=== PATIENT | male | born 1945 | race Caucasian/White ===

== ENCOUNTER → 2021-08-25 09:03 | Outpatient (REF) | payer BC, SELFPAY ==
--- NOTE | 2021-08-25 09:06 | CA_ITS ---
Transthoracic Echocardiogram Patient (Last, First, Middle): Donal Park, Gender: Male Date of : 1945 Age: 76 Procedure Date: 08/25/2021 Procedure Type: Transthoracic Echocardiogram Location: OP Height: 172.72 cm Weight: 85.28 kg BSA: 1.99 m2 Heart Rate: bpm BP: 130 / 90 mmHg Machine Long Goods Helper: LELIA Ortiz MD: Amrit Valladares [facility] Symptoms: Z95.1 - Presence of aortocoronary bypass graft Study Quality: Fair/Contrast Conclusions: - The left ventricular systolic function is severely decreased. The calculated ejection fraction is 27% by biplane method. - There is evidence of regional wall motion abnormalities. - There is mildly decreased right ventricular systolic function. - There is mild calcification of the aortic valve. Findings Procedure Information Contrast agent, definity, is being given per protocol without apparent complications. Left Ventricle Mildly increased left ventricular cavity size. The left ventricular systolic function is severely decreased. The calculated ejection fraction is 27% by biplane method. There is evidence of regional wall motion abnormalities. E/E prime ratio is between 8 and 15 consistent with indeterminate filling pressures. Evidence suggests grade I (mild) diastolic dysfunction. Wall Motion Rest Echo Findings The inferior wall, anterolateral wall, the apical anterior, basal anterior, apical lateral, apical septum, basal inferoseptal, basal anteroseptal, and mid inferolateral segments are hypokinetic. The apex, mid anterior, mid inferoseptal, mid anteroseptal, and basal inferolateral segments are akinetic. Right Ventricle Normal right ventricular cavity size. There is mildly decreased right ventricular systolic function. TAPSE 1.5cm. Atria Both atria are normal in size. Aortic Valve There is mild calcification of the aortic valve. There is no aortic valve stenosis. The mean gradient is 5 mmHg. The aortic valve area is 2.10 cm2. There is no aortic valve regurgitation. Mitral Valve The mitral valve appears normal. There is trace mitral valve regurgitation. There is no mitral valve stenosis. Pulmonic Valve The pulmonic valve was not well visualized. Tricuspid Valve Normal tricuspid valve structure. There is trace tricuspid valve regurgitation. The pulmonary artery systolic pressure is normal. Great Vessels The aortic arch is normal in size. Small plaque is seen in the sino tubular ridge. Venous The inferior vena cava is normal in size and collapses greater than 50% with inspiration. Pericardium/Pleural There is no evidence of pericardial effusion. Prior Study Comparison No significant change compared to prior study dated: 09/28/2006. Measurements 2D Linear Measurements IVSd: 0.84 0.6-0.9/0.6-1.0 cm LVIDd: 5.92 3.9-5.3/4.2-5.9 cm LVIDd Index: 2.97 2.4-3.2/2.2-3.1 cm/m2 LVIDs: 4.71 2.0-3.6 cm LVPWd: 0.81 0.7-1.1 cm Ao Root: 2.80 2.1-3.5 cm LA Diam: 3.80 2.7-3.8/3.0-4.0 cm LAIDs Index: 1.91 1.5-2.3 cm/m2 LV Mass: 236.27 67-162/88-224 g LV Mass Index: 118.73 43-95/49-115 g/m2 LVOT Diam: 2.30 3.0+(-)1.3 cm 2D Systolic Function EF 4C: 27.90 >55% EF 2C: 21.30 >55% EF BiP: 26.50 >55% Mitral Valve MV Pk E: 0.61 MV PK A: 0.62 MV Decel Time: 238.00 E/A: 1.00 E'Lateral: 6.64 E'Medial: 5.44 E/E' Med: 11.30 E/E' Lat: 9.20 PHT: 70.00 MVA PHT: 3.14 Decel [place]: 2.58 Aortic Valve AoV Pk Jacob: 1.59 AoV Mn Jacob: 1.04 AoV VTI: 0.29 AoV Pk Grad: 10.00 Aov Mn Grad: 5.00 FAREED Cont.VTI: 2.10 LVOT LVOT Pk Jacob: 0.80 LVOT Mn Jacob: 0.53 LVOT VTI: 0.15 LVOT Pk Grad: 3.00 LVOT Mn Grad: 1.00 LVOT Diam: 2.30 LVOT Area: 4.15 Diastolic Function MV Pk E: 0.61 MV Pk A: 0.62 E/A: 1.00 E'Medial: 5.44 E/E' Med: 11.30 E' Laterial: 6.64 E/E' Lat: 9.20 Right Ventricle TAPSE (mm): 1.47 TVS' Jacob: 5.87 Tricuspid Valve TR Pk Jacob: 1.71 TR Pk Grad: 12.00 RA Press: 3.00 RVSP: 15.00 Great Vessels Aorta Ao Root-2D: 2.80 2.0-3.7 cm Ao Asc: 3.20 2.1-3.4 cm Ao Arch: 2.60 Updated in Other Vendor System with Status of Final Eric Ovalles MD electronically signed on 08/26/2021 2:40:11 PM with status of Final
== END ==
LOC: HO.CARD 09:03
PROVIDERS: PCP Nurse Practitioner Family; Visit Provider Nurse Practitioner Family
DX: Z95.1 Presence of aortocoronary bypass graft (principal)
CPT/HCPCS: 93306; Q9957

== ENCOUNTER 2023-06-12 08:33 | Outpatient (AMB) | payer MEDICARE, SELFPAY ==
--- NOTE | 2023-06-12 08:38 | A.OFFPC_ITS ---
Vital Signs 06/12/23 08:39 Height 5 ft 8 in Weight 179 lb 4 oz BMI 27.3 BP 130/78 Blood Pressure Location Lt brachial Position Sitting Pulse 62 Pulse Source Pulse Oximeter Pulse Oximetry (%) 98 Oxygen Delivery Method Room Air Intake Visit Reasons: Medications Allergies No Known Allergies Allergy (Verified 06/12/23 08:57) Medication List - Last Reconciled 06/12/23 by PAU Woody aspirin (Adult Aspirin Regimen) 81 mg PO DAILY atorvastatin 80 mg PO DAILY 90 days carvedilol 6.25 mg PO BID cholecalciferol (vitamin D3) 50 mcg PO DAILY 90 days clopidogrel 75 mg PO DAILY esomeprazole magnesium (Nexium) 40 mg PO DAILY lisinopril 5 mg PO DAILY spironolactone 25 mg PO BID 30 days Tobacco use date assessed: 06/12/23 Fall risk assessment: 1 Fall in past year Last assessed Fall Risk: 06/12/23 Dental Screening Dental Screen Date: 06/12/23 Did you have a dental visit in the last 12 months?: No Did you have a dental problem in the last 6 months where you did not have access to dental care?: No Was dental information given to patient?: No HPI Medications HPI Details HTN: Blood pressure is managed with carvedilol 6.25mg bid, lisinopril 5mg, and spironolactone 25mg bid. Denies chest pain, shortness of breath, headache, dizziness, and blurred vision. Pt has a hx of cardiomyopathy and CABG. 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 Refused colon screens in the past, is willing to do a cologuard. PFSH Surgical History Hx of CABG Social History Housing: House Patient Tobacco Use Status: Current everyday Tobacco user Tobacco use type: Cigar Cigarettes Per Day: 1 e-Cigarette/Vaping Use: Never Used Second Hand Smoke Exposure: Yes service: Yes Current occupational status: employed Current occupation: [employer] Current occupational exposures/hazards: Yes Cognitive needs: No Hearing needs: No Vision needs: No Questionnaire Thrive Questionnaire Date Thrive assessed: 12/26/21 Review of Systems Const Reports as per HPI Physical exam (Primary Care) Vital Signs: Last Vital Signs Pulse 62 06/12/23 08:39 BP 130/78 06/12/23 08:39 Pulse Ox 98 06/12/23 08:39 Oxygen Delivery Method Room Air 06/12/23 08:39 BMI result Body Mass Index 27.3 Tobacco/Smoking Status: Tobacco use Status Tobacco use date assessed 06/12/23 06/12/23 08:49 Patient Tobacco Use Status Current everyday Tobacco 06/12/23 08:39 Tobacco use type Cigar 06/12/23 08:39 e-Cigarette/Vaping Use Never Used 06/12/23 08:49 Thrive Assessment: Date of Thrive Assessment Date Thrive assessed 12/26/21 06/12/23 08:39 Const General: cooperative Orientation/consciousness: patient oriented x3 Resp Other: lungs fairly clear Effort & Inspection: normal respiratory effort Cardio Rate: regular rate Rhythm: regular rhythm Heart sounds: S1 normal heart sound present, S2 normal heart sound present and Murmur heart sound present systolic Other: refused STACY Male General Exam: Yes normal external exam Penis: normal penis Scrotum: scrotum normal and testes descended bilaterally Testes: Testes normal Neuro General: patient oriented x3 Psych Appearance: grossly normal Mental Status: mental status grossly normal Speech and movement: Normal speech and movement present Affect: normal affect Attitude: cooperative Thought process: Normal thought process present Thought content: Normal thought content present Insight: Good insight present (Psych) Judgement: Good judgement present (Psych) Assessment and Plan Assessment & Plan (1) Cardiomyopathy: Code(s): I42.9 - Cardiomyopathy, unspecified Plan: Referred to cardiology (2) Hx of CABG: Code(s): Z95.1 - Presence of aortocoronary bypass graft Plan: Referred to cardiology (3) HTN (hypertension): Code(s): I10 - Essential (primary) hypertension Plan: Labs ordered Plan The patient agreed to the use of a medical technologist prn for this encounter. Scribed PAU Echevarria by mehdi Bender scribe, on 06/12/2023 at 09:00 EST. Orders: Orders Comprehensive [place]. Panel Fast Today I10 - Essential (primary) hypertension, Z95.1 - Presence of aortocoronary bypass graft Lipid Panel Today I10 - Essential (primary) hypertension, Z95.1 - Presence of aortocoronary bypass graft TSH reflex Free T4 Today I10 - Essential (primary) hypertension, Z95.1 - Presence of aortocoronary bypass graft Complete Blood Count Auto Diff Today I10 - Essential (primary) hypertension, Z95.1 - Presence of aortocoronary bypass graft UA CC w/rflx Micro + Cult Today I10 - Essential (primary) hypertension, Z95.1 - Presence of aortocoronary bypass graft Prostate Specific Antigen Scr Today Z12.5 - Encounter for screening for malignant neoplasm of prostate AMB EKG-In Office Today I10 - Essential (primary) hypertension, I42.9 - Cardiomyopathy, unspecified, Z95.1 - Presence of aortocoronary bypass graft Referrals Cardiology Referral I42.9 - Cardiomyopathy, unspecified, Z95.1 - Presence of aortocoronary bypass graft Cologuard Test Z12.11 - Encounter for screening for malignant neoplasm of colon, Z12.12 - Encounter for screening for malignant neoplasm of rectum Medications: Changed From aspirin (Adult Aspirin Regimen) 81 mg PO DAILY To aspirin (Adult Aspirin Regimen) 81 mg PO DAILY 90 days 90 tabs 0RF Refilled carvedilol 6.25 mg PO BID 180 tabs 0RF cholecalciferol (vitamin D3) 50 mcg PO DAILY 90 days 90 tabs 2RF clopidogrel 75 mg PO DAILY 90 tabs 0RF lisinopril 5 mg PO DAILY 90 tabs 0RF spironolactone 25 mg PO BID 30 days 60 tabs 2RF Coding Level of Care Code Est Pt Level 3 (40252) Diagnoses Cardiomyopathy I42.9 Hx of CABG Z95.1 HTN (hypertension) I10
[2023-06-12 08:39] VITALS: BP 130/78; PULSE 62; O2SAT 98; BMI 27.3
== END 2023-06-12 09:45 | disposition home or self-care (01) ==
PROVIDERS: PCP Nurse Practitioner Family; Visit Provider Nurse Practitioner Family
DX: I42.9 Cardiomyopathy, unspecified (principal); Z95.1 Presence of aortocoronary bypass graft; I10 Essential (primary) hypertension
CPT/HCPCS: 99213

== ENCOUNTER 2023-12-10 13:25 | Outpatient (AMB) | payer MEDICARE, SELFPAY ==
[2023-12-10 13:37] VITALS: BP 120/68; PULSE 60; BMI 29.1
--- NOTE | 2023-12-10 13:37 | MHC.OFFVIS ---
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 He was last here in 2019. Per consultation, he underwent coronary artery bypass surgery around 2005. No clear cardiology follow-up overall. Even at that time, his ejection fraction was around 20%. A follow-up echocardiogram in 2020 also shows similar LVEF. Patient himself states that he is feeling fine. He does not really have any cardiac symptoms like angina or shortness of breath or in fact anything else. He states he is fairly active around his house. [facility] Surgical History Hx of CABG Family History (Updated 12/10/23 @ 14:43 by Eric Ovalles MD) Father Myocardial infarction Mother Cancer Social History Housing: House Patient Tobacco Use Status: Current everyday Tobacco user Tobacco use type: Cigar Cigarettes Per Day: 1 e-Cigarette/Vaping Use: Never Used Second Hand Smoke Exposure: Yes service: Yes Current occupational status: employed Current occupation: [employer] Current occupational exposures/hazards: Yes Cognitive needs: No Hearing needs: No Vision needs: No Review of Systems Const Denies chills, Denies fatigue, Denies fever(s), Denies frequent falls, Denies weakness, Denies weight gain and Denies weight loss ENT Denies dizziness Card Denies chest pain, Denies leg edema, Denies lightheadedness, Denies palpitations, Denies dyspnea, Denies dyspnea on exertion and Denies orthopnea Resp Denies cough, Denies dyspnea and Denies dyspnea on exertion GI Denies bloating and Denies change in bowel habits Musc Denies muscle weakness, Denies numbness and Denies tingling Neuro Denies dizziness, Denies frequent falls, Denies numbness, Denies tingling and Denies weakness Endo Denies fatigue and Denies palpitations Physical Exam Vital Signs: Last Vital Signs Pulse 60 12/10/23 13:37 BP 120/68 12/10/23 13:37 BMI result Body Mass Index 29.1 Const General: comfortable and no acute distress Orientation/consciousness: patient oriented x3 HEENT Other: Unremarkable Head: Yes normal to inspection Neck Neck: Yes normal visual inspection Chest Chest palpation & inspection: normal inspection of the chest Resp Auscultation: clear to auscultation bilaterally Cardio Palpation: normal PMI Heart sounds: S1 normal heart sound present, S2 normal heart sound present, no gallops, no murmurs and no rubs GI Palpation (GI): Soft to palpation Back/Spine/Pelvis Other: unremarkable Skin General skin exam: no rashes or lesions noted Neuro General: patient oriented x3 Extrem General: Yes normal to inspection Psych Mental Status: mental status grossly normal Office Procedures EKG Details: EKG with sinus rhythm at 64/Min; old anterior infarct can not exclude old inferior infarct. [id number], Complete Assessment & Plan Assessment & Plan (1) Cardiomyopathy: Code(s): I42.9 - Cardiomyopathy, unspecified (2) Hx of CABG: Code(s): Z95.1 - Presence of aortocoronary bypass graft Plan A prior echocardiogram 2005 with LVEF of about 20%. More recent study from 2020 with LVEF of 27% with wall motion abnormalities from CAD. We discussed about pursuing other echocardiogram as well as an ischemic workup with stress test but patient does not want anything done. He states he would like to just stay on his medications and not have anything further. In that case, he can stop the Plavix as there is no absolute indication for the same. Continue other medications. Also discussed about ICD for primary prevention but he again does not wish to pursue. He states he will just follow up with his PCP only for future. Coding Level of Care Code New Pt Level 4 (62555) Diagnoses Cardiomyopathy I42.9 Hx of CABG Z95.1 CPT Codes EKG - CPT: 55055-Kfhlwppjaevomysyf, Complete ([id number])
== END 2023-12-10 13:58 | disposition home or self-care (01) ==
PROVIDERS: PCP Nurse Practitioner Family; Visit Provider Internal Medicine
DX: I42.9 Cardiomyopathy, unspecified (principal); Z95.1 Presence of aortocoronary bypass graft; R94.31 Abnormal electrocardiogram [ECG] [EKG]
CPT/HCPCS: 93010; 99214

== ENCOUNTER → 2023-12-10 13:25 | Outpatient (BNVA) | payer MEDICARE, SELFPAY | PROVIDERS: PCP Nurse Practitioner Family; Visit Provider Internal Medicine | DX: I42.9 Cardiomyopathy, unspecified (principal); Z95.1 Presence of aortocoronary bypass graft | CPT/HCPCS: 93005; 99212 ==

== ENCOUNTER 2024-07-30 15:03 | Outpatient (AMB) | payer MEDICARE, SELFPAY ==
[2024-07-30 15:04] VITALS: BP 124/76; PULSE 90; O2SAT 98; BMI 28.9
--- NOTE | 2024-07-30 15:04 | A.OFFPC_ITS ---
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: Yes Did you have a dental problem in the last 6 months where you did not have access to dental care?: No Was dental information given to patient?: Patient has dentist HPI Annual PE/ meds HPI Details HTN: Blood pressure is stable, managed with carvedilol 6.25mg bid, lisinopril 5mg, and spironolactone 25mg bid. Denies chest pain, shortness of breath, headache, dizziness, and blurred vision. Pt has a hx of elevated PSA. He is no longer seeing urology. Prostate did feel enlarged on exam. Pt has refused urology referral in the past. Will place referral now, highly encouraged pt to go to this appointment. Pt has a hx of CABG. EKG today shows afib. Will start eliquis 5mg bid and have pt stop aspirin. Pt is on a beta yoko. Will also order echo and holter. Pt has refused to see cardiology in the past, encouraged pt to go to this appointment. Pt will have labs done next week. Has refused colon screens in the past, resent cologuard [facility] Surgical History Hx of CABG Family History (Reviewed 07/30/24 @ 15:20 by Amrit Valladares [facility]) Father Myocardial infarction Mother Cancer Social History (Reviewed 07/30/24 @ 15:20 by Amrit Valladares [facility]) Housing: House Patient Tobacco Use Status: Current everyday Tobacco user Tobacco use type: Cigar Cigarettes Per Day: 1 e-Cigarette/Vaping Use: Never Used Second Hand Smoke Exposure: Yes service: Yes Current occupational status: employed Current occupation: [employer] Current occupational exposures/hazards: Yes Cognitive needs: No Hearing needs: No Vision needs: No Questionnaire PHQ-9 Over the last 2 weeks, how often have you been bothered by any of the following problems? 1. Little interest or pleasure in doing things: not at all 2. Feeling down, depressed, or hopeless: not at all 3. Trouble falling or staying asleep, or sleeping too much: not at all 4. Feeling tired or having little energy: not at all 5. Poor appetite or overeating: not at all 6. Feeling bad about yourself - or that you are a failure or have let yourself or your family down: not at all 7. Trouble concentrating on things, such as reading the newspaper or watching television: not at all 8. Moving or speaking so slowly that other people could have noticed. Or the opposite - being so fidgety or restless that you have been moving around a lot more than usual: not at all 9. Thoughts that you would be better off or of hurting yourself in some way: not at all Total score: 0 Depression Screening Interpretation: Negative Depression Screening Done: Yes 97202 - PHQ-9 Billing: Yes Source: Developed by Drs. Mars Cheng, Tory Vazquez, Morgan Sarmiento and colleagues, with an educational christelle from [employer]. Thrive Questionnaire Date Thrive assessed: 07/30/24 I am a: Patient What is your living situation today?: I have a steady place to live Within the past 12 months, did the food you bought not last and you didn't have the money to get more?: I choose not to answer this question Within the past 12 months, did you worry whether your food would run out before you got money to buy more?: I choose not to answer this question Do you have trouble paying for medicines?: I choose not to answer this question Do you have trouble getting transportation to medical appointments?: No Do you have trouble paying your heating and electricity bill?: No Do you have trouble taking care of your child, family member or friend?: No Do you have trouble with day-to-day activities such as bathing, preparing meals, shopping, managing finances, etc.?: No Are you currently unemployed and looking for a job?: No Are you interested in more education?: No Please select the resources that you would like help with: None Currently or been in a relationship where the following occur: No concerns reported THRIVE Score: 0 AUDIT C Alcohol Use Questionnaire (AUDIT-C) 1. How often do you have a drink containing alcohol?: Monthly or less 2. How many drinks containing alcohol do you have on a typical day when you are drinking?: 1 or 2 3. How often do you have six or more drinks on one occasion?: Never Total Score: 1 Score Reviewed/Action Taken: Yes LUIS-7 AMB Questionnaire LUIS-7 Date LUIS - 7 assessed: 07/30/24 Feeling nervous, anxious, or on edge: 0 = Not at all Not being able to stop or control worryin = Not at all Worrying too much about different things: 0 = Not at all Trouble relaxin = Not at all Being so restless that it is hard to sit still: 0 = Not at all Becoming easily annoyed or irritable: 0 = Not at all Feeling afraid as if something awful might happen: 0 = Not at all Total LUIS-7 score (0-4 normal; 5-9 mild; 10-14 moderate; 15-21 severe): 0 Source: Developed by Drs. Mars Cheng, Tory Vazquez, Morgan Sarmiento and colleagues, with an educational christelle from [employer]. LUIS-7 Assessment Billing LUIS-7 Assessment Tool: LUIS-7 Assessment 58738 Review of Systems Const Reports as per HPI Physical exam (Primary Care) Vital Signs: Last Vital Signs Pulse 90 07/30/24 15:04 BP 124/76 07/30/24 15:04 Pulse Ox 98 07/30/24 15:04 Oxygen Delivery Method Room Air 07/30/24 15:04 BMI result Body Mass Index 28.9 Tobacco/Smoking Status: Tobacco use Status Tobacco use date assessed 07/30/24 07/30/24 15:05 Patient Tobacco Use Status Current everyday Tobacco 07/30/24 15:05 Tobacco use type Cigar 07/30/24 15:05 e-Cigarette/Vaping Use Never Used 07/30/24 15:05 PHQ-9: PHQ-9 Score PHQ-9: Total score 0 07/30/24 18:05 Depression Screening Interpretation: Negative Thrive Assessment: Date of Thrive Assessment Date Thrive assessed 07/30/24 07/30/24 15:05 Currently or been in a relationship where the following occur: No concerns reported Const General: cooperative Orientation/consciousness: patient oriented x3 Resp Effort & Inspection: normal respiratory effort Auscultation: clear to auscultation bilaterally Cardio Rate: regular rate Rhythm: abnormal rhythm irregularly irregular Heart sounds: Murmur heart sound present systolic Other: STACY: prostate enlarged Neuro General: patient oriented x3 Extrem Right lower extremity: no edema Left lower extremity: no edema Psych Appearance: grossly normal Mental Status: mental status grossly normal Speech and movement: Normal speech and movement present Affect: normal affect Attitude: cooperative Thought process: Normal thought process present Thought content: Normal thought content present Insight: Good insight present (Psych) Judgement: Good judgement present (Psych) Coding Level of Care Code Est Pt Level 3 (81915) Diagnoses Enlarged prostate N40.0 Afib I48.91 Cardiomyopathy I42.9 Additional Codes LUIS-7 Assessment Billing - LUIS-7 Assessment Tool: LUIS-7 Assessment 27003 ([id number]) Assessment & Plan Assessment & Plan (1) Enlarged prostate: Code(s): N40.0 - Benign prostatic hyperplasia without lower urinary tract symptoms Category: Medical Plan: referral to urology (2) Afib: Code(s): I48.91 - Unspecified atrial fibrillation Category: Medical Plan: echo, holter, stop ASA and start eliquis, sleep med referral for sleep study (3) Cardiomyopathy: Code(s): I42.9 - Cardiomyopathy, unspecified Category: Medical Plan: echo, referral to cardio Plan The patient agreed to the use of a ophthalmic medical technician for this encounter. Scribed for [facility] by mehdi Bender scribe, on 07/30/2024 at 15:15 EST. Orders: Orders ECG 7 day holter monitor Today I48.91 - Unspecified atrial fibrillation CA echo transthoracic complete Today I42.9 - Cardiomyopathy, unspecified, I48.91 - Unspecified atrial fibrillation Referrals Sleep Medicine Referral I48.91 - Unspecified atrial fibrillation Cologuard Test Z12.11 - Encounter for screening for malignant neoplasm of colon, Z12.12 - Encounter for screening for malignant neoplasm of rectum Urology Referral N40.0 - Benign prostatic hyperplasia without lower urinary tract symptoms Medications: New apixaban (Eliquis) 5 mg PO BID 60 tabs 4RF 30 days Discontinued aspirin (Adult Aspirin Regimen) Discontinued Reason: Doctor's Order 81 mg PO DAILY 90 days 90 tabs 0RF
== END 2024-07-30 16:25 | disposition home or self-care (01) ==
PROVIDERS: PCP Nurse Practitioner Family; Visit Provider Nurse Practitioner Family
DX: N40.0 Benign prostatic hyperplasia without lower urinary tract symptoms (principal); I48.91 Unspecified atrial fibrillation; I42.9 Cardiomyopathy, unspecified

== ENCOUNTER → 2024-07-30 15:03 | Outpatient (BNVA) | payer MEDICARE, SELFPAY | PROVIDERS: PCP Nurse Practitioner Family; Visit Provider Nurse Practitioner Family | DX: N40.0 Benign prostatic hyperplasia without lower urinary tract symptoms (principal); I48.91 Unspecified atrial fibrillation; I42.9 Cardiomyopathy, unspecified; Z79.899 Other long term (current) drug therapy | CPT/HCPCS: 96127; 99212 ==

== ENCOUNTER 2024-08-07 10:05 | Outpatient (REF) | payer MEDICARE, SELFPAY ==
[2024-08-07 13:20] LABS: MANUAL DIFF FLAG NO
[2024-08-07 13:26] LABS: Appearance Urine Clear; Color Urine Yellow; Glucose Urine UA Negative (Negative); Leukocyte Esterase Urine Negative (Negative); Nitrite Urine Negative (Negative); Specific Gravity - Urine 1.025 (1.005-1.025); Urine Blood Negative (Negative); Urine Ketones Trace mg/dL (Negative); Urine Protein Negative (Neg-Trace)
[2024-08-07 13:34] LABS: Basophils Percent Auto 0.4 % (0-2); Eosinophils Absolute Auto 0.3 X10*3/uL (0.0-0.4); Eosinophils Percent Auto 2.9 % (0-4); Hematocrit 42.5 % (42.0-52.0); Hemoglobin 14.2 g/dl (14.0-18.0); Imm Gran Abs Auto 0.02 X10*3/uL (0.00-0.03); Imm Gran Pct Auto 0.2 % (0.0-0.4); Lymphocytes Absolute Auto 1.9 X10*3/uL (1.2-4.9); Lymphocytes Percent Auto 20.3 % (20-40); Mean Corpuscular HGB Conc 33.4 g/dl (31.0-36.0); Mean Corpuscular Hemoglobin 30.9 pg (27.0-33.0); Mean Corpuscular Volume 92.4 fL (80.0-98.0); Mean Platelet Volume 10.4 fL (9.4-12.4); Monocytes Absolute Auto 0.8 X10*3/uL (0.1-1.2); Monocytes Percent Auto 8.9 % (2-11); Neutrophils Absolute Auto 6.1 x10*3/uL (2.0-8.3); Neutrophils Percent Auto 67.3 % (45-73); Platelet Count 361 X10*3/uL (160-400); Red Cell Distribution Width 12.5 % (11.0-16.0); White Blood Count 9.1 X10*3/uL (4.8-10.8)
[2024-08-07 13:57] LABS: Prostate Specific Antigen Scr 8.31 ng/mL (<0.05-4.0)
[2024-08-07 14:19] LABS: Alanine Aminotransferase 27 U/L (0-40); Albumin Level 4.4 g/dL (3.5-5.0); Alkaline Phosphatase 81 U/L (39-117); Aspartate Amino Transferase 34 U/L (5-37); Bilirubin Total 1.3 mg/dL (0.0-1.0); Blood Urea Nitrogen 21 mg/dL (9-16); Cholesterol 144 mg/dL (<200); Estimated Glomerular Filt Rate > 60; Glucose Fasting 123 mg/dL (60-99); HDL Cholesterol 36 mg/dL (>40); LDL Cholesterol Calculated 91 mg/dL (<100); TSH reflex Free T4 2.07 uIU/mL (0.32-4.0); Total Protein 7.4 g/dL (6.5-8.0); Triglycerides 89 mg/dL (<150)
[2024-08-07 14:36] LABS: Anion Gap 12 (12-20); Carbon Dioxide 26 mmol/L (22-29); Chloride 103 mmol/L (96-108); Potassium 4.7 mmol/L (3.3-5.1); Sodium 136 mmol/L (135-145)
== END 2024-08-07 10:06 | disposition home or self-care (01) ==
LOC: HO.HMGCLDS 10:05
PROVIDERS: PCP Nurse Practitioner Family; Visit Provider Nurse Practitioner Family
DX: I42.9 Cardiomyopathy, unspecified (principal); I10 Essential (primary) hypertension; Z12.5 Encounter for screening for malignant neoplasm of prostate
CPT/HCPCS: 36415; 80053; 80061; 81003; 84153; 84443; 85025

== ENCOUNTER 2024-12-09 09:41 | Outpatient (REF) | payer MEDICARE, SELFPAY ==
--- OUTSIDE RECORDS SUMMARY | 2024-12-09 12:50 | XMS_ITS | Clinical Summary ---
Author Organization [facility] Address [address] [place] [address] Care Team Providers Care Verification Manager Name Role Phone Amrit Valladares Primary Care Provider [phone] Allergies No known active allergies Medications Medication [...] age to complete this topic Care Teams Verification Manager Relationship Specialty Start Date End Date Amrit Valladares [address] [facility] [place] [address] PCP - General Family Medicine 01/31/18
--- OUTSIDE RECORDS SUMMARY | 2024-12-09 12:50 | XMS_ITS | Clinical Summary ---
Author Organization [facility] ity Address [address] [place] [address] Care Team Providers Care Quality Systems Manager Name Role Phone Amrit Valladares NP Primary Care Provider Social History [...] age to complete this topic Care Teams Quality Systems Manager Relationship Specialty Start Date End Date Amrit Valladares NP [address] [facility] [place] PCP - General Family Medicine 01/31/18
[2024-12-09 13:54] LABS: Basophils Percent Auto 0.2 % (0-2); Hematocrit 40.8 % (42.0-52.0); Hemoglobin 13.7 g/dl (14.0-18.0); Imm Gran Abs Auto 0.09 X10*3/uL (0.00-0.03); Imm Gran Pct Auto 0.6 % (0.0-0.4); Lymphocytes Absolute Auto 0.9 X10*3/uL (1.2-4.9); Lymphocytes Percent Auto 5.9 % (20-40); MANUAL DIFF FLAG SCAN; Mean Corpuscular HGB Conc 33.6 g/dl (31.0-36.0); Mean Corpuscular Hemoglobin 30.6 pg (27.0-33.0); Mean Corpuscular Volume 91.1 fL (80.0-98.0); Mean Platelet Volume 11.4 fL (9.4-12.4); Monocytes Absolute Auto 1.6 X10*3/uL (0.1-1.2); Monocytes Percent Auto 10.7 % (2-11); Neutrophils Absolute Auto 12.2 x10*3/uL (2.0-8.3); Neutrophils Percent Auto 82.6 % (45-73); Platelet Count 287 X10*3/uL (160-400); Red Blood Count 4.48 X10*6/uL (4.60-5.80); Red Cell Distribution Width 13.8 % (11.0-16.0); SCAN SMEAR FLAG 1; White Blood Count 14.8 X10*3/uL (4.8-10.8)
[2024-12-09 14:20] LABS: SLIDE REVIEW VERIFIED
[2024-12-09 14:34] LABS: Alanine Aminotransferase 78 U/L (0-40); Albumin Level 4.1 g/dL (3.5-5.0); Alkaline Phosphatase 94 U/L (39-117); Amylase 44 U/L (28-100); Anion Gap 14 (12-20); Aspartate Amino Transferase 120 U/L (5-37); Bilirubin Direct 0.7 mg/dL (0.0-0.5); Bilirubin Total 1.8 mg/dL (0.0-1.0); Blood Urea Nitrogen 26 mg/dL (9-16); Calcium 9.7 mg/dL (8.4-10.2); Carbon Dioxide 20 mmol/L (22-29); Chloride 105 mmol/L (96-108); Estimated Glomerular Filt Rate > 60; Glucose Random 116 mg/dL (60-115); Lipase 22 U/L (8-78); Potassium 4.1 mmol/L (3.3-5.1); Sodium 135 mmol/L (135-145); Total Protein 7.4 g/dL (6.5-8.0)
== END 2024-12-09 09:42 | disposition home or self-care (01) ==
LOC: HO.HMGCLDS 09:41
PROVIDERS: PCP Nurse Practitioner Family; Visit Provider Physician Assistant
DX: R11.2 Nausea with vomiting, unspecified (principal); R10.9 Unspecified abdominal pain; R17 Unspecified jaundice; F17.210 Nicotine dependence, cigarettes, uncomplicated; R25.2 Cramp and spasm
CPT/HCPCS: 36415; 80053; 82150; 82248; 83690; 85025; 99212

== ENCOUNTER 2024-12-09 09:41 | Outpatient (AMB) | payer MEDICARE, SELFPAY ==
--- NOTE | 2024-12-09 09:49 | AM.OFFWIN_ITS ---
Intake Vital Signs 12/09/24 09:51 Height 5 ft 8 in Weight 194 lb BMI 29.5 BP 124/82 Blood Pressure Location Rt brachial Position Sitting Pulse 74 Pulse Source Pulse Oximeter Temp 97.6 F Temp Source Oral Pulse Oximetry (%) 98 Oxygen Delivery Method Room Air Intake Visit Reasons: EP Nausea, leg cramps Intake Note: Patient here for lower back pain, nausea and leg cramping that has been present for about 1 week now. Patient Tobacco Use Status: Current everyday Tobacco user Allergies No Known Allergies Allergy (Verified 12/09/24 09:52) Do you need a note to return to daycare/school/sports/work: No HPI HPI Comments History of Present Illness Details Generating History of Present Illness -The patient is a 79-year-[facility] with jaundice, nausea, and loss of appetite. - Symptoms began a few days prior, invol ving persistent nausea, particularly at night, affecting sleep. - Notably, there is no reported abdomina l pain, vomiting, diarrhea, or fever accompanying the nausea. - The patient reports a reduced appetite and difficulty maintaining regular eating habits, noting a weight loss of 6 pounds. - Night sweats have been experienced rec ently - Leg cramps are present - He maintains hydration through water i ntake, though electrolytes have not been supplemented. - The patient denies any previous episod es of appendicitis or other abdominal surgeries. - Has had elevated PSA and refused Urolo gy referrals as well as refused colonoscopies and Cologuard Physical ExamGeneral: Cooperative, healthy appearing, comfortable, no acute distress and well developed Orientation: Patient oriented x3 Limitations: No limitations Head: Normal to inspection Ears: Hearing grossly normal bilaterally Nose: Normal external nose present Face and sinus: Normal facial exam, jaundiced Eyes: scleral icterus,normal position and alignment Neck: Normal visual inspection and Yes full ROM Respiratory: Normal respiratory effort and able to speak in complete sentences. Clear to auscultation bilaterally Cardiovascular: Regular rate and rhythm. Normal S1 and S2 GI: soft, slight TTP RLQ Skin: No rashes or lesions noted, jaundiced Neuro: Patient oriented x3 Extremities: Normal to inspection PFSH Surgical History Hx of CABG Family History Father Myocardial infarction Mother Cancer Social History Housing: House Patient Tobacco Use Status: Current everyday Tobacco user Tobacco use type: Cigar Cigarettes Per Day: 1 e-Cigarette/Vaping Use: Never Used Second Hand Smoke Exposure: Yes service: Yes Current occupational status: employed Current occupation: [employer] Current occupational exposures/hazards: Yes Cognitive needs: No Hearing needs: No Vision needs: No Review of Systems Const All systems reviewed & are unremarkable except as noted in HPI and below Physical Exam Vital Signs: Last Vital Signs Temp 97.6 F 12/09/24 09:51 Pulse 74 12/09/24 09:51 BP 124/82 12/09/24 09:51 Pulse Ox 98 12/09/24 09:51 Oxygen Delivery Method Room Air 12/09/24 09:51 BMI result Body Mass Index 29.5 Assessment & Plan Assessment & Plan (1) Nausea & vomiting: Code(s): R11.2 - Nausea with vomiting, unspecified Qualifiers: Vomiting type: unspecified Qualified Code(s): R11.2 - Nausea with vomiting, unspecified Plan: Vital signs stable. The patient presents with persistent nausea & vomiting, and leg cramps, loss of appetite, weight loss, night sweats and is jaundiced on exam, requiring further evaluation to rule out underlying liver dysfunctions and potential pancreatic disorders. Laboratory assessment including CBC, CMP, liver and pancreatic function will be performed. Additionally, I have coordinated with his PCP to order a CT scan to evaluate for any obstructions or other structural abnormalities. The patient will utilize anti-nausea medication, specifically Z ofran, to mitigate symptoms and improve oral intake. Continuous hydration is emphasized, and caution against the consumption of high-fat foods is advised. Emergency care is recommended if significant worsening occurs, particularly concerning abdominal pain escalation. Patient was informed and verbally consented to the use of an ambient scribe for clinic note documentation during this visit Orders: Orders Complete Blood Count Auto Diff Today R10.9 - Unspecified abdominal pain, R11.2 - Nausea with vomiting, unspecified, R17 - Unspecified jaundice Lipase Today R10.9 - Unspecified abdominal pain, R11.2 - Nausea with vomiting, unspecified, R17 - Unspecified jaundice Amylase Today R10.9 - Unspecified abdominal pain, R11.2 - Nausea with vomiting, unspecified, R17 - Unspecified jaundice Liver Panel Today R10.9 - Unspecified abdominal pain, R11.2 - Nausea with vomiting, unspecified, R17 - Unspecified jaundice Comprehensive Met. Panel Today R10.9 - Unspecified abdominal pain, R11.2 - Nausea with vomiting, unspecified, R17 - Unspecified jaundice Medications: New ondansetron 4 mg PO Q8H PRN 20 tabs 0RF nausea and vomiting Coding Level of Care Code Est Pt Level 4 (54891) Diagnoses Nausea and vomiting, unspecified vomiting type R11.2 Vomiting type: unspecified
[2024-12-09 09:51] VITALS: BP 124/82; PULSE 74; TEMP 36.4; O2SAT 98; BMI 29.5
--- OUTSIDE RECORDS SUMMARY | 2024-12-09 11:12 | XMS_ITS | Clinical Summary ---
Author Organization [facility] ity Address [address] [place] [address] Care Team Providers Care Jewel Inserter Name Role Phone Armit Valladares NP Primary Care Provider Social History Tobacco Use Types Packs/Day Years Used Date Smoking Tobacco: Never Assessed Sex and Gender Information Value Date Recorded Sex Assigned at Not on file Legal Sex Male 11:30 AM EST Gender Identity Not on file Sexual Orientation Not on file Plan of Treatment Health Maintenance Due Date Last Done Comments Pneumococcal Vaccine: 50+ Ye ars (1 of 1 - PCV) 1996 Zoster Vaccines (1 of 2) 1996 RSV Immunization Patients 60 + Years Old (1 - 1-dose 75+ series) 2021 COVID-19 Vaccine ( - 2023-2 5 season) 2024 Influenza Vaccine (#1) 2024 DTaP,Tdap,and Td Vaccines (2 - Td or Tdap) 02/01/2028 01/31/2018 HIB Vaccines Aged Out No longer eligi ble based on patient's age to complete this topic HPV Vaccines Aged Out No longer eligi ble based on patient's age to complete this topic Hepatitis A Vaccines Aged Out No long er eligible based on patient's age to complete this topic Hepatitis B Vaccines Aged Out No long er eligible based on patient's age to complete this topic IPV Vaccines Aged Out No longer eligi ble based on patient's age to complete this topic MMR Vaccines Aged Out No longer eligi ble based on patient's age to complete this topic Meningococcal ACWY Vaccine Aged Out N o longer eligible based on patient's age to complete this topic Meningococcal B Vacine Aged Out No lo nger eligible based on patient's age to complete this topic RSV Immunization Patients Un pantera 20 months Aged Out No longer eligible b ased on patient's age to complete this topic Varicella Vaccines Aged Out No longer eligible based on patient's age to complete this topic Care Teams Jewel Inserter Relationship Specialty Start Date End Date Amrit Valladares NP [address] [facility] [place] PCP - General Family Medicine 01/31/18
--- OUTSIDE RECORDS SUMMARY | 2024-12-09 11:12 | XMS_ITS | Clinical Summary ---
Author Organization [facility] Address [address] [place] [address] Care Team Providers Care Catering Staff Member Name Role Phone Amrit Valladares Primary Care Provider [phone] Allergies No known active allergies Medications Medication Sig Dispensed Refills Start Date End Date Status Clopidogrel Bisulfate (PLAVIX PO) Take by mouth. 0 Active LISINOPRIL PO Take by mouth. 0 Active SPIRONOLACTONE PO Take by mouth. 0 Act jose aspirin EC 81 MG tablet Take 81 mg by mouth daily. 0 Active ATORVASTATIN CALCIUM PO Take by mouth. 0 Active Esomeprazole Magnesium (NEXIUM PO) Take by mouth. 0 Active CARVEDILOL PO Take by mouth. 0 Active Immunizations Name Administration Dates Next Due Td (Tenivac) 01/31/2018 Social History Tobacco Use Types Packs/Day Years Used Date Smoking Tobacco: Every Day Cigars Smokeless Tobacco: Never Comments:2-3/day Alcohol Use Standard Drinks/Week Comments Yes 0 (1 standard drink = 0.6 oz pur e alcohol) Sex and Gender Information Value Date Recorded Sex Assigned at Not on file Gender Identity Not on file Sexual Orientation Not on file Last Filed Vital Signs Vital Sign Reading Time Taken Comments Blood Pressure 146/91 01/31/2018 1:14 AM EDT Pulse 92 01/31/2018 1:14 AM EDT Temperature 36.9 ??C (98.5 ??F) 01/31/2018 1:14 AM ED T Respiratory Rate 16 01/31/2018 1:14 AM EDT Oxygen Saturation 98% 01/31/2018 1:14 AM EDT Inhaled Oxygen Concentration - - Weight 90.7 kg (200 lb) 01/31/2018 1:14 AM EDT Height 175.3 cm (5' 9 ) 01/31/2018 1:14 AM EDT Body Mass Index 29.53 01/31/2018 1:14 AM EDT Plan of Treatment Health Maintenance Due Date Last Done Comments Hepatitis C Screening 1945 COVID-19 Vaccine (#1) 1945 Pneumococcal Vaccine (1 of 2 - PCV) 1952 Depression Screening 1958 Preventative Health Evaluation 1964 Shingrix-Zoster Vaccine (1 of 2) 1996 Fall Risk Assessment 2011 DTap / Tdap / Td (1 - Tdap) 02/01/2018 01/31/2018 RSV Adult > 60+ Yrs or Pregn ant (1 - 1-dose 75+ series) 2021 Influenza Vaccine (#1) 2024 Hepatitis B Vaccines Aged Out No long er eligible based on patient's age to complete this topic RSV Ped < 20 months Aged Out No longe r eligible based on patient's age to complete this topic Care Teams Catering Staff Member Relationship Specialty Start Date End Date Amrit Valladares [address] [facility] [place] [address] PCP - General Family Medicine 01/31/18
== END 2024-12-09 10:28 | disposition home or self-care (01) ==
PROVIDERS: PCP Nurse Practitioner Family; Visit Provider Physician Assistant
DX: R11.2 Nausea with vomiting, unspecified (principal)

== ENCOUNTER 2024-12-12 18:06 | Emergency (ER) | payer MEDICARE, SELFPAY ==
--- NOTE | ~2024-12-12 | XR_ITS ---
CLINICAL HISTORY: strock 1 view chest x-ray Comparison: None Findings: No consolidation or effusion. Heart size is normal. No acute fracture. IMPRESSION: 1. No acute findings. This document has been electronically signed by: Neftaly Gama MD on 12/12/2024 18:39:37
--- NOTE | ~2024-12-12 | CT_ITS ---
CLINICAL HISTORY: Stroke Protocol CT angiography head and neck with contrast. 3D Postprocessing. Comparison: None Findings: There is a focal filling defect in the M1 segment of the right MCA, possible thrombus with diminished flow noted distally. Aortic arch and cervical great vessels are patent. Intracranial arteries are otherwise patent. No aneurysm, dissection, or occlusion. No abnormal intracranial enhancement. The visualized thyroid gland is unremarkable. No cervical mass or fluid collection. Lung apices clear. No acute fracture. IMPRESSION: Partially occluded right MCA M1 segment, possible thrombus. This document has been electronically signed by: Neftaly Gama MD on 12/12/2024 19:35:44
--- NOTE | ~2024-12-12 | CT_ITS ---
CLINICAL HISTORY: Stroke Protocol CT head without contrast Comparison: None Findings: No intra-axial mass, midline shift, hydrocephalus, or acute hemorrhage. No significant atrophy-like change or white matter disease. There is no sinus or mastoid fluid. The orbits are unremarkable. There is no acute fracture. IMPRESSION: 1. No acute intracranial findings. This document has been electronically signed by: Neftaly Gama MD on 12/12/2024 18:28:30
[2024-12-12 18:11] VITALS: BP 118/50; PULSE 100; RESP 18; TEMP 36.9; O2SAT 100
--- NOTE | 2024-12-12 18:11 | ECG_ITS ---
Test Reason : stroke Blood Pressure : */* mmHG Vent. Rate : 110 BPM Atrial Rate : * BPM P-R Int : * ms QRS Dur : 102 ms QT Int : 342 ms P-R-T Axes : * 73 -39 degrees QTcB Int : 462 ms Atrial fibrillation with rapid ventricular response with premature ventricular or aberrantly conducted complexes Cannot rule out Inferior infarct (cited on or before 27-Sep-2006) Anterolateral infarct (cited on or before 27-Sep-2006) Abnormal ECG When compared with ECG of 29-Sep-2006 07:02, Atrial fibrillation has replaced Sinus rhythm Questionable change in initial forces of Lateral leads Questionable change in initial forces of Inferior leads Referred By: Raffi Cheng Electronically Signed By: Bossman George
--- NOTE | 2024-12-12 18:12 | ED_ITS ---
HPI - Neuro Symptoms/Deficit General Chief Complaint: Stroke Stated Complaint: slurred speech, L side weakness, lkwt 4:30 pm Time Seen by Provider: 12/12/24 18:10 Source: patient, family, EMS and old records reviewed Mode of arrival: EMS Limitations: no limitations History of Present Illness ED Provider: DR. Cheng HPI Narrative: 79-year-old male known history of atrial fibrillation on apixaban for anticoagulation, cardiomyopathy was ejection fraction of 20%, last known well was 1 hour before arrival patient started to have left-sided body weakness, left facial droop, slurred speech, and right visual gaze. No trauma, patient declined any chest pain. 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 Related Data Previous Rx's ?Medication ?Instructions ?Recorded atorvastatin 80 mg tablet 80 mg PO DAILY 90 days #90 tabs 04/20/24 spironolactone 25 mg tablet 25 mg PO BID 90 days #180 tabs 04/20/24 apixaban 5 mg tablet (Eliquis) 5 mg PO BID 30 days #60 tabs 07/30/24 carvedilol 6.25 mg tablet 6.25 mg PO BID #180 tabs 10/20/24 lisinopril 5 mg tablet 5 mg PO DAILY #90 tabs 10/20/24 cholecalciferol (vitamin D3) 50 50 mcg PO DAILY 90 days #90 tabs 12/07/24 mcg (2,000 unit) tablet ondansetron 4 mg disintegrating 4 mg PO Q8H PRN nausea and 12/09/24 tablet vomiting #20 tabs Allergies Allergy/AdvReac Type Severity Reaction Status Date / Time No Known Allergies Allergy Verified 12/12/24 18:38 Review of Systems 2 Review of Systems: All other systems are reviewed and are negative Constitutional: Reports as per HPI and Reports no additional constitutional complaints Eyes: Reports as per HPI and Reports no additional eye complaints Reports system reviewed and no additional complaints, except as documented Cardiovascular: Reports as per HPI and Reports no additional cardiovascular complaints Respiratory: Reports as per HPI and Reports no additional respiratory complaints Gastrointestinal: Reports as per HPI and Reports no additional gastrointestinal complaints Genitourinary: Reports no additional female genitourinary complaints Musculoskeletal: Reports no additional musculoskeletal complaints Skin/Breast: Reports system reviewed and no additional complaints, except as docu Psychiatric: Reports no additional psychiatric complaints Endocrine: Reports no additional endocrine complaints Hematologic/Lymphatic: Reports no additional hematologic/lymphatic complaints Allergic/Immunologic: Reports no additional allergic/immunologic complaints Reports system reviewed and no additional complaints, except as documented and Reports Abnormal speech present [facility] Past Medical History Surgical History Hx of CABG Family History Family History Father Myocardial infarction Mother Cancer Social History Social History Housing: House Patient Tobacco Use Status: Current everyday Tobacco user Tobacco use type: Cigar Cigarettes Per Day: 1 e-Cigarette/Vaping Use: Never Used Second Hand Smoke Exposure: Yes Advance Directives: No Advance Directives Information Provided: No service: Yes Current occupational status: employed Current occupation: [employer] Current occupational exposures/hazards: Yes Cognitive needs: No Hearing needs: No Vision needs: No Physical Exam 2 Vital Signs: Vital Signs: Last Vital Signs Temp 98.5 F 12/12/24 18:11 Pulse 100 12/12/24 18:11 Resp 18 12/12/24 18:11 BP 118/50 L 12/12/24 18:11 Pulse Ox 100 12/12/24 18:11 O2 Del Method Nasal Cannula 12/12/24 18:11 Oxygen Flow Rate 2 12/12/24 18:11 BMI result Body Mass Index 30.0 Vital signs have been reviewed and appear to be correct. Blood pressure elevated. Heart rate normal. Respiratory rate normal. Temperature normal. Oxygen saturation normal. Appearance: Alert. Oriented X3. No acute distress. Head: Normal external exam. Normocephalic. Atraumatic. No Luke signs noted. No raccoon eyes noted Eyes: PERRLA. EOMI. Conjunctiva and sclera normal. Eyelids normal. ENT: TM's Normal. Pharynx normal. Uvula midline. Moist mucous membranes. No trismus noted. No drooling noted. No muffled voice noted. Neck: Normal inspection. Neck supple. FROM. No adenopathy. Thyroid Normal. No meningeal signs. No neck mass noted. CVS: Normal heart rate and rhythm. Heart sound normal. No murmurs noted. Pulses normal throughout. Respiratory: No respiratory distress. Painless inspiration. Breath sounds normal. No wheezes/rales/rhonchi noted. Chest nontender. No accessory muscle usage noted or decreased air movement noted. Abdomen: Soft and nontender. Bowel sounds normal in all 4 quadrants. No distention noted. No organomegaly noted. No visible injury noted. Back: No CVA tenderness. Full range of motion noted. Skin: Skin warm and dry. Normal skin color. Normal skin turgor. No rashes/lesions/lacerations noted. Extremities: No lower extremity edema. Extremities exhibit normal range of motion. Extremities nontender. Neuro: Right visual gaze. Cranial nerve exam: Left facial droop Left hemiparesis Course Reevaluation(s) Reevaluation #1: Left hemiparesis with NIH score of 13, s/p TNK with no change in neuro exam, right M1 occlusion? Case discussed with Dr. Jabier VALIENTE and transferred to [facility] for further endovascular thrombectomy. The case was discussed with Dr. Dior who accepted the transfer. Time: 19:21 Medications Administered Discontinued Medications Generic Name Dose Route Start Last Admin Trade Name Freq PRN Reason Stop Dose Admin Iohexol 100 ml 12/12/24 18:36 12/12/24 18:36 Iohexol 350 Mg/Ml 100 Ml Infus..Btl IV 12/12/24 18:37 70 ml ONCE ONE Administration Tenecteplase 22 mg 12/12/24 18:42 12/12/24 18:49 Tenecteplase 50 Mg/10 Ml Kit IVPUSH 12/12/24 18:43 22 mg ONCE ONE Administration Medical Decision Making Differential Diagnosis Differential Diagnoses: The differential diagnosis associated with the presentation includes (Hemorrhagic stroke, ischemic stroke, electrolyte derangement, coagulopathy, severe anemia.) Admission/Observation Consideration of admission/observation: Escalation of care including admission/observation considered Consult Healthcare Provider Management of the patient was discussed with: Vulcanizer (Dr. Jabier Dior) Lab Data MDM Lab Attestation statement: I reviewed the patient's lab results. 12/12/24 18:54 12/12/24 18:54 Labs: Lab Results 12/12/24 12/12/24 Range/Units 18:16 18:54 WBC 13.7 H (4.8-10.8) X10*3/uL RBC 4.10 L (4.60-5.80) X10*6/uL Hgb 12.7 L (14.0-18.0) g/dl Hct 36.5 L (42.0-52.0) % MCV 89.0 (80.0-98.0) fL MCH 31.0 (27.0-33.0) pg MCHC 34.8 (31.0-36.0) g/dl RDW 13.5 (11.0-16.0) % Plt Count 315 (160-400) X10*3/uL MPV 10.2 (9.4-12.4) fL Immature Gran % (Auto) 0.8 H (0.0-0.4) % Neut % (Auto) 78.4 H (45-73) % Lymph % (Auto) 9.4 L (20-40) % Mccormick % (Auto) 10.8 (2-11) % Eos % (Auto) 0.4 (0-4) % Baso % (Auto) 0.2 (0-2) % Lymph # (Auto) 1.3 (1.2-4.9) X10*3/uL Mccormick # (Auto) 1.5 H (0.1-1.2) X10*3/uL Eos # (Auto) 0.1 (0.0-0.4) X10*3/uL Baso # (Auto) 0.0 (0.0-0.2) X10*3/uL Abs Immat Gran (auto) 0.11 H (0.00-0.03) X10*3/uL Absolute Neuts (auto) 10.7 H (2.0-8.3) x10*3/uL Absolute Nucleated RBC 0.000 (0.0-0.012) X10*3/uL Nucleated RBC % (auto) 0.0 (0.0-0.2) /100WBC Hold Purple Top SEE NOTE PT 15.6 H (10.9-12.4) SEC Whole Blood PT 14.7 H (11.1-13.5) sec INR 1.3 H (0.9-1.1) Whole Blood INR 1.2 H (0.9-1.1) APTT 27.8 (26.0-36.8) SEC Sodium 131 L (135-145) mmol/L Potassium 4.1 (3.3-5.1) mmol/L Chloride 98 (96-108) mmol/L Carbon Dioxide 24 (22-29) mmol/L Anion Gap 13 (12-20) BUN 25 H (9-16) mg/dL Creatinine 1.22 (0.5-1.4) mg/dL Estim Creat Clear Calc 54.2 Estimated GFR 57 POC Glucose 108 (60-115) mg/dL Random Glucose 100 (60-115) mg/dL Calcium 9.0 D (8.4-10.2) mg/dL Troponin I High Sens 25.7 (<3.5-35.0) ng/L Triglycerides 64 (<150) mg/dL Cholesterol 106 (<200) mg/dL LDL Cholesterol, Calc 63 (<100) mg/dL HDL Cholesterol 31 L (>40) mg/dL Independent Interpretation I performed an independent interpretation of an: CT Scan (Head: No acute intracranial pathology. Partial right M1 occlusion) Radiology Impression Discussion of test interpretation with radiology: I have reviewed the radiologist's reading. Chronic Conditions Patient?s care impacted by: Other (Atrial fibrillation) NIH Stroke Scale Internal: Initial- Upon Arrival Time: 18:13 Level of Consciousness: Alert Level of Consciousness Questions: Answers both questions correctly Level of Consciousness Commands: Performs both tasks correctly Best Gaze: Forced deviation Visual: No visual loss Facial Palsy: Partial paralysis Motor Arm (Right): No drift Motor Arm (Left): No movement Motor Leg (Right): No drift Motor Leg (Left): No movement Limb Ataxia: Absent Sensory: Normal Best Language: Mild to moderate aphasia Dysarthia: Normal Extinction and Inattention: No abnormality Score: 13 Critical Care Time Critical Care Time Critical Care Time: Yes Total Critical Care Time: 60 Attestation: The patient was critically ill with a high probability of imminent or life- threatening deterioration. I spent greater than 30 minutes of discontinuous time evaluating the patient, delivering critical care at the bedside, discussing evaluating data with consultants. Critical care time does not include time spent performing separately billable procedures or teaching. Time spent performing critical care was 60 minutes. 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
[2024-12-12 18:20] LABS: Prothrombin Time Whole Bld POC 14.7 sec (11.1-13.5); ~PT, ~INR - Anti Coag Clinic 1.2 (0.9-1.1)
[2024-12-12 18:21] LABS: Glucose, Whole Blood 108 mg/dL (60-115)
[2024-12-12] MEDS: iohexoL 350 MG/ML 100 ML INFUS..BTL IV (18:36)
[2024-12-12 18:40] VITALS: BP 118/50; PULSE 106; RESP 20; TEMP 36.9; O2SAT 98
[2024-12-12] MEDS: Tenecteplase 50 MG/10 ML KIT 22 MG IVPUSH (18:49)
--- NOTE | 2024-12-12 18:53 | PC.NURSE ---
Stroke alert, arrived by EMS. CTA & CXR upon arrival. evaluated the patient upon arrival. Patient is supposed to be taking blood thinners, but hasn't been picking it up from the pharmacy and taking it due to cost. Per family, a few days ago, he had leg/calf cramping. Left side weakness, left facial droop, slurred speech, right sided eye gaze noted to begin at 16:30 today. Hx CHF per family. 18g IV access to right hand by EMS, 20g IV access to left hand by EMS. 20g IV was established by Ratna Ferrera RN to left forearm, but infiltrated during CTA. New 20g IV access established to right forearm by Ruel Jaffe RN. Total of 3 patent IV accesses in place. Family present. NSR on youth nutritional monitor. Given TNK 22mg IV PUSH by this RN. Weight 89.4 kg [facility].
--- OUTSIDE RECORDS SUMMARY | 2024-12-12 18:59 | XMS_ITS | Clinical Summary ---
Author Organization [facility] Address [address] [place] [address] Care Team Providers Care Payment Poster Name Role Phone Amrit Valladares Primary Care Provider [phone] Allergies No known active allergies Medications Medication [...] age to complete this topic Care Teams Payment Poster Relationship Specialty Start Date End Date Amrit Valladares [address] [facility] [place] [address] PCP - General Family Medicine 01/31/18
--- OUTSIDE RECORDS SUMMARY | 2024-12-12 18:59 | XMS_ITS | Clinical Summary ---
Author Organization [facility] ity Address [id number] [place] [address] Care Team Providers Care Pricing Associate Name Role Phone Amrit Valladares NP Primary Care Provider [phone] Social History Tobacco Use Types Packs/Day Years [...] age to complete this topic Care Teams Pricing Associate Relationship Specialty Start Date End Date Amrit Valladares NP [address] [facility] [place] PCP - General Family Medicine 01/31/18
[2024-12-12 19:02] LABS: MANUAL DIFF FLAG NO
[2024-12-12 19:05] LABS: Basophils Percent Auto 0.2 % (0-2); Eosinophils Absolute Auto 0.1 X10*3/uL (0.0-0.4); Eosinophils Percent Auto 0.4 % (0-4); Hematocrit 36.5 % (42.0-52.0); Hemoglobin 12.7 g/dl (14.0-18.0); Imm Gran Abs Auto 0.11 X10*3/uL (0.00-0.03); Imm Gran Pct Auto 0.8 % (0.0-0.4); Lymphocytes Absolute Auto 1.3 X10*3/uL (1.2-4.9); Lymphocytes Percent Auto 9.4 % (20-40); Mean Corpuscular HGB Conc 34.8 g/dl (31.0-36.0); Mean Platelet Volume 10.2 fL (9.4-12.4); Monocytes Absolute Auto 1.5 X10*3/uL (0.1-1.2); Monocytes Percent Auto 10.8 % (2-11); Neutrophils Absolute Auto 10.7 x10*3/uL (2.0-8.3); Neutrophils Percent Auto 78.4 % (45-73); Platelet Count 315 X10*3/uL (160-400); Red Cell Distribution Width 13.5 % (11.0-16.0); White Blood Count 13.7 X10*3/uL (4.8-10.8)
[2024-12-12 19:06] VITALS: BP 130/94; PULSE 98; RESP 24; O2SAT 100
[2024-12-12 19:12] LABS: INTERNATIONAL NORM RATIO 1.3 (0.9-1.1); Prothrombin Time 15.6 SEC (10.9-12.4)
[2024-12-12 19:15] LABS: Partial Thromboplastin Time 27.8 SEC (26.0-36.8)
[2024-12-12 19:17] LABS: Anion Gap 13 (12-20); Blood Urea Nitrogen 25 mg/dL (9-16); Carbon Dioxide 24 mmol/L (22-29); Chloride 98 mmol/L (96-108); Cholesterol 106 mg/dL (<200); Creatinine Clr Calc Pharmacy 54.2; Estimated Glomerular Filt Rate 57; Glucose Random 100 mg/dL (60-115); HDL Cholesterol 31 mg/dL (>40); LDL Cholesterol Calculated 63 mg/dL (<100); Potassium 4.1 mmol/L (3.3-5.1); Sodium 131 mmol/L (135-145); Triglycerides 64 mg/dL (<150)
[2024-12-12 19:24] LABS: Troponin-I High Sensitivity 25.7 ng/L (<3.5-35.0)
[2024-12-12 19:31] LABS: Stroke Lab Use COMPLETE
[2024-12-12 19:36] VITALS: BP 142/90; PULSE 108; RESP 20; O2SAT 99
[2024-12-12 20:05] VITALS: BP 134/81; PULSE 103; RESP 20; TEMP 36.9; O2SAT 98
--- NOTE | 2024-12-12 20:08 | PC.NURSE ---
Attempted 16 [place] Vanessa Catheter insertion but was unsuccessful. Per patient, has enlarged prostate. aware. EMS arrived at same time as attempted catheterization. Report given to EMS. Per [facility], patient is going directly to labor conciliator, so no RN to RN report is required. Accepted by at [facility]. Family at bedside and following EMS in personal car.
== END 2024-12-12 20:21 | disposition short-term general hospital (02) ==
PROVIDERS: Emergency Provider Emergency Medicine; PCP Nurse Practitioner Family
DX: I63.9 Cerebral infarction, unspecified (principal); H53.8 Other visual disturbances; G81.94 Hemiplegia, unspecified affecting left nondominant side; R47.81 Slurred speech; R29.810 Facial weakness; R29.713 NIHSS score 13; I10 Essential (primary) hypertension; I48.91 Unspecified atrial fibrillation; F17.200 Nicotine dependence, unspecified, uncomplicated; Z95.1 Presence of aortocoronary bypass graft; Z79.02 Long term (current) use of antithrombotics/antiplatelets; Z79.899 Other long term (current) drug therapy
CPT/HCPCS: 36415; 37195; 70450; 70496; 70498; 71045; 80048; 80061; 82947; 84484; 85025; 85610; 85730; 93005; 99285; J3101; Q9967

== ENCOUNTER → 2024-12-12 18:11 | Outpatient (BNV) | payer MEDICARE, SELFPAY | PROVIDERS: Emergency Provider Emergency Medicine; PCP Nurse Practitioner Family; Visit Provider Specialist | DX: R47.81 Slurred speech (principal); I66.01 Occlusion and stenosis of right middle cerebral artery; I63.9 Cerebral infarction, unspecified; I42.9 Cardiomyopathy, unspecified | CPT/HCPCS: 70450; 70496; 70498; 71045 ==

== ENCOUNTER → 2024-12-12 18:11 | Outpatient (BNV) | payer MEDICARE, SELFPAY | PROVIDERS: Emergency Provider Emergency Medicine; PCP Nurse Practitioner Family; Visit Provider Internal Medicine Cardiovascular Disease | DX: I48.91 Unspecified atrial fibrillation (principal); R94.31 Abnormal electrocardiogram [ECG] [EKG] | CPT/HCPCS: 93010 ==

== ENCOUNTER → 2025-01-12 23:59 | Outpatient (BNV) | payer MEDICARE, SELFPAY | PROVIDERS: PCP Nurse Practitioner Family; Visit Provider Internal Medicine | DX: I11.0 Hypertensive heart disease with heart failure (principal); I25.10 Atherosclerotic heart disease of native coronary artery without angina pectoris; I95.0 Idiopathic hypotension | CPT/HCPCS: G0179 ==

== ENCOUNTER → 2025-01-27 10:55 | Outpatient (BNV) | payer MEDICARE, SELFPAY | PROVIDERS: PCP Nurse Practitioner Family; Visit Provider Radiology Diagnostic Radiology | DX: N28.89 Other specified disorders of kidney and ureter (principal) | CPT/HCPCS: 74183 ==

== ENCOUNTER 2025-01-27 10:57 | Outpatient (REF) | payer MEDICARE, SELFPAY ==
--- NOTE | ~2025-01-27 | MR_ITS ---
EXAMINATION: MRI Abdomen without and with contrast HISTORY: N28.89 - RIGHT RENAL MASS COMPARISON: Correlation is made with the report from an outside CT of the abdomen without contrast dated 12/15/2024. This describes a 2.8 cm hyperattenuating mass in the medial right kidney. TECHNIQUE: Axial in and out of phase T1-weighted gradient echo, axial diffusion weighted, and axial and coronal HASTE T2 with fat saturation images were obtained through the abdomen. Subsequently, fat suppressed axial and coronal T1-weighted images were obtained after the intravenous administration of 8 mL Gadavist. FINDINGS: There is bilateral perinephric edema. There is mild right renal scarring. The right kidney is smaller than the left. The right kidney measures 9.4 cm in length. The left kidney measures 11.1 cm in length. There are multiple geographic areas of T2 hypointensity in the cortex of the right kidney, without evidence of a discrete mass. After the administration of intravenous gadolinium, the right kidney demonstrates segmental regions of decreased perfusion, compatible with infarcts or acute pyelonephritis. There is normal perfusion of the left kidney. There is a 1.4 cm cyst at the upper pole of the left kidney. There is no hydronephrosis. There is no loss of signal intensity within the liver on opposed phase imaging to suggest steatosis. There is no enhancing liver mass. The gallbladder, spleen, and pancreas are unremarkable. There is a 1.6 cm right adrenal nodule which demonstrates loss of signal intensity on opposed phase imaging, compatible with intracellular lipid in an adenoma. The left adrenal gland is unremarkable. No retroperitoneal lymphadenopathy or ascites is identified in the. The visualized bones demonstrate normal marrow signal intensity. MR/MR abdomen wo/w con IMPRESSION: 1. Abnormal appearance and perfusion of the right kidney as described above, highly suspicious for infarcts. Pyelonephritis is felt to be less likely. 2. No evidence of a discrete right renal mass. Correlation with the prior outside CT is recommended. If images are submitted for comparison, an addendum will be issued. 3. 1.6 cm right adrenal adenoma. Electronically signed by: Mars Warren MD 01/27/2025 02:53 PM EDT
[2025-01-27] MEDS: gadobutroL 10 ML VIAL IVPUSH (13:04)
--- OUTSIDE RECORDS SUMMARY | 2025-01-27 13:07 | XMS_ITS | Clinical Summary ---
Author Organization Formerly [facility] Address [address] [place] [address] Care Team Providers Care Lead Die Molder Name Role Phone Amrit Valladares Primary Care Provider [phone] Allergies No known active allergies Medications Medication [...] age to complete this topic Care Teams Lead Die Molder Relationship Specialty Start Date End Date Amrit Valladares [address] [facility] [place] [address] PCP - General Family Medicine 01/31/18
--- OUTSIDE RECORDS SUMMARY | 2025-01-27 13:07 | XMS_ITS | Clinical Summary ---
Author Organization [address] Address [address] [place] [address] Phone Care Team Providers Care Hat Measurer Name Role Phone BlaineAmrit Ramón JOHNSON Primary Care Provider Encounters Date Type Department Care Team Description 12/29/2024 Lab Requisition [facility] Main Lab [address] [place] [address] Jeane Morris MD Encounter for other general examination 12/27/2024 Lab Requisition [facility] Lab [address] [place] [address] Jeane Morris MD Other cerebrovascular disease 12/24/2024 Lab Requisition [facility] Lab [address] [place] [address] Jeane Morris MD Encounter for other general examination 12/22/2024 Lab Requisition [facility] Lab [address] [place] [address] Jeane Morris MD Encounter for other general examination 12/22/2024 Lab Requisition [facility] Main Lab [address] [place] [address] Jeane Morris MD Encounter for other general examination 12/20/2024 Lab Requisition [facility] Lab [address] [place] [address] Jeane Morris MD Encounter for other general examination 12/19/2024 Lab Requisition [facility] Main Lab [address] [place] [address] Jeane Morris MD Encounter for other general examination from Last 3 Months Social History Tobacco Use Types Packs/Day Years Used Date Smoking Tobacco: Never Assessed Sex and Gender Information Value Date Recorded Sex Assigned at Not on file Legal Sex Male 11:30 AM EST Gender Identity Not on file Sexual Orientation Not on file Plan of Treatment Health Maintenance Due Date Last Done Comments Zoster Vaccines (1 of 2) 1996 Pneumococcal Vaccine: 50+ Years (2 of 2 - PCV) 09/30/2007 09/30/2006 RSV Immunization Adult Patients (1 - 1-dose 75+ series) 2021 COVID-19 Vaccine ( - season) 2024 Cholesterol Screening (Lipid Panel) 01/18/2025 Depression Screening 01/18/2025 Falls Risk Assessment 01/18/2025 Medicare Annual Wellness Visit 01/18/2025 Social Influencers of Health Screening 01/18/2025 Influenza Vaccine (Season Ended) 2025 09/30/2006 Hypertension/CHF/CAD Annual BMP Blood Test 12/29/2025 12/29/2024, 12/24/2024, 12/20/2024, Additional history exists DTaP,Tdap,and Td Vaccines (2 - Td or Tdap) 02/01/2028 01/31/2018 Hepatitis C Screening Completed 12/20/2024 HIB Vaccines Aged Out No longer eligi [...] age to complete this topic Meningococcal B Vaccine Aged Out No l onger eligible based on patient's age to complete this topic RSV Immunization Patients Under 20 months Aged Out No longer eligible based on patient's age to complete this topic Varicella Vaccines Aged Out No longer eligible based on patient's age to complete this topic Procedures Procedure Name Priority Date/Time Associated Diagnosis Comments CBC WITH AUTO DIFFERENTIAL Routine 12/29/2024 4:50 AM EDT Encounter for other general examination MAGNESIUM Routine 12/29/2024 4:50 AM EDT Encounter for other general examination CBC AND DIFFERENTIAL Routine 12/29/2024 4:50 AM EDT Encounter for other general examination COMPREHENSIVE METABOLIC PANEL Routine 12/29/2024 4:50 AM EDT Encounter for other general examination JOSEPH URINE CULTURE TUBE Routine 12/27/2024 10:00 AM EDT Other cerebrovascular disease URINALYSIS WITH REFLEX MICROSCOPIC Routine 12/27/2024 10:00 AM EDT Other cerebrovascular disease URINALYSIS WITH REFLEX MICROSCOPIC Routine 12/27/2024 10:00 AM EDT Other cerebrovascular disease CBC WITH AUTO DIFFERENTIAL Routine 12/24/2024 4:58 AM EDT Encounter for other general examination MAGNESIUM Routine 12/24/2024 4:58 AM EDT Encounter for other general examination CBC AND DIFFERENTIAL Routine 12/24/2024 4:58 AM EDT Encounter for other general examination COMPREHENSIVE METABOLIC PANEL Routine 12/24/2024 4:58 AM EDT Encounter for other general examination CBC WITH AUTO DIFFERENTIAL Routine 12/22/2024 7:06 AM EDT Encounter for other general examination CBC AND DIFFERENTIAL Routine 12/22/2024 7:06 AM EDT Encounter for other general examination URINALYSIS WITH REFLEX MICROSCOPIC AND CULTURE Routine 12/21/2024 8:14 PM EDT Encounter for other general examination JOSEPH URINE CULTURE TUBE Routine 12/21/2024 8:14 PM EDT Encounter for other general examination URINALYSIS WITH REFLEX MICROSCOPIC AND CULTURE Routine 12/21/2024 8:14 PM EDT Encounter for other general examination HEPATITIS PANEL, ACUTE WITH REFLEX TO CONFIRMATION Routine 12/20/2024 5:57 AM EDT Encounter for other general examination COMPREHENSIVE METABOLIC PANEL Routine 12/20/2024 5:57 AM EDT Encounter for other general examination CBC WITH AUTO DIFFERENTIAL Routine 12/19/2024 5:47 AM EST Encounter for other general examination MAGNESIUM Routine 12/19/2024 5:47 AM EST Encounter for other general examination CBC AND DIFFERENTIAL Routine 12/19/2024 5:47 AM EST Encounter for other general examination COMPREHENSIVE METABOLIC PANEL Routine 12/19/2024 5:47 AM EST Encounter for other general examination from Last 3 Months Results * (ABNORMAL) CBC auto differential (12/29/2024 4:50 AM EDT) Only the most recent of4 resultswithin the time period is included. WBC 10.1 4.8 - 10.8 K/mcL LAB HEMETOLOGY METHOD 12/29/2024 10:34 AM EDT [facility] RBC 4.30(L) 4.50 - 5.50 M/mcL LAB HEMETOLOGY METHOD 12/29/2024 10:34 AM EDT [facility] Hemoglobin 13.3(L) 13.5 - 17.5 g/dL LAB HEMETOLOGY METHOD 12/29/2024 10:34 AM EDT [facility] LAB Hematocrit 39.5(L) 42.0 - 54.0 % LAB HEMETOLOGY METHOD 12/29/2024 10:34 AM EDT [facility] MCV 91.4 79.0 - 98.0 FL LAB HEMETOLOGY METHOD 12/29/2024 10:34 AM EDT [facility] MCH 30.8 27.0 - 32.0 pcg LAB HEMETOLOGY METHOD 12/29/2024 10:34 AM [facility] MCHC 33.7 32.0 - 37.0 g/dL LAB HEMETOLOGY METHOD 12/29/2024 10:34 AM [facility] LAB RDW 13.7 11.0 - 15.0 % LAB HEMETOLOGY METHOD 12/29/2024 10:34 AM [facility] LAB Platelets 367 130 - 400 K/mcL LAB HEMETOLOGY METHOD 12/29/2024 10:34 AM [facility] LAB MPV 10.7 7.0 - 11.0 FL LAB HEMETOLOGY METHOD 12/29/2024 10:34 AM [facility] LAB NRBC 0.0 <1.0 % LAB HEMETOLOGY METHOD 12/29/2024 10:34 AM [facility] LAB NRBC Absolute 0.00 <0.10 K/mcL LAB HEMETOLOGY METHOD 12/29/2024 10:34 AM [facility] Neutrophils Relative 62.1 % LAB HEMETOLOGY METHOD 12/29/2024 10:34 AM [facility] Lymphocytes Relative 24.9 % LAB HEMETOLOGY METHOD 12/29/2024 10:34 AM [facility] Monocytes Relative 10.1 % LAB HEMETOLOGY METHOD 12/29/2024 10:34 AM [facility] Eosinophils Relative 1.7 % LAB HEMETOLOGY METHOD 12/29/2024 10:34 AM [facility] Basophils Relative 0.8 % LAB HEMETOLOGY METHOD 12/29/2024 10:34 AM [facility] Immature Granulocytes Relative 0.4 % LAB HEMETOLOGY METHOD 12/29/2024 10:34 AM EDT [facility] LAB Neutrophils Absolute 6.27 1.50 - 7.00 K/[facility] LAB HEMETOLOGY METHOD 12/29/2024 10:34 AM EDT [facility] LAB Lymphocytes Absolute 2.51 1.00 - 5.00 K/[facility] LAB HEMETOLOGY METHOD 12/29/2024 10:34 AM EDT [facility] Monocytes Absolute 1.02(H) 0.20 - 1.00 K/[facility] LAB HEMETOLOGY METHOD 12/29/2024 10:34 AM EDT [facility] Eosinophils Absolute 0.17 0.00 - 0.50 K/[facility] LAB HEMETOLOGY METHOD 12/29/2024 10:34 AM EDT [facility] Basophils Absolute 0.08 0.00 - 0.20 K/[facility] LAB HEMETOLOGY METHOD 12/29/2024 10:34 AM EDT [facility] Immature Granulocytes Absolute 0.04(H) 0.00 - 0.03 K/[facility] LAB HEMETOLOGY METHOD 12/29/2024 10:34 AM EDT [facility] Blood Venous blood specimen / Unknown Venipuncture / Unknown 12/29/2024 4:50 AM EDT 12/29/2024 9:04 AM EDT us Jeane Morris MD LAB BLOOD ORDERABLES Final Resu lt [facility] [address] [place] [address], * Magnesium (12/29/2024 4:50 AM EDT) Only the most recent of3 resultswithin the time period is included. Magnesium 2.2 1.9 - 2.6 mg/dL LAB CHEMISTRY METHOD 12/29/2024 11:31 AM EDT [facility] Blood Venous blood specimen / Unknown Venipuncture / Unknown 12/29/2024 4:50 AM EDT 12/29/2024 9:04 AM EDT us Jeane Morris MD LAB BLOOD ORDERABLES Final Resu lt [facility] [address] [place] [address], * (ABNORMAL) Comprehensive metabolic panel (12/29/2024 4:50 AM EDT) Only the most recent of4 resultswithin the time period is included. Sodium 134 133 - 145 mmol/L LAB CHEMISTRY METHOD 12/29/2024 11:33 AM [facility] Potassium 4.6 3.5 - 5.5 mmol/L LAB CHEMISTRY METHOD 12/29/2024 11:33 AM [facility] Chloride 102 96 - 110 mmol/L LAB CHEMISTRY METHOD 12/29/2024 11:33 AM [facility] CO2 23 21 - 32 mmol/L LAB CHEMISTRY METHOD 12/29/2024 11:33 AM [facility] Anion Gap 9 3 - 11 LAB CHEMISTRY METHOD 12/29/2024 11:33 AM [facility] Glucose 78 70 - 100 mg/dL LAB CHEMISTRY METHOD 12/29/2024 11:33 AM [facility] BUN 26(H) 5 - 25 mg/dL LAB CHEMISTRY METHOD 12/29/2024 11:33 AM [facility] Creatinine 1.18 0.70 - 1.30 mg/dL LAB CHEMISTRY METHOD 12/29/2024 11:33 AM [facility] eGFR 63 >=60 mL/min/1. 73m2 LAB CHEMISTRY METHOD 12/29/2024 11:33 AM [facility] Comment:Calculation based on the??Chronic Kidney Disease Epidemiology Collaboration (CKD-EPI) equation refit??without adjustment for race. BUN/Creatinine Ratio 22.0 LAB CHEMISTRY METHOD 12/29/2024 11:33 AM [facility] Calcium 9.2 8.5 - 10.5 mg/dL LAB CHEMISTRY METHOD 12/29/2024 11:33 AM [facility] AST (SGOT) 54(H) 10 - 42 unit/L LAB CHEMISTRY METHOD 12/29/2024 11:33 AM [facility] ALT (SGPT) 117(H) 10 - 60 unit/L LAB CHEMISTRY METHOD 12/29/2024 11:33 AM [facility] Alkaline Phosphatase 94 42 - 121 unit/L LAB CHEMISTRY METHOD 12/29/2024 11:33 AM [facility] Total Protein 6.1 6.0 - 8.0 g/dL LAB CHEMISTRY METHOD 12/29/2024 11:33 AM [facility] Albumin 3.6 3.2 - 5.0 g/dL LAB CHEMISTRY METHOD 12/29/2024 11:33 AM [facility] Total Bilirubin 1.2 0.0 - 1.4 mg/dL LAB CHEMISTRY METHOD 12/29/2024 11:33 AM [facility] Blood Venous blood specimen / Unknown Venipuncture / Unknown 12/29/2024 4:50 AM EDT 12/29/2024 9:04 AM EDT us Jeane Morris MD LAB BLOOD ORDERABLES Final Resu lt [facility] [address] [place] [address], [place] [phone] * (ABNORMAL) Urinalysis with reflex microscopic (12/27/2024 10:00 AM EDT) Specific Bond Urine 1.021 1.003 - 1.030 LAB URINALYSIS - AUTOMATED METHOD 12/27/2024 3:28 PM [facility] pH, Urine 6.0 5.0 - 8.0 pH LAB URINALYSIS - AUTOMATED METHOD 12/27/2024 3:28 PM [facility] Leukocytes, Urine Negative Negative LAB URINALYSIS - AUTOMATED METHOD 12/27/2024 3:28 PM [facility] Nitrite, Urine Negative Negative LAB URINALYSIS - AUTOMATED METHOD 12/27/2024 3:28 PM [facility] Protein, Urine 30(A) <=Trace mg/dL LAB URINALYSIS - AUTOMATED METHOD 12/27/2024 3:28 PM [facility] Glucose, Urine Negative Negative mg/dL LAB URINALYSIS - AUTOMATED METHOD 12/27/2024 3:28 PM [facility] Ketones, Urine Negative Negative mg/dL LAB URINALYSIS - AUTOMATED METHOD 12/27/2024 3:28 PM [facility] Urobilinogen , Urine 1.0 0.2 - 1.0 mg/dL LAB URINALYSIS - AUTOMATED METHOD 12/27/2024 3:28 PM [facility] Bilirubin, Urine Negative Negative LAB URINALYSIS - AUTOMATED METHOD 12/27/2024 3:28 PM [facility] Blood, Urine Negative Negative LAB URINALYSIS - AUTOMATED METHOD 12/27/2024 3:28 PM [facility] RBC, Urine 6.6(H) 0 - 4 /HPF LAB URINALYSIS - AUTOMATED METHOD 12/27/2024 3:28 PM [facility] WBC, Urine 2.3 0 - 4 /HPF LAB URINALYSIS - AUTOMATED METHOD 12/27/2024 3:28 PM [facility] Squamous Epithelial, Urine 9 0 - 60 /LPF LAB URINALYSIS - AUTOMATED METHOD 12/27/2024 3:28 PM [facility] Crystals, Urine Light Amorphous Urate crystals. /LPF 12/27/2024 3:28 PM EDT [facility] Bacteria, Urine Negative Negative /HPF LAB URINALYSIS - AUTOMATED METHOD 12/27/2024 3:28 PM EDT [facility] Hyaline Casts, Urine 2.0 0 - 3 /LPF LAB URINALYSIS - AUTOMATED METHOD 12/27/2024 3:28 PM EDT [facility] Urine Urine specimen obtained by clean catch procedure / Unknown 12/27/2024 10:00 AM EDT 12/27/2024 2:36 PM EDT us Jeane Morris MD LAB URINE ORDERABLES Final Resu lt Performing Organization Address [facility] de Phone Number [facility] [address] [place] [address], [place] [phone] * Joseph urine culture tube (12/27/2024 10:00 AM EDT) Only the most recent of2 resultswithin the time period is included. Extra Tube Hold for add-ons. 12/27/2024 4:01 PM EDT [facility] Comment:Auto resulted. Urine Urine specimen obtained by clean catch procedure / Unknown 12/27/2024 10:00 AM EDT 12/27/2024 2:37 PM EDT us Jeane Morris MD LAB URINE ORDERABLES Final Resu lt Performing Organization Address [facility]/ZIP Co de Phone Number [facility] [address] [place] [address], [place] [phone] * (ABNORMAL) Urinalysis with reflex microscopic and culture (12/21/2024 8:14 PM EDT) Specific [place] Urine 1.024 1.003 - 1.030 LAB URINALYSIS - AUTOMATED METHOD 12/22/2024 11:26 AM [facility] pH, Urine 6.0 5.0 - 8.0 pH LAB URINALYSIS - AUTOMATED METHOD 12/22/2024 11:26 AM [facility] Leukocytes, Urine Negative Negative LAB URINALYSIS - AUTOMATED METHOD 12/22/2024 11:26 AM [facility] Nitrite, Urine Negative Negative LAB URINALYSIS - AUTOMATED METHOD 12/22/2024 11:26 AM [facility] Protein, Urine Trace <=Trace mg/dL LAB URINALYSIS - AUTOMATED METHOD 12/22/2024 11:26 AM [facility] Glucose, Urine Negative Negative mg/dL LAB URINALYSIS - AUTOMATED METHOD 12/22/2024 11:26 AM [facility] Ketones, Urine Negative Negative mg/dL LAB URINALYSIS - AUTOMATED METHOD 12/22/2024 11:26 AM [facility] Urobilinogen, Urine >=8.0(A) 0.2 - 1.0 mg/dL LAB URINALYSIS - AUTOMATED METHOD 12/22/2024 11:26 AM [facility] Bilirubin, Urine Small(A) Negative LAB URINALYSIS - AUTOMATED METHOD 12/22/2024 11:26 AM [facility] Blood, Urine Negative Negative LAB URINALYSIS - AUTOMATED METHOD 12/22/2024 11:26 AM [facility] Urine Urine specimen obtained by clean catch procedure / Unknown Non-blood Collection / Unknown 12/21/2024 8:14 PM EDT 12/22/2024 10:44 AM EDT us Jeane Morris MD LAB URINE ORDERABLES Final Resu lt [facility] [address] [place] [address], [place] [phone] * Hepatitis panel, acute with reflex to confirmation (12/20/2024 5:57 AM EDT) Hepatitis B Surface Ag Negative Negative LAB CHEMISTRY METHOD 12/20/2024 12:12 PM EDT [facility] Hepatitis A Antibody IgM Negative Negative LAB CHEMISTRY METHOD 12/20/2024 12:12 PM EDT [facility] Hep B Core IgM Negative Negative LAB CHEMISTRY METHOD 12/20/2024 12:12 PM EDT [facility] Hepatitis C Antibody Negative Negative LAB CHEMISTRY METHOD 12/20/2024 12:12 PM EDT [facility] Blood Venous blood specimen / Unknown Venipuncture / Unknown 12/20/2024 5:57 AM EDT 12/20/2024 9:56 AM EDT us Jeane Morris MD LAB BLOOD ORDERABLES Final Resu lt [facility] [address] [place] [address], from Last 3 Months Insurance [employer] Care Teams Hat Measurer Relationship Specialty Start Date End Date Amrit Valladares NP [address] [place], [place] PCP - General Family Medicine 01/31/18
--- OUTSIDE RECORDS SUMMARY | 2025-01-27 13:07 | XMS_ITS | Encounter Summary ---
Author Organization [facility] Address [address] [place] [address] Care Team Providers Care Sheriff Sergeant Name Role Phone Amrit Valladares ELIZABETH Primary Care Provider Encounter Details Date Type Department Care Team (Latest Contact Info) Description 12/27/2024 Lab Requisition [facility] - Main Lab [address] [place] [address] Jeane Morris MD [address] [place] [id number] Other cerebrovascular disease Social History Tobacco Use Types Packs/Day Years Used Date Smoking Tobacco: Never Assessed Sex and Gender Information Value Date Recorded Sex Assigned at Not on file Legal Sex Male 11:30 AM EST Gender Identity Not on file Sexual Orientation Not on file documented as of this encounter Plan of Treatment Not on file documented as of this encounter Procedures Procedure Name Priority Date/Time Associated Diagnosis Comments URINALYSIS WITH REFLEX MICROSCOPIC Routine 12/27/2024 10:00 AM EDT Other cerebrovascular disease JOSEPH URINE CULTURE TUBE Routine 12/27/2024 10:00 AM EDT Other cerebrovascular disease URINALYSIS WITH REFLEX MICROSCOPIC Routine 12/27/2024 10:00 AM EDT Other cerebrovascular disease documented in this encounter Results * Joseph urine culture tube (12/27/2024 10:00 AM EDT) Extra Tube Hold for add-ons. 12/27/2024 4:01 PM EDT [facility] Comment:Auto resulted. Urine Urine specimen obtained by clean catch procedure / Unknown 12/27/2024 10:00 AM EDT 12/27/2024 2:37 PM EDT us Jeane Morris MD LAB URINE ORDERABLES Final Resu lt [facility] [address] [place] [address], [place] [phone] * (ABNORMAL) Urinalysis with reflex microscopic (12/27/2024 10:00 AM EDT) Specific [place] Urine 1.021 1.003 - 1.030 LAB URINALYSIS [...] - AUTOMATED METHOD 12/27/2024 3:28 PM EDT [facility] RBC, Urine 6.6(H) 0 - 4 /HPF LAB URINALYSIS - AUTOMATED METHOD 12/27/2024 3:28 PM EDT [facility] WBC, Urine 2.3 0 - 4 /HPF LAB URINALYSIS - AUTOMATED METHOD 12/27/2024 3:28 PM EDT [facility] Squamous Epithelial, Urine 9 0 - 60 /LPF LAB URINALYSIS - AUTOMATED METHOD 12/27/2024 3:28 PM EDT [facility] Crystals, Urine Light Amorphous Urate crystals. /LPF 12/27/2024 3:28 PM EDT [facility] Bacteria, Urine Negative Negative /HPF LAB URINALYSIS - AUTOMATED METHOD 12/27/2024 3:28 PM EDT [facility] Hyaline Casts, Urine 2.0 0 - 3 /LPF LAB URINALYSIS - AUTOMATED METHOD 12/27/2024 3:28 PM T [facility] Urine Urine specimen obtained by clean catch procedure / Unknown 12/27/2024 10:00 AM EDT 12/27/2024 2:36 PM EDT us Jeane Morris MD LAB URINE ORDERABLES Final Resu lt [facility] [address] [place] [address], [place] [phone] documented in this encounter Visit Diagnoses Diagnosis Other cerebrovascular disease documented in this encounter Care Teams Sheriff Sergeant Relationship Specialty Start Date End Date Amrit Valladares NP [address] [place], [place] PCP - General Family Medicine 01/31/18 documented as of this encounter
--- OUTSIDE RECORDS SUMMARY | 2025-01-27 13:07 | XMS_ITS | Encounter Summary ---
Author Organization [facility] Address [address] [place] [address] Care Team Providers Care Sales Agent Business Services Name Role Phone ZarinaAmrit montana Ramón JOHNSON Primary Care Provider [phone] Encounter Details Date Type Department Care Team (Late st Contact Info) Description 12/24/2024 Lab Requisition [facility] - Main Lab [address] [facility] [place] [address] Jeane Morris MD [address] [place] [phone] Encounter for other general examination Social History Tobacco Use Types Packs/Day Years [...] Diagnosis Comments CBC WITH AUTO DIFFERENTIAL Routine 12/24/2024 4:58 AM EDT Encounter for other general examination CBC AND DIFFERENTIAL Routine 12/24/2024 4:58 AM EDT Encounter for other general examination MAGNESIUM Routine 12/24/2024 4:58 AM EDT Encounter for other general examination COMPREHENSIVE METABOLIC PANEL Routine 12/24/2024 4:58 AM EDT Encounter for other general examination documented in this encounter Results * (ABNORMAL) CBC auto differential (12/24/2024 4:58 AM EDT) WBC 11.1(H) 4.8 - 10.8 K/mcL LAB HEMETOLOGY METHOD 12/24/2024 9:32 AM [facility] RBC 4.10(L) 4.50 - 5.50 M/mcL LAB HEMETOLOGY METHOD 12/24/2024 9:32 AM [facility] Hemoglobin 12.7(L) 13.5 - 17.5 g/dL LAB HEMETOLOGY METHOD 12/24/2024 9:32 AM [facility] LAB Hematocrit 38.5(L) 42.0 - 54.0 % LAB HEMETOLOGY METHOD 12/24/2024 9:32 AM [facility] MCV 93.7 79.0 - 98.0 FL LAB HEMETOLOGY METHOD 12/24/2024 9:32 AM [facility] MCH 30.9 27.0 - 32.0 pcg LAB HEMETOLOGY METHOD 12/24/2024 9:32 AM [facility] LAB MCHC 33.0 32.0 - 37.0 g/dL LAB HEMETOLOGY METHOD 12/24/2024 9:32 AM [facility] RDW 13.7 11.0 - 15.0 % LAB HEMETOLOGY METHOD 12/24/2024 9:32 AM [facility] Platelets 381 130 - 400 K/mcL LAB HEMETOLOGY METHOD 12/24/2024 9:32 AM [facility] MPV 10.4 7.0 - 11.0 FL LAB HEMETOLOGY METHOD 12/24/2024 9:32 AM [facility] NRBC 0.0 <1.0 % LAB HEMETOLOGY METHOD 12/24/2024 9:32 AM [facility] NRBC Absolute 0.00 <0.10 K/mcL LAB HEMETOLOGY METHOD 12/24/2024 9:32 AM [facility] Neutrophils Relative 73.7 % LAB HEMETOLOGY METHOD 12/24/2024 9:32 AM [facility] Lymphocytes Relative 14.4 % LAB HEMETOLOGY METHOD 12/24/2024 9:32 AM [facility] Monocytes Relative 9.0 % LAB HEMETOLOGY METHOD 12/24/2024 9:32 AM [facility] Eosinophils Relative 1.9 % LAB HEMETOLOGY METHOD 12/24/2024 9:32 AM [facility] Basophils Relative 0.5 % LAB HEMETOLOGY METHOD 12/24/2024 9:32 AM [facility] Immature Granulocytes Relative 0.5 % LAB HEMETOLOGY METHOD 12/24/2024 9:32 AM [facility] Neutrophils Absolute 8.17(H) 1.50 - 7.00 K/mcL LAB HEMETOLOGY METHOD 12/24/2024 9:32 AM [facility] Lymphocytes Absolute 1.59 1.00 - 5.00 K/mcL LAB HEMETOLOGY METHOD 12/24/2024 9:32 AM [facility] Monocytes Absolute 1.00 0.20 - 1.00 K/mcL LAB HEMETOLOGY METHOD 12/24/2024 9:32 AM [facility] Eosinophils Absolute 0.21 0.00 - 0.50 K/mcL LAB HEMETOLOGY METHOD 12/24/2024 9:32 AM [facility] Basophils Absolute 0.05 0.00 - 0.20 K/mcL LAB HEMETOLOGY METHOD 12/24/2024 9:32 AM [facility] Immature Granulocytes Absolute 0.06(H) 0.00 - 0.03 K/mcL LAB HEMETOLOGY METHOD 12/24/2024 9:32 AM [facility] Blood Venous blood specimen / Unknown Venipuncture / Unknown 12/24/2024 4:58 AM EDT 12/24/2024 9:09 AM EDT us Jeane Morris MD LAB BLOOD ORDERABLES Final Resu lt Performing Organization Address [facility]/ZIP Co de Phone Number [facility] [address] [place] [address], [place] [phone] * Magnesium (12/24/2024 4:58 AM EDT) [facility] Magnesium 2.1 1.9 - 2.6 mg/dL LAB CHEMISTRY METHOD 12/24/2024 9:57 AM EDT [facility] Blood Venous blood specimen / Unknown Venipuncture / Unknown 12/24/2024 4:58 AM EDT 12/24/2024 9:09 AM EDT us Jeane Morris MD LAB BLOOD ORDERABLES Final Resu lt Performing Organization Address City/[facility]/ZIP Co de Phone Number [facility] [address] [place] [address], [place] [phone] * (ABNORMAL) Comprehensive metabolic panel (12/24/2024 4:58 AM EDT) [facility] Sodium 135 133 - 145 mmol/L LAB CHEMISTRY METHOD 12/24/2024 9:58 AM EDT [facility] Potassium 4.3 3.5 - 5.5 mmol/L LAB CHEMISTRY METHOD 12/24/2024 9:58 AM EDT [facility] Chloride 104 96 - 110 mmol/L LAB CHEMISTRY METHOD 12/24/2024 9:58 AM EDT [facility] CO2 23 21 - 32 mmol/L LAB CHEMISTRY METHOD 12/24/2024 9:58 AM EDT [facility] Anion Gap 8 3 - 11 LAB CHEMISTRY METHOD 12/24/2024 9:58 AM EDT [facility] Glucose 84 70 - 100 mg/dL LAB CHEMISTRY METHOD 12/24/2024 9:58 AM [facility] BUN 35(H) 5 - 25 mg/dL LAB CHEMISTRY METHOD 12/24/2024 9:58 AM [facility] Creatinine 1.14 0.70 - 1.30 mg/dL LAB CHEMISTRY METHOD 12/24/2024 9:58 AM [facility] eGFR 66 >=60 mL/min/1. 73m2 LAB CHEMISTRY METHOD 12/24/2024 9:58 AM [facility] LAB Comment:Calculation based on the??Chronic Kidney Disease Epidemiology Collaboration (CKD-EPI) equation refit??without adjustment for race. BUN/Creatinine Ratio 30.7 LAB CHEMISTRY METHOD 12/24/2024 9:58 AM [facility] Calcium 8.9 8.5 - 10.5 mg/dL LAB CHEMISTRY METHOD 12/24/2024 9:58 AM [facility] AST (SGOT) 72(H) 10 - 42 unit/L LAB CHEMISTRY METHOD 12/24/2024 9:58 AM [facility] ALT (SGPT) 135(H) 10 - 60 unit/L LAB CHEMISTRY METHOD 12/24/2024 9:58 AM [facility] Alkaline Phosphatase 97 42 - 121 unit/L LAB CHEMISTRY METHOD 12/24/2024 9:58 AM [facility] Total Protein 6.0 6.0 - 8.0 g/dL LAB CHEMISTRY METHOD 12/24/2024 9:58 AM [facility] Albumin 3.2 3.2 - 5.0 g/dL LAB CHEMISTRY METHOD 12/24/2024 9:58 AM [facility] Total Bilirubin 1.2 0.0 - 1.4 mg/dL LAB CHEMISTRY METHOD 12/24/2024 9:58 AM [facility] Blood Venous blood specimen / Unknown Venipuncture / Unknown 12/24/2024 4:58 AM EDT 12/24/2024 9:09 AM EDT us Jeane Morris MD LAB BLOOD ORDERABLES Final Resu lt [facility] ([facility] [address] [place] [address], documented in this encounter Visit Diagnoses Diagnosis Encounter for other general examination documented in this encounter Care Teams Sales Agent Business Services Relationship Specialty Start Date End Date Amrit Valladares NP [address] [place], [place] PCP - General Family Medicine 01/31/18 documented as of this encounter
--- OUTSIDE RECORDS SUMMARY | 2025-01-27 13:07 | XMS_ITS | Encounter Summary ---
Author Organization [facility] Address [address] [place] [address] Care Team Providers Care Oil Exploration Engineer Name Role Phone ZarinaAmrit montana Ramón JOHNSON Primary Care Provider Encounter Details Date Type Department Care Team (Late st Contact Info) Description 12/22/2024 Lab Requisition [facility] - Main Lab [address] [facility] [place] [address] Jeane Morris MD [address] [place] [phone] Encounter for other general examination Social History [...] Associated Diagnosis Comments URINALYSIS WITH REFLEX MICROSCOPIC AND CULTURE Routine 12/21/2024 8:14 PM EDT Encounter for other general examination JOSEPH URINE CULTURE TUBE Routine 12/21/2024 8:14 PM EDT Encounter for other general examination URINALYSIS WITH REFLEX MICROSCOPIC AND CULTURE Routine 12/21/2024 8:14 PM EDT Encounter for other general examination documented in this encounter Results * (ABNORMAL) Urinalysis with reflex microscopic and culture (12/21/2024 8:14 PM EDT) Specific Pace Urine 1.024 1.003 - 1.030 LAB URINALYSIS - AUTOMATED METHOD 12/22/2024 11:[address] [facility] pH, Urine 6.0 5.0 - 8.0 pH LAB URINALYSIS - AUTOMATED METHOD 12/22/2024 11:[address] [facility] Leukocytes, Urine Negative Negative LAB URINALYSIS - AUTOMATED METHOD 12/22/2024 11:[address] [facility] Nitrite, Urine Negative Negative LAB URINALYSIS - AUTOMATED METHOD 12/22/2024 11:[address] [facility] Protein, Urine Trace <=Trace mg/dL LAB URINALYSIS - AUTOMATED METHOD 12/22/2024 11:[address] [facility] Glucose, Urine Negative Negative mg/dL LAB URINALYSIS - AUTOMATED METHOD 12/22/2024 11:[address] [facility] Ketones, Urine Negative Negative mg/dL LAB URINALYSIS - AUTOMATED METHOD 12/22/2024 11:[address] [facility] Urobilinogen, Urine >=8.0(A) 0.2 - 1.0 mg/dL LAB URINALYSIS - AUTOMATED METHOD 12/22/2024 11:[address] [facility] Bilirubin, Urine Small(A) Negative LAB URINALYSIS - AUTOMATED METHOD 12/22/2024 11:[address] [facility] Blood, Urine Negative Negative LAB URINALYSIS - AUTOMATED METHOD 12/22/2024 11:[address] [facility] Urine Urine specimen obtained by clean catch procedure / Unknown Non-blood Collection / Unknown 12/21/2024 8:14 PM EDT 12/22/2024 10:44 AM EDT us Jeane Morris MD LAB URINE ORDERABLES Final Resu lt [facility] [address] [place] [address], * Joseph urine culture tube (12/21/2024 8:14 PM EDT) Extra Tube Hold for add-ons. 12/22/2024 12:02 PM EDT [facility] Comment:Auto resulted. Urine Urine specimen obtained by clean catch procedure / Unknown Non-blood Collection / Unknown 12/21/2024 8:14 PM EDT 12/22/2024 10:44 AM EDT us Jeane Morris MD LAB URINE ORDERABLES Final Resu lt [facility] [address] [place] [address], documented in this encounter Visit Diagnoses Diagnosis Encounter for other general examination documented in this encounter Care Teams Oil Exploration Engineer Relationship Specialty Start Date End Date Amrit Valladares NP [address] [place], [place] PCP - General Family Medicine 01/31/18 documented as of this encounter
--- OUTSIDE RECORDS SUMMARY | 2025-01-27 13:08 | XMS_ITS | Encounter Summary ---
Author Organization [facility] Address [address] [place] [address] Care Team Providers Care City Council Member Name Role Phone ZarinaAmrit montana Ramón JOHNSON Primary Care Provider Encounter Details Date Type Department Care Team (Late st Contact Info) Description 12/20/2024 Lab Requisition [facility] - Main Lab [address] [facility] [place] [phone] Jeane Morris MD [address] [place] [id number] Encounter for other general examination Social History [...] Procedure Name Priority Date/Time Associated Diagnosis Comments HEPATITIS PANEL, ACUTE WITH REFLEX TO CONFIRMATION Routine 12/20/2024 5:57 AM EDT Encounter for other general examination COMPREHENSIVE METABOLIC PANEL Routine 12/20/2024 5:57 AM EDT Encounter for other general examination documented in this encounter Results * Hepatitis panel, acute with reflex to confirmation (12/20/2024 5:57 AM EDT) Hepatitis B Surface Ag Negative Negative LAB CHEMISTRY METHOD 12/20/2024 12:12 PM EDT [facility] Hepatitis A Antibody IgM Negative Negative LAB CHEMISTRY METHOD 12/20/2024 12:12 PM EDT [facility] Hep B Core IgM Negative Negative LAB CHEMISTRY METHOD 12/20/2024 12:12 PM EDT [facility] Hepatitis C Antibody Negative Negative LAB CHEMISTRY METHOD 12/20/2024 12:12 PM [facility] Blood Venous blood specimen / Unknown Venipuncture / Unknown 12/20/2024 5:57 AM EDT 12/20/2024 9:56 AM EDT us Jeane Morris MD LAB BLOOD ORDERABLES Final Resu lt [facility] [address] [place] [address], * (ABNORMAL) Comprehensive metabolic panel (12/20/2024 5:57 AM EDT) Sodium 133 133 - 145 mmol/L LAB CHEMISTRY METHOD 12/20/2024 11:21 AM [facility] Potassium 5.0 3.5 - 5.5 mmol/L LAB CHEMISTRY METHOD 12/20/2024 11:21 AM [facility] Chloride 102 96 - 110 mmol/L LAB CHEMISTRY METHOD 12/20/2024 11:21 AM [facility] CO2 21 21 - 32 mmol/L LAB CHEMISTRY METHOD 12/20/2024 11:21 AM [facility] Anion Gap 10 3 - 11 LAB CHEMISTRY METHOD 12/20/2024 11:21 AM [facility] Glucose 92 70 - 100 mg/dL LAB CHEMISTRY METHOD 12/20/2024 11:21 AM [facility] BUN 27(H) 5 - 25 mg/dL LAB CHEMISTRY METHOD 12/20/2024 11:21 AM [facility] Creatinine 1.11 0.70 - 1.30 mg/dL LAB CHEMISTRY METHOD 12/20/2024 11:21 AM [facility] eGFR 68 >=60 mL/min/1. 73m2 LAB CHEMISTRY METHOD 12/20/2024 11:21 AM [facility] LAB Comment:Calculation based on the??Chronic Kidney Disease Epidemiology Collaboration (CKD-EPI) equation refit??without adjustment for race. BUN/Creatinine Ratio 24.3 LAB CHEMISTRY METHOD 12/20/2024 11:21 AM [facility] Calcium 9.1 8.5 - 10.5 mg/dL LAB CHEMISTRY METHOD 12/20/2024 11:21 AM [facility] AST (SGOT) 92(H) 10 - 42 unit/L LAB CHEMISTRY METHOD 12/20/2024 11:21 AM [facility] ALT (SGPT) 169(H) 10 - 60 unit/L LAB CHEMISTRY METHOD 12/20/2024 11:21 AM [facility] Alkaline Phosphatase 111 42 - 121 unit/L LAB CHEMISTRY METHOD 12/20/2024 11:21 AM [facility] Total Protein 6.3 6.0 - 8.0 g/dL LAB CHEMISTRY METHOD 12/20/2024 11:21 AM [facility] Albumin 3.4 3.2 - 5.0 g/dL LAB CHEMISTRY METHOD 12/20/2024 11:21 AM [facility] Total Bilirubin 1.3 0.0 - 1.4 mg/dL LAB CHEMISTRY METHOD 12/20/2024 11:21 AM [facility] Blood Venous blood specimen / Unknown Venipuncture / Unknown 12/20/2024 5:57 AM EDT 12/20/2024 9:56 AM EDT us Jeane Morris MD LAB BLOOD ORDERABLES Final Resu lt [facility] [address] [place] [address], documented in this encounter Visit Diagnoses Diagnosis Encounter for other general examination documented in this encounter Care Teams City Council Member Relationship Specialty Start Date End Date [facility]rit Valladares [facility] [address] [facility] [place] [facility] - [facility] Family Medicine 01/31/18 documented as of this encounter
--- OUTSIDE RECORDS SUMMARY | 2025-01-27 13:08 | XMS_ITS | Encounter Summary ---
Author Organization [facility] Address [address] [place] [address] Care Team Providers Care Home Security Alarm Installer Name Role Phone ZarinaAmrit montana Ramón JOHNSON Primary Care Provider Encounter Details Date Type Department Care Team (Late st Contact Info) Description 12/19/2024 Lab Requisition [facility] - Main Lab [address] [facility] [place] [address] Jeane Morris MD [address] [place] [phone] Encounter for other general examination Social History [...] Diagnosis Comments CBC WITH AUTO DIFFERENTIAL Routine 12/19/2024 5:47 AM EST Encounter for other general examination CBC AND DIFFERENTIAL Routine 12/19/2024 5:47 AM EST Encounter for other general examination MAGNESIUM Routine 12/19/2024 5:47 AM EST Encounter for other general examination COMPREHENSIVE METABOLIC PANEL Routine 12/19/2024 5:47 AM EST Encounter for other general examination documented in this encounter Results * (ABNORMAL) CBC auto differential (12/19/2024 5:47 AM EST) WBC 13.1(H) 4.8 - 10.8 K/mcL LAB HEMETOLOGY METHOD 12/19/2024 11:12 AM [facility] RBC 4.70 4.50 - 5.50 M/mcL LAB HEMETOLOGY METHOD 12/19/2024 11:12 AM [facility] Hemoglobin 14.4 13.5 - 17.5 g/dL LAB HEMETOLOGY METHOD 12/19/2024 11:12 AM [facility] Hematocrit 43.6 42.0 - 54.0 % LAB HEMETOLOGY METHOD 12/19/2024 11:12 AM [facility] MCV 92.4 79.0 - 98.0 FL LAB HEMETOLOGY METHOD 12/19/2024 11:12 AM [facility] MCH 30.5 27.0 - 32.0 pcg LAB HEMETOLOGY METHOD 12/19/2024 11:12 AM [facility] MCHC 33.0 32.0 - 37.0 g/dL LAB HEMETOLOGY METHOD 12/19/2024 11:12 AM [facility] RDW 13.7 11.0 - 15.0 % LAB HEMETOLOGY METHOD 12/19/2024 11:12 AM [facility] Platelets 481(H) 130 - 400 K/mcL LAB HEMETOLOGY METHOD 12/19/2024 11:12 AM [facility] MPV 10.0 7.0 - 11.0 FL LAB HEMETOLOGY METHOD 12/19/2024 11:12 AM [facility] NRBC 0.0 <1.0 % LAB HEMETOLOGY METHOD 12/19/2024 11:12 AM [facility] NRBC Absolute 0.00 <0.10 K/mcL LAB HEMETOLOGY METHOD 12/19/2024 11:12 AM [facility] Neutrophils Relative 75.2 % LAB HEMETOLOGY METHOD 12/19/2024 11:12 AM [facility] Lymphocytes Relative 12.6 % LAB HEMETOLOGY METHOD 12/19/2024 11:12 AM [facility] Monocytes Relative 8.5 % LAB HEMETOLOGY METHOD 12/19/2024 11:12 AM [facility] Eosinophils Relative 1.6 % LAB HEMETOLOGY METHOD 12/19/2024 11:12 AM [facility] Basophils Relative 0.6 % LAB HEMETOLOGY METHOD 12/19/2024 11:12 AM [facility] Immature Granulocytes Relative 1.5 % LAB HEMETOLOGY METHOD 12/19/2024 11:12 AM [facility] Neutrophils Absolute 9.81(H) 1.50 - 7.00 K/mcL LAB HEMETOLOGY METHOD 12/19/2024 11:12 AM [facility] Lymphocytes Absolute 1.65 1.00 - 5.00 K/mcL LAB HEMETOLOGY METHOD 12/19/2024 11:12 AM [facility] Monocytes Absolute 1.11(H) 0.20 - 1.00 K/mcL LAB HEMETOLOGY METHOD 12/19/2024 11:12 AM [facility] Eosinophils Absolute 0.21 0.00 - 0.50 K/mcL LAB HEMETOLOGY METHOD 12/19/2024 11:12 AM [facility] Basophils Absolute 0.08 0.00 - 0.20 K/mcL LAB HEMETOLOGY METHOD 12/19/2024 11:12 AM [facility] Immature Granulocytes Absolute 0.20(H) 0.00 - 0.03 K/mcL LAB HEMETOLOGY METHOD 12/19/2024 11:12 AM [facility] Blood Venous blood specimen / Unknown Venipuncture / Unknown 12/19/2024 5:47 AM EST 12/19/2024 10:08 AM EST us Jeane Morris MD LAB BLOOD ORDERABLES Final Resu lt Performing Organization Address City/[facility]/ZIP Co de Phone Number [facility] [address] [place] [address], [place] [phone] * Magnesium (12/19/2024 5:47 AM EST) Magnesium 2.1 1.9 - 2.6 mg/dL LAB CHEMISTRY METHOD 12/19/2024 11:41 AM EST [facility] Blood Venous blood specimen / Unknown Venipuncture / Unknown 12/19/2024 5:47 AM EST 12/19/2024 10:08 AM EST us Jeane Morris MD LAB BLOOD ORDERABLES Final Resu lt Performing Organization Address [facility]/ZIP Co de Phone Number [facility] [address] [place] [address], [place] [phone] * (ABNORMAL) Comprehensive metabolic panel (12/19/2024 5:47 AM EST) Pathologist [facility] Sodium 136 133 - 145 mmol/L LAB CHEMISTRY METHOD 12/19/2024 11:41 AM [facility] Potassium 4.7 3.5 - 5.5 mmol/L LAB CHEMISTRY METHOD 12/19/2024 11:41 AM [facility] Chloride 104 96 - 110 mmol/L LAB CHEMISTRY METHOD 12/19/2024 11:41 AM [facility] CO2 20(L) 21 - 32 mmol/L LAB CHEMISTRY METHOD 12/19/2024 11:41 AM [facility] Anion Gap 12(H) 3 - 11 LAB CHEMISTRY METHOD 12/19/2024 11:41 AM [facility] Glucose 78 70 - 100 mg/dL LAB CHEMISTRY METHOD 12/19/2024 11:41 AM [facility] BUN 28(H) 5 - 25 mg/dL LAB CHEMISTRY METHOD 12/19/2024 11:41 AM [facility] Creatinine 1.03 0.70 - 1.30 mg/dL LAB CHEMISTRY METHOD 12/19/2024 11:41 AM [facility] eGFR 74 >=60 mL/min/1. 73m2 LAB CHEMISTRY METHOD 12/19/2024 11:41 AM [facility] Comment:Calculation based on the??Chronic Kidney Disease Epidemiology Collaboration (CKD-EPI) equation refit??without adjustment for race. BUN/Creatinine Ratio 27.2 LAB CHEMISTRY METHOD 12/19/2024 11:41 AM [facility] Calcium 8.8 8.5 - 10.5 mg/dL LAB CHEMISTRY METHOD 12/19/2024 11:41 AM [facility] AST (SGOT) 100(H) 10 - 42 unit/L LAB CHEMISTRY METHOD 12/19/2024 11:41 AM [facility] ALT (SGPT) 166(H) 10 - 60 unit/L LAB CHEMISTRY METHOD 12/19/2024 11:41 AM [facility] Alkaline Phosphatase 103 42 - 121 unit/L LAB CHEMISTRY METHOD 12/19/2024 11:41 AM [facility] Total Protein 5.8(L) 6.0 - 8.0 g/dL LAB CHEMISTRY METHOD 12/19/2024 11:41 AM [facility] Albumin 3.0(L) 3.2 - 5.0 g/dL LAB CHEMISTRY METHOD 12/19/2024 11:41 AM [facility] Total Bilirubin 1.2 0.0 - 1.4 mg/dL LAB CHEMISTRY METHOD 12/19/2024 11:41 AM [facility] Blood Venous blood specimen / Unknown Venipuncture / Unknown 12/19/2024 5:47 AM EST 12/19/2024 10:08 AM EST us Jeane Morris MD LAB BLOOD ORDERABLES Final Resu lt [facility] LAB [address] [place] [address], documented in this encounter Visit Diagnoses Diagnosis Encounter for other general examination documented in this encounter Care Teams Home Security Alarm Installer Relationship Specialty Start Date End Date Amrit Valladares NP [address] [place], [place] PCP - General Family Medicine 01/31/18 documented as of this encounter
--- OUTSIDE RECORDS SUMMARY | 2025-01-27 13:08 | XMS_ITS | Encounter Summary ---
Author Organization [facility] Address [address] [place] [address] Care Team Providers Care Advertising Account Executive Name Role Phone ZarinaAmrit montana Ramón JOHNSON Primary Care Provider Encounter Details Date Type Department Care Team (Late st Contact Info) Description 12/22/2024 Lab Requisition [facility] - Main Lab [address] [facility] [place] [id number] Jeane Morris MD [address] [place] [id number] Encounter for other general examination Social History [...] Diagnosis Comments CBC WITH AUTO DIFFERENTIAL Routine 12/22/2024 7:06 AM EDT Encounter for other general examination CBC AND DIFFERENTIAL Routine 12/22/2024 7:06 AM EDT Encounter for other general examination documented in this encounter Results * (ABNORMAL) CBC auto differential (12/22/2024 7:06 AM EDT) WBC 11.4(H) 4.8 - 10.8 K/[facility] LAB HEMETOLOGY METHOD 12/22/2024 11:17 AM EDT [facility] LAB RBC 4.30(L) 4.50 - 5.50 M/[facility] LAB HEMETOLOGY METHOD 12/22/2024 11:17 AM [facility] LAB Hemoglobin 13.4(L) 13.5 - 17.5 g/dL LAB HEMETOLOGY METHOD 12/22/2024 11:17 AM [facility] LAB Hematocrit 40.3(L) 42.0 - 54.0 % LAB HEMETOLOGY METHOD 12/22/2024 11:17 AM [facility] LAB MCV 93.5 79.0 - 98.0 FL LAB HEMETOLOGY METHOD 12/22/2024 11:17 AM [facility] LAB MCH 31.1 27.0 - 32.0 pcg LAB HEMETOLOGY METHOD 12/22/2024 11:17 AM [facility] LAB MCHC 33.3 32.0 - 37.0 g/dL LAB HEMETOLOGY METHOD 12/22/2024 11:17 AM [facility] LAB RDW 13.7 11.0 - 15.0 % LAB HEMETOLOGY METHOD 12/22/2024 11:17 AM [facility] LAB Platelets 443(H) 130 - 400 K/mcL LAB HEMETOLOGY METHOD 12/22/2024 11:17 AM [facility] LAB MPV 10.1 7.0 - 11.0 FL LAB HEMETOLOGY METHOD 12/22/2024 11:17 AM [facility] LAB NRBC 0.0 <1.0 % LAB HEMETOLOGY METHOD 12/22/2024 11:17 AM [facility] LAB NRBC Absolute 0.00 <0.10 K/mcL LAB HEMETOLOGY METHOD 12/22/2024 11:17 AM [facility] LAB Neutrophils Relative 70.6 % LAB HEMETOLOGY METHOD 12/22/2024 11:17 AM [facility] LAB Lymphocytes Relative 16.9 % LAB HEMETOLOGY METHOD 12/22/2024 11:17 AM [facility] LAB Monocytes Relative 9.2 % LAB HEMETOLOGY METHOD 12/22/2024 11:17 AM [facility] LAB Eosinophils Relative 2.3 % LAB HEMETOLOGY METHOD 12/22/2024 11:17 AM [facility] LAB Basophils Relative 0.4 % LAB HEMETOLOGY METHOD 12/22/2024 11:17 AM [facility] LAB Immature Granulocytes Relative 0.6 % LAB HEMETOLOGY METHOD 12/22/2024 11:17 AM [facility] LAB Neutrophils Absolute 8.03(H) 1.50 - 7.00 K/mcL LAB HEMETOLOGY METHOD 12/22/2024 11:17 AM [facility] LAB Lymphocytes Absolute 1.92 1.00 - 5.00 K/mcL LAB HEMETOLOGY METHOD 12/22/2024 11:17 AM [facility] LAB Monocytes Absolute 1.04(H) 0.20 - 1.00 K/mcL LAB HEMETOLOGY METHOD 12/22/2024 11:17 AM [facility] LAB Eosinophils Absolute 0.26 0.00 - 0.50 K/mcL LAB HEMETOLOGY METHOD 12/22/2024 11:17 AM [facility] LAB Basophils Absolute 0.04 0.00 - 0.20 K/mcL LAB HEMETOLOGY METHOD 12/22/2024 11:17 AM [facility] LAB Immature Granulocytes Absolute 0.07(H) 0.00 - 0.03 K/mcL LAB HEMETOLOGY METHOD 12/22/2024 11:17 AM [facility] LAB Blood Venous blood specimen / Unknown Venipuncture / Unknown 12/22/2024 7:06 AM EDT 12/22/2024 10:37 AM EDT us Jeane Morris MD LAB BLOOD ORDERABLES Final Resu lt [facility] LAB [address] [place] [address], documented in this encounter Visit Diagnoses Diagnosis Encounter for other general examination documented in this encounter Care Teams Advertising Account Executive Relationship Specialty Start Date End Date Amrit Valladares NP [address] [place], [place] PCP - General Family Medicine 01/31/18 documented as of this encounter
--- OUTSIDE RECORDS SUMMARY | 2025-01-27 13:08 | XMS_ITS | Encounter Summary ---
Author Organization [facility] Address [address] [place] [address] Care Team Providers Care Morgue Librarian Name Role Phone ZarinaAmrit montana Ramón JOHNSON Primary Care Provider Encounter Details Date Type Department Care Team (Late st Contact Info) Description 12/29/2024 Lab Requisition [facility] - Main Lab [address] [facility] [place] [address] Jeane Morris MD [address] [place] [id number] Encounter for other general examination Social History [...] encounter Results * (ABNORMAL) CBC auto differential (12/29/2024 4:50 AM EDT) WBC 10.1 4.8 - 10.8 K/mcL LAB HEMETOLOGY METHOD 12/29/2024 10:34 AM [facility] LAB RBC 4.30(L) 4.50 - 5.50 M/mcL LAB HEMETOLOGY METHOD 12/29/2024 10:34 AM [facility] LAB Hemoglobin 13.3(L) 13.5 - 17.5 g/dL LAB HEMETOLOGY METHOD 12/29/2024 10:34 AM [facility] LAB Hematocrit 39.5(L) 42.0 - 54.0 % LAB HEMETOLOGY METHOD 12/29/2024 10:34 AM [facility] LAB MCV 91.4 79.0 - 98.0 FL LAB HEMETOLOGY METHOD 12/29/2024 10:34 AM [facility] LAB MCH 30.8 27.0 - 32.0 pcg LAB HEMETOLOGY METHOD 12/29/2024 10:34 AM [facility] LAB MCHC 33.7 32.0 - 37.0 g/dL LAB HEMETOLOGY METHOD 12/29/2024 10:34 AM [facility] LAB RDW 13.7 11.0 - 15.0 % LAB HEMETOLOGY METHOD 12/29/2024 10:34 AM [facility] LAB Platelets 367 130 - 400 K/mcL LAB HEMETOLOGY METHOD 12/29/2024 10:34 AM [facility] LAB MPV 10.7 7.0 - 11.0 FL LAB HEMETOLOGY METHOD 12/29/2024 10:34 AM [facility] LAB NRBC 0.0 <1.0 % LAB HEMETOLOGY METHOD 12/29/2024 10:34 AM [facility] LAB NRBC Absolute 0.00 <0.10 K/mcL LAB HEMETOLOGY METHOD 12/29/2024 10:34 AM [facility] LAB Neutrophils Relative 62.1 % LAB HEMETOLOGY METHOD 12/29/2024 10:34 AM [facility] LAB Lymphocytes Relative 24.9 % LAB HEMETOLOGY METHOD 12/29/2024 10:34 AM [facility] LAB Monocytes Relative 10.1 % LAB HEMETOLOGY METHOD 12/29/2024 10:34 AM [facility] LAB Eosinophils Relative 1.7 % LAB HEMETOLOGY METHOD 12/29/2024 10:34 AM [facility] LAB Basophils Relative 0.8 % LAB HEMETOLOGY METHOD 12/29/2024 10:34 AM [facility] LAB Immature Granulocytes Relative 0.4 % LAB HEMETOLOGY METHOD 12/29/2024 10:34 AM [facility] LAB Neutrophils Absolute 6.27 1.50 - 7.00 K/mcL LAB HEMETOLOGY METHOD 12/29/2024 10:34 AM [facility] LAB Lymphocytes Absolute 2.51 1.00 - 5.00 K/mcL LAB HEMETOLOGY METHOD 12/29/2024 10:34 AM [facility] LAB Monocytes Absolute 1.02(H) 0.20 - 1.00 K/mcL LAB HEMETOLOGY METHOD 12/29/2024 10:34 AM [facility] LAB Eosinophils Absolute 0.17 0.00 - 0.50 K/mcL LAB HEMETOLOGY METHOD 12/29/2024 10:34 AM [facility] LAB Basophils Absolute 0.08 0.00 - 0.20 K/mcL LAB HEMETOLOGY METHOD 12/29/2024 10:34 AM [facility] LAB Immature Granulocytes Absolute 0.04(H) 0.00 - 0.03 K/mcL LAB HEMETOLOGY METHOD 12/29/2024 10:34 AM [facility] LAB Blood Venous blood specimen / Unknown Venipuncture / Unknown 12/29/2024 4:50 AM EDT 12/29/2024 9:04 AM EDT us Jeane Morris MD LAB BLOOD ORDERABLES Final Resu lt Performing Organization Address [facility]/ZIP Co de Phone Number [facility] [address] [place] [address], [place] [phone] * Magnesium (12/29/2024 4:50 AM EDT) [facility] Magnesium 2.2 1.9 - 2.6 mg/dL LAB CHEMISTRY METHOD 12/29/2024 11:31 AM EDT [facility] Blood Venous blood specimen / Unknown Venipuncture / Unknown 12/29/2024 4:50 AM EDT 12/29/2024 9:04 AM EDT us Jeane Morris MD LAB BLOOD ORDERABLES Final Resu lt Performing Organization Address City/[facility]/ZIP Co de Phone Number [facility] [address] [place] [address], [place] [phone] * (ABNORMAL) Comprehensive metabolic panel (12/29/2024 4:50 AM EDT) [facility] Sodium 134 133 - 145 mmol/L LAB CHEMISTRY METHOD 12/29/2024 11:33 AM EDT [facility] Potassium 4.6 3.5 - 5.5 mmol/L LAB CHEMISTRY METHOD 12/29/2024 11:33 AM EDT [facility] Chloride 102 96 - 110 mmol/L LAB CHEMISTRY METHOD 12/29/2024 11:33 AM EDT [facility] CO2 23 21 - 32 mmol/L LAB CHEMISTRY METHOD 12/29/2024 11:33 AM EDT [facility] Anion Gap 9 3 - 11 LAB CHEMISTRY METHOD 12/29/2024 11:33 AM EDT [facility] Glucose 78 70 - 100 mg/dL LAB CHEMISTRY METHOD 12/29/2024 11:33 AM [facility] BUN 26(H) 5 - 25 mg/dL LAB CHEMISTRY METHOD 12/29/2024 11:33 AM [facility] LAB Creatinine 1.18 0.70 - 1.30 mg/dL LAB CHEMISTRY METHOD 12/29/2024 11:33 AM [facility] LAB eGFR 63 >=60 mL/min/1. 73m2 LAB CHEMISTRY METHOD 12/29/2024 11:33 AM [facility] LAB Comment:Calculation based on the??Chronic Kidney Disease Epidemiology Collaboration (CKD-EPI) equation refit??without adjustment for race. BUN/Creatinine Ratio 22.0 LAB CHEMISTRY METHOD 12/29/2024 11:33 AM [facility] Calcium 9.2 8.5 - 10.5 mg/dL LAB CHEMISTRY METHOD 12/29/2024 11:33 AM [facility] LAB AST (SGOT) 54(H) 10 - 42 unit/L LAB CHEMISTRY METHOD 12/29/2024 11:33 AM [facility] LAB ALT (SGPT) 117(H) 10 - 60 unit/L LAB CHEMISTRY METHOD 12/29/2024 11:33 AM [facility] Alkaline Phosphatase 94 42 - 121 unit/L LAB CHEMISTRY METHOD 12/29/2024 11:33 AM [facility] Total Protein 6.1 6.0 - 8.0 g/dL LAB CHEMISTRY METHOD 12/29/2024 11:33 AM [facility] Albumin 3.6 3.2 - 5.0 g/dL LAB CHEMISTRY METHOD 12/29/2024 11:33 AM [facility] Total Bilirubin 1.2 0.0 - 1.4 mg/dL LAB CHEMISTRY METHOD 12/29/2024 11:33 AM [facility] Blood Venous blood specimen / Unknown Venipuncture / Unknown 12/29/2024 4:50 AM EDT 12/29/2024 9:04 AM EDT us Jeane Morris MD LAB BLOOD ORDERABLES [facility] [address] [place] [address], documented in this encounter Visit Diagnoses Diagnosis Encounter for other general examination documented in this encounter Care Teams Morgue Librarian Relationship Specialty Start Date End Date Amrit Valladares NP [address] [place], [place] PCP - General Family Medicine 01/31/18 documented as of this encounter
== END 2025-01-27 10:58 | disposition home or self-care (01) ==
LOC: HO.MRI 10:57
PROVIDERS: PCP Nurse Practitioner Family; Visit Provider Nurse Practitioner Family
DX: N28.89 Other specified disorders of kidney and ureter (principal)
CPT/HCPCS: 74183; A9585

== ENCOUNTER 2025-02-02 13:14 | Outpatient (AMB) | payer MEDICARE, SELFPAY ==
--- NOTE | 2025-02-02 13:22 | MHC.PC.OV ---
Vital Signs 02/02/25 13:23 Height 5 ft 8 in Weight 174 lb BMI 26.5 BP 118/82 Blood Pressure Location Lt brachial Position Sitting Respiration 18 Pulse 61 Pulse Source Pulse Oximeter Temp 98.0 F Temp Source Oral Pulse Oximetry (%) 99 Oxygen Delivery Method Room Air Intake Visit Reasons: 6 months f/up Intake Note: Pt is here today for 6months follow up visit. Allergies No Known Allergies Allergy (Verified 02/02/25 13:48) Medication List - Last Reconciled 02/02/25 by MARIA INES Woody- apixaban (Eliquis) 5 mg PO BID 30 days atorvastatin 80 mg PO DAILY 90 days carvedilol 6.25 mg PO BID cholecalciferol (vitamin D3) 50 mcg PO DAILY 90 days melatonin 3 mg PO BEDTIME PRN spironolactone 25 mg PO BID 90 days valsartan 40 mg PO DAILY Tobacco use date assessed: 02/02/25 Fall risk assessment: No Falls in past year Last assessed Fall Risk: 02/02/25 Dental Screening Dental Screen Date: 02/02/25 Did you have a dental visit in the last 12 months?: No Did you have a dental problem in the last 6 months where you did not have access to dental care?: No Was dental information given to patient?: Patient declined HPI 6 months f/up HPI Details Chief Complaint Follow-up after hospital discharge for cerebrovascular accident. History of Present Illness The patient is a 79-year-old male presenting with a follow-up after hospital discharge for a cerebrovascular accident. 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 The event was further complicated by hypotension, requiring treatment with phenylephrine. His medical history included atrial fibrillation, though he was not on Eliquis initially due to cost concerns. Post-discharge on January 01, 2025, he has a follow up with neurology and engages in physical and speech therapies. Despite a slight residual weakness in his left extremity, his bilateral movement is significant, and speech has improved. (please see hospital documentation). Of note: recommended outpt imaging of abd, for ? right kidney abnormality. Renal infarct noted, referred to urology. Labs ordered Social History - Lives at home with his and is cared for by his and daughter. Health Maintenance Review of Systems - Neurological: Reports left-sided weakness, improved speech. -denies any cp, sob, n/v, fevers, chills, Physical Exam General: Cooperative, healthy appearing, comfortable, no acute distress and well developed Orientation: Patient oriented x3 Limitations: No limitations Head: Normal to inspection Ears: Hearing grossly normal bilaterally Nose: Normal external nose present Face and sinus: Normal facial exam Eyes: Appearance normal, both eyes and all related structures Neck: Normal visual inspection and Yes full ROM Respiratory: Normal respiratory effort and able to speak in complete sentences. Clear to auscultation bilaterally Cardiovascular: Irregularly irregular rhythm. Normal S1 and S2 GI: Normal to inspection. Soft to palpation and nontender Skin: No rashes or lesions noted Neuro: Patient oriented x3. CN 2 through 12 intact. Negative Romberg Extremities: Normal to inspection. Good movement throughout lower extremities and upper extremities bilaterally. Slight weakness to left upper extremity with hand grasp Results - Tests and Diagnostics: Right M1 occlusion detected; no specific test results discussed for this visit. Plan I have reviewed the patient's recent medical history with reference to his previous hospital admission for a cerebrovascular accident due to a right M1 occlusion. Currently, his atrial fibrillation is being managed with Eliquis, and a high-dose statin is in place for cholesterol management. Follow-up with neurology is essential for assessing progress with physical and speech therapy, which is part of his rehabilitation. Additionally, his cardiovascular status will be monitored, with cardiology follow-up to ensure stability and mitigate further risks. Discussion Notes During the visit, I discussed the patient's recent cerebrovascular accident and the hospitalization course. We reviewed the new medication regimen, including Eliquis for atrial fibrillation and the increased statin dosage. Jointly, we examined the necessity of follow-up with neurology and cardiology to prevent further cerebrovascular events. The patient and family were informed about ongoing rehabilitation?s role in recovery. We addressed the importance of medication adherence and therapy participation. Labs ordered Patient Instructions - Continue taking prescribed medications as directed, including Eliquis and statin. - Attend all scheduled neurology and cardiology appointments. - Engage actively in physical therapy and speech therapy sessions. - Monitor any changes in symptoms and seek immediate care if condition worsens. - Keep follow-up appointments for continued assessment of recovery progress. [facility] Medical History (Updated 01/27/25 @ 17:06 by Amrit Valladares [employer]) Adrenal adenoma Hemiplegia Acute right MCA stroke AAA (abdominal aortic aneurysm) Surgical History Hx of CABG Family History Father Myocardial infarction Mother Cancer Social History Housing: House Patient Tobacco Use Status: Former Tobacco user (December 2023) Tobacco use type: Cigar Cigarettes Per Day: 1 e-Cigarette/Vaping Use: Never Used Second Hand Smoke Exposure: Yes service: Yes Current occupational status: employed Current occupation: [employer] Current occupational exposures/hazards: Yes Cognitive needs: No Hearing needs: No Vision needs: No Questionnaire PHQ-9 Over the last 2 weeks, how often have you been bothered by any of the following problems? 1. Little interest or pleasure in doing things: not at all 2. Feeling down, depressed, or hopeless: not at all 3. Trouble falling or staying asleep, or sleeping too much: not at all 4. Feeling tired or having little energy: not at all 5. Poor appetite or overeating: not at all 6. Feeling bad about yourself - or that you are a failure or have let yourself or your family down: not at all 7. Trouble concentrating on things, such as reading the newspaper or watching television: not at all 8. Moving or speaking so slowly that other people could have noticed. Or the opposite - being so fidgety or restless that you have been moving around a lot more than usual: not at all 9. Thoughts that you would be better off or of hurting yourself in some way: not at all Total score: 0 Depression Screening Interpretation: Negative Depression Screening Done: Yes 05391 - PHQ-9 Billing: Yes Source: Developed by Drs. Mars Cheng, Tory Vazquez, Morgan Sarmiento and colleagues, with an educational christelle from [employer]. Thrive Questionnaire Date Thrive assessed: 02/02/25 I am a: Patient What is your living situation today?: I choose not to answer this question Within the past 12 months, did the food you bought not last and you didn't have the money to get more?: I choose not to answer this question Within the past 12 months, did you worry whether your food would run out before you got money to buy more?: I choose not to answer this question Do you have trouble paying for medicines?: I choose not to answer this question Do you have trouble getting transportation to medical appointments?: I choose not to answer this question Do you have trouble paying your heating and electricity bill?: I choose not to answer this question Do you have trouble taking care of your child, family member or friend?: I choose not to answer this question Do you have trouble with day-to-day activities such as bathing, preparing meals, shopping, managing finances, etc.?: I choose not to answer this question Are you currently unemployed and looking for a job?: I choose not to answer this question Are you interested in more education?: I choose not to answer this question Please select the resources that you would like help with: None Currently or been in a relationship where the following occur: I choose not to answer THRIVE Score: 0 AUDIT C Alcohol Use Questionnaire (AUDIT-C) 1. How often do you have a drink containing alcohol?: Never 3. How often do you have six or more drinks on one occasion?: Never Total Score: 0 LUIS-7 AMB Questionnaire LUIS-7 Date LUIS - 7 assessed: 02/02/25 Feeling nervous, anxious, or on edge: 0 = Not at all Not being able to stop or control worryin = Not at all Worrying too much about different things: 0 = Not at all Trouble relaxin = Not at all Being so restless that it is hard to sit still: 0 = Not at all Becoming easily annoyed or irritable: 0 = Not at all Feeling afraid as if something awful might happen: 0 = Not at all Total LUIS-7 score (0-4 normal; 5-9 mild; 10-14 moderate; 15-21 severe): 0 Source: Developed by Drs. Mras Cheng, Tory Vazquez, Morgan Sarmiento and colleagues, with an educational christelle from [employer]. LUIS-7 Assessment Billing LUIS-7 Assessment Tool: LUIS-7 Assessment 16405 Physical exam (Primary Care) Vital Signs: Last Vital Signs Temp 98.0 F 02/02/25 13:23 Pulse 61 02/02/25 13:23 Resp 18 02/02/25 13:23 BP 118/82 02/02/25 13:23 Pulse Ox 99 02/02/25 13:23 Oxygen Delivery Method Room Air 02/02/25 13:23 BMI result Body Mass Index 26.5 Tobacco/Smoking Status: Tobacco use Status Tobacco use date assessed 02/02/25 02/02/25 13:32 Patient Tobacco Use Status Former Tobacco user (02/02/25 13:32 2023) Tobacco use type Cigar 02/02/25 13:25 e-Cigarette/Vaping Use Never Used 02/02/25 13:25 PHQ-9: PHQ-9 Score PHQ-9: Total score 0 02/02/25 14:17 Depression Screening Interpretation: Negative Thrive Assessment: Date of Thrive Assessment Date Thrive assessed 02/02/25 02/02/25 13:32 Currently or been in a relationship where the following occur: I choose not to answer Coding Level of Care Code Est Pt Level 4 (41060) Diagnoses CVA (cerebral vascular accident) I63.9 Renal infarct N28.0 Additional Codes LUIS-7 Assessment Billing - LUIS-7 Assessment Tool: LUIS-7 Assessment 74772 ([id number]) PHQ-9 - 26108 - PHQ-9 Billing: Yes ([id number]) Assessment & Plan Assessment & Plan (1) CVA (cerebral vascular accident): Code(s): I63.9 - Cerebral infarction, unspecified Category: Medical (2) Renal infarct: Code(s): N28.0 - Ischemia and infarction of kidney Category: Medical Plan . Orders: Orders Comprehensive Warren. Panel Fast Today I63.9 - Cerebral infarction, unspecified Complete Blood Count Auto Diff Today I63.9 - Cerebral infarction, unspecified TSH reflex Free T4 Today I63.9 - Cerebral infarction, unspecified UA CC w/rflx Micro + Cult Today I63.9 - Cerebral infarction, unspecified Lipid Panel Today I63.9 - Cerebral infarction, unspecified
[2025-02-02 13:23] VITALS: BP 118/82; PULSE 61; RESP 18; TEMP 36.7; O2SAT 99; BMI 26.5
--- OUTSIDE RECORDS SUMMARY | 2025-02-02 15:44 | XMS_ITS | Encounter Summary ---
Author Organization [facility] Address [address] [place] [address] Care Team Providers Care Card Seller Name Role Phone ZarinaAmrit montana Ramón JOHNSON Primary Care Provider [phone] Encounter Details Date Type Department Care Team (Late st Contact Info) Description 12/19/2024 Lab Requisition [facility] - Main Lab [address] [facility] [place] [address] Jeane Morris MD [address] [place] [phone] Encounter for other general examination Social History [...] K/mcL LAB HEMETOLOGY METHOD 12/19/2024 11:12 AM [facility] RBC 4.70 4.50 - 5.50 M/mcL LAB HEMETOLOGY METHOD 12/19/2024 11:12 AM [facility] Hemoglobin 14.4 13.5 - 17.5 g/dL LAB HEMETOLOGY METHOD 12/19/2024 11:12 AM [facility] Hematocrit 43.6 42.0 - 54.0 % LAB HEMETOLOGY METHOD 12/19/2024 11:12 AM [facility] MCV 92.4 79.0 - 98.0 FL LAB HEMETOLOGY METHOD 12/19/2024 11:12 AM [facility] MCH 30.5 27.0 - 32.0 pcg LAB HEMETOLOGY METHOD 12/19/2024 11:12 AM [facility] MCHC 33.0 32.0 - 37.0 g/dL LAB HEMETOLOGY METHOD 12/19/2024 11:12 AM [facility] RDW 13.7 11.0 - 15.0 % LAB HEMETOLOGY METHOD 12/19/2024 11:12 AM [facility] Platelets 481(H) 130 - 400 K/mcL LAB HEMETOLOGY METHOD 12/19/2024 11:12 AM [facility] MPV 10.0 7.0 - 11.0 FL LAB HEMETOLOGY METHOD 12/19/2024 11:12 AM [facility] NRBC 0.0 <1.0 % LAB HEMETOLOGY METHOD 12/19/2024 11:12 AM [facility] NRBC Absolute 0.00 <0.10 K/mcL LAB HEMETOLOGY METHOD 12/19/2024 11:12 AM [facility] Neutrophils Relative 75.2 % LAB HEMETOLOGY METHOD 12/19/2024 11:12 AM [facility] Lymphocytes Relative 12.6 % LAB HEMETOLOGY METHOD 12/19/2024 11:12 AM [facility] Monocytes Relative 8.5 % LAB HEMETOLOGY METHOD 12/19/2024 11:12 AM [facility] Eosinophils Relative 1.6 % LAB HEMETOLOGY METHOD 12/19/2024 11:12 AM [facility] Basophils Relative 0.6 % LAB HEMETOLOGY METHOD 12/19/2024 11:12 AM [facility] Immature Granulocytes Relative 1.5 % LAB HEMETOLOGY METHOD 12/19/2024 11:12 AM [facility] Neutrophils Absolute 9.81(H) 1.50 - 7.00 K/mcL LAB HEMETOLOGY METHOD 12/19/2024 11:12 AM [facility] Lymphocytes Absolute 1.65 1.00 - 5.00 K/mcL LAB HEMETOLOGY METHOD 12/19/2024 11:12 AM [facility] Monocytes Absolute 1.11(H) 0.20 - 1.00 K/mcL LAB HEMETOLOGY METHOD 12/19/2024 11:12 AM [facility] Eosinophils Absolute 0.21 0.00 - 0.50 K/mcL LAB HEMETOLOGY METHOD 12/19/2024 11:12 AM [facility] Basophils Absolute 0.08 0.00 - 0.20 K/mcL LAB HEMETOLOGY METHOD 12/19/2024 11:12 AM [facility] Immature Granulocytes Absolute 0.20(H) 0.00 - 0.03 K/mcL LAB HEMETOLOGY METHOD 12/19/2024 11:12 AM [facility] Blood Venous blood specimen / Unknown Venipuncture / Unknown 12/19/2024 5:47 AM EST 12/19/2024 10:08 AM EST us Jeane Morris MD LAB BLOOD ORDERABLES Final Resu lt Performing Organization Address City/[facility]/ZIP Co de Phone Number [facility] [address] [place] [address], [place] [phone] * Magnesium (12/19/2024 5:47 AM EST) Magnesium 2.1 1.9 - 2.6 mg/dL LAB CHEMISTRY METHOD 12/19/2024 11:41 AM EST [facility] Blood Venous blood specimen / Unknown Venipuncture / Unknown 12/19/2024 5:47 AM EST 12/19/2024 10:08 AM EST us Jeane Morris MD LAB BLOOD ORDERABLES Final Resu lt Performing Organization Address [facility]/ZIP Co de Phone Number [facility] [address] [place] [address], [place] [phone] * (ABNORMAL) Comprehensive metabolic panel (12/19/2024 5:47 AM EST) Pathologist [facility] Sodium 136 133 - 145 mmol/L LAB CHEMISTRY METHOD 12/19/2024 11:41 AM [facility] Potassium 4.7 3.5 - 5.5 mmol/L LAB CHEMISTRY METHOD 12/19/2024 11:41 AM [facility] Chloride 104 96 - 110 mmol/L LAB CHEMISTRY METHOD 12/19/2024 11:41 AM [facility] CO2 20(L) 21 - 32 mmol/L LAB CHEMISTRY METHOD 12/19/2024 11:41 AM [facility] Anion Gap 12(H) 3 - 11 LAB CHEMISTRY METHOD 12/19/2024 11:41 AM [facility] Glucose 78 70 - 100 mg/dL LAB CHEMISTRY METHOD 12/19/2024 11:41 AM [facility] BUN 28(H) 5 - 25 mg/dL LAB CHEMISTRY METHOD 12/19/2024 11:41 AM [facility] Creatinine 1.03 0.70 - 1.30 mg/dL LAB CHEMISTRY METHOD 12/19/2024 11:41 AM [facility] eGFR 74 >=60 mL/min/1. 73m2 LAB CHEMISTRY METHOD 12/19/2024 11:41 AM [facility] Comment:Calculation based on the??Chronic Kidney Disease Epidemiology Collaboration (CKD-EPI) equation refit??without adjustment for race. BUN/Creatinine Ratio 27.2 LAB CHEMISTRY METHOD 12/19/2024 11:41 AM [facility] Calcium 8.8 8.5 - 10.5 mg/dL LAB CHEMISTRY METHOD 12/19/2024 11:41 AM [facility] AST (SGOT) 100(H) 10 - 42 unit/L LAB CHEMISTRY METHOD 12/19/2024 11:41 AM [facility] ALT (SGPT) 166(H) 10 - 60 unit/L LAB CHEMISTRY METHOD 12/19/2024 11:41 AM [facility] Alkaline Phosphatase 103 42 - 121 unit/L LAB CHEMISTRY METHOD 12/19/2024 11:41 AM [facility] Total Protein 5.8(L) 6.0 - 8.0 g/dL LAB CHEMISTRY METHOD 12/19/2024 11:41 AM [facility] Albumin 3.0(L) 3.2 - 5.0 g/dL LAB CHEMISTRY METHOD 12/19/2024 11:41 AM [facility] Total Bilirubin 1.2 0.0 - 1.4 mg/dL LAB CHEMISTRY METHOD 12/19/2024 11:41 AM [facility] Blood Venous blood specimen / Unknown Venipuncture / Unknown 12/19/2024 5:47 AM EST 12/19/2024 10:08 AM EST us Jeane Morris MD LAB BLOOD ORDERABLES Final Resu lt [facility] LAB [address] [place] [address], documented in this encounter Visit Diagnoses Diagnosis Encounter for other general examination documented in this encounter Care Teams Card Seller Relationship Specialty Start Date End Date Amrit Valladares NP [address] [place], [place] PCP - General Family Medicine 01/31/18 documented as of this encounter
--- OUTSIDE RECORDS SUMMARY | 2025-02-02 15:44 | XMS_ITS | Clinical Summary ---
Author Organization [address] Address [address] [place] [address] Phone Care Team Providers Care Physical Education Specialist Name Role Phone BlaineAmrit Ramón JOHNSON Primary Care Provider Encounters Date Type Department Care Team Description 12/29/2024 Lab Requisition [facility] Main Lab [address] [place] [address] Jeane Morris MD Encounter for other general examination 12/27/2024 Lab Requisition [facility] Lab [address] [place] [address] Jeane Morris MD Other cerebrovascular disease 12/24/2024 Lab Requisition [facility] Lab [address] [place] [address] Jeane Morris MD Encounter for other general examination 12/22/2024 Lab Requisition [facility] Lab [address] [place] [address] Jeane Morris MD Encounter for other general examination 12/22/2024 Lab Requisition [facility] Main Lab [address] [place] [address] Jeane Morris MD Encounter for other general examination 12/20/2024 Lab Requisition [facility] Lab [address] [place] [address] Jeane Morris MD Encounter for other general examination 12/19/2024 Lab Requisition [facility] Main Lab [address] [place] [address] Jeane Morris MD Encounter for other general [...] LAB HEMETOLOGY METHOD 12/29/2024 10:34 AM EDT [facility] RBC 4.30(L) 4.50 - 5.50 M/mcL LAB HEMETOLOGY METHOD 12/29/2024 10:34 AM EDT [facility] Hemoglobin 13.3(L) 13.5 - 17.5 g/dL LAB HEMETOLOGY METHOD 12/29/2024 10:34 AM EDT [facility] Hematocrit 39.5(L) 42.0 - 54.0 % LAB HEMETOLOGY METHOD 12/29/2024 10:34 AM EDT [facility] MCV 91.4 79.0 - 98.0 FL LAB HEMETOLOGY METHOD 12/29/2024 10:34 AM EDT [facility] MCH 30.8 27.0 - 32.0 pcg LAB HEMETOLOGY METHOD 12/29/2024 10:34 AM [facility] MCHC 33.7 32.0 - 37.0 g/dL LAB HEMETOLOGY METHOD 12/29/2024 10:34 AM [facility] RDW 13.7 11.0 - 15.0 % LAB HEMETOLOGY METHOD 12/29/2024 10:34 AM [facility] Platelets 367 130 - 400 K/mcL LAB HEMETOLOGY METHOD 12/29/2024 10:34 AM [facility] MPV 10.7 7.0 - 11.0 FL LAB HEMETOLOGY METHOD 12/29/2024 10:34 AM [facility] NRBC 0.0 <1.0 % LAB HEMETOLOGY METHOD 12/29/2024 10:34 AM [facility] NRBC Absolute 0.00 <0.10 K/mcL LAB HEMETOLOGY METHOD 12/29/2024 10:34 AM [facility] Neutrophils Relative 62.1 % LAB HEMETOLOGY METHOD 12/29/2024 10:34 AM [facility] Lymphocytes Relative 24.9 % LAB HEMETOLOGY METHOD 12/29/2024 10:34 AM [facility] Monocytes Relative 10.1 % LAB HEMETOLOGY METHOD 12/29/2024 10:34 AM [facility] Eosinophils Relative 1.7 % LAB HEMETOLOGY METHOD 12/29/2024 10:34 AM [facility] Basophils Relative 0.8 % LAB HEMETOLOGY METHOD 12/29/2024 10:34 AM [facility] Immature Granulocytes Relative 0.4 % LAB HEMETOLOGY METHOD 12/29/2024 10:34 AM EDT [facility] Neutrophils Absolute 6.27 1.50 - 7.00 K/[facility] LAB HEMETOLOGY METHOD 12/29/2024 10:34 AM EDT [facility] Lymphocytes Absolute 2.51 1.00 - 5.00 K/[facility] LAB HEMETOLOGY METHOD 12/29/2024 10:34 AM EDT [facility] Monocytes Absolute 1.02(H) 0.20 - 1.00 K/[facility] LAB HEMETOLOGY METHOD 12/29/2024 10:34 AM EDT [facility] Eosinophils Absolute 0.17 0.00 - 0.50 K/[facility] LAB HEMETOLOGY METHOD 12/29/2024 10:34 AM EDT [facility] Basophils Absolute 0.08 0.00 - 0.20 K/[facility] LAB HEMETOLOGY METHOD 12/29/2024 10:34 AM EDT [facility] Immature Granulocytes Absolute 0.04(H) 0.00 - 0.03 K/[facility] LAB HEMETOLOGY METHOD 12/29/2024 10:34 AM EDT [facility] Blood Venous blood specimen / Unknown Venipuncture / Unknown 12/29/2024 4:50 AM EDT 12/29/2024 9:04 AM EDT us Jeane Morris MD LAB BLOOD ORDERABLES Final Resu lt [facility] [address] [place] [address], * Magnesium (12/29/2024 4:50 AM EDT) Only the most recent of3 resultswithin the time period is included. Magnesium 2.2 1.9 - 2.6 mg/dL LAB CHEMISTRY METHOD 12/29/2024 11:31 AM EDT [facility] Blood Venous blood specimen / Unknown Venipuncture / Unknown 12/29/2024 4:50 AM EDT 12/29/2024 9:04 AM EDT us Jeane Morris MD LAB BLOOD ORDERABLES Final Resu lt [facility] [address] [place] [address], * (ABNORMAL) Comprehensive metabolic panel (12/29/2024 4:50 AM EDT) Only the most recent of4 resultswithin the time period is included. Sodium 134 133 - 145 mmol/L LAB CHEMISTRY METHOD 12/29/2024 11:33 AM [facility] Potassium 4.6 3.5 - 5.5 mmol/L LAB CHEMISTRY METHOD 12/29/2024 11:33 AM [facility] Chloride 102 96 - 110 mmol/L LAB CHEMISTRY METHOD 12/29/2024 11:33 AM [facility] CO2 23 21 - 32 mmol/L LAB CHEMISTRY METHOD 12/29/2024 11:33 AM [facility] Anion Gap 9 3 - 11 LAB CHEMISTRY METHOD 12/29/2024 11:33 AM [facility] Glucose 78 70 - 100 mg/dL LAB CHEMISTRY METHOD 12/29/2024 11:33 AM [facility] BUN 26(H) 5 - 25 mg/dL LAB CHEMISTRY METHOD 12/29/2024 11:33 AM [facility] Creatinine 1.18 0.70 - 1.30 mg/dL LAB CHEMISTRY METHOD 12/29/2024 11:33 AM [facility] eGFR 63 >=60 mL/min/1. 73m2 LAB CHEMISTRY METHOD 12/29/2024 11:33 AM [facility] Comment:Calculation based on the??Chronic Kidney Disease Epidemiology Collaboration (CKD-EPI) equation refit??without adjustment for race. BUN/Creatinine Ratio 22.0 LAB CHEMISTRY METHOD 12/29/2024 11:33 AM [facility] Calcium 9.2 8.5 - 10.5 mg/dL LAB CHEMISTRY METHOD 12/29/2024 11:33 AM [facility] AST (SGOT) 54(H) 10 - 42 unit/L LAB CHEMISTRY METHOD 12/29/2024 11:33 AM [facility] ALT (SGPT) 117(H) 10 - 60 unit/L LAB CHEMISTRY METHOD 12/29/2024 11:33 AM [facility] Alkaline Phosphatase 94 42 - 121 unit/L LAB CHEMISTRY METHOD 12/29/2024 11:33 AM [facility] Total Protein 6.1 6.0 - 8.0 g/dL LAB CHEMISTRY METHOD 12/29/2024 11:33 AM [facility] Albumin 3.6 3.2 - 5.0 g/dL LAB CHEMISTRY METHOD 12/29/2024 11:33 AM [facility] Total Bilirubin 1.2 0.0 - 1.4 mg/dL LAB CHEMISTRY METHOD 12/29/2024 11:33 AM [facility] Blood Venous blood specimen / Unknown Venipuncture / Unknown 12/29/2024 4:50 AM EDT 12/29/2024 9:04 AM EDT us Jeane Morris MD LAB BLOOD ORDERABLES Final Resu lt [facility] [address] [place] [address], [place] [phone] * (ABNORMAL) Urinalysis with reflex microscopic (12/27/2024 10:00 AM EDT) Specific [place] Urine 1.021 1.003 - 1.030 LAB URINALYSIS - AUTOMATED METHOD 12/27/2024 3:28 PM [facility] pH, Urine 6.0 5.0 - 8.0 pH LAB URINALYSIS - AUTOMATED METHOD 12/27/2024 3:28 PM [facility] Leukocytes, Urine Negative Negative LAB URINALYSIS - AUTOMATED METHOD 12/27/2024 3:28 PM [facility] Nitrite, Urine Negative Negative LAB URINALYSIS - AUTOMATED METHOD 12/27/2024 3:28 PM [facility] Protein, Urine 30(A) <=Trace mg/dL LAB URINALYSIS - AUTOMATED METHOD 12/27/2024 3:28 PM [facility] Glucose, Urine Negative Negative mg/dL LAB URINALYSIS - AUTOMATED METHOD 12/27/2024 3:28 PM [facility] Ketones, Urine Negative Negative mg/dL LAB URINALYSIS - AUTOMATED METHOD 12/27/2024 3:28 PM [facility] Urobilinogen , Urine 1.0 0.2 - 1.0 mg/dL LAB URINALYSIS - AUTOMATED METHOD 12/27/2024 3:28 PM [facility] Bilirubin, Urine Negative Negative LAB URINALYSIS - AUTOMATED METHOD 12/27/2024 3:28 PM [facility] Blood, Urine Negative Negative LAB URINALYSIS - AUTOMATED METHOD 12/27/2024 3:28 PM [facility] RBC, Urine 6.6(H) 0 - 4 /HPF LAB URINALYSIS - AUTOMATED METHOD 12/27/2024 3:28 PM [facility] WBC, Urine 2.3 0 - 4 /HPF LAB URINALYSIS - AUTOMATED METHOD 12/27/2024 3:28 PM [facility] Squamous Epithelial, Urine 9 0 - 60 /LPF LAB URINALYSIS - AUTOMATED METHOD 12/27/2024 3:28 PM [facility] Crystals, Urine Light Amorphous Urate crystals. /LPF 12/27/2024 3:28 PM EDT [facility] Bacteria, Urine Negative Negative /HPF LAB URINALYSIS - AUTOMATED METHOD 12/27/2024 3:28 PM EDT [facility] Hyaline Casts, Urine 2.0 0 - 3 /LPF LAB URINALYSIS - AUTOMATED METHOD 12/27/2024 3:28 PM EDT [facility] Urine Urine specimen obtained by clean catch procedure / Unknown 12/27/2024 10:00 AM EDT 12/27/2024 2:36 PM EDT us Jeane Morris MD LAB URINE ORDERABLES Final Resu lt Performing Organization Address [facility] de Phone Number [facility] [address] [place] [address], [place] [phone] * Joseph urine culture tube (12/27/2024 10:00 AM EDT) Only the most recent of2 resultswithin the time period is included. Extra Tube Hold for add-ons. 12/27/2024 4:01 PM EDT [facility] Comment:Auto resulted. Urine Urine specimen obtained by clean catch procedure / Unknown 12/27/2024 10:00 AM EDT 12/27/2024 2:37 PM EDT us Jeane Morris MD LAB URINE ORDERABLES Final Resu lt Performing Organization Address [facility]/ZIP Co de Phone Number [facility] [address] [place] [address], [place] [phone] * (ABNORMAL) Urinalysis with reflex microscopic and culture (12/21/2024 8:14 PM EDT) Specific [place] Urine 1.024 1.003 - 1.030 LAB URINALYSIS - AUTOMATED METHOD 12/22/2024 11:26 AM [facility] pH, Urine 6.0 5.0 - 8.0 pH LAB URINALYSIS - AUTOMATED METHOD 12/22/2024 11:26 AM [facility] Leukocytes, Urine Negative Negative LAB URINALYSIS - AUTOMATED METHOD 12/22/2024 11:26 AM [facility] Nitrite, Urine Negative Negative LAB URINALYSIS - AUTOMATED METHOD 12/22/2024 11:26 AM [facility] Protein, Urine Trace <=Trace mg/dL LAB URINALYSIS - AUTOMATED METHOD 12/22/2024 11:26 AM [facility] Glucose, Urine Negative Negative mg/dL LAB URINALYSIS - AUTOMATED METHOD 12/22/2024 11:26 AM [facility] Ketones, Urine Negative Negative mg/dL LAB URINALYSIS - AUTOMATED METHOD 12/22/2024 11:26 AM [facility] Urobilinogen, Urine >=8.0(A) 0.2 - 1.0 mg/dL LAB URINALYSIS - AUTOMATED METHOD 12/22/2024 11:26 AM [facility] Bilirubin, Urine Small(A) Negative LAB URINALYSIS - AUTOMATED METHOD 12/22/2024 11:26 AM [facility] Blood, Urine Negative Negative LAB URINALYSIS - AUTOMATED METHOD 12/22/2024 11:26 AM [facility] Urine Urine specimen obtained by clean catch procedure / Unknown Non-blood Collection / Unknown 12/21/2024 8:14 PM EDT 12/22/2024 10:44 AM EDT us Jeane Morris MD LAB URINE ORDERABLES Final Resu lt [facility] [address] [place] [address], [place] [phone] * Hepatitis panel, acute with reflex to confirmation (12/20/2024 5:57 AM EDT) Hepatitis B Surface Ag Negative Negative LAB CHEMISTRY METHOD 12/20/2024 12:12 PM EDT [facility] Hepatitis A Antibody IgM Negative Negative LAB CHEMISTRY METHOD 12/20/2024 12:12 PM EDT [facility] Hep B Core IgM Negative Negative LAB CHEMISTRY METHOD 12/20/2024 12:12 PM EDT [facility] Hepatitis C Antibody Negative Negative LAB CHEMISTRY METHOD 12/20/2024 12:12 PM EDT [facility] Blood Venous blood specimen / Unknown Venipuncture / Unknown 12/20/2024 5:57 AM EDT 12/20/2024 9:56 AM EDT us Jeane Morris MD LAB BLOOD ORDERABLES Final Resu lt [facility] [address] [place] [address], from Last 3 Months Insurance [employer] Care Teams Physical Education Specialist Relationship Specialty Start Date End Date Amrit Valladares NP [address] [place], [place] PCP - General Family Medicine 01/31/18
--- OUTSIDE RECORDS SUMMARY | 2025-02-02 15:44 | XMS_ITS | Clinical Summary ---
Author Organization [facility] Address [address] [place] [address] Care Team Providers Care Tape Controlled Machine Stitcher Name Role Phone Amrit Valladares Primary Care Provider [phone] Allergies No known active allergies Medications Medication [...] age to complete this topic Care Teams Tape Controlled Machine Stitcher Relationship Specialty Start Date End Date Amrit Valladares [address] [facility] [place] [address] PCP - General Family Medicine 01/31/18
--- OUTSIDE RECORDS SUMMARY | 2025-02-02 15:44 | XMS_ITS | Encounter Summary ---
Author Organization [facility] Address [address] [place] [address] Care Team Providers Care Biology Faculty Member Name Role Phone ZarinaAmrit mont[place] Ramón JOHNSON Primary Care Provider Encounter Details Date Type Department Care Team (Late st Contact Info) Description 12/22/2024 Lab Requisition [facility] - Main Lab [address] [facility] [place] [address] Jeane Morris MD [address] [place] [address] Encounter for other general examination Social History [...] and culture (12/21/2024 8:14 PM EDT) Specific [place] Urine 1.024 1.003 - 1.030 LAB URINALYSIS - AUTOMATED METHOD 12/22/2024 11:26 AM [facility] pH, Urine 6.0 5.0 - 8.0 pH LAB URINALYSIS - AUTOMATED METHOD 12/22/2024 11:26 AM [facility] Leukocytes, Urine Negative Negative LAB URINALYSIS - AUTOMATED METHOD 12/22/2024 11:26 AM [facility] Nitrite, Urine Negative Negative LAB URINALYSIS - AUTOMATED METHOD 12/22/2024 11:26 AM [facility] Protein, Urine Trace <=Trace mg/dL LAB URINALYSIS - AUTOMATED METHOD 12/22/2024 11:26 AM [facility] Glucose, Urine Negative Negative mg/dL LAB URINALYSIS - AUTOMATED METHOD 12/22/2024 11:26 AM [facility] Ketones, Urine Negative Negative mg/dL LAB URINALYSIS - AUTOMATED METHOD 12/22/2024 11:26 AM [facility] Urobilinogen, Urine >=8.0(A) 0.2 - 1.0 mg/dL LAB URINALYSIS - AUTOMATED METHOD 12/22/2024 11:26 AM [facility] Bilirubin, Urine Small(A) Negative LAB URINALYSIS - AUTOMATED METHOD 12/22/2024 11:26 AM [facility] Blood, Urine Negative Negative LAB URINALYSIS - AUTOMATED METHOD 12/22/2024 11:26 AM [facility] Urine Urine specimen obtained by clean catch procedure / Unknown Non-blood Collection / Unknown 12/21/2024 8:14 PM EDT 12/22/2024 10:44 AM EDT us Jeane Morris MD LAB URINE ORDERABLES Final Resu lt [facility] [address] [place] [address], * Joseph urine culture tube (12/21/2024 8:14 PM EDT) Extra Tube Hold for add-ons. 12/22/2024 12:02 PM EDT [facility] Comment:Auto resulted. Urine Urine specimen obtained by clean catch procedure / Unknown Non-blood Collection / Unknown 12/21/2024 8:14 PM EDT 12/22/2024 10:44 AM EDT us Jeane Morris MD LAB URINE ORDERABLES Final Resu lt [facility]) [facility] [address] [place] [address], documented in this encounter Visit Diagnoses Diagnosis Encounter for other general examination documented in this encounter Care Teams Biology Faculty Member Relationship Specialty Start Date End Date Amrit Valladares NP [address] [place], [place] PCP - General Family Medicine 01/31/18 documented as of this encounter
--- OUTSIDE RECORDS SUMMARY | 2025-02-02 15:44 | XMS_ITS | Encounter Summary ---
Author Organization [facility] Address [address] [place] [address] Care Team Providers Care Testing Analyst Name Role Phone ZarinaAmrit montana Ramón JOHNSON Primary Care Provider Encounter Details Date Type Department Care Team (Late st Contact Info) Description 12/24/2024 Lab Requisition [facility] - Main Lab 299 [facility] [place] [address] Jeane Morris MD [address] [place] [address] Encounter for other general examination Social History [...] K/mcL LAB HEMETOLOGY METHOD 12/24/2024 9:32 AM [facility] RBC 4.10(L) 4.50 - 5.50 M/mcL LAB HEMETOLOGY METHOD 12/24/2024 9:32 AM [facility] Hemoglobin 12.7(L) 13.5 - 17.5 g/dL LAB HEMETOLOGY METHOD 12/24/2024 9:32 AM [facility] Hematocrit 38.5(L) 42.0 - 54.0 % LAB HEMETOLOGY METHOD 12/24/2024 9:32 AM [facility] MCV 93.7 79.0 - 98.0 FL LAB HEMETOLOGY METHOD 12/24/2024 9:32 AM [facility] MCH 30.9 27.0 - 32.0 pcg LAB HEMETOLOGY METHOD 12/24/2024 9:32 AM [facility] MCHC 33.0 32.0 - 37.0 g/dL LAB HEMETOLOGY METHOD 12/24/2024 9:32 AM [facility] RDW 13.7 11.0 - 15.0 % LAB HEMETOLOGY METHOD 12/24/2024 9:32 AM [facility] Platelets 381 130 - 400 K/mcL LAB HEMETOLOGY METHOD 12/24/2024 9:32 AM [facility] MPV 10.4 7.0 - 11.0 FL LAB HEMETOLOGY METHOD 12/24/2024 9:32 AM [facility] NRBC 0.0 <1.0 % LAB HEMETOLOGY METHOD 12/24/2024 9:32 AM [facility] NRBC Absolute 0.00 <0.10 K/mcL LAB HEMETOLOGY METHOD 12/24/2024 9:32 AM [facility] Neutrophils Relative 73.7 % LAB HEMETOLOGY METHOD 12/24/2024 9:32 AM [facility] Lymphocytes Relative 14.4 % LAB HEMETOLOGY METHOD 12/24/2024 9:32 AM [facility] Monocytes Relative 9.0 % LAB HEMETOLOGY METHOD 12/24/2024 9:32 AM [facility] Eosinophils Relative 1.9 % LAB HEMETOLOGY METHOD 12/24/2024 9:32 AM [facility] Basophils Relative 0.5 % LAB HEMETOLOGY METHOD 12/24/2024 9:32 AM [facility] Immature Granulocytes Relative 0.5 % LAB HEMETOLOGY METHOD 12/24/2024 9:32 AM [facility] Neutrophils Absolute 8.17(H) 1.50 - 7.00 K/mcL LAB HEMETOLOGY METHOD 12/24/2024 9:32 AM [facility] Lymphocytes Absolute 1.59 1.00 - 5.00 K/mcL LAB HEMETOLOGY METHOD 12/24/2024 9:32 AM [facility] Monocytes Absolute 1.00 0.20 - 1.00 K/mcL LAB HEMETOLOGY METHOD 12/24/2024 9:32 AM [facility] Eosinophils Absolute 0.21 0.00 - 0.50 K/mcL LAB HEMETOLOGY METHOD 12/24/2024 9:32 AM [facility] Basophils Absolute 0.05 0.00 - 0.20 K/mcL LAB HEMETOLOGY METHOD 12/24/2024 9:32 AM [facility] Immature Granulocytes Absolute 0.06(H) 0.00 - 0.03 K/mcL LAB HEMETOLOGY METHOD 12/24/2024 9:32 AM [facility] Blood Venous blood specimen / Unknown Venipuncture / Unknown 12/24/2024 4:58 AM EDT 12/24/2024 9:09 AM EDT us Jeane Morris MD LAB BLOOD ORDERABLES Final Resu lt Performing Organization Address [facility]/ZIP Co de Phone Number [facility] [address] [place] [address], [place] [phone] * Magnesium (12/24/2024 4:58 AM EDT) [facility] Magnesium 2.1 1.9 - 2.6 mg/dL LAB CHEMISTRY METHOD 12/24/2024 9:57 AM EDT [facility] Blood Venous blood specimen / Unknown Venipuncture / Unknown 12/24/2024 4:58 AM EDT 12/24/2024 9:09 AM EDT us Jeane Morris MD LAB BLOOD ORDERABLES Final Resu lt Performing Organization Address City/[facility]/ZIP Co de Phone Number [facility] [address] [place] [address], [place] [phone] * (ABNORMAL) Comprehensive metabolic panel (12/24/2024 4:58 AM EDT) [facility] Sodium 135 133 - 145 mmol/L LAB CHEMISTRY METHOD 12/24/2024 9:58 AM EDT [facility] Potassium 4.3 3.5 - 5.5 mmol/L LAB CHEMISTRY METHOD 12/24/2024 9:58 AM EDT [facility] Chloride 104 96 - 110 mmol/L LAB CHEMISTRY METHOD 12/24/2024 9:58 AM EDT [facility] CO2 23 21 - 32 mmol/L LAB CHEMISTRY METHOD 12/24/2024 9:58 AM EDT [facility] Anion Gap 8 3 - 11 LAB CHEMISTRY METHOD 12/24/2024 9:58 AM EDT [facility] Glucose 84 70 - 100 mg/dL LAB CHEMISTRY METHOD 12/24/2024 9:58 AM [facility] BUN 35(H) 5 - 25 mg/dL LAB CHEMISTRY METHOD 12/24/2024 9:58 AM [facility] Creatinine 1.14 0.70 - 1.30 mg/dL LAB CHEMISTRY METHOD 12/24/2024 9:58 AM [facility] eGFR 66 >=60 mL/min/1. 73m2 LAB CHEMISTRY METHOD 12/24/2024 9:58 AM [facility] Comment:Calculation based on the??Chronic Kidney Disease Epidemiology Collaboration (CKD-EPI) equation refit??without adjustment for race. BUN/Creatinine Ratio 30.7 LAB CHEMISTRY METHOD 12/24/2024 9:58 AM [facility] Calcium 8.9 8.5 - 10.5 mg/dL LAB CHEMISTRY METHOD 12/24/2024 9:58 AM [facility] AST (SGOT) 72(H) 10 - 42 unit/L LAB CHEMISTRY METHOD 12/24/2024 9:58 AM [facility] ALT (SGPT) 135(H) 10 - 60 unit/L LAB CHEMISTRY METHOD 12/24/2024 9:58 AM [facility] Alkaline Phosphatase 97 42 - 121 unit/L LAB CHEMISTRY METHOD 12/24/2024 9:58 AM [facility] Total Protein 6.0 6.0 - 8.0 g/dL LAB CHEMISTRY METHOD 12/24/2024 9:58 AM [facility] Albumin 3.2 3.2 - 5.0 g/dL LAB CHEMISTRY METHOD 12/24/2024 9:58 AM [facility] Total Bilirubin 1.2 0.0 - 1.4 mg/dL LAB CHEMISTRY METHOD 12/24/2024 9:58 AM [facility] Blood Venous blood specimen / Unknown Venipuncture / Unknown 12/24/2024 4:58 AM EDT 12/24/2024 9:09 AM EDT us Jeane Morris MD LAB BLOOD ORDERABLES Final Resu lt [facility] ([facility]) [facility] [address] [place] [address], documented in this encounter Visit Diagnoses Diagnosis Encounter for other general examination documented in this encounter Care Teams Testing Analyst Relationship Specialty Start Date End Date Amrit Valladares NP [address] [place], [place] PCP - General Family Medicine 01/31/18 documented as of this encounter
--- OUTSIDE RECORDS SUMMARY | 2025-02-02 15:44 | XMS_ITS | Encounter Summary ---
Author Organization [facility] Address [address] [place] [address] Care Team Providers Care Diamond Die Polisher Name Role Phone ZarinaAmrit montana Ramón JOHNSON Primary Care Provider Encounter Details Date Type Department Care Team (Late st Contact Info) Description 12/29/2024 Lab Requisition [facility] - Main Lab [address] [facility] [place] [address] Jeane Morris MD [address] [place] [address] Encounter for other general examination Social History [...] ORDERABLES Final Resu lt Performing Organization Address [facility]/ZIP Co de Phone Number [facility] [address] [place] [address], [place] [phone] * Magnesium (12/29/2024 4:50 AM EDT) [facility] Magnesium 2.2 1.9 - 2.6 mg/dL LAB CHEMISTRY METHOD 12/29/2024 11:31 AM EDT [facility] Blood Venous blood specimen / Unknown Venipuncture / Unknown 12/29/2024 4:50 AM EDT 12/29/2024 9:04 AM EDT us Jeane Morris MD LAB BLOOD ORDERABLES Final Resu lt Performing Organization Address City/[facility]/ZIP Co de Phone Number [facility] [address] [place] [address], [place] [phone] * (ABNORMAL) Comprehensive metabolic panel (12/29/2024 4:50 AM EDT) [facility] Sodium 134 133 - 145 mmol/L LAB CHEMISTRY METHOD 12/29/2024 11:33 AM EDT [facility] Potassium 4.6 3.5 - 5.5 mmol/L LAB CHEMISTRY METHOD 12/29/2024 11:33 AM EDT [facility] Chloride 102 96 - 110 mmol/L LAB CHEMISTRY METHOD 12/29/2024 11:33 AM EDT [facility] CO2 23 21 - 32 mmol/L LAB CHEMISTRY METHOD 12/29/2024 11:33 AM EDT [facility] Anion Gap 9 3 - 11 LAB CHEMISTRY METHOD 12/29/2024 11:33 AM EDT [facility] Glucose 78 70 - [...] MD LAB BLOOD ORDERABLES Final [facility]u lt [facility] [address] [place] [address], documented in this encounter Visit Diagnoses Diagnosis Encounter for other general examination documented in this encounter Care Teams Diamond Die Polisher Relationship Specialty Start Date End Date Amrit Valladares NP [address] [place], [place] PCP - General Family Medicine 01/31/18 documented as of this encounter
--- OUTSIDE RECORDS SUMMARY | 2025-02-02 15:44 | XMS_ITS | Encounter Summary ---
Author Organization [facility] Address [address] [place] [address] Care Team Providers Care Services Tech Name Role Phone ZarinaAmrit montana Ramón JOHNSON Primary Care Provider Encounter Details Date Type Department Care Team (Late st Contact Info) Description 12/22/2024 Lab Requisition [facility] - Main Lab 299 [facility] [place] [phone] Jeane Morris MD [address] [place] [address] Encounter for other general examination Social History [...] AM EDT) WBC 11.4(H) 4.8 - 10.8 K/[facility] LAB HEMETOLOGY METHOD 12/22/2024 11:17 AM EDT [facility] RBC 4.30(L) 4.50 - 5.50 M/[facility] LAB HEMETOLOGY METHOD 12/22/2024 11:17 AM [facility] Hemoglobin 13.4(L) 13.5 - 17.5 g/dL LAB HEMETOLOGY METHOD 12/22/2024 11:17 AM [facility] Hematocrit 40.3(L) 42.0 - 54.0 % LAB HEMETOLOGY METHOD 12/22/2024 11:17 AM [facility] MCV 93.5 79.0 - 98.0 FL LAB HEMETOLOGY METHOD 12/22/2024 11:17 AM [facility] MCH 31.1 27.0 - 32.0 pcg LAB HEMETOLOGY METHOD 12/22/2024 11:17 AM [facility] MCHC 33.3 32.0 - 37.0 g/dL LAB HEMETOLOGY METHOD 12/22/2024 11:17 AM [facility] RDW 13.7 11.0 - 15.0 % LAB HEMETOLOGY METHOD 12/22/2024 11:17 AM [facility] Platelets 443(H) 130 - 400 K/mcL LAB HEMETOLOGY METHOD 12/22/2024 11:17 AM [facility] MPV 10.1 7.0 - 11.0 FL LAB HEMETOLOGY METHOD 12/22/2024 11:17 AM [facility] NRBC 0.0 <1.0 % LAB HEMETOLOGY METHOD 12/22/2024 11:17 AM [facility] NRBC Absolute 0.00 <0.10 K/mcL LAB HEMETOLOGY METHOD 12/22/2024 11:17 AM [facility] Neutrophils Relative 70.6 % LAB HEMETOLOGY METHOD 12/22/2024 11:17 AM [facility] Lymphocytes Relative 16.9 % LAB HEMETOLOGY METHOD 12/22/2024 11:17 AM [facility] Monocytes Relative 9.2 % LAB HEMETOLOGY METHOD 12/22/2024 11:17 AM [facility] Eosinophils Relative 2.3 % LAB HEMETOLOGY METHOD 12/22/2024 11:17 AM [facility] Basophils Relative 0.4 % LAB HEMETOLOGY METHOD 12/22/2024 11:17 AM [facility] Immature Granulocytes Relative 0.6 % LAB HEMETOLOGY METHOD 12/22/2024 11:17 AM [facility] Neutrophils Absolute 8.03(H) 1.50 - 7.00 K/mcL LAB HEMETOLOGY METHOD 12/22/2024 11:17 AM [facility] Lymphocytes Absolute 1.92 1.00 - 5.00 K/mcL LAB HEMETOLOGY METHOD 12/22/2024 11:17 AM [facility] Monocytes Absolute 1.04(H) 0.20 - 1.00 K/mcL LAB HEMETOLOGY METHOD 12/22/2024 11:17 AM [facility] Eosinophils Absolute 0.26 0.00 - 0.50 K/mcL LAB HEMETOLOGY METHOD 12/22/2024 11:17 AM [facility] Basophils Absolute 0.04 0.00 - 0.20 K/mcL LAB HEMETOLOGY METHOD 12/22/2024 11:17 AM [facility] Immature Granulocytes Absolute 0.07(H) 0.00 - 0.03 K/mcL LAB HEMETOLOGY METHOD 12/22/2024 11:17 AM [facility] Blood Venous blood specimen / Unknown Venipuncture / Unknown 12/22/2024 7:06 AM EDT 12/22/2024 10:37 AM EDT us Jeane Morris MD LAB BLOOD ORDERABLES Final Resu lt [facility] [address] [place] [address], documented in this encounter Visit Diagnoses Diagnosis Encounter for other general examination documented in this encounter Care Teams Services Tech Relationship Specialty Start Date End Date Amrit Valladares NP [address] [place], [place] PCP - General Family Medicine 01/31/18 documented as of this encounter
--- OUTSIDE RECORDS SUMMARY | 2025-02-02 15:44 | XMS_ITS | Encounter Summary ---
Author Organization [facility] [address] Address [address] [place] [address] Care Team Providers Care Corporate Relations Manager Name Role Phone Amrit Valladares ELIZABETH Primary Care Provider Encounter Details Date Type Department Care Team (Latest Contact Info) Description 12/27/2024 Lab Requisition [facility] - Main Lab [address] [place] [address] Jeane Morris MD [address] [place] [phone] Other cerebrovascular disease Social History Tobacco Use [...] Hold for add-ons. 12/27/2024 4:01 PM EDT [facility] ([facility]) [facility] Comment:Auto resulted. Urine Urine specimen obtained by clean catch procedure / Unknown 12/27/2024 10:00 AM EDT 12/27/2024 2:37 PM EDT us Jeane Morris MD LAB URINE ORDERABLES Final Resu lt [facility] [address] [place] [address], [place] [phone] * (ABNORMAL) Urinalysis with reflex microscopic (12/27/2024 10:00 AM EDT) [facility] Urine 1.021 1.003 - 1.030 LAB URINALYSIS - AUTOMATED METHOD 12/27/2024 3:28 PM [facility] pH, Urine 6.0 5.0 - 8.0 pH LAB URINALYSIS - AUTOMATED METHOD 12/27/2024 3:28 PM [facility] Leukocytes, Urine Negative Negative LAB URINALYSIS - AUTOMATED METHOD 12/27/2024 3:28 PM [facility] Nitrite, Urine Negative Negative LAB URINALYSIS - AUTOMATED METHOD 12/27/2024 3:28 PM [facility] Protein, Urine 30(A) <=Trace mg/dL LAB URINALYSIS - AUTOMATED METHOD 12/27/2024 3:28 PM [facility] Glucose, Urine Negative Negative mg/dL LAB URINALYSIS - AUTOMATED METHOD 12/27/2024 3:28 PM [facility] Ketones, Urine Negative Negative mg/dL LAB URINALYSIS - AUTOMATED METHOD 12/27/2024 3:28 PM [facility] Urobilinogen , Urine 1.0 0.2 - 1.0 mg/dL LAB URINALYSIS - AUTOMATED METHOD 12/27/2024 3:28 PM [facility] Bilirubin, Urine Negative Negative LAB URINALYSIS - AUTOMATED METHOD 12/27/2024 3:28 PM [facility] Blood, Urine Negative Negative LAB URINALYSIS - AUTOMATED METHOD 12/27/2024 3:28 PM EDT [facility] RBC, Urine 6.6(H) 0 - 4 /HPF LAB URINALYSIS - AUTOMATED METHOD 12/27/2024 3:28 PM EDT [facility] WBC, Urine 2.3 0 - 4 /HPF LAB URINALYSIS - AUTOMATED METHOD 12/27/2024 3:28 PM EDT [facility] Squamous Epithelial, Urine 9 0 - 60 /LPF LAB URINALYSIS - AUTOMATED METHOD 12/27/2024 3:28 PM EDT [facility] Crystals, Urine Light Amorphous Urate crystals. /LPF 12/27/2024 3:28 PM EDT [facility] Bacteria, Urine Negative Negative /HPF LAB URINALYSIS - AUTOMATED METHOD 12/27/2024 3:28 PM EDT [facility] Hyaline Casts, Urine 2.0 0 - 3 /LPF LAB URINALYSIS - AUTOMATED METHOD 12/27/2024 3:28 PM T [facility] Urine Urine specimen obtained by clean catch procedure / Unknown 12/27/2024 10:00 AM EDT 12/27/2024 2:36 PM EDT us Jeane Morris MD LAB URINE ORDERABLES Final Resu lt [facility] [address] [place] [address], [place] [phone] documented in this encounter Visit Diagnoses Diagnosis Other cerebrovascular disease documented in this encounter Care Teams Corporate Relations Manager Relationship Specialty Start Date End Date Amrit Valladares NP [address] [place], [place] PCP - General Family Medicine 01/31/18 documented as of this encounter
--- OUTSIDE RECORDS SUMMARY | 2025-02-02 15:44 | XMS_ITS | Encounter Summary ---
Author Organization [facility] Address [address] [place] [address] Care Team Providers Care Vp Director Of Creative Strategy Name Role Phone ZarinaAmrit montana Ramón JOHNSON Primary Care Provider Encounter Details Date Type Department Care Team (Late st Contact Info) Description 12/20/2024 Lab Requisition [facility] - Main Lab 299 [facility] [phone] Jeane Morris MD [address] [place] [phone] Encounter for other general examination Social History [...] LAB CHEMISTRY METHOD 12/20/2024 12:12 PM EDT [facility] Hepatitis A Antibody IgM Negative Negative LAB CHEMISTRY METHOD 12/20/2024 12:12 PM EDT [facility] Hep B Core IgM Negative Negative LAB CHEMISTRY METHOD 12/20/2024 12:12 PM EDT [facility] Hepatitis C Antibody Negative Negative LAB CHEMISTRY METHOD 12/20/2024 12:12 PM [facility] Blood Venous blood specimen / Unknown Venipuncture / Unknown 12/20/2024 5:57 AM EDT 12/20/2024 9:56 AM EDT us Jeane Morris MD LAB BLOOD ORDERABLES Final Resu lt [facility] [address] [place] [address], * (ABNORMAL) Comprehensive metabolic panel (12/20/2024 5:57 AM EDT) Sodium 133 133 - 145 mmol/L LAB CHEMISTRY METHOD 12/20/2024 11:21 AM [facility] Potassium 5.0 3.5 - 5.5 mmol/L LAB CHEMISTRY METHOD 12/20/2024 11:21 AM [facility] Chloride 102 96 - 110 mmol/L LAB CHEMISTRY METHOD 12/20/2024 11:21 AM [facility] CO2 21 21 - 32 mmol/L LAB CHEMISTRY METHOD 12/20/2024 11:21 AM [facility] Anion Gap 10 3 - 11 LAB CHEMISTRY METHOD 12/20/2024 11:21 AM [facility] Glucose 92 70 - 100 mg/dL LAB CHEMISTRY METHOD 12/20/2024 11:21 AM [facility] BUN 27(H) 5 - 25 mg/dL LAB CHEMISTRY METHOD 12/20/2024 11:21 AM [facility] Creatinine 1.11 0.70 - 1.30 mg/dL LAB CHEMISTRY METHOD 12/20/2024 11:21 AM [facility] eGFR 68 >=60 mL/min/1. 73m2 LAB CHEMISTRY METHOD 12/20/2024 11:21 AM [facility] Comment:Calculation based on the??Chronic Kidney Disease Epidemiology Collaboration (CKD-EPI) equation refit??without adjustment for race. BUN/Creatinine Ratio 24.3 LAB CHEMISTRY METHOD 12/20/2024 11:21 AM [facility] Calcium 9.1 8.5 - 10.5 mg/dL LAB CHEMISTRY METHOD 12/20/2024 11:21 AM [facility] AST (SGOT) 92(H) 10 - 42 unit/L LAB CHEMISTRY METHOD 12/20/2024 11:21 AM [facility] ALT (SGPT) 169(H) 10 - 60 unit/L LAB CHEMISTRY METHOD 12/20/2024 11:21 AM [facility] Alkaline Phosphatase 111 42 - 121 unit/L LAB CHEMISTRY METHOD 12/20/2024 11:21 AM [facility] Total Protein 6.3 6.0 - 8.0 g/dL LAB CHEMISTRY METHOD 12/20/2024 11:21 AM [facility] Albumin 3.4 3.2 - 5.0 g/dL LAB CHEMISTRY METHOD 12/20/2024 11:21 AM [facility] Total Bilirubin 1.3 0.0 - 1.4 mg/dL LAB CHEMISTRY METHOD 12/20/2024 11:21 AM [facility] Blood Venous blood specimen / Unknown Venipuncture / Unknown 12/20/2024 5:57 AM EDT 12/20/2024 9:56 AM EDT us Jeane Morris MD LAB BLOOD ORDERABLES Final Resu lt [facility] [address] [place] [address], documented in this encounter Visit Diagnoses Diagnosis Encounter for other general examination documented in this encounter Care Teams Vp Director Of Creative Strategy Relationship Specialty Start Date End Date [facility]rit [facility] [address] [facility] [place] [facility] - General Family Medicine 01/31/18 documented as of this encounter
== END 2025-02-02 14:17 | disposition home or self-care (01) ==
LOC: HO.HMCC 13:15
PROVIDERS: PCP Nurse Practitioner Family; Visit Provider Nurse Practitioner Family
DX: I63.9 Cerebral infarction, unspecified (principal); N28.0 Ischemia and infarction of kidney

== ENCOUNTER → 2025-02-02 13:14 | Outpatient (BNVA) | payer MEDICARE, SELFPAY | PROVIDERS: PCP Nurse Practitioner Family; Visit Provider Nurse Practitioner Family | DX: I69.354 Hemiplegia and hemiparesis following cerebral infarction affecting left non-dominant side (principal); I69.322 Dysarthria following cerebral infarction; I48.91 Unspecified atrial fibrillation; N28.0 Ischemia and infarction of kidney; Z79.01 Long term (current) use of anticoagulants | CPT/HCPCS: 96127; 99212 ==

== ENCOUNTER 2025-03-29 13:49 | Outpatient (AMB) | payer MEDICARE, SELFPAY ==
--- NOTE | 2025-03-29 14:05 | A.OFFVIS_ITS ---
Intake Visit Reasons: adrenal nodule Intake Note: New patient presents today for initial visit for adrenal nodule Urology Medication:None Blood Thinner:Apixaban Antibiotic Allergies:None PVR:25ml Allergies No Known Allergies Allergy (Verified 03/29/25 14:06) HPI Comments Details: History of Present Illness - The patient is a 79-year-old male presenting with an adrenal nodule and elevated PSA levels. - The adrenal nodule was identified during an MRI performed due to an adrenal tumor suspicion. - The nodule is located on the right adrenal gland and measures 1.6 cm. - It has been present for over 10 years, suggesting a benign nature. - The patient experienced a stroke in December, which led to various tests and referrals. - The right kidney shows signs of infarction, possibly related to past cardiovascular issues. - The patient has a history of congestive heart failure diagnosed in 2005, with subsequent heart procedures and medication management. - The PSA level was found to be elevated at 8.31 during a test conducted in July. - The patient reports nocturia, getting up twice at night to urinate. Urinary Symptoms Review - Nocturia: Patient reports getting up twice at night to urinate. Results - MRI: Right adrenal nodule measuring 1.6 cm, present for over 10 years. - PSA test: Elevated at 8.31, conducted in July. - Bladder scan: Post-void residual of 25 mL. Discussion Notes I discussed with the patient the findings of the MRI, which showed a small nodule on the right adrenal gland that has been stable for over 10 years, suggesting a benign nature. We also reviewed the elevated PSA level of 8.31, acknowledging that PSA levels can increase with age. I recommended repeating the PSA test and performing a prostate exam to further evaluate the prostate health. Additionally, I explained the need for blood work to assess kidney function due to the right kidney infarct and the potential need for referrals to nephrology and endocrinology for further evaluation and management. The patient was informed about the importance of medication adherence, especially given the history of congestive heart failure and recent stroke. Plan - Repeat PSA test and perform a prostate exam to evaluate prostate health. - Conduct blood work to assess kidney function and refer to nephrology if necessary. - Refer to endocrinology for evaluation of the adrenal nodule and potential hormonal activity. - Emphasize the importance of medication adherence, particularly for managing congestive heart failure and preventing further strokes. Patient Instructions - Schedule and complete the PSA test and prostate exam as discussed. - Complete the blood work for kidney function assessment. - Follow up with nephrology and endocrinology as referred. - Ensure consistent medication adherence to manage heart health and prevent strokes. Patient was informed and verbally consented to the use of an ambient scribe for clinic note documentation during this visit. [facility] Medical History Adrenal adenoma Hemiplegia Acute right MCA stroke AAA (abdominal aortic aneurysm) Surgical History Hx of CABG Family History Father Myocardial infarction Mother Cancer Social History Housing: House Patient Tobacco Use Status: Former Tobacco user (December 2023) Tobacco use type: Cigar Cigarettes Per Day: 1 e-Cigarette/Vaping Use: Never Used Second Hand Smoke Exposure: Yes service: Yes Current occupational status: employed Current occupation: [employer] Current occupational exposures/hazards: Yes Cognitive needs: No Hearing needs: No Vision needs: No Office Procedures Post Void Residual Post Residual Void Post Void Residual (PVR): 25 [id number] Void Residual by ultrasound Results AMB Urinalysis, Automated UA Leukoctes 0 Ambrosio/uL Last Edit by Anh Breaux on 03/29/25 16:24 UA Nitrite Negative Last Edit by Anh Breaux on 03/29/25 16:24 UA Urobilinogen 35 mg/dL Last Edit by Anh Breaux on 03/29/25 16:24 UA Protein 1 mg/dL Last Edit by Anh Breaux on 03/29/25 16:24 UA pH 6.0 Last Edit by Anh Breaux on 03/29/25 16:24 UA Blood 0 Jayme/uL Last Edit by Anh Breaux on 03/29/25 16:24 UA Specific Renick 1.020 Last Edit by Anh Breaux on 03/29/25 16:24 UA Ketone Negative Last Edit by Anh Breaux on 03/29/25 16:24 UA Bilirubin 0 mg/dL Last Edit by Anh Breaux on 03/29/25 16:24 UA Glucose 0 mg/dL Last Edit by Anh Breaux on 03/29/25 16:24 Assessment & Plan Assessment & Plan Orders: Orders AMB Post Void Residual by ultrasound Today N40.0 - Benign prostatic hyperplasia without lower urinary tract symptoms AMB Urinalysis Automated Today Z13.9 - Encounter for screening, unspecified Coding CPT Codes Post Residual Void - PVR CPT Code: 12215-[id number] Void Residual by ultrasound ([id number])
--- OUTSIDE RECORDS SUMMARY | 2025-03-29 15:28 | XMS_ITS | Encounter Summary ---
Author Organization [facility] Address [address] [place] [address] Care Team Providers Care Insurance Policy Clerk Name Role Phone Amrit Valladares ELIZABETH Primary Care Provider Encounter Details Date Type Department Care Team (Latest Contact Info) Description 12/27/2024 Lab Requisition [facility] - Main Lab [address] [place] [address] Jeane Morris MD [address] [place] [id number] Other cerebrovascular disease Social History Tobacco Use [...] for add-ons. 12/27/2024 4:01 PM EDT [facility] ([facility]) [facility] Comment:Auto resulted. Urine Urine specimen obtained by clean catch procedure / Unknown 12/27/2024 10:00 AM EDT 12/27/2024 2:37 PM EDT us Jeane Morris MD LAB URINE ORDERABLES Final Resu lt [facility] [address] [place] [address], [place] [phone] * (ABNORMAL) Urinalysis with reflex microscopic (12/27/2024 10:00 AM EDT) Specific [place] Urine 1.021 1.003 - 1.030 LAB URINALYSIS - AUTOMATED METHOD 12/27/2024 3:28 PM [facility] pH, Urine 6.0 5.0 - 8.0 pH LAB URINALYSIS - AUTOMATED METHOD 12/27/2024 3:28 PM [facility] Leukocytes, Urine Negative Negative LAB URINALYSIS - AUTOMATED METHOD 12/27/2024 3:28 PM [facility] Nitrite, Urine Negative Negative LAB URINALYSIS - AUTOMATED METHOD 12/27/2024 3:28 PM [facility] Protein, Urine 30(A) <=Trace mg/dL LAB URINALYSIS - AUTOMATED METHOD 12/27/2024 3:28 PM [facility] Glucose, Urine Negative Negative mg/dL LAB URINALYSIS - AUTOMATED METHOD 12/27/2024 3:28 PM [facility] Ketones, Urine Negative Negative mg/dL LAB URINALYSIS - AUTOMATED METHOD 12/27/2024 3:28 PM [facility] Urobilinogen , Urine 1.0 0.2 - 1.0 mg/dL LAB URINALYSIS - AUTOMATED METHOD 12/27/2024 3:28 PM [facility] Bilirubin, Urine Negative Negative LAB URINALYSIS - AUTOMATED METHOD 12/27/2024 3:28 PM [facility] Blood, Urine Negative Negative LAB URINALYSIS - AUTOMATED METHOD 12/27/2024 3:28 PM EDT [facility] RBC, Urine 6.6(H) 0 - 4 /HPF LAB URINALYSIS - AUTOMATED METHOD 12/27/2024 3:28 PM EDT [facility] WBC, Urine 2.3 0 - 4 /HPF LAB URINALYSIS - AUTOMATED METHOD 12/27/2024 3:28 PM EDT [facility] Squamous Epithelial, Urine 9 0 - 60 /LPF LAB URINALYSIS - AUTOMATED METHOD 12/27/2024 3:28 PM EDT [facility] Crystals, Urine Light Amorphous Urate crystals. /LPF 12/27/2024 3:28 PM EDT [facility] Bacteria, Urine Negative Negative /HPF LAB URINALYSIS - AUTOMATED METHOD 12/27/2024 3:28 PM EDT [facility] Hyaline Casts, Urine 2.0 0 - 3 /LPF LAB URINALYSIS - AUTOMATED METHOD 12/27/2024 3:28 PM T [facility] Urine Urine specimen obtained by clean catch procedure / Unknown 12/27/2024 10:00 AM EDT 12/27/2024 2:36 PM EDT us Jeane Morris MD LAB URINE ORDERABLES Final Resu lt [facility] [address] [place] [address], [place] [phone] documented in this encounter Visit Diagnoses Diagnosis Other cerebrovascular disease documented in this encounter Care Teams Insurance Policy Clerk Relationship Specialty Start Date End Date Amrit Valladares NP [address], [place] PCP - General Family Medicine 01/31/18 documented as of this encounter
== END 2025-03-29 14:39 | disposition home or self-care (01) ==
LOC: HO.HUSH 13:50
PROVIDERS: PCP Nurse Practitioner Family; Visit Provider Urology
DX: Z13.9 Encounter for screening, unspecified (principal)

== ENCOUNTER 2025-03-29 13:49 | Outpatient (REF) | payer MEDICARE, SELFPAY | END 2025-03-29 13:50 | disposition home or self-care (01) | LOC: HO.LNP 13:49 | PROVIDERS: PCP Nurse Practitioner Family; Visit Provider Urology | DX: Z13.9 Encounter for screening, unspecified (principal) | CPT/HCPCS: 51798; 81003 ==

== ENCOUNTER 2025-04-01 08:26 | Outpatient (REF) | payer MEDICARE, SELFPAY ==
--- OUTSIDE RECORDS SUMMARY | 2025-04-01 08:37 | XMS_ITS | Encounter Summary ---
Author Organization [facility] Address [address] [place] [address] Care Team Providers Care Citrix Consultant Name Role Phone Amrit Valladares ELIZABETH Primary Care Provider [phone] Encounter Details Date Type Department Care Team (Latest Contact Info) Description 12/27/2024 Lab Requisition [facility] - Main Lab [address] [place] [address] Jeane Morris MD [address] [place] [address] Other cerebrovascular disease Social History Tobacco Use [...] Hold for add-ons. 12/27/2024 4:01 PM EDT [facility] ([facility]) [facility] Comment:Auto resulted. Urine Urine specimen obtained by clean catch procedure / Unknown 12/27/2024 10:00 AM EDT 12/27/2024 2:37 PM EDT us Jeane Morris MD LAB URINE ORDERABLES Final Resu lt [facility] [address] [place] [address], [place] [phone] * (ABNORMAL) Urinalysis with reflex microscopic (12/27/2024 10:00 AM EDT) Specific [place] Urine 1.021 1.003 - 1.030 LAB URINALYSIS [...] - AUTOMATED METHOD 12/27/2024 3:28 PM EDT [facility] RBC, Urine 6.6(H) 0 - 4 /HPF LAB URINALYSIS - AUTOMATED METHOD 12/27/2024 3:28 PM EDT [facility] WBC, Urine 2.3 0 - 4 /HPF LAB URINALYSIS - AUTOMATED METHOD 12/27/2024 3:28 PM EDT [facility] Squamous Epithelial, Urine 9 0 - 60 /LPF LAB URINALYSIS - AUTOMATED METHOD 12/27/2024 3:28 PM EDT [facility] Crystals, Urine Light Amorphous Urate crystals. /LPF 12/27/2024 3:28 PM EDT [facility] Bacteria, Urine Negative Negative /HPF LAB URINALYSIS - AUTOMATED METHOD 12/27/2024 3:28 PM EDT [facility] Hyaline Casts, Urine 2.0 0 - 3 /LPF LAB URINALYSIS - AUTOMATED METHOD 12/27/2024 3:28 PM T [facility] Urine Urine specimen obtained by clean catch procedure / Unknown 12/27/2024 10:00 AM EDT 12/27/2024 2:36 PM EDT us Jeane Morris MD LAB URINE ORDERABLES Final Resu lt [facility] [address] [place] [address], [place] [phone] documented in this encounter Visit Diagnoses Diagnosis Other cerebrovascular disease documented in this encounter Care Teams Citrix Consultant Relationship Specialty Start Date End Date Amrit Valladares NP [address] [place], [place] PCP - General Family Medicine 01/31/18 documented as of this encounter
[2025-04-01 10:18] LABS: MANUAL DIFF FLAG NO
[2025-04-01 10:21] LABS: Appearance Urine Clear; Color Urine Yellow; Glucose Urine UA Negative (Negative); Leukocyte Esterase Urine Negative (Negative); Nitrite Urine Negative (Negative); PH 5.5 (5.0-9.0); Urine Blood Negative (Negative); Urine Ketones Negative (Negative); Urine Protein Negative (Neg-Trace)
[2025-04-01 10:38] LABS: Basophils Absolute Auto 0.1 X10*3/uL (0.0-0.2); Basophils Percent Auto 0.8 % (0-2); Eosinophils Absolute Auto 0.2 X10*3/uL (0.0-0.4); Eosinophils Percent Auto 2.8 % (0-4); Hematocrit 42.1 % (42.0-52.0); Hemoglobin 13.9 g/dl (14.0-18.0); Imm Gran Abs Auto 0.03 X10*3/uL (0.00-0.03); Imm Gran Pct Auto 0.4 % (0.0-0.4); Lymphocytes Absolute Auto 2.2 X10*3/uL (1.2-4.9); Lymphocytes Percent Auto 29.3 % (20-40); Mean Corpuscular Hemoglobin 31.4 pg (27.0-33.0); Monocytes Absolute Auto 0.7 X10*3/uL (0.1-1.2); Monocytes Percent Auto 9.7 % (2-11); Neutrophils Absolute Auto 4.4 x10*3/uL (2.0-8.3); Platelet Count 269 X10*3/uL (160-400); Red Blood Count 4.43 X10*6/uL (4.60-5.80); White Blood Count 7.6 X10*3/uL (4.8-10.8)
[2025-04-01 11:10] LABS: Alanine Aminotransferase 53 U/L (0-40); Albumin Level 4.2 g/dL (3.5-5.0); Alkaline Phosphatase 88 U/L (39-117); Anion Gap 12 (12-20); Aspartate Amino Transferase 49 U/L (5-37); Bilirubin Total 1.1 mg/dL (0.0-1.0); Blood Urea Nitrogen 24 mg/dL (9-16); Calcium 9.5 mg/dL (8.4-10.2); Carbon Dioxide 20 mmol/L (22-29); Chloride 109 mmol/L (96-108); Cholesterol 122 mg/dL (<200); Estimated Glomerular Filt Rate > 60; Glucose Fasting 100 mg/dL (60-99); Glucose Random 98 mg/dL (60-115); HDL Cholesterol 37 mg/dL (>40); LDL Cholesterol Calculated 67 mg/dL (<100); Potassium 4.3 mmol/L (3.3-5.1); Sodium 137 mmol/L (135-145); TSH reflex Free T4 2.29 uIU/mL (0.32-4.0); Total Protein 6.7 g/dL (6.5-8.0); Triglycerides 93 mg/dL (<150)
[2025-04-01 11:22] LABS: Prostate Specific Antigen 7.12 ng/mL (<0.05-4.0)
== END 2025-04-01 08:27 | disposition home or self-care (01) ==
LOC: HO.HMGCLDS 08:26
PROVIDERS: PCP Nurse Practitioner Family; Referring Provider Urology; Visit Provider Nurse Practitioner Family
DX: N28.0 Ischemia and infarction of kidney (principal); Z12.5 Encounter for screening for malignant neoplasm of prostate; I63.9 Cerebral infarction, unspecified
CPT/HCPCS: 36415; 80048; 80053; 80061; 81003; 84153; 84443; 85025

== ENCOUNTER 2025-04-14 14:49 | Outpatient (AMB) | payer MEDICARE, SELFPAY ==
--- NOTE | 2025-04-14 14:53 | MHC.OFFVIS ---
Vital Signs 04/14/25 14:54 Height 5 ft 8 in Weight 171 lb 8.314 oz BMI 26.1 BP 102/72 Blood Pressure Location Lt brachial Position Sitting Pulse 83 Pulse Source Pulse Oximeter Pulse Oximetry (%) 98 Oxygen Delivery Method Room Air Intake Visit Reasons: adrenal nodule Intake Note: New patient internally referred by Urology for Adrenal Nodule. General Utility Maintenance Repairer Required: No Accompanied by: Daughter Health Care Proxy Allergies No Known Allergies Allergy (Verified 04/14/25 15:02) Medication List - Last Reconciled 04/14/25 by Mars Thorpe MD apixaban (Eliquis) 5 mg PO BID 30 days atorvastatin 80 mg PO BEDTIME carvedilol 6.25 mg PO BID cholecalciferol (vitamin D3) 50 mcg PO DAILY 90 days melatonin 3 mg PO BEDTIME PRN spironolactone 25 mg PO BID 90 days valsartan 40 mg PO DAILY HPI Comments Details: The patient is a 79-year-old male presenting with an adrenal gland lesion. The lesion was first identified in 2008 and has been stable since then, with no significant changes noted over the years. The lesion was discovered incidentally during imaging for other reasons, and there is no current evidence of malignancy. The patient has a history of hypertension, which is currently well-controlled with medications including carvedilol, spironolactone, and valsartan. He also has a history of congestive heart failure diagnosed in 2006, for which spironolactone was prescribed. The patient experienced a stroke, after which he underwent rehabilitation and speech therapy. There have been no recurrent episodes of dizziness or unexplained weight loss since the stroke. - Carvedilol: For hypertension - Spironolactone: For congestive heart failure - Valsartan: For hypertension - Apixaban: For stroke prevention Had MRI abdomen/pelvis 01/27/25 for which revealed There is a 1.6 cm right adrenal nodule which demonstrates loss of signal intensity on opposed phase imaging, compatible with intracellular lipid in an adenoma. The left adrenal gland is unremarkable.. Prior CT dated 2008 revealed adrenal mass Denies history of spells with headache, flushing, diaphoresis, abdominal pain or diarrhea. Denies any weight gain, frequent infections, easy bruisability, development of violaceous striae. History of HTN, controlled on 3 agents. history of anticoagulant use Eliiquis Denies any weight loss, orthostatic symptoms, hypoglycemia. No history of malignancy or TB. 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 Thyroid gland is normal size weighs about 15 g. Lungs are clear to auscultation. Abdominal exam was benign Assessment & Plan Assessment & Plan (1) Adrenal mass: Code(s): E27.8 - Other specified disorders of adrenal gland Category: Medical Plan: This 79-year-old white male with a history of right adrenal mass with benign characteristics on MRI at present since 2008. Patient is currently on spironolactone so would not assess for aldosterone excess. Rule out secretion of other adrenal hormones Will check plasma metanephrines as well as do a 1 mg dexamethasone suppression test with dexamethasone and cortisol level . Assuming above is negative, we will follow with observation 1. Adrenal gland lesion The lesion has been stable since 2008 and is considered benign based on imaging studies. The primary concern is whether the lesion is secreting hormones. A blood test for plasma metanephrines will be conducted to assess hormone secretion as well as 1 mg Dex suppression test . If results are normal, no further action is required. If elevated, further evaluation will be necessary. During the visit, I explained the nature of the adrenal gland lesion and reassured the patient that it appears benign based on imaging. We discussed the importance of determining if the lesion is hormonally active, which will be assessed through a plasma metanephrine test. I emphasized that there is no immediate concern, and the lesion does not require further imaging unless hormone secretion is detected. We also reviewed the patient's current medications and confirmed that his blood pressure and heart failure are well-managed. I advised the patient to continue his current medication regimen and scheduled a follow-up in three to four months to review test results and reassess his condition. - Continue taking all current medications as prescribed. - Schedule and complete the blood test for plasma metanephrines as discussed. - Follow up in three to four months for review of test results and further evaluation. The patient had an opportunity to ask questions regarding treatment plan. The patient expressed understanding and agreement with the above treatment plan. Patient was informed and verbally consented to the use of an ambient scribe for clinic note documentation during this visit. Orders: Orders Cortisol Random 2 Weeks E27.8 - Other specified disorders of adrenal gland Metanephrines, Plasma 1 Week E27.8 - Other specified disorders of adrenal gland Dexamethasone 2 Weeks E27.8 - Other specified disorders of adrenal gland Medications: New dexamethasone 1 mg PO ONCE 1 tab 0RF Coding Level of Care Code New Pt Level 4 (65038) Diagnoses Adrenal mass E27.8
[2025-04-14 14:54] VITALS: BP 102/72; PULSE 83; O2SAT 98; BMI 26.1
--- OUTSIDE RECORDS SUMMARY | 2025-04-14 15:12 | XMS_ITS | Clinical Summary ---
Author Organization [facility] Address [address] [place] [address] Care Team Providers Care Digital Media Analyst Name Role Phone Amrit Valladares Primary Care Provider [phone] Allergies No known active allergies Medications Medication [...] 92 01/31/2018 1:14 AM EDT Temperature 36.9 C (98.5 F) 01/31/2018 1:14 AM EDT Respiratory Rate 16 01/31/2018 1:14 AM EDT [...] - 1-dose 75+ series) 2021 Influenza Vaccine (Season Ended) 2025 Hepatitis B Vaccines Aged Out No long er eligible based on patient's age to complete this topic RSV Ped < 20 months Aged Out No longe r eligible based on patient's age to complete this topic Care Teams Digital Media Analyst Relationship Specialty Start Date End Date Amrit Valladares [address] [facility] [place] [address] PCP - General Family Medicine 01/31/18
--- OUTSIDE RECORDS SUMMARY | 2025-04-14 15:12 | XMS_ITS | Encounter Summary ---
Author Organization [facility] Address [address] [place] [address] Care Team Providers Care Information Technology Associate Name Role Phone Amrit Valladares ELIZABETH Primary Care Provider Encounter Details Date Type Department Care Team (Latest Contact Info) Description 12/27/2024 Lab Requisition [facility] - Main Lab [address] [place] [address] Jeane Morris MD [address] [place] [phone] Other cerebrovascular disease Social History Tobacco Use [...] for add-ons. 12/27/2024 4:01 PM EDT [facility] ([facility]) [facility] Comment:Auto resulted. Urine Urine specimen obtained by clean catch procedure / Unknown 12/27/2024 10:00 AM EDT 12/27/2024 2:37 PM EDT us Jeane Morris MD LAB URINE ORDERABLES Final Resu lt [facility] [address] [place] [address], [place] [phone] * (ABNORMAL) Urinalysis with reflex microscopic (12/27/2024 10:00 AM EDT) Specific [place] Urine 1.021 1.003 - 1.030 LAB URINALYSIS - AUTOMATED METHOD 12/27/2024 3:28 PM [facility] pH, Urine 6.0 5.0 - 8.0 pH LAB URINALYSIS - AUTOMATED METHOD 12/27/2024 3:28 PM [facility] Leukocytes, Urine Negative Negative LAB URINALYSIS - AUTOMATED METHOD 12/27/2024 3:28 PM [facility] Nitrite, Urine Negative Negative LAB URINALYSIS - AUTOMATED METHOD 12/27/2024 3:28 PM [facility] Protein, Urine 30(A) <=Trace mg/dL LAB URINALYSIS - AUTOMATED METHOD 12/27/2024 3:28 PM [facility] Glucose, Urine Negative Negative mg/dL LAB URINALYSIS - AUTOMATED METHOD 12/27/2024 3:28 PM [facility] Ketones, Urine Negative Negative mg/dL LAB URINALYSIS - AUTOMATED METHOD 12/27/2024 3:28 PM [facility] Urobilinogen , Urine 1.0 0.2 - 1.0 mg/dL LAB URINALYSIS - AUTOMATED METHOD 12/27/2024 3:28 PM [facility] Bilirubin, Urine Negative Negative LAB URINALYSIS - AUTOMATED METHOD 12/27/2024 3:28 PM [facility] Blood, Urine Negative Negative LAB URINALYSIS - AUTOMATED METHOD 12/27/2024 3:28 PM EDT [facility] RBC, Urine 6.6(H) 0 - 4 /HPF LAB URINALYSIS - AUTOMATED METHOD 12/27/2024 3:28 PM EDT [facility] WBC, Urine 2.3 0 - 4 /HPF LAB URINALYSIS - AUTOMATED METHOD 12/27/2024 3:28 PM EDT [facility] Squamous Epithelial, Urine 9 0 - 60 /LPF LAB URINALYSIS - AUTOMATED METHOD 12/27/2024 3:28 PM EDT [facility] Crystals, Urine Light Amorphous Urate crystals. /LPF 12/27/2024 3:28 PM EDT [facility] Bacteria, Urine Negative Negative /HPF LAB URINALYSIS - AUTOMATED METHOD 12/27/2024 3:28 PM EDT [facility] Hyaline Casts, Urine 2.0 0 - 3 /LPF LAB URINALYSIS - AUTOMATED METHOD 12/27/2024 3:28 PM T [facility] Urine Urine specimen obtained by clean catch procedure / Unknown 12/27/2024 10:00 AM EDT 12/27/2024 2:36 PM EDT us Jeane Morris MD LAB URINE ORDERABLES Final Resu lt [facility] [address] [place] [address], [place] [phone] documented in this encounter Visit Diagnoses Diagnosis Other cerebrovascular disease documented in this encounter Care Teams Information Technology Associate Relationship Specialty Start Date End Date Amrit Valladares NP [address] [place], [place] PCP - General Family Medicine 01/31/18 documented as of this encounter
== END 2025-04-14 15:53 | disposition home or self-care (01) ==
LOC: HO.ENCR 14:50
PROVIDERS: PCP Nurse Practitioner Family; Visit Provider Internal Medicine Endocrinology, Diabetes & Metabolism
DX: E27.8 Other specified disorders of adrenal gland (principal)
CPT/HCPCS: 99204

== ENCOUNTER → 2025-04-14 14:49 | Outpatient (BNVA) | payer MEDICARE, SELFPAY | PROVIDERS: PCP Nurse Practitioner Family; Visit Provider Internal Medicine Endocrinology, Diabetes & Metabolism | DX: E27.8 Other specified disorders of adrenal gland (principal) | CPT/HCPCS: 99202 ==

== ENCOUNTER 2025-05-08 07:28 | Outpatient (REF) | payer MEDICARE, SELFPAY ==
--- OUTSIDE RECORDS SUMMARY | 2025-05-08 07:31 | XMS_ITS | Encounter Summary ---
Author Organization [facility] Address [address] [place] [address] Care Team Providers Care Server Software Engineer Name Role Phone Amrit Valladares ELIZABETH Primary Care Provider Encounter Details Date Type Department Care Team (Latest Contact Info) Description 12/27/2024 Lab Requisition [facility] - Main Lab [address] [place] [address] Jeane Morris MD [address] [place] [address] Other cerebrovascular disease Social History Tobacco Use [...] 12/27/2024 10:00 AM EDT Other cerebrovascular disease JOSPEH URINE CULTURE TUBE Routine 12/27/2024 10:00 AM EDT Other cerebrovascular disease URINALYSIS WITH REFLEX MICROSCOPIC Routine 12/27/2024 10:00 AM EDT Other cerebrovascular disease documented in this encounter Results * Joseph urine culture tube (12/27/2024 10:00 AM EDT) Extra Tube Hold for add-ons. 12/27/2024 4:01 PM EDT [facility] ([facility] Comment:Auto resulted. Urine Urine specimen obtained by clean catch procedure / Unknown 12/27/2024 10:00 AM EDT 12/27/2024 2:37 PM EDT us Jeane Morris MD LAB URINE ORDERABLES Final Resu lt [facility] [address] [place] [address], [place] [phone] * (ABNORMAL) Urinalysis with reflex microscopic (12/27/2024 10:00 AM EDT) Specific [place] Urine 1.021 1.003 - 1.030 LAB URINALYSIS - AUTOMATED METHOD 12/27/2024 3:28 PM [facility] pH, Urine 6.0 5.0 - 8.0 pH LAB URINALYSIS - AUTOMATED METHOD 12/27/2024 3:28 PM [facility] Leukocytes, Urine Negative Negative LAB URINALYSIS - AUTOMATED METHOD 12/27/2024 3:28 PM [facility] Nitrite, Urine Negative Negative LAB URINALYSIS - AUTOMATED METHOD 12/27/2024 3:28 PM [facility] Protein, Urine 30(A) <=Trace mg/dL LAB URINALYSIS - AUTOMATED METHOD 12/27/2024 3:28 PM [facility] Glucose, Urine Negative Negative mg/dL LAB URINALYSIS - AUTOMATED METHOD 12/27/2024 3:28 PM [facility] Ketones, Urine Negative Negative mg/dL LAB URINALYSIS - AUTOMATED METHOD 12/27/2024 3:28 PM [facility] Urobilinogen , Urine 1.0 0.2 - 1.0 mg/dL LAB URINALYSIS - AUTOMATED METHOD 12/27/2024 3:28 PM [facility] Bilirubin, Urine Negative Negative LAB URINALYSIS - AUTOMATED METHOD 12/27/2024 3:28 PM [facility] Blood, Urine Negative Negative LAB URINALYSIS - AUTOMATED METHOD 12/27/2024 3:28 PM EDT [facility] RBC, Urine 6.6(H) 0 - 4 /HPF LAB URINALYSIS - AUTOMATED METHOD 12/27/2024 3:28 PM EDT [facility] WBC, Urine 2.3 0 - 4 /HPF LAB URINALYSIS - AUTOMATED METHOD 12/27/2024 3:28 PM EDT [facility] Squamous Epithelial, Urine 9 0 - 60 /LPF LAB URINALYSIS - AUTOMATED METHOD 12/27/2024 3:28 PM EDT [facility] Crystals, Urine Light Amorphous Urate crystals. /LPF 12/27/2024 3:28 PM EDT [facility] Bacteria, Urine Negative Negative /HPF LAB URINALYSIS - AUTOMATED METHOD 12/27/2024 3:28 PM EDT [facility] Hyaline Casts, Urine 2.0 0 - 3 /LPF LAB URINALYSIS - AUTOMATED METHOD 12/27/2024 3:28 PM T [facility] Urine Urine specimen obtained by clean catch procedure / Unknown 12/27/2024 10:00 AM EDT 12/27/2024 2:36 PM EDT us Jeane Morris MD LAB URINE ORDERABLES Final Resu lt [facility] [address] [place] [address], [place] [phone] documented in this encounter Visit Diagnoses Diagnosis Other cerebrovascular disease documented in this encounter Care Teams Server Software Engineer Relationship Specialty Start Date End Date Amrit Valladares NP [address], [place] PCP - General Family Medicine 01/31/18 documented as of this encounter
--- OUTSIDE RECORDS SUMMARY | 2025-05-08 07:31 | XMS_ITS | Clinical Summary ---
Author Organization [facility] Address [address] [place] [address] Care Team Providers Care Cutter Head Sharpener Name Role Phone Amrit Valladares Primary Care Provider [phone] Allergies No known active allergies Medications Medication [...] 1-dose 75+ series) 2021 Influenza Vaccine (#1) 2025 Hepatitis B Vaccines Aged Out No long er eligible based on patient's age to complete this topic RSV Ped < 20 months Aged Out No longe r eligible based on patient's age to complete this topic Care Teams Cutter Head Sharpener Relationship Specialty Start Date End Date Amrit Valladares [address] [facility] [place] [address] PCP - General Family Medicine 01/31/18
[2025-05-13 09:33] LABS: Metanephrine, Free 41 pg/mL (<=57); Normetanephrines, Free 114 pg/mL (<=148); Total Metanephrine, Free 155 pg/mL (<=205)
== END 2025-05-08 07:29 | disposition home or self-care (01) ==
LOC: HO.HMGCLDS 07:28
PROVIDERS: PCP Nurse Practitioner Family; Visit Provider Internal Medicine Endocrinology, Diabetes & Metabolism
DX: E27.8 Other specified disorders of adrenal gland (principal)
CPT/HCPCS: 36415; 80299; 82533; 83835

== ENCOUNTER 2025-05-12 16:05 | Outpatient (AMB) | payer MEDICARE, SELFPAY ==
--- NOTE | 2025-05-12 16:05 | MHC.OFFVIS ---
Intake Visit Reasons: 6w/labs Intake Note: Patient presents today for 6w/labs Urology Medication:None Blood Thinner:Apixaban Antibiotic Allergies:None Allergies No Known Allergies Allergy (Verified 05/31/25 15:12) HPI Comments Details: 05/12/25--Telehealth FU. PSA - 04/01/25--7.12ng/mL. Plan -- proscar 5 mg daily. Monitor PSA. 03/29/25 - The patient is a 79-year-old male presenting with an adrenal nodule and elevated PSA levels. - The adrenal nodule was identified during an MRI performed due to an adrenal tumor suspicion. - The nodule is located on the right adrenal gland and measures 1.6 cm. - It has been present for over 10 years, suggesting a benign nature. - The patient experienced a stroke in December, which led to various tests and referrals. - The right kidney shows signs of infarction, possibly related to past cardiovascular issues. - The patient has a history of congestive heart failure diagnosed in 2005, with subsequent heart procedures and medication management. - The PSA level was found to be elevated at 8.31 during a test conducted in July. - The patient reports nocturia, getting up twice at night to urinate. Urinary Symptoms Review - Nocturia: Patient reports getting up twice at night to urinate. Results - MRI: Right adrenal nodule measuring 1.6 cm, present for over 10 years. - PSA test: Elevated at 8.31, conducted in July. - Bladder scan: Post-void residual of 25 mL. Plan - Repeat PSA test and perform a prostate exam to evaluate prostate health. - Conduct blood work to assess kidney function and refer to nephrology if necessary. - Refer to endocrinology for evaluation of the adrenal nodule and potential hormonal activity. 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 [employer] Current occupational exposures/hazards: Yes Cognitive needs: No Hearing needs: No Vision needs: No Review of Systems Const All systems reviewed & are unremarkable except as noted in HPI and below Reports no additional complaints Eyes Reports no additional complaints ENT Reports no additional complaints Card Reports no additional complaints Resp Reports no additional complaints GI Reports no additional complaints Reports as per HPI Musc Reports no additional complaints Skin/Breast Reports system reviewed and no additional complaints, except as documented Neuro Reports no additional complaints Psych Reports no additional complaints Endo Reports no additional complaints Will/Lymph Reports no additional complaints Aller/Immun Reports no additional complaints Telehealth Telehealth Telehealth Platform: Telephone Location of provider rendering services: practice address Location of patient: address on file Patient Identification confirmed using: Name, : Yes Telehealth method: voice only Patient verbally consented to treatment: Yes Patient verbally consented to billing insurance company: Yes Patient informed of any privacy concerns related to visit: Yes Minutes spent on Phone/Video with Pt.: 13 Assessment & Plan Assessment & Plan (1) BPH (benign prostatic hyperplasia): Code(s): N40.0 - Benign prostatic hyperplasia without lower urinary tract symptoms Category: Medical (2) Elevated PSA: Code(s): R97.20 - Elevated prostate specific antigen [PSA] Category: Medical Plan Proscar 5 mg daily monitor PSA Patient Instructions: The patient had an opportunity to ask questions regarding treatment plan. The patient expressed understanding and agreement with the above treatment plan. The patient is aware they should contact our office by phone for worsening of their current condition or the appearance of new symptoms. Compliance is encouraged with any medications and followup testing that is ordered. It is a privilege to be allowed the opportunity to participate in the urologic care of your patient. If you have any questions or concerns regarding treatment for the above conditions please do not hesitate to contact me. The office telephone contact is [phone]. This note is constructed in part using voice recognition software. While every effort has been made to ensure accuracy resizer operator errors may have been included. Yours sincerely, Yamilka Presley MD Coding Level of Care Code Tele Est Pt Level 3 (01666) Diagnoses BPH (benign prostatic hyperplasia) N40.0 Elevated PSA R97.20
--- OUTSIDE RECORDS SUMMARY | 2025-05-12 16:31 | XMS_ITS | Clinical Summary ---
Author Organization [facility] Address [address] [place] [address] Care Team Providers Care Hydrogen Plant Operator Name Role Phone Amrit Valladares Primary Care Provider [phone] Allergies No known active allergies Medications Medication [...] age to complete this topic Care Teams Hydrogen Plant Operator Relationship Specialty Start Date End Date Amrit Valladares [address] [facility] [place] [address] PCP - General Family Medicine 01/31/18
--- OUTSIDE RECORDS SUMMARY | 2025-05-12 16:31 | XMS_ITS | Encounter Summary ---
Author Organization [facility] Address [address] [place] [address] Care Team Providers Care Retread Technician Name Role Phone Amrit Valladares ELIZABETH Primary Care Provider [phone] Encounter Details Date Type Department Care Team (Latest Contact Info) Description 12/27/[address] [facility] - Main Lab [address] [place] [address] Jeane Morris MD [address] [place] [address] Other cerebrovascular disease Social History Tobacco Use [...] Hold for add-ons. 12/27/2024 4:01 PM EDT [facility] Comment:Auto resulted. Urine Urine specimen obtained by clean catch procedure / Unknown 12/27/2024 10:00 AM EDT 12/27/2024 2:37 PM EDT us Jeane Morris MD LAB URINE ORDERABLES Final Resu lt [facility] [address] [place] [address], [place] [phone] * (ABNORMAL) Urinalysis with reflex microscopic (12/27/2024 10:00 AM EDT) Specific [place] Urine 1.021 1.003 - 1.030 LAB URINALYSIS - AUTOMATED METHOD 12/27/2024 3:28 PM [facility] pH, Urine 6.0 5.0 - 8.0 pH LAB URINALYSIS - AUTOMATED METHOD 12/27/2024 3:28 PM [facility] Leukocytes, Urine Negative Negative LAB URINALYSIS - AUTOMATED METHOD 12/27/2024 3:28 PM [facility] Nitrite, Urine Negative Negative LAB URINALYSIS - AUTOMATED METHOD 12/27/2024 3:28 PM [facility] Protein, Urine 30(A) <=Trace mg/dL LAB URINALYSIS - AUTOMATED METHOD 12/27/2024 3:28 PM [facility] Glucose, Urine Negative Negative mg/dL LAB URINALYSIS - AUTOMATED METHOD 12/27/2024 3:28 PM [facility] Ketones, Urine Negative Negative mg/dL LAB URINALYSIS - AUTOMATED METHOD 12/27/2024 3:28 PM [facility] Urobilinogen , Urine 1.0 0.2 - 1.0 mg/dL LAB URINALYSIS - AUTOMATED METHOD 12/27/2024 3:28 PM [facility] Bilirubin, Urine Negative Negative LAB URINALYSIS - AUTOMATED METHOD 12/27/2024 3:28 PM [facility] Blood, Urine Negative Negative LAB URINALYSIS - AUTOMATED METHOD 12/27/2024 3:28 PM EDT [facility] RBC, Urine 6.6(H) 0 - 4 /HPF LAB URINALYSIS - AUTOMATED METHOD 12/27/2024 3:28 PM EDT [facility] WBC, Urine 2.3 0 - 4 /HPF LAB URINALYSIS - AUTOMATED METHOD 12/27/2024 3:28 PM EDT [facility] Squamous Epithelial, Urine 9 0 - 60 /LPF LAB URINALYSIS - AUTOMATED METHOD 12/27/2024 3:28 PM EDT [facility] Crystals, Urine Light Amorphous Urate crystals. /LPF 12/27/2024 3:28 PM EDT [facility] Bacteria, Urine Negative Negative /HPF LAB URINALYSIS - AUTOMATED METHOD 12/27/2024 3:28 PM EDT [facility] Hyaline Casts, Urine 2.0 0 - 3 /LPF LAB URINALYSIS - AUTOMATED METHOD 12/27/2024 3:28 PM T [facility] Urine Urine specimen obtained by clean catch procedure / Unknown 12/27/2024 10:00 AM EDT 12/27/2024 2:36 PM EDT us Jeane Morris MD LAB URINE ORDERABLES Final Resu lt [facility] [address] [place] [address], [place] [phone] documented in this encounter Visit Diagnoses Diagnosis Other cerebrovascular disease documented in this encounter Care Teams Retread Technician Relationship Specialty Start Date End Date Amrit Valladares NP [address] [place], [place] PCP - General Family Medicine 01/31/18 documented as of this encounter
== END 2025-05-12 16:37 | disposition home or self-care (01) ==
LOC: HO.HUSH 16:05
PROVIDERS: PCP Nurse Practitioner Family; Visit Provider Urology
DX: N40.0 Benign prostatic hyperplasia without lower urinary tract symptoms (principal); R97.20 Elevated prostate specific antigen [PSA]
CPT/HCPCS: 99213

== ENCOUNTER 2025-05-25 09:32 | Outpatient (AMB) | payer MEDICARE, SELFPAY ==
--- NOTE | 2025-05-25 09:35 | AM.OFFWIN_ITS ---
Intake Vital Signs 05/25/25 09:36 Height 5 ft 8 in Weight 163 lb 8 oz BMI 24.9 BP 100/70 Blood Pressure Location Rt brachial Position Sitting Pulse 92 Pulse Source Pulse Oximeter Temp 97.4 F Temp Source Oral Pulse Oximetry (%) 96 Oxygen Delivery Method Room Air Intake Visit Reasons: EP Blood in urine Intake Note: Patient states he notices blood on the tip of his penis, not in the urine Patient Tobacco Use Status: Former Tobacco user (December 2023) Branch Mechanic Required: No Allergies No Known Allergies Allergy (Verified 05/25/25 09:49) Do you need a note to return to daycare/school/sports/work: No HPI HPI Comments History of Present Illness Details History - The patient is a 80-year-old male pres enting with blood on his brief. 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 - Hx of Adrenal nodule: 1.6 cm, right ad renal gland, present for 10 years. - Hx of elevated PSA levels: History of elevated levels, recent decrease from 8.31 to 7.12. - History of cerebrovascular accident: S troke in December, right kidney infarction noted. - History of congestive heart failure: D iagnosed in 2005, with cardiac procedures. - patient is asking for the medication h is urologist was going to start him on which they discussed and there telehealth visit on May 12. - patient is telling me he exerted himse lf 4 days ago and is wondering if the blood could be from this physical exertion. - Hx of smoking tobacco Physical Exam General: Cooperative, healthy appearing, comfortable, no acute distress and well developed Orientation: Patient oriented x3 Limitations: No limitations Head: Normal to inspection Ears: Hearing grossly normal bilaterally Nose: Normal External nose present Face and sinus: Normal facial exam Mouth: normal, moist oral mucosa Eyes: Appearance normal, both eyes and all related structures Neck: Normal visual inspection and Yes full ROM Respiratory: Normal respiratory effort and able to speak in complete sentences. GI: small/0.5 cross shaped healing scrape on suprapubic area, now crusted over, no signs of infection noted Skin: no rashes or lesions noted Neuro: Patient oriented x3 Extremities: moving all extremities normally PFSH Medical History Adrenal mass Fatty liver Adrenal adenoma Hemiplegia Acute right MCA stroke AAA (abdominal aortic aneurysm) Surgical History Hx of CABG Family History Father Myocardial infarction Mother Cancer Social History Housing: House Patient Tobacco Use Status: Former Tobacco user (December 2023) Tobacco use type: Cigar Cigarettes Per Day: 1 e-Cigarette/Vaping Use: Never Used Second Hand Smoke Exposure: Yes service: Yes Current occupational status: employed 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 Current occupational exposures/hazards: Yes Cognitive needs: No Hearing needs: No Vision needs: No Review of Systems Const All systems reviewed & are unremarkable except as noted in HPI and below Physical Exam Vital Signs: Last Vital Signs Temp 97.4 F 05/25/25 09:36 Pulse 92 05/25/25 09:36 BP 82/50 L 05/25/25 09:36 Pulse Ox 96 05/25/25 09:36 Oxygen Delivery Method Room Air 05/25/25 09:36 BMI result Body Mass Index 24.9 Assessment & Plan Assessment & Plan (1) Urinary problem in male: Code(s): N39.9 - Disorder of urinary system, unspecified Plan: Plan Patient was informed and verbally consented to the use of an ambient scribe for clinic note documentation during this visit - UA with no infection or blood noted. - Monitor for recurrence and report bright red blood. - The blood he saw was likely external from the healing scrape on his suprapubic area - Follow up with urology and PCP as scheduled, former smoker. - Unable to determine what medication patient's urologist was planning on putting him on because the notes are still in draft forearm and the telehealth visit from 05/12 is not in the records. We will message his urologist so they can follow up with the patient. Adrenal Nodule, continue monitoring, stable for 10 years. Elevated Psa Levels: Monitor PSA levels, recent decrease noted. Discuss biopsy with urology, patient declined. Orders: Orders AMB Urinalysis Automated Today Z13.9 - Encounter for screening, unspecified Coding Level of Care Code Est Pt Level 3 (12017) Diagnoses Urinary problem in male N39.9
[2025-05-25 09:36] VITALS: BP 100/70; PULSE 92; TEMP 36.3; O2SAT 96; BMI 24.9
--- OUTSIDE RECORDS SUMMARY | 2025-05-25 10:10 | XMS_ITS | Encounter Summary ---
Author Organization [facility] Address [address] [place] [address] Care Team Providers Care Professor Of Violin Name Role Phone Amrit Valladares ELIZABETH Primary Care Provider [phone] Encounter Details Date Type Department Care Team (Latest Contact Info) Description 12/27/2024 Lab Requisition [facility] - Main Lab [address] [place] [address] Jeane Morris MD [address] [place] [address] Other cerebrovascular disease Social History Tobacco Use [...] add-ons. 12/27/2024 4:01 PM EDT [facility] Comment:Auto resulted. Urine Urine specimen obtained by clean catch procedure / Unknown 12/27/2024 10:00 AM EDT 12/27/2024 2:37 PM EDT us Jeane [place] MD LAB URINE ORDERABLES Final Resu lt [facility] [address] [place] [address], [place] [phone] * (ABNORMAL) Urinalysis with reflex microscopic (12/27/2024 10:00 AM EDT) Specific [place] Urine 1.021 1.003 - 1.030 LAB URINALYSIS - AUTOMATED METHOD 12/27/2024 3:28 PM [facility] pH, Urine 6.0 5.0 - 8.0 pH LAB URINALYSIS - AUTOMATED METHOD 12/27/2024 3:28 PM [facility] Leukocytes, Urine Negative Negative LAB URINALYSIS - AUTOMATED METHOD 12/27/2024 3:28 PM [facility] Nitrite, Urine Negative Negative LAB URINALYSIS - AUTOMATED METHOD 12/27/2024 3:28 PM [facility] Protein, Urine 30(A) <=Trace mg/dL LAB URINALYSIS - AUTOMATED METHOD 12/27/2024 3:28 PM [facility] Glucose, Urine Negative Negative mg/dL LAB URINALYSIS - AUTOMATED METHOD 12/27/2024 3:28 PM [facility] Ketones, Urine Negative Negative mg/dL LAB URINALYSIS - AUTOMATED METHOD 12/27/2024 3:28 PM [facility] Urobilinogen , Urine 1.0 0.2 - 1.0 mg/dL LAB URINALYSIS - AUTOMATED METHOD 12/27/2024 3:28 PM [facility] Bilirubin, Urine Negative Negative LAB URINALYSIS - AUTOMATED METHOD 12/27/2024 3:28 PM [facility] Blood, Urine Negative Negative LAB URINALYSIS - AUTOMATED METHOD 12/27/2024 3:28 PM EDT [facility] RBC, Urine 6.6(H) 0 - 4 /HPF LAB URINALYSIS - AUTOMATED METHOD 12/27/2024 3:28 PM EDT [facility] WBC, Urine 2.3 0 - 4 /HPF LAB URINALYSIS - AUTOMATED METHOD 12/27/2024 3:28 PM EDT [facility] Squamous Epithelial, Urine 9 0 - 60 /LPF LAB URINALYSIS - AUTOMATED METHOD 12/27/2024 3:28 PM EDT [facility] Crystals, Urine Light Amorphous Urate crystals. /LPF 12/27/2024 3:28 PM EDT [facility] Bacteria, Urine Negative Negative /HPF LAB URINALYSIS - AUTOMATED METHOD 12/27/2024 3:28 PM EDT [facility] Hyaline Casts, Urine 2.0 0 - 3 /LPF LAB URINALYSIS - AUTOMATED METHOD 12/27/2024 3:28 PM T [facility] Urine Urine specimen obtained by clean catch procedure / Unknown 12/27/2024 10:00 AM EDT 12/27/2024 2:36 PM EDT us Jeane Morris MD LAB URINE ORDERABLES Final Resu lt [facility] [address] [place] [address], [place] [phone] documented in this encounter Visit Diagnoses Diagnosis Other cerebrovascular disease documented in this encounter Care Teams Professor Of Violin Relationship Specialty Start Date End Date Amrit Valladares NP [address] [place], [place] PCP - General Family Medicine 01/31/18 documented as of this encounter
--- OUTSIDE RECORDS SUMMARY | 2025-05-25 10:10 | XMS_ITS | Clinical Summary ---
Author Organization [facility] Address [address] [place] [address] Care Team Providers Care Radiographer Mammographer Name Role Phone Amrit Valladares Primary Care Provider [phone] Allergies No known active allergies Medications Medication [...] age to complete this topic Care Teams Radiographer Mammographer Relationship Specialty Start Date End Date Amrit Valladares [address] [facility] [place] [address] PCP - General Family Medicine 01/31/18
== END 2025-05-25 10:40 | disposition home or self-care (01) ==
PROVIDERS: PCP Nurse Practitioner Family; Visit Provider Physician Assistant
DX: N39.9 Disorder of urinary system, unspecified (principal); Z13.9 Encounter for screening, unspecified

== ENCOUNTER → 2025-05-25 09:32 | Outpatient (BNVA) | payer MEDICARE, SELFPAY | PROVIDERS: PCP Nurse Practitioner Family; Visit Provider Physician Assistant | DX: N39.9 Disorder of urinary system, unspecified (principal); Z86.73 Personal history of transient ischemic attack (TIA), and cerebral infarction without residual deficits | CPT/HCPCS: 81003; 99212 ==

== ENCOUNTER 2025-05-31 08:00 | Outpatient (REF) | payer MEDICARE, SELFPAY ==
[2025-06-01 09:57] LABS: Creatinine, mg/dL 90.04
--- OUTSIDE RECORDS SUMMARY | 2025-06-01 10:20 | XMS_ITS | Clinical Summary ---
Author Organization [facility] Address [address] [place] [address] Care Team Providers Care Missile Technician Name Role Phone Amrit Valladares Primary Care Provider [phone] Allergies No known active allergies Medications Medication [...] age to complete this topic Care Teams Missile Technician Relationship Specialty Start Date End Date Amrit Valladares [address] [facility] [place] [address] PCP - General Family Medicine 01/31/18
--- OUTSIDE RECORDS SUMMARY | 2025-06-01 10:20 | XMS_ITS | Encounter Summary ---
Author Organization [facility] Address [address] [place] [address] Care Team Providers Care Shellfish Bed Worker Name Role Phone Amrit Valladares ELIZABETH Primary Care Provider [phone] Encounter Details Date Type Department Care Team (Latest Contact Info) Description 12/27/2024 Lab Requisition [facility] - Main Lab [address] [place] [address] Jeane Morris MD [address] [place] [address] Other cerebrovascular disease Social History Tobacco Use [...] Hold for add-ons. 12/27/2024 4:01 PM EDT [facility] ([facility]) [facility] Comment:Auto resulted. Urine Urine specimen obtained by clean catch procedure / Unknown 12/27/2024 10:00 AM EDT 12/27/2024 2:37 PM EDT us Jeane Morris MD LAB URINE ORDERABLES Final Resu lt [facility] [address] [place] [address], [place] [phone] * (ABNORMAL) Urinalysis with reflex microscopic (12/27/2024 10:00 AM EDT) Specific [place] Urine 1.021 1.003 - 1.030 LAB URINALYSIS [...] lt [facility] [address] [place] [address], [place] [phone] documented in this encounter Visit Diagnoses Diagnosis Other cerebrovascular disease documented in this encounter Care Teams Shellfish Bed Worker Relationship Specialty Start Date End Date Amrit Valladares NP [address] [place], [place] PCP - General Family Medicine 01/31/18 documented as of this encounter
[2025-06-01 10:45] LABS: Total Volume 24 Hour Urine 950 mL
[2025-06-08 18:18] LABS: Total Volume, 24 Hr Urine 950 mL
== END 2025-05-31 08:01 | disposition home or self-care (01) ==
LOC: HO.LNP 08:00
PROVIDERS: Visit Provider Internal Medicine Endocrinology, Diabetes & Metabolism
DX: E27.8 Other specified disorders of adrenal gland (principal)
CPT/HCPCS: 82530; 82570

== ENCOUNTER 2025-05-31 14:13 | Outpatient (AMB) | payer MEDICARE, SELFPAY ==
[2025-05-31 14:34] VITALS: BP 110/64; PULSE 75; TEMP 36.7; O2SAT 98; BMI 24.5
--- NOTE | 2025-05-31 14:34 | A.OFFPC_ITS ---
Vital Signs 05/31/25 14:34 Height 5 ft 8 in Weight 161 lb BMI 24.5 BP 110/64 Blood Pressure Location Lt brachial Position Sitting Pulse 75 Pulse Source Pulse Oximeter Temp 98.0 F Temp Source Oral Pulse Oximetry (%) 98 Oxygen Delivery Method Room Air Intake Visit Reasons: 4 months f/u *Confirmed 05/28 DCR Combination Welder Required: No Accompanied by: Self / Same As Patient Allergies No Known Allergies Allergy (Verified 05/31/25 15:12) Medication List - Last Reconciled 05/31/25 by JORGE WoodyP- apixaban (Eliquis) 5 mg PO BID 30 days atorvastatin 80 mg PO BEDTIME carvedilol 6.25 mg PO BID cholecalciferol (vitamin D3) 50 mcg PO DAILY 90 days melatonin 3 mg PO BEDTIME PRN spironolactone 25 mg PO BID 90 days valsartan 40 mg PO DAILY Tobacco use date assessed: 05/31/25 Fall risk assessment: No Falls in past year Last assessed Fall Risk: 05/31/25 Dental Screening Dental Screen Date: 05/31/25 Did you have a dental visit in the last 12 months?: No Did you have a dental problem in the last 6 months where you did not have access to dental care?: No Was dental information given to patient?: Patient declined (No teeth ) HPI 4 months f/u *Confirmed 05/28 DCR HPI Details Chief Complaint The patient presents for a follow-up after a cerebrovascular accident with hemiplegia. History of Present Illness The patient is a 80-year-old male presenting with a follow-up after a cerebrovascular accident with hemiplegia. The cerebrovascular accident occurred in December 2024, resulting in hemiplegia. He has a history of cardiomyopathy and is under the care of a director data. The patient also has an adrenal mass and is being monitored by endocrinology. He has been engaging in physical activity, although limited by his cardiovascular condition. Additionally, he has a history of coronary artery bypass grafting. Overall, he is reported to be doing well, with stable vital signs and normal physical examination findings. Hx of afib, denies any symptoms. He does mention some fatigue, though most likely related to low EF Social History - Exercise: Engages in some physical act ivity, limited by cardiovascular condition Health Maintenance - Cardiovascular follow-up: Coordination with cardiology for appointment scheduling -denies any increased sob, cp, dizziness , fevers, chills, CLOUD, blurred vision, n/v. Review of Systems Physical Exam General: Cooperative, healthy appearing, comfortable, no acute distress and well developed Orientation: Patient oriented x3 Limitations: No limitations Head: Normal to inspection Ears: Hearing grossly normal bilaterally Nose: Normal external nose present Face and sinus: Normal facial exam Eyes: Appearance normal, both eyes and all related structures Neck: Normal visual inspection and Yes full ROM Respiratory: Normal respiratory effort and able to speak in complete sentences. Clear to auscultation bilaterally Cardiovascular: Irreg irregular Normal S1 and S2 GI: Normal to inspection. Soft to palpation and nontender Skin: No rashes or lesions noted Neuro: CN2 through 12 intact, patient oriented x3 Extremities: Able to move all extremities equally, normal to inspection Results Plan The patient will continue to follow up with cardiology for management of cardiomyopathy and coordination of care is essential to ensure timely appointments. Monitoring of the adrenal mass will continue under endocrinology, with attention to any changes in symptoms or condition. Physical activity is encouraged within the limits of his cardiovascular capacity to maintain overall health and mobility. Discussion Notes I discussed with the patient the importance of continuing follow-up with cardiology and endocrinology to manage his cardiomyopathy and adrenal mass, respectively. We also talked about the benefits of maintaining physical activity within his cardiovascular limits to support his overall health. Patient Instructions - Continue to attend scheduled cardiolog y and endocrinology appointments. - Engage in physical activity as tolerat ed, considering cardiovascular limitations. 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/hazards: Yes Cognitive needs: No Hearing needs: No Vision needs: No Questionnaire Thrive Questionnaire Date Thrive assessed: 02/02/25 I am a: Patient What is your living situation today?: I choose not to answer this question Within the past 12 months, did the food you bought not last and you didn't have the money to get more?: I choose not to answer this question Within the past 12 months, did you worry whether your food would run out before you got money to buy more?: I choose not to answer this question Do you have trouble paying for medicines?: I choose not to answer this question Do you have trouble getting transportation to medical appointments?: I choose not to answer this question Do you have trouble paying your heating and electricity bill?: I choose not to answer this question Do you have trouble taking care of your child, family member or friend?: I choose not to answer this question Do you have trouble with day-to-day activities such as bathing, preparing meals, shopping, managing finances, etc.?: I choose not to answer this question Are you currently unemployed and looking for a job?: I choose not to answer this question Are you interested in more education?: I choose not to answer this question Please select the resources that you would like help with: None Currently or been in a relationship where the following occur: I choose not to answer THRIVE Score: 0 LUIS-7 AMB Questionnaire LUIS-7 Date LUIS - 7 assessed: 05/31/25 Source: Developed by Drs. Mars Cheng, Tory Vazquez, Morgan Sarmiento and colleagues, with an educational christelle from [employer]. Physical exam (Primary Care) Vital Signs: Last Vital Signs Temp 98.0 F 05/31/25 14:34 Pulse 75 05/31/25 14:34 BP 110/64 05/31/25 14:34 Pulse Ox 98 05/31/25 14:34 Oxygen Delivery Method Room Air 05/31/25 14:34 BMI result Body Mass Index 24.5 Tobacco/Smoking Status: Tobacco use Status Tobacco use date assessed 05/31/25 05/31/25 14:39 Patient Tobacco Use Status Former Tobacco user (05/31/25 14:39 2023) Tobacco use type Cigar 05/31/25 14:39 e-Cigarette/Vaping Use Never Used 05/31/25 14:39 Thrive Assessment: Date of Thrive Assessment Date Thrive assessed 02/02/25 05/31/25 14:39 Currently or been in a relationship where the following occur: I choose not to answer Coding Level of Care Code Est Pt Level 3 (15820) Diagnoses HTN (hypertension) I10 Hx of CABG Z95.1 Cardiomyopathy I42.9 CVA (cerebral vascular accident) I63.9 Afib I48.91 Assessment & Plan Assessment & Plan (1) HTN (hypertension): Code(s): I10 - Essential (primary) hypertension Category: Medical (2) Hx of CABG: Code(s): Z95.1 - Presence of aortocoronary bypass graft Category: Surgical (3) Cardiomyopathy: Code(s): I42.9 - Cardiomyopathy, unspecified Category: Medical (4) CVA (cerebral vascular accident): Code(s): I63.9 - Cerebral infarction, unspecified Category: Medical (5) Afib: Code(s): I48.91 - Unspecified atrial fibrillation Category: Medical Plan . Orders: Orders Comprehensive [place]. Panel Fast Today I10 - Essential (primary) hypertension TSH reflex Free T4 Today I10 - Essential (primary) hypertension Lipid Panel Today I10 - Essential (primary) hypertension Complete Blood Count Auto Diff Today I10 - Essential (primary) hypertension UA CC w/rflx Micro + Cult Today I10 - Essential (primary) hypertension AMB EKG-In Office Today I10 - Essential (primary) hypertension, I42.9 - Cardiomyopathy, unspecified Magnesium Today I42.9 - Cardiomyopathy, unspecified
--- OUTSIDE RECORDS SUMMARY | 2025-05-31 14:59 | XMS_ITS | Clinical Summary ---
Author Organization [facility] Address [address] [place] [address] Care Team Providers Care Putty Mixer And Applier Name Role Phone Amrit Valladares Primary Care Provider [phone] Allergies No known active allergies Medications Medication [...] age to complete this topic Care Teams Putty Mixer And Applier Relationship Specialty Start Date End Date Amrit Valladares [address] [facility] [place] [address] PCP - General Family Medicine 01/31/18
--- OUTSIDE RECORDS SUMMARY | 2025-05-31 14:59 | XMS_ITS | Encounter Summary ---
Author Organization [facility] Address [address] [place] [address] Care Team Providers Care Machine Sole Leveler Name Role Phone Amrit Valladares ELIZABETH Primary Care Provider Encounter Details Date Type Department Care Team (Latest Contact Info) Description 12/27/2024 Lab Requisition [facility] [address] [place] [address] Jeane Morris MD [address] [place] [address] Other cerebrovascular disease Social History Tobacco Use [...] Hold for add-ons. 12/27/2024 4:01 PM EDT [facility] ([facility]) [facility] Comment:Auto resulted. Urine Urine specimen obtained by clean catch procedure / Unknown 12/27/2024 10:00 AM EDT 12/27/2024 2:37 PM EDT us Jeane Morris MD LAB URINE ORDERABLES Final Resu lt [facility] [address] [place] [address], [place] [phone] * (ABNORMAL) Urinalysis with reflex microscopic (12/27/2024 10:00 AM EDT) Specific [place] Urine 1.021 1.003 - 1.030 LAB URINALYSIS - AUTOMATED METHOD 12/27/2024 3:28 PM [facility] pH, Urine 6.0 5.0 - 8.0 pH LAB URINALYSIS - AUTOMATED METHOD 12/27/2024 3:28 PM [facility] Leukocytes, Urine Negative Negative LAB URINALYSIS - AUTOMATED METHOD 12/27/2024 3:28 PM [facility] Nitrite, Urine Negative Negative LAB URINALYSIS - AUTOMATED METHOD 12/27/2024 3:28 PM [facility] Protein, Urine 30(A) <=Trace mg/dL LAB URINALYSIS - AUTOMATED METHOD 12/27/2024 3:28 PM [facility] Glucose, Urine Negative Negative mg/dL LAB URINALYSIS - AUTOMATED METHOD 12/27/2024 3:28 PM [facility] Ketones, Urine Negative Negative mg/dL LAB URINALYSIS - AUTOMATED METHOD 12/27/2024 3:28 PM [facility] Urobilinogen , Urine 1.0 0.2 - 1.0 mg/dL LAB URINALYSIS - AUTOMATED METHOD 12/27/2024 3:28 PM [facility] Bilirubin, Urine Negative Negative LAB URINALYSIS - AUTOMATED METHOD 12/27/2024 3:28 PM [facility] Blood, Urine Negative Negative [...] Final Resu lt [facility] [address] [place] [address], [place] [phone] documented in this encounter Visit Diagnoses Diagnosis Other cerebrovascular disease documented in this encounter Care Teams Machine Sole Leveler Relationship Specialty Start Date End Date Amrit Valladares NP [address] [place], [place] PCP - General Family Medicine 01/31/18 documented as of this encounter
== END 2025-05-31 15:56 | disposition home or self-care (01) ==
LOC: HO.HMCC 14:14
PROVIDERS: PCP Nurse Practitioner Family; Visit Provider Nurse Practitioner Family
DX: I10 Essential (primary) hypertension (principal); Z95.1 Presence of aortocoronary bypass graft; I42.9 Cardiomyopathy, unspecified; I63.9 Cerebral infarction, unspecified; I48.91 Unspecified atrial fibrillation

== ENCOUNTER → 2025-05-31 14:13 | Outpatient (BNVA) | payer MEDICARE, SELFPAY | PROVIDERS: PCP Nurse Practitioner Family; Visit Provider Nurse Practitioner Family | DX: I10 Essential (primary) hypertension (principal); I69.359 Hemiplegia and hemiparesis following cerebral infarction affecting unspecified side; I42.9 Cardiomyopathy, unspecified; I48.91 Unspecified atrial fibrillation; Z95.1 Presence of aortocoronary bypass graft | CPT/HCPCS: 96127; 99212 ==

== ENCOUNTER 2025-07-15 12:09 | Outpatient (AMB) | payer MEDICARE, SELFPAY ==
--- NOTE | 2025-07-15 12:14 | MHC.OFFVIS ---
Vital Signs 07/15/25 12:15 Height 5 ft 8 in Weight 150 lb 6 oz BMI 22.9 BP 100/70 Blood Pressure Location Rt brachial Position Sitting Pulse 79 Pulse Source Pulse Oximeter Pulse Oximetry (%) 99 Oxygen Delivery Method Room Air Intake Visit Reasons: INP-Cerebral infarction Intake Note: Cerebral Infarction Hand Stapler Required: No Accompanied by: Son Allergies No Known Allergies Allergy (Verified 07/15/25 12:15) HPI Comments Details: 80y/o male comes for neurological evaluation . He presented wih slurred speech and left sided weakness on december 12 2024 to [facility]. His CT was negative , CTA showed Right MCA 1 partial occlusion- thrombus. He was treated with tenecteplase and transferred to [facility] . It was decided not to do thrombectomy as per patients and was started on Eliquis . He was supposed to be on anticoagulation since 2023 for Atrial fibrillation but he did not start due to cost .During the stroke he was not on any anticoagulation. He has residual left sided weakness and slurred speech. He has some sleep issues, daytime sleepiness, frequent arousals at night. 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 Current occupational exposures/hazards: Yes Cognitive needs: No Hearing needs: No Vision needs: No Review of Systems ENT Reports Normal hearing present Neuro Reports Normal hearing present Physical Exam Vital Signs: Last Vital Signs Pulse 79 07/15/25 12:15 BP 100/70 07/15/25 12:15 Pulse Ox 99 07/15/25 12:15 Oxygen Delivery Method Room Air 10/02/25 12:15 BMI result Body Mass Index 22.9 Const General: cooperative, healthy appearing, comfortable and no acute distress Nutritional Appearance: average body habitus Orientation/consciousness: patient oriented x3 Eyes Pupils: Equal, round and reactive pupils present Neuro Other: mild slurred speech Mild UE and LE weakness and dysmetria Tone - normal Gait midl off balance General: patient oriented x3, tone normal and moves all extremities Cranial nerves: Yes Facial sensation intact/muscles of mastication intact, Yes Equal, round and reactive pupils present, Yes Bilaterally intact EOM present, Yes Nystagmus not present, Yes Normal facial strength present, Yes Midline tongue present, Yes Normal hearing present, Yes Ability to bilaterally rotate head present and Yes Ability to bilaterally elevate shoulders present Cognition (Neuro): normal cognition Gait exam (Neuro): Antalgic gait present Motor exam (neuro): Normal motor muscle tone present throughout Deep tendon reflexes (DTR's): Right triceps reflex intensity grade: 1+, Left triceps reflex intensity grade: 1+, Rt Biceps (C5, C6): 1+, Left biceps reflex intensity grade: 1+, Right brachioradialis reflex intensity grade: 1+, Left brachioradialis reflex intensity grade: 1+, Right patellar reflex intensity grade: 3+ and Left patellar reflex intensity grade: 3+ Coordination: [id number] test normal Assessment & Plan Assessment & Plan (1) CVA (cerebral vascular accident): Comment: 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 Code(s): I63.9 - Cerebral infarction, unspecified Category: Medical Qualifiers: CVA mechanism: thrombosis Precerebral and cerebral artery: middle cerebral artery Laterality of affected vessel: right Qualified Code(s): I63.311 - Cerebral infarction due to thrombosis of right middle cerebral artery Plan Continue f/u with cardiology Eliquis 5 mg bid Atorvostatin 80mg qd Discussed compliance and risk factors for CVA Orders: Orders RT home sleep study Today G47.10 - Hypersomnia, unspecified, R06.83 - Snoring Coding Level of Care Code New Pt Level 4 (87950) Diagnoses Cerebrovascular accident (CVA) due to thrombosis of right middle cerebral artery I63.311 CVA mechanism: thrombosis Precerebral and cerebral artery: middle cerebral artery Laterality of affected vessel: right
[2025-07-15 12:15] VITALS: BP 100/70; PULSE 79; O2SAT 99; BMI 22.9
--- OUTSIDE RECORDS SUMMARY | 2025-07-15 13:48 | XMS_ITS | Clinical Summary ---
Author Organization [address] [facility] Address [address] [place] [address] Phone Care Team Providers Care Vp Legal Affairs Name Role Phone Amrit Valladares [employer]UD[employer] Primary Care Provider Encounters Date Type Department Care Team Description 07/01/[address] [facility] [address] [facility] [address] [place] [address] Amrit Valladares NP from Last 3 Months Social History Tobacco [...] Patients (1 - 1-dose 75+ series) 2021 Depression Screening 10/14/2024 Cholesterol Screening (Lipid Panel) 01/18/2025 Falls Risk Assessment 01/18/2025 Medicare Annual Wellness Visit 01/18/2025 Social Influencers of Health Screening 01/18/2025 COVID-19 Vaccine ( season) 2025 Influenza Vaccine (#1) 2025 09/30/2006 Hypertension/CHF/CAD Annual BMP Blood Test [...] Procedure Name Priority Date/Time Associated Diagnosis Comments COMPREHENSIVE METABOLIC PANEL Routine 12/29/2024 4:50 AM EDT Encounter for other general examination HEPATITIS PANEL, ACUTE WITH REFLEX TO CONFIRMATION Routine 12/20/2024 5:57 AM EDT Encounter for other general examination from Last 3 Months or Most Recently Relevant to Health Maintenance Results * (ABNORMAL) Comprehensive metabolic panel (12/29/2024 4:50 AM EDT) Sodium 134 133 - 145 mmol/L LAB CHEMISTRY METHOD 12/29/2024 11:33 AM [facility] Potassium 4.6 3.5 - 5.5 mmol/L LAB CHEMISTRY METHOD 12/29/2024 11:33 AM [facility] Chloride 102 96 - 110 mmol/L LAB CHEMISTRY METHOD 12/29/2024 11:33 AM [facility] CO2 23 21 - 32 mmol/L LAB CHEMISTRY METHOD 12/29/2024 11:33 AM [facility] Anion Gap 9 3 - 11 LAB CHEMISTRY METHOD 12/29/2024 11:33 AM [facility] Glucose 78 70 - 100 mg/dL LAB CHEMISTRY METHOD 12/29/2024 11:33 AM [facility] BUN 26(H) 5 - 25 mg/dL LAB CHEMISTRY METHOD 12/29/2024 11:33 AM [facility] Creatinine 1.18 0.70 - 1.30 mg/dL LAB CHEMISTRY METHOD 12/29/2024 11:33 AM [facility] eGFR 63 >=60 mL/min/1. 73m2 LAB CHEMISTRY METHOD 12/29/2024 11:33 AM [facility] Comment:Calculation based on the Chronic Kidney Disease Epidemiology Collaboration (CKD-EPI) equation refit without adjustment for race. BUN/Creatinine Ratio 22.0 LAB CHEMISTRY METHOD 12/29/2024 11:33 AM [facility] Calcium 9.2 8.5 - 10.5 mg/dL LAB CHEMISTRY METHOD 12/29/2024 11:33 AM [facility] AST (SGOT) 54(H) 10 - 42 unit/L LAB CHEMISTRY METHOD 12/29/2024 11:33 AM [facility] ALT (SGPT) 117(H) 10 - 60 unit/L LAB CHEMISTRY METHOD 12/29/2024 11:33 AM [facility] Alkaline Phosphatase 94 42 - 121 unit/L LAB CHEMISTRY METHOD 12/29/2024 11:33 AM [facility] Total Protein 6.1 6.0 - 8.0 g/dL LAB CHEMISTRY METHOD 12/29/2024 11:33 AM [facility] Albumin 3.6 3.2 - 5.0 g/dL LAB CHEMISTRY METHOD 12/29/2024 11:33 AM [facility] Total Bilirubin 1.2 0.0 - 1.4 mg/dL LAB CHEMISTRY METHOD 12/29/2024 11:33 AM [facility] Blood Venous blood specimen / Unknown Venipuncture / Unknown 12/29/2024 4:50 AM EDT 12/29/2024 9:04 AM EDT Jeane Morris MD LAB BLOOD ORDERABLES Final Resu lt Performing Organization Address [facility]/ZIP Co de Phone Number [facility] [address] [place] [address], [place] [phone] * Hepatitis panel, acute with reflex to confirmation (12/20/2024 5:57 AM EDT) Hepatitis B Surface Ag Negative Negative LAB CHEMISTRY METHOD 12/20/2024 12:[address] [facility] Hepatitis A Antibody IgM Negative Negative LAB CHEMISTRY METHOD 12/20/2024 12:[address] [facility] Hep B Core IgM Negative Negative LAB CHEMISTRY METHOD 12/20/2024 12:[address] [facility] Hepatitis C Antibody Negative Negative LAB CHEMISTRY METHOD 12/20/2024 12:[address] [facility] Blood Venous blood specimen / Unknown Venipuncture / Unknown 12/20/2024 5:57 AM EDT 12/20/2024 9:56 AM EDT Jeane Morris MD LAB BLOOD ORDERABLES Final Resu lt Performing Organization Address City/[facility]/ZIP Co de Phone Number [facility] [address] [place] [address], [place] [phone] from Last 3 Months or Most Recently Relevant to Health Maintenance Insurance [employer] Care Teams Vp Legal Affairs Relationship Specialty Start Date End Date Amrit Valladares NP [address] [place], [place] PCP - General Family Medicine 01/31/18
--- OUTSIDE RECORDS SUMMARY | 2025-07-15 13:48 | XMS_ITS | Encounter Summary ---
Author Organization [facility] Address [address] [place] [address] Care Team Providers Care Juvenile Correctional Officer Name Role Phone Amrit Valladares ELIZABETH Primary Care Provider Encounter Details Date Type Department Care Team (Latest Contact Info) Description 12/27/2024 Lab Requisition [facility] - Main Lab [address] [place] [address] Jeane Morris MD [address] [place] [id number] Other cerebrovascular disease Social History Tobacco Use [...] Hold for add-ons. 12/27/2024 4:01 PM EDT [facility] ([facility]) [facility] LAB Comment:Auto resulted. Urine Urine specimen obtained by clean catch procedure / Unknown 12/27/2024 10:00 AM EDT 12/27/2024 2:37 PM EDT us Jeane Morris MD LAB URINE ORDERABLES Final Resu lt [facility] [address] [place] [address], [place] [phone] * (ABNORMAL) Urinalysis with reflex microscopic (12/27/2024 10:00 AM EDT) Specific [place] Urine 1.021 1.003 - 1.030 LAB URINALYSIS - AUTOMATED METHOD 12/27/2024 3:28 PM [facility] LAB pH, Urine 6.0 5.0 - 8.0 pH LAB URINALYSIS - AUTOMATED METHOD 12/27/2024 3:28 PM [facility] LAB Leukocytes, Urine Negative Negative LAB URINALYSIS - AUTOMATED METHOD 12/27/2024 3:28 PM [facility] LAB Nitrite, Urine Negative Negative LAB URINALYSIS - AUTOMATED METHOD 12/27/2024 3:28 PM [facility] Protein, Urine 30(A) <=Trace mg/dL LAB URINALYSIS - AUTOMATED METHOD 12/27/2024 3:28 PM [facility] Glucose, Urine Negative Negative mg/dL LAB URINALYSIS - AUTOMATED METHOD 12/27/2024 3:28 PM [facility] Ketones, Urine Negative Negative mg/dL LAB URINALYSIS - AUTOMATED METHOD 12/27/2024 3:28 PM [facility] LAB Urobilinogen , Urine 1.0 0.2 - 1.0 mg/dL LAB URINALYSIS - AUTOMATED METHOD 12/27/2024 3:28 PM [facility] LAB Bilirubin, Urine Negative Negative LAB URINALYSIS - AUTOMATED METHOD 12/27/2024 3:28 PM [facility] Blood, Urine Negative Negative LAB URINALYSIS - AUTOMATED METHOD 12/27/2024 3:28 PM EDT [facility] RBC, Urine 6.6(H) 0 - 4 /HPF LAB URINALYSIS - AUTOMATED METHOD 12/27/2024 3:28 PM EDT [facility] LAB WBC, Urine 2.3 0 - 4 /HPF LAB URINALYSIS - AUTOMATED METHOD 12/27/2024 3:28 PM EDT [facility] Squamous Epithelial, Urine 9 0 - 60 /LPF LAB URINALYSIS - AUTOMATED METHOD 12/27/2024 3:28 PM EDT [facility] Crystals, Urine Light Amorphous Urate crystals. /LPF 12/27/2024 3:28 PM EDT [facility] Bacteria, Urine Negative Negative /HPF LAB URINALYSIS - AUTOMATED METHOD 12/27/2024 3:28 PM EDT [facility] Hyaline Casts, Urine 2.0 0 - 3 /LPF LAB URINALYSIS - AUTOMATED METHOD 12/27/2024 3:28 PM T [facility] Urine Urine specimen obtained by clean catch procedure / Unknown 12/27/2024 10:00 AM EDT 12/27/2024 2:36 PM EDT us Jeane Morris MD LAB URINE ORDERABLES Final Resu lt [facility] [address] [place] [address], [place] [phone] documented in this encounter Visit Diagnoses Diagnosis Other cerebrovascular disease documented in this encounter Care Teams Juvenile Correctional Officer Relationship Specialty Start Date End Date Amrit Valladares NP [address] [place], [place] PCP - General Family Medicine 01/31/18 documented as of this encounter
--- OUTSIDE RECORDS SUMMARY | 2025-07-15 13:49 | XMS_ITS | Encounter Summary ---
Author Organization [facility] Address [address] [place] [address] Care Team Providers Care Supervisor Pig Machine Name Role Phone ZarinaAmrit [place] Ramón JOHNSON Primary Care Provider Encounter Details Date Type Department Care Team (Late st Contact Info) Description 12/22/2024 Lab Requisition [facility] - Main Lab [address] [facility] [place] [address] Jeane Morris MD [address] [place] [address] Encounter for other general examination Social History [...] and culture (12/21/2024 8:14 PM EDT) Specific [place] Urine 1.024 1.003 - 1.030 LAB URINALYSIS - AUTOMATED METHOD 12/22/2024 11:26 AM [facility] pH, Urine 6.0 5.0 - 8.0 pH LAB URINALYSIS - AUTOMATED METHOD 12/22/2024 11:26 AM [facility] Leukocytes, Urine Negative Negative LAB URINALYSIS - AUTOMATED METHOD 12/22/2024 11:26 AM [facility] Nitrite, Urine Negative Negative LAB URINALYSIS - AUTOMATED METHOD 12/22/2024 11:26 AM [facility] Protein, Urine Trace <=Trace mg/dL LAB URINALYSIS - AUTOMATED METHOD 12/22/2024 11:26 AM [facility] Glucose, Urine Negative Negative mg/dL LAB URINALYSIS - AUTOMATED METHOD 12/22/2024 11:26 AM [facility] Ketones, Urine Negative Negative mg/dL LAB URINALYSIS - AUTOMATED METHOD 12/22/2024 11:26 AM [facility] Urobilinogen, Urine >=8.0(A) 0.2 - 1.0 mg/dL LAB URINALYSIS - AUTOMATED METHOD 12/22/2024 11:26 AM [facility] Bilirubin, Urine Small(A) Negative LAB URINALYSIS - AUTOMATED METHOD 12/22/2024 11:26 AM [facility] Blood, Urine Negative Negative LAB URINALYSIS - AUTOMATED METHOD 12/22/2024 11:26 AM [facility] Urine Urine specimen obtained by clean catch procedure / Unknown Non-blood Collection / Unknown 12/21/2024 8:14 PM EDT 12/22/2024 10:44 AM EDT us Jeane Morris MD LAB URINE ORDERABLES Final Resu lt [facility] [address] [place] [address], * Joseph urine culture tube (12/21/2024 8:14 PM EDT) Extra Tube Hold for add-ons. 12/22/2024 12:02 PM EDT [facility] Comment:Auto resulted. Urine Urine specimen obtained by clean catch procedure / Unknown Non-blood Collection / Unknown 12/21/2024 8:14 PM EDT 12/22/2024 10:44 AM EDT us Jeane Morris MD LAB URINE ORDERABLES Final Resu lt [facility]) [facility] [address] [place] [address], documented in this encounter Visit Diagnoses Diagnosis Encounter for other general examination documented in this encounter Care Teams Supervisor Pig Machine Relationship Specialty Start Date End Date Amrit Valladares NP [address] [place], [place] PCP - General Family Medicine 01/31/18 documented as of this encounter
--- OUTSIDE RECORDS SUMMARY | 2025-07-15 13:49 | XMS_ITS | Encounter Summary ---
Author Organization [facility] Address [address] [place] [address] Care Team Providers Care Citrus Fruit Packer Name Role Phone ZarinaAmrit montana Ramón JOHNSON Primary Care Provider Encounter Details Date Type Department Care Team (Late st Contact Info) Description 12/20/2024 Lab Requisition [facility] - Main Lab [address] [facility] [place] [phone] Jeane Morris MD [address] [place] [address] Encounter for other general examination Social History [...] Negative LAB CHEMISTRY METHOD 12/20/2024 12:12 PM [facility] Blood Venous blood specimen / Unknown Venipuncture / Unknown 12/20/2024 5:57 AM EDT 12/20/2024 9:56 AM EDT us Jeane Morris MD LAB BLOOD ORDERABLES Final Resu lt [facility] [address] [place] [address], * (ABNORMAL) Comprehensive metabolic panel (12/20/2024 5:57 AM EDT) Sodium 133 133 - 145 mmol/L LAB CHEMISTRY METHOD 12/20/2024 11:21 AM [facility] Potassium 5.0 3.5 - 5.5 mmol/L LAB CHEMISTRY METHOD 12/20/2024 11:21 AM [facility] Chloride 102 96 - 110 mmol/L LAB CHEMISTRY METHOD 12/20/2024 11:21 AM [facility] CO2 21 21 - 32 mmol/L LAB CHEMISTRY METHOD 12/20/2024 11:21 AM [facility] Anion Gap 10 3 - 11 LAB CHEMISTRY METHOD 12/20/2024 11:21 AM [facility] Glucose 92 70 - 100 mg/dL LAB CHEMISTRY METHOD 12/20/2024 11:21 AM [facility] BUN 27(H) 5 - 25 mg/dL LAB CHEMISTRY METHOD 12/20/2024 11:21 AM [facility] Creatinine 1.11 0.70 - 1.30 mg/dL LAB CHEMISTRY METHOD 12/20/2024 11:21 AM [facility] LAB eGFR 68 >=60 mL/min/1. 73m2 LAB CHEMISTRY METHOD 12/20/2024 11:21 AM [facility] LAB Comment:Calculation based on the Chronic Kidney Disease Epidemiology Collaboration (CKD-EPI) equation refit without adjustment for race. BUN/Creatinine Ratio 24.3 LAB CHEMISTRY METHOD 12/20/2024 11:21 AM [facility] Calcium 9.1 8.5 - 10.5 mg/dL LAB CHEMISTRY METHOD 12/20/2024 11:21 AM [facility] AST (SGOT) 92(H) 10 - 42 unit/L LAB CHEMISTRY METHOD 12/20/2024 11:21 AM [facility] ALT (SGPT) 169(H) 10 - 60 unit/L LAB CHEMISTRY METHOD 12/20/2024 11:21 AM [facility] Alkaline Phosphatase 111 42 - 121 unit/L LAB CHEMISTRY METHOD 12/20/2024 11:21 AM [facility] Total Protein 6.3 6.0 - 8.0 g/dL LAB CHEMISTRY METHOD 12/20/2024 11:21 AM [facility] Albumin 3.4 3.2 - 5.0 g/dL LAB CHEMISTRY METHOD 12/20/2024 11:21 AM [facility] Total Bilirubin 1.3 0.0 - 1.4 mg/dL LAB CHEMISTRY METHOD 12/20/2024 11:21 AM [facility] LAB Blood Venous blood specimen / Unknown Venipuncture / Unknown 12/20/2024 5:57 AM EDT 12/20/2024 9:56 AM EDT us Jeane Morris MD LAB BLOOD ORDERABLES Final Resu lt [facility] [address] [place] [address], documented in this encounter Visit Diagnoses Diagnosis Encounter for other general examination documented in this encounter Care Teams Citrus Fruit Packer Relationship Specialty Start Date End Date Amrit Valladares NP [address] [facility] SHAI Valerio PCP - General Family Medicine 01/31/18 documented as of this encounter
--- OUTSIDE RECORDS SUMMARY | 2025-07-15 13:49 | XMS_ITS | Encounter Summary ---
Author Organization [facility] Address [address] [place] [address] Care Team Providers Care Stained Glass Window Designer Name Role Phone ZarinaAmrit montana Ramón JOHNSON Primary Care Provider Encounter Details Date Type Department Care Team (Late st Contact Info) Description 12/22/2024 Lab Requisition [facility] - Main Lab 299 [facility] [address] [place] [phone] Jeane Morris MD [address] [place] [address] Encounter for other general examination Social History [...] AM EDT) WBC 11.4(H) 4.8 - 10.8 K/[facility] LAB HEMETOLOGY METHOD 12/22/2024 11:17 AM EDT [facility] LAB RBC 4.30(L) 4.50 - 5.50 M/[facility] LAB HEMETOLOGY METHOD 12/22/2024 11:17 AM [facility] LAB Hemoglobin 13.4(L) 13.5 - 17.5 g/dL LAB HEMETOLOGY METHOD 12/22/2024 11:17 AM [facility] LAB Hematocrit 40.3(L) 42.0 - 54.0 % LAB HEMETOLOGY METHOD 12/22/2024 11:17 AM [facility] LAB MCV 93.5 79.0 - 98.0 FL LAB HEMETOLOGY METHOD 12/22/2024 11:17 AM [facility] LAB MCH 31.1 27.0 - 32.0 pcg LAB HEMETOLOGY METHOD 12/22/2024 11:17 AM [facility] LAB MCHC 33.3 32.0 - 37.0 g/dL LAB HEMETOLOGY METHOD 12/22/2024 11:17 AM [facility] LAB RDW 13.7 11.0 - 15.0 % LAB HEMETOLOGY METHOD 12/22/2024 11:17 AM [facility] LAB Platelets 443(H) 130 - 400 K/mcL LAB HEMETOLOGY METHOD 12/22/2024 11:17 AM [facility] LAB MPV 10.1 7.0 - 11.0 FL LAB HEMETOLOGY METHOD 12/22/2024 11:17 AM [facility] LAB NRBC 0.0 <1.0 % LAB HEMETOLOGY METHOD 12/22/2024 11:17 AM [facility] LAB NRBC Absolute 0.00 <0.10 K/mcL LAB HEMETOLOGY METHOD 12/22/2024 11:17 AM [facility] LAB Neutrophils Relative 70.6 % LAB HEMETOLOGY METHOD 12/22/2024 11:17 AM [facility] LAB Lymphocytes Relative 16.9 % LAB HEMETOLOGY METHOD 12/22/2024 11:17 AM [facility] Monocytes Relative 9.2 % LAB HEMETOLOGY METHOD 12/22/2024 11:17 AM [facility] Eosinophils Relative 2.3 % LAB HEMETOLOGY METHOD 12/22/2024 11:17 AM [facility] Basophils Relative 0.4 % LAB HEMETOLOGY METHOD 12/22/2024 11:17 AM [facility] Immature Granulocytes Relative 0.6 % LAB HEMETOLOGY METHOD 12/22/2024 11:17 AM [facility] LAB Neutrophils Absolute 8.03(H) 1.50 - 7.00 K/mcL LAB HEMETOLOGY METHOD 12/22/2024 11:17 AM [facility] Lymphocytes Absolute 1.92 1.00 - 5.00 K/mcL LAB HEMETOLOGY METHOD 12/22/2024 11:17 AM [facility] Monocytes Absolute 1.04(H) 0.20 - 1.00 K/mcL LAB HEMETOLOGY METHOD 12/22/2024 11:17 AM [facility] Eosinophils Absolute 0.26 0.00 - 0.50 K/mcL LAB HEMETOLOGY METHOD 12/22/2024 11:17 AM [facility] Basophils Absolute 0.04 0.00 - 0.20 K/mcL LAB HEMETOLOGY METHOD 12/22/2024 11:17 AM [facility] LAB Immature Granulocytes Absolute 0.07(H) 0.00 - 0.03 K/mcL LAB HEMETOLOGY METHOD 12/22/2024 11:17 AM [facility] Blood Venous blood specimen / Unknown Venipuncture / Unknown 12/22/2024 7:06 AM EDT 12/22/2024 10:37 AM EDT us Jeane Morris MD LAB BLOOD ORDERABLES Final Resu lt [facility] [address] [place] [address], documented in this encounter Visit Diagnoses Diagnosis Encounter for other general examination documented in this encounter Care Teams Stained Glass Window Designer Relationship Specialty Start Date End Date Amrit Valladares NP [address] [place], [place] PCP - General Family Medicine 01/31/18 documented as of this encounter
--- OUTSIDE RECORDS SUMMARY | 2025-07-15 13:49 | XMS_ITS | Encounter Summary ---
Author Organization [facility] Address [address] [place] [address] Care Team Providers Care Director Acute Name Role Phone ZarinaAmrit montana Ramón JOHNSON Primary Care Provider Encounter Details Date Type Department Care Team (Late st Contact Info) Description 12/24/2024 Lab Requisition [facility] - Main Lab [address] [facility] [place] [address] Jeane Morris MD [address] [place] [address] Encounter for other general examination Social History [...] ORDERABLES Final Resu lt Performing Organization Address [facility]/ZIP Co de Phone Number [facility] [address] [place] [address], [place] [phone] * Magnesium (12/24/2024 4:58 AM EDT) [facility] Magnesium 2.1 1.9 - 2.6 mg/dL LAB CHEMISTRY METHOD 12/24/2024 9:57 AM EDT [facility] Blood Venous blood specimen / Unknown Venipuncture / Unknown 12/24/2024 4:58 AM EDT 12/24/2024 9:09 AM EDT us Jeane Morris MD LAB BLOOD ORDERABLES Final Resu lt Performing Organization Address City/[facility]/ZIP Co de Phone Number [facility] [address] [place] [address], [place] [phone] * (ABNORMAL) Comprehensive metabolic panel (12/24/2024 4:58 AM EDT) [facility] Sodium 135 133 - 145 mmol/L LAB CHEMISTRY METHOD 12/24/2024 9:58 AM EDT [facility] Potassium 4.3 3.5 - 5.5 mmol/L LAB CHEMISTRY METHOD 12/24/2024 9:58 AM EDT [facility] Chloride 104 96 - 110 mmol/L LAB CHEMISTRY METHOD 12/24/2024 9:58 AM EDT [facility] CO2 23 21 - 32 mmol/L LAB CHEMISTRY METHOD 12/24/2024 9:58 AM EDT [facility] Anion Gap 8 3 - 11 LAB CHEMISTRY METHOD 12/24/2024 9:58 AM EDT [facility] Glucose 84 70 - 100 [...] [facility] Comment:Calculation based on the Chronic Kidney Disease Epidemiology Collaboration (CKD-EPI) equation refit without adjustment for race. BUN/Creatinine Ratio 30.7 LAB [...] LAB BLOOD ORDERABLES Final Resu lt [facility] ([facility]) [facility] [address] [place] [address], documented in this encounter Visit Diagnoses Diagnosis Encounter for other general examination documented in this encounter Care Teams Director Acute Relationship Specialty Start Date End Date Amrit Valladares NP [address] [place], [place] PCP - General Family Medicine 01/31/18 documented as of this encounter
--- OUTSIDE RECORDS SUMMARY | 2025-07-15 13:49 | XMS_ITS | Clinical Summary ---
Author Organization [facility] Address [address] [place] [address] Care Team Providers Care Cuprous Chloride Operator Name Role Phone Amrit Valladares Primary Care Provider [phone] Allergies No known active allergies Medications Medication [...] age to complete this topic Care Teams Cuprous Chloride Operator Relationship Specialty Start Date End Date Amrit Valladares [address] [facility] [place]er[place] [address] PCP - General Family Medicine 01/31/18
--- OUTSIDE RECORDS SUMMARY | 2025-07-15 13:49 | XMS_ITS | Encounter Summary ---
Author Organization [facility] Address [address] [place] [address] Care Team Providers Care Contract Project Manager Name Role Phone ZarinaAmrit montana Ramón JOHNSON Primary Care Provider Encounter Details Date Type Department Care Team (Late st Contact Info) Description 12/29/2024 Lab Requisition [facility] - Main Lab 299 [facility] [email or web address] [address] Jeane Morris MD [address] [place] [address] Encounter for other general examination Social History [...] K/mcL LAB HEMETOLOGY METHOD 12/29/2024 10:34 AM [facility] LAB RBC 4.30(L) 4.50 - 5.50 M/mcL LAB HEMETOLOGY METHOD 12/29/2024 10:34 AM [facility] LAB Hemoglobin 13.3(L) 13.5 - 17.5 g/dL LAB HEMETOLOGY METHOD 12/29/2024 10:34 AM [facility] LAB Hematocrit 39.5(L) 42.0 - 54.0 % LAB HEMETOLOGY METHOD 12/29/2024 10:34 AM [facility] LAB MCV 91.4 79.0 - 98.0 FL LAB HEMETOLOGY METHOD 12/29/2024 10:34 AM [facility] LAB MCH 30.8 27.0 - 32.0 pcg LAB HEMETOLOGY METHOD 12/29/2024 10:34 AM [facility] LAB MCHC 33.7 32.0 - 37.0 g/dL LAB HEMETOLOGY METHOD 12/29/2024 10:34 AM [facility] LAB RDW 13.7 11.0 - 15.0 % LAB HEMETOLOGY METHOD 12/29/2024 10:34 AM [facility] LAB Platelets 367 130 - 400 K/mcL LAB HEMETOLOGY METHOD 12/29/2024 10:34 AM [facility] LAB MPV 10.7 7.0 - 11.0 FL LAB HEMETOLOGY METHOD 12/29/2024 10:34 AM [facility] LAB NRBC 0.0 <1.0 % LAB HEMETOLOGY METHOD 12/29/2024 10:34 AM [facility] LAB NRBC Absolute 0.00 <0.10 K/mcL LAB HEMETOLOGY METHOD 12/29/2024 10:34 AM [facility] LAB Neutrophils Relative 62.1 % LAB HEMETOLOGY METHOD 12/29/2024 10:34 AM [facility] LAB Lymphocytes Relative 24.9 % LAB HEMETOLOGY METHOD 12/29/2024 10:34 AM [facility] LAB Monocytes Relative 10.1 % LAB HEMETOLOGY METHOD 12/29/2024 10:34 AM [facility] LAB Eosinophils Relative 1.7 % LAB HEMETOLOGY METHOD 12/29/2024 10:34 AM [facility] LAB Basophils Relative 0.8 % LAB HEMETOLOGY METHOD 12/29/2024 10:34 AM [facility] LAB Immature Granulocytes Relative 0.4 % LAB HEMETOLOGY METHOD 12/29/2024 10:34 AM [facility] LAB Neutrophils Absolute 6.27 1.50 - 7.00 K/mcL LAB HEMETOLOGY METHOD 12/29/2024 10:34 AM [facility] LAB Lymphocytes Absolute 2.51 1.00 - 5.00 K/mcL LAB HEMETOLOGY METHOD 12/29/2024 10:34 AM [facility] LAB Monocytes Absolute 1.02(H) 0.20 - 1.00 K/mcL LAB HEMETOLOGY METHOD 12/29/2024 10:34 AM [facility] LAB Eosinophils Absolute 0.17 0.00 - 0.50 K/mcL LAB HEMETOLOGY METHOD 12/29/2024 10:34 AM [facility] LAB Basophils Absolute 0.08 0.00 - 0.20 K/mcL LAB HEMETOLOGY METHOD 12/29/2024 10:34 AM [facility] LAB Immature Granulocytes Absolute 0.04(H) 0.00 - 0.03 K/mcL LAB HEMETOLOGY METHOD 12/29/2024 10:34 AM [facility] LAB Blood Venous blood specimen / Unknown Venipuncture / Unknown 12/29/2024 4:50 AM EDT 12/29/2024 9:04 AM EDT us Jeane Morris MD LAB BLOOD ORDERABLES Final Resu lt Performing Organization Address [facility]/ZIP Co de Phone Number [facility] LAB [address] [place] [address], [place] [phone] * Magnesium (12/29/2024 4:50 AM EDT) [facility] Magnesium 2.2 1.9 - 2.6 mg/dL LAB CHEMISTRY METHOD 12/29/2024 11:31 AM EDT [facility] LAB Blood Venous blood specimen / Unknown Venipuncture / Unknown 12/29/2024 4:50 AM EDT 12/29/2024 9:04 AM EDT us Jeane Morris MD LAB BLOOD ORDERABLES Final Resu lt Performing Organization Address City/[facility]/ZIP Co de Phone Number [facility] [address] [place] [address], [place] [phone] * (ABNORMAL) Comprehensive metabolic panel (12/29/2024 4:50 AM EDT) [facility] Sodium 134 133 - 145 mmol/L LAB CHEMISTRY METHOD 12/29/2024 11:33 AM EDT [facility] Potassium 4.6 3.5 - 5.5 mmol/L LAB CHEMISTRY METHOD 12/29/2024 11:33 AM EDT [facility] Chloride 102 96 - 110 mmol/L LAB CHEMISTRY METHOD 12/29/2024 11:33 AM EDT [facility] CO2 23 21 - 32 mmol/L LAB CHEMISTRY METHOD 12/29/2024 11:33 AM EDT [facility] Anion Gap 9 3 - 11 LAB CHEMISTRY METHOD 12/29/2024 11:33 AM EDT [facility] Glucose 78 70 - 100 mg/dL LAB CHEMISTRY METHOD 12/29/2024 11:33 AM [facility] BUN 26(H) 5 - 25 mg/dL LAB CHEMISTRY METHOD 12/29/2024 11:33 AM [facility] LAB Creatinine 1.18 0.70 - 1.30 mg/dL LAB CHEMISTRY METHOD 12/29/2024 11:33 AM [facility] LAB eGFR 63 >=60 mL/min/1. 73m2 LAB CHEMISTRY METHOD 12/29/2024 11:33 AM [facility] LAB Comment:Calculation based on the Chronic Kidney Disease Epidemiology Collaboration (CKD-EPI) equation refit without adjustment for race. BUN/Creatinine Ratio 22.0 LAB CHEMISTRY METHOD 12/29/2024 11:33 AM [facility] LAB Calcium 9.2 8.5 - 10.5 mg/dL LAB CHEMISTRY METHOD 12/29/2024 11:33 AM [facility] LAB AST (SGOT) 54(H) 10 - 42 unit/L LAB CHEMISTRY METHOD 12/29/2024 11:33 AM [facility] LAB ALT (SGPT) 117(H) 10 - 60 unit/L LAB CHEMISTRY METHOD 12/29/2024 11:33 AM [facility] LAB Alkaline Phosphatase 94 42 - 121 unit/L LAB CHEMISTRY METHOD 12/29/2024 11:33 AM [facility] LAB Total Protein 6.1 6.0 - 8.0 g/dL LAB CHEMISTRY METHOD 12/29/2024 11:33 AM [facility] LAB Albumin 3.6 3.2 - 5.0 g/dL LAB CHEMISTRY METHOD 12/29/2024 11:33 AM [facility] LAB Total Bilirubin 1.2 0.0 - 1.4 mg/dL LAB CHEMISTRY METHOD 12/29/2024 11:33 AM [facility] LAB Blood Venous blood specimen / Unknown Venipuncture / Unknown 12/29/2024 4:50 AM EDT 12/29/2024 9:04 AM EDT us Jeane Morris MD LAB BLOOD ORDERABLES Final Resu lt [facility] [address] [place] [address], documented in this encounter Visit Diagnoses Diagnosis Encounter for other general examination documented in this encounter Care Teams Contract Project Manager Relationship Specialty Start Date End Date Amrit Valladares NP [address] [place], [place] PCP - General Family Medicine 01/31/18 documented as of this encounter
--- OUTSIDE RECORDS SUMMARY | 2025-07-15 13:49 | XMS_ITS | Encounter Summary ---
Author Organization [facility] Address [address] [place] [address] Care Team Providers Care Reduction Furnace Operator Helper Name Role Phone ZarinaAmrit montana Ramón JOHNSON Primary Care Provider Encounter Details Date Type Department Care Team (Late st Contact Info) Description 12/19/2024 Lab Requisition [facility] - Main Lab [address] [facility] [place] [address] Jeane Morris MD [address] [place] [address] Encounter for other general examination Social History [...] K/mcL LAB HEMETOLOGY METHOD 12/19/2024 11:12 AM [facility] LAB RBC 4.70 4.50 - 5.50 M/mcL LAB HEMETOLOGY METHOD 12/19/2024 11:12 AM [facility] LAB Hemoglobin 14.4 13.5 - 17.5 g/dL LAB HEMETOLOGY METHOD 12/19/2024 11:12 AM [facility] LAB Hematocrit 43.6 42.0 - 54.0 % LAB HEMETOLOGY METHOD 12/19/2024 11:12 AM [facility] LAB MCV 92.4 79.0 - 98.0 FL LAB HEMETOLOGY METHOD 12/19/2024 11:12 AM [facility] LAB MCH 30.5 27.0 - 32.0 pcg LAB HEMETOLOGY METHOD 12/19/2024 11:12 AM [facility] LAB MCHC 33.0 32.0 - 37.0 g/dL LAB HEMETOLOGY METHOD 12/19/2024 11:12 AM [facility] LAB RDW 13.7 11.0 - 15.0 % LAB HEMETOLOGY METHOD 12/19/2024 11:12 AM [facility] LAB Platelets 481(H) 130 - 400 K/mcL LAB HEMETOLOGY METHOD 12/19/2024 11:12 AM [facility] LAB MPV 10.0 7.0 - 11.0 FL LAB HEMETOLOGY METHOD 12/19/2024 11:12 AM [facility] LAB NRBC 0.0 <1.0 % LAB HEMETOLOGY METHOD 12/19/2024 11:12 AM [facility] LAB NRBC Absolute 0.00 <0.10 K/mcL LAB HEMETOLOGY METHOD 12/19/2024 11:12 AM [facility] LAB Neutrophils Relative 75.2 % LAB HEMETOLOGY METHOD 12/19/2024 11:12 AM [facility] LAB Lymphocytes Relative 12.6 % LAB HEMETOLOGY METHOD 12/19/2024 11:12 AM [facility] LAB Monocytes Relative 8.5 % LAB HEMETOLOGY METHOD 12/19/2024 11:12 AM [facility] LAB Eosinophils Relative 1.6 % LAB HEMETOLOGY METHOD 12/19/2024 11:12 AM [facility] Basophils Relative 0.6 % LAB HEMETOLOGY METHOD 12/19/2024 11:12 AM [facility] LAB Immature Granulocytes Relative 1.5 % LAB HEMETOLOGY METHOD 12/19/2024 11:12 AM [facility] LAB Neutrophils Absolute 9.81(H) 1.50 - 7.00 K/mcL LAB HEMETOLOGY METHOD 12/19/2024 11:12 AM [facility] LAB Lymphocytes Absolute 1.65 1.00 - 5.00 K/mcL LAB HEMETOLOGY METHOD 12/19/2024 11:12 AM [facility] LAB Monocytes Absolute 1.11(H) 0.20 - 1.00 K/mcL LAB HEMETOLOGY METHOD 12/19/2024 11:12 AM [facility] LAB Eosinophils Absolute 0.21 0.00 - 0.50 K/mcL LAB HEMETOLOGY METHOD 12/19/2024 11:12 AM [facility] LAB Basophils Absolute 0.08 0.00 - 0.20 K/mcL LAB HEMETOLOGY METHOD 12/19/2024 11:12 AM [facility] LAB Immature Granulocytes Absolute 0.20(H) 0.00 - 0.03 K/mcL LAB HEMETOLOGY METHOD 12/19/2024 11:12 AM [facility] LAB Blood Venous blood specimen / Unknown Venipuncture / Unknown 12/19/2024 5:47 AM EST 12/19/2024 10:08 AM EST us Jeane Morris MD LAB BLOOD ORDERABLES Final Resu lt Performing Organization Address City/[facility]/ZIP Co de Phone Number [facility] LAB [address] [place] [address], [place] [phone] * Magnesium (12/19/2024 5:47 AM EST) Magnesium 2.1 1.9 - 2.6 mg/dL LAB CHEMISTRY METHOD 12/19/2024 11:41 AM EST [facility] LAB Blood Venous blood specimen / Unknown Venipuncture / Unknown 12/19/2024 5:47 AM EST 12/19/2024 10:08 AM EST us Jeane Morris MD LAB BLOOD ORDERABLES Final Resu lt Performing Organization Address [facility]/ZIP Co de Phone Number [facility] [address] [place] [address], [place] [phone] * (ABNORMAL) Comprehensive metabolic panel (12/19/2024 5:47 AM EST) Pathologist [facility] Sodium 136 133 - 145 mmol/L LAB CHEMISTRY METHOD 12/19/2024 11:41 AM [facility] LAB Potassium 4.7 3.5 - 5.5 mmol/L LAB CHEMISTRY METHOD 12/19/2024 11:41 AM [facility] LAB Chloride 104 96 - 110 mmol/L LAB CHEMISTRY METHOD 12/19/2024 11:41 AM [facility] LAB CO2 20(L) 21 - 32 mmol/L LAB CHEMISTRY METHOD 12/19/2024 11:41 AM [facility] LAB Anion Gap 12(H) 3 - 11 LAB CHEMISTRY METHOD 12/19/2024 11:41 AM [facility] LAB Glucose 78 70 - 100 mg/dL LAB CHEMISTRY METHOD 12/19/2024 11:41 AM [facility] LAB BUN 28(H) 5 - 25 mg/dL LAB CHEMISTRY METHOD 12/19/2024 11:41 AM [facility] LAB Creatinine 1.03 0.70 - 1.30 mg/dL LAB CHEMISTRY METHOD 12/19/2024 11:41 AM [facility] LAB eGFR 74 >=60 mL/min/1. 73m2 LAB CHEMISTRY METHOD 12/19/2024 11:41 AM [facility] LAB Comment:Calculation based on the Chronic Kidney Disease Epidemiology Collaboration (CKD-EPI) equation refit without adjustment for race. BUN/Creatinine Ratio 27.2 LAB CHEMISTRY METHOD 12/19/2024 11:41 AM [facility] LAB Calcium 8.8 8.5 - 10.5 mg/dL LAB CHEMISTRY METHOD 12/19/2024 11:41 AM [facility] LAB AST (SGOT) 100(H) 10 - 42 unit/L LAB CHEMISTRY METHOD 12/19/2024 11:41 AM [facility] LAB ALT (SGPT) 166(H) 10 - 60 unit/L LAB CHEMISTRY METHOD 12/19/2024 11:41 AM [facility] LAB Alkaline Phosphatase 103 42 - 121 unit/L LAB CHEMISTRY METHOD 12/19/2024 11:41 AM [facility] LAB Total Protein 5.8(L) 6.0 - 8.0 g/dL LAB CHEMISTRY METHOD 12/19/2024 11:41 AM [facility] LAB Albumin 3.0(L) 3.2 - 5.0 g/dL LAB CHEMISTRY METHOD 12/19/2024 11:41 AM [facility] LAB Total Bilirubin 1.2 0.0 - 1.4 mg/dL LAB CHEMISTRY METHOD 12/19/2024 11:41 AM [facility] LAB Blood Venous blood specimen / Unknown Venipuncture / Unknown 12/19/2024 5:47 AM EST 12/19/2024 10:08 AM EST us Jeane Morris MD LAB BLOOD ORDERABLES Final Resu lt [facility] LAB [address] [place] [address], documented in this encounter Visit Diagnoses Diagnosis Encounter for other general examination documented in this encounter Care Teams Reduction Furnace Operator Helper Relationship Specialty Start Date End Date Amrit Valladares NP [address] [place], [place] PCP - General Family Medicine 01/31/18 documented as of this encounter
== END 2025-07-15 13:06 | disposition home or self-care (01) ==
LOC: HO.HSMS 12:10
PROVIDERS: PCP Nurse Practitioner Family; Visit Provider Psychiatry & Neurology Neurology
DX: I63.311 Cerebral infarction due to thrombosis of right middle cerebral artery (principal)
CPT/HCPCS: 99204

== ENCOUNTER → 2025-07-15 12:09 | Outpatient (BNVA) | payer MEDICARE, SELFPAY | PROVIDERS: PCP Nurse Practitioner Family; Visit Provider Psychiatry & Neurology Neurology | DX: I63.311 Cerebral infarction due to thrombosis of right middle cerebral artery (principal) | CPT/HCPCS: 99202 ==

== ENCOUNTER 2025-08-19 13:40 | Outpatient (REF) | payer MEDICARE, SELFPAY ==
--- OUTSIDE RECORDS SUMMARY | 2025-08-19 16:40 | XMS_ITS | Encounter Summary ---
Author Organization [facility] Address [address] [place] [address] Care Team Providers Care Merchandise For Resale Purchasing Agent Name Role Phone ZarinaAmrit montana Ramón JOHNSON Primary Care Provider Encounter Details Date Type Department Care Team (Late st Contact Info) Description 12/20/2024 Lab Requisition [facility] - Main Lab 299 [facility] [place] [phone] Jeane Morris MD [address] [place] [address] Encounter for other general examination Social History [...] Negative LAB CHEMISTRY METHOD 12/20/2024 12:12 PM [facility] LAB Blood Venous blood specimen / Unknown Venipuncture / Unknown 12/20/2024 5:57 AM EDT 12/20/2024 9:56 AM EDT us Jeane Morris MD LAB BLOOD ORDERABLES Final Resu lt [facility] [address] [place] [address], * (ABNORMAL) Comprehensive metabolic panel (12/20/2024 5:57 AM EDT) Sodium 133 133 - 145 mmol/L LAB CHEMISTRY METHOD 12/20/2024 11:21 AM [facility] LAB Potassium 5.0 3.5 - 5.5 mmol/L LAB CHEMISTRY METHOD 12/20/2024 11:21 AM [facility] LAB Chloride 102 96 - 110 mmol/L LAB CHEMISTRY METHOD 12/20/2024 11:21 AM [facility] LAB CO2 21 21 - 32 mmol/L LAB CHEMISTRY METHOD 12/20/2024 11:21 AM [facility] LAB Anion Gap 10 3 - 11 LAB CHEMISTRY METHOD 12/20/2024 11:21 AM [facility] LAB Glucose 92 70 - 100 mg/dL LAB CHEMISTRY METHOD 12/20/2024 11:21 AM [facility] LAB BUN 27(H) 5 - 25 mg/dL LAB CHEMISTRY METHOD 12/20/2024 11:21 AM [facility] LAB Creatinine 1.11 0.70 - 1.30 mg/dL LAB CHEMISTRY METHOD 12/20/2024 11:21 AM [facility] LAB eGFR 68 >=60 mL/min/1. 73m2 LAB CHEMISTRY METHOD 12/20/2024 11:21 AM [facility] LAB Comment:Calculation based on the Chronic Kidney Disease Epidemiology Collaboration (CKD-EPI) equation refit without adjustment for race. BUN/Creatinine Ratio 24.3 LAB CHEMISTRY METHOD 12/20/2024 11:21 AM [facility] LAB Calcium 9.1 8.5 - 10.5 mg/dL LAB CHEMISTRY METHOD 12/20/2024 11:21 AM [facility] LAB AST (SGOT) 92(H) 10 - 42 unit/L LAB CHEMISTRY METHOD 12/20/2024 11:21 AM [facility] LAB ALT (SGPT) 169(H) 10 - 60 unit/L LAB CHEMISTRY METHOD 12/20/2024 11:21 AM [facility] LAB Alkaline Phosphatase 111 42 - 121 unit/L LAB CHEMISTRY METHOD 12/20/2024 11:21 AM [facility] LAB Total Protein 6.3 6.0 - 8.0 g/dL LAB CHEMISTRY METHOD 12/20/2024 11:21 AM [facility] LAB Albumin 3.4 3.2 - 5.0 g/dL LAB CHEMISTRY METHOD 12/20/2024 11:21 AM [facility] LAB Total Bilirubin 1.3 0.0 - 1.4 mg/dL LAB CHEMISTRY METHOD 12/20/2024 11:21 AM [facility] LAB Blood Venous blood specimen / Unknown Venipuncture / Unknown 12/20/2024 5:57 AM EDT 12/20/2024 9:56 AM EDT us Jeane Morris MD LAB BLOOD ORDERABLES Final Resu lt [facility] [address] [place] [address], documented in this encounter Visit Diagnoses Diagnosis Encounter for other general examination documented in this encounter Care Teams Merchandise For Resale Purchasing Agent Relationship Specialty Start Date End Date Amrit Valladares NP [address] [facility] SHAI Valerio PCP - General Family Medicine 01/31/18 documented as of this encounter
--- OUTSIDE RECORDS SUMMARY | 2025-08-19 16:40 | XMS_ITS | Encounter Summary ---
Author Organization [facility] Address [address] [place] [address] Care Team Providers Care Steel Rule Inspector Name Role Phone ZarinaAmrit montana Ramón JOHNSON Primary Care Provider Encounter Details Date Type Department Care Team (Late st Contact Info) Description 12/22/2024 Lab Requisition [facility] - Main Lab 299 [facility] [place] [phone] Jeane Morris MD [address] [place] [phone] Encounter for other general examination Social History [...] AM EDT) WBC 11.4(H) 4.8 - 10.8 K/[facility] LAB HEMETOLOGY METHOD 12/22/2024 11:17 AM EDT [facility] LAB RBC 4.30(L) 4.50 - 5.50 M/[facility] LAB HEMETOLOGY METHOD 12/22/2024 11:17 AM [facility] LAB Hemoglobin 13.4(L) 13.5 - 17.5 g/dL LAB HEMETOLOGY METHOD 12/22/2024 11:17 AM [facility] LAB Hematocrit 40.3(L) 42.0 - 54.0 % LAB HEMETOLOGY METHOD 12/22/2024 11:17 AM [facility] LAB MCV 93.5 79.0 - 98.0 FL LAB HEMETOLOGY METHOD 12/22/2024 11:17 AM [facility] LAB MCH 31.1 27.0 - 32.0 pcg LAB HEMETOLOGY METHOD 12/22/2024 11:17 AM [facility] LAB MCHC 33.3 32.0 - 37.0 g/dL LAB HEMETOLOGY METHOD 12/22/2024 11:17 AM [facility] LAB RDW 13.7 11.0 - 15.0 % LAB HEMETOLOGY METHOD 12/22/2024 11:17 AM [facility] LAB Platelets 443(H) 130 - 400 K/mcL LAB HEMETOLOGY METHOD 12/22/2024 11:17 AM [facility] LAB MPV 10.1 7.0 - 11.0 FL LAB HEMETOLOGY METHOD 12/22/2024 11:17 AM [facility] LAB NRBC 0.0 <1.0 % LAB HEMETOLOGY METHOD 12/22/2024 11:17 AM [facility] LAB NRBC Absolute 0.00 <0.10 K/mcL LAB HEMETOLOGY METHOD 12/22/2024 11:17 AM [facility] LAB Neutrophils Relative 70.6 % LAB HEMETOLOGY METHOD 12/22/2024 11:17 AM [facility] LAB Lymphocytes Relative 16.9 % LAB HEMETOLOGY METHOD 12/22/2024 11:17 AM [facility] LAB Monocytes Relative 9.2 % LAB HEMETOLOGY METHOD 12/22/2024 11:17 AM [facility] LAB Eosinophils Relative 2.3 % LAB HEMETOLOGY METHOD 12/22/2024 11:17 AM [facility] LAB Basophils Relative 0.4 % LAB HEMETOLOGY METHOD 12/22/2024 11:17 AM [facility] LAB Immature Granulocytes Relative 0.6 % LAB HEMETOLOGY METHOD 12/22/2024 11:17 AM [facility] LAB Neutrophils Absolute 8.03(H) 1.50 - 7.00 K/mcL LAB HEMETOLOGY METHOD 12/22/2024 11:17 AM [facility] LAB Lymphocytes Absolute 1.92 1.00 - 5.00 K/mcL LAB HEMETOLOGY METHOD 12/22/2024 11:17 AM [facility] LAB Monocytes Absolute 1.04(H) 0.20 - 1.00 K/mcL LAB HEMETOLOGY METHOD 12/22/2024 11:17 AM [facility] LAB Eosinophils Absolute 0.26 0.00 - 0.50 K/mcL LAB HEMETOLOGY METHOD 12/22/2024 11:17 AM [facility] LAB Basophils Absolute 0.04 0.00 - 0.20 K/mcL LAB HEMETOLOGY METHOD 12/22/2024 11:17 AM [facility] LAB Immature Granulocytes Absolute 0.07(H) 0.00 - 0.03 K/mcL LAB HEMETOLOGY METHOD 12/22/2024 11:17 AM [facility] LAB Blood Venous blood specimen / Unknown Venipuncture / Unknown 12/22/2024 7:06 AM EDT 12/22/2024 10:37 AM EDT us Jeane Morris MD LAB BLOOD ORDERABLES Final Resu lt [facility] LAB [address] [place] [address], documented in this encounter Visit Diagnoses Diagnosis Encounter for other general examination documented in this encounter Care Teams Steel Rule Inspector Relationship Specialty Start Date End Date Amrit Valladares NP [address] [place], [place] PCP - General Family Medicine 01/31/18 documented as of this encounter
--- OUTSIDE RECORDS SUMMARY | 2025-08-19 16:40 | XMS_ITS | Clinical Summary ---
Author Organization [facility] Address [address] [place] [address] Phone Care Team Providers Care Machine I Cutter Name Role Phone Amrit Valladares NP Primary Care Provider Encounters Date Type Department Care Team Description 07/22/2025 Telephone [facility] Cardiology [facility] [address] [facility] [address] [place] [address] Amrit Valladares NP 07/01/2025 Telephone [facility] [address] [facility] [address] [place] [address] Amrit Valladares NP from Last [...] LAB CHEMISTRY METHOD 12/29/2024 11:33 AM EDT [facility] Potassium 4.6 3.5 - 5.5 mmol/L LAB CHEMISTRY METHOD 12/29/2024 11:33 AM EDT [facility] Chloride 102 96 - 110 mmol/L LAB CHEMISTRY METHOD 12/29/2024 11:33 AM EDT [facility] CO2 23 21 - 32 mmol/L LAB CHEMISTRY METHOD 12/29/2024 11:33 AM [facility] Anion Gap 9 3 - 11 LAB CHEMISTRY METHOD 12/29/2024 11:33 AM [facility] Glucose 78 70 - 100 mg/dL LAB CHEMISTRY METHOD 12/29/2024 11:33 AM [facility] BUN 26(H) 5 - 25 mg/dL LAB CHEMISTRY METHOD 12/29/2024 11:33 AM [facility] Creatinine 1.18 0.70 - 1.30 mg/dL LAB CHEMISTRY METHOD 12/29/2024 11:33 AM [facility] eGFR 63 >=60 mL/min/1. 73m2 LAB CHEMISTRY METHOD 12/29/2024 11:33 AM [facility] Comment:Calculation based on the Chronic Kidney Disease Epidemiology Collaboration (CKD-EPI) equation refit without adjustment for race. BUN/Creatinine Ratio 22.0 LAB CHEMISTRY METHOD 12/29/2024 11:33 AM [facility] Calcium 9.2 8.5 - 10.5 mg/dL LAB CHEMISTRY METHOD 12/29/2024 11:33 AM [facility] AST (SGOT) 54(H) 10 - 42 unit/L LAB CHEMISTRY METHOD 12/29/2024 11:33 AM [facility] ALT (SGPT) 117(H) 10 - 60 unit/L LAB CHEMISTRY METHOD 12/29/2024 11:33 AM [facility] Alkaline Phosphatase 94 42 - 121 unit/L LAB CHEMISTRY METHOD 12/29/2024 11:33 AM [facility] Total Protein 6.1 6.0 - 8.0 g/dL LAB CHEMISTRY METHOD 12/29/2024 11:33 AM [facility] Albumin 3.6 3.2 - 5.0 g/dL LAB CHEMISTRY METHOD 12/29/2024 11:33 AM [facility] Total Bilirubin 1.2 0.0 - 1.4 mg/dL LAB CHEMISTRY METHOD 12/29/2024 11:33 AM EDT [facility] Blood Venous blood specimen / Unknown Venipuncture / Unknown 12/29/2024 4:50 AM EDT 12/29/2024 9:04 AM EDT Jeane Morris MD LAB BLOOD ORDERABLES Final Resu lt [facility] [address] [place] [address], [place] [phone] * Hepatitis panel, acute with reflex to confirmation (12/20/2024 5:57 AM EDT) Hepatitis B Surface Ag Negative Negative LAB CHEMISTRY METHOD 12/20/2024 12:12 PM EDT [facility] Hepatitis A Antibody IgM Negative Negative LAB CHEMISTRY METHOD 12/20/2024 12:12 PM EDT [facility] Hep B Core IgM Negative Negative LAB CHEMISTRY METHOD 12/20/2024 12:12 PM EDT [facility] Hepatitis C Antibody Negative Negative LAB CHEMISTRY METHOD 12/20/2024 12:12 PM EDT [facility] Blood Venous blood specimen / Unknown Venipuncture / Unknown 12/20/2024 5:57 AM EDT 12/20/2024 9:56 AM EDT Jeane Morris MD LAB BLOOD ORDERABLES Final Resu lt [facility] [address] [place] [address], [place] [phone] from Last 3 Months or Most Recently Relevant to Health Maintenance Insurance [employer] Care Teams Machine I Cutter Relationship Specialty Start Date End Date Amrit Valladares NP [address] [facility] SHAI Day PCP - General Family Medicine 01/31/18
--- OUTSIDE RECORDS SUMMARY | 2025-08-19 16:40 | XMS_ITS | Encounter Summary ---
Author Organization [facility] Address [address] [place] [address] Care Team Providers Care Deboning Team Leader Name Role Phone Amrit Valladares ELIZABETH Primary Care Provider [phone] Encounter Details Date Type Department Care Team (Latest Contact Info) Description 12/27/2024 Lab Requisition [facility] - Main Lab [address] [place] [address] Jeane Morris MD [address] [place] [phone] Other cerebrovascular disease Social History Tobacco Use [...] Hold for add-ons. 12/27/2024 4:01 PM EDT [facility] ([facility]) [facility] Comment:Auto resulted. Urine Urine specimen obtained by clean catch procedure / Unknown 12/27/2024 10:00 AM EDT 12/27/2024 2:37 PM EDT us Jeane Morris MD LAB URINE ORDERABLES Final Resu lt [facility] [address] [place] [address], [place] [phone] * (ABNORMAL) Urinalysis with reflex microscopic (12/27/2024 10:00 AM EDT) Specific [place] Urine 1.021 1.003 - 1.030 LAB URINALYSIS - AUTOMATED METHOD 12/27/2024 3:28 PM [facility] pH, Urine 6.0 5.0 - 8.0 pH LAB URINALYSIS - AUTOMATED METHOD 12/27/2024 3:28 PM [facility] Leukocytes, Urine Negative Negative LAB URINALYSIS - AUTOMATED METHOD 12/27/2024 3:28 PM [facility] Nitrite, Urine Negative Negative LAB URINALYSIS - AUTOMATED METHOD 12/27/2024 3:28 PM [facility] Protein, Urine 30(A) <=Trace mg/dL LAB URINALYSIS - AUTOMATED METHOD 12/27/2024 3:28 PM [facility] Glucose, Urine Negative Negative mg/dL LAB URINALYSIS - AUTOMATED METHOD 12/27/2024 3:28 PM [facility] Ketones, Urine Negative Negative mg/dL LAB URINALYSIS - AUTOMATED METHOD 12/27/2024 3:28 PM [facility] Urobilinogen , Urine 1.0 0.2 - 1.0 mg/dL LAB URINALYSIS - AUTOMATED METHOD 12/27/2024 3:28 PM [facility] Bilirubin, Urine Negative Negative LAB URINALYSIS - AUTOMATED METHOD 12/27/2024 3:28 PM [facility] Blood, Urine Negative Negative LAB [...] Resu lt [facility] [address] [place] [address], [place] [phone] documented in this encounter Visit Diagnoses Diagnosis Other cerebrovascular disease documented in this encounter Care Teams Deboning Team Leader Relationship Specialty Start Date End Date Amrit Valladares NP [address] [place], [place] PCP - General Family Medicine 01/31/18 documented as of this encounter
--- OUTSIDE RECORDS SUMMARY | 2025-08-19 16:40 | XMS_ITS | Encounter Summary ---
Author Organization [facility] Address [address] [place] [address] Care Team Providers Care Stunt Person Name Role Phone ZarinaAmrit montana Ramón JOHNSON Primary Care Provider Encounter Details Date Type Department Care Team (Late st Contact Info) Description 12/19/2024 Lab Requisition [facility] - Main Lab [address] [facility] [place] [address] Jeane Morris MD [address] [place] [phone] Encounter for other general examination Social History [...] K/mcL LAB HEMETOLOGY METHOD 12/19/2024 11:12 AM [facility] RBC 4.70 4.50 - 5.50 M/mcL LAB HEMETOLOGY METHOD 12/19/2024 11:12 AM [facility] Hemoglobin 14.4 13.5 - 17.5 g/dL LAB HEMETOLOGY METHOD 12/19/2024 11:12 AM [facility] Hematocrit 43.6 42.0 - 54.0 % LAB HEMETOLOGY METHOD 12/19/2024 11:12 AM [facility] MCV 92.4 79.0 - 98.0 FL LAB HEMETOLOGY METHOD 12/19/2024 11:12 AM [facility] MCH 30.5 27.0 - 32.0 pcg LAB HEMETOLOGY METHOD 12/19/2024 11:12 AM [facility] MCHC 33.0 32.0 - 37.0 g/dL LAB HEMETOLOGY METHOD 12/19/2024 11:12 AM [facility] RDW 13.7 11.0 - 15.0 % LAB HEMETOLOGY METHOD 12/19/2024 11:12 AM [facility] Platelets 481(H) 130 - 400 K/mcL LAB HEMETOLOGY METHOD 12/19/2024 11:12 AM [facility] MPV 10.0 7.0 - 11.0 FL LAB HEMETOLOGY METHOD 12/19/2024 11:12 AM [facility] NRBC 0.0 <1.0 % LAB HEMETOLOGY METHOD 12/19/2024 11:12 AM [facility] NRBC Absolute 0.00 <0.10 K/mcL LAB HEMETOLOGY METHOD 12/19/2024 11:12 AM [facility] Neutrophils Relative 75.2 % LAB HEMETOLOGY METHOD 12/19/2024 11:12 AM [facility] Lymphocytes Relative 12.6 % LAB HEMETOLOGY METHOD 12/19/2024 11:12 AM [facility] Monocytes Relative 8.5 % LAB HEMETOLOGY METHOD 12/19/2024 11:12 AM [facility] Eosinophils Relative 1.6 % LAB HEMETOLOGY METHOD 12/19/2024 11:12 AM [facility] Basophils Relative 0.6 % LAB HEMETOLOGY METHOD 12/19/2024 11:12 AM [facility] Immature Granulocytes Relative 1.5 % LAB HEMETOLOGY METHOD 12/19/2024 11:12 AM [facility] Neutrophils Absolute 9.81(H) 1.50 - 7.00 K/mcL LAB HEMETOLOGY METHOD 12/19/2024 11:12 AM [facility] Lymphocytes Absolute 1.65 1.00 - 5.00 K/mcL LAB HEMETOLOGY METHOD 12/19/2024 11:12 AM [facility] Monocytes Absolute 1.11(H) 0.20 - 1.00 K/mcL LAB HEMETOLOGY METHOD 12/19/2024 11:12 AM [facility] Eosinophils Absolute 0.21 0.00 - 0.50 K/mcL LAB HEMETOLOGY METHOD 12/19/2024 11:12 AM [facility] Basophils Absolute 0.08 0.00 - 0.20 K/mcL LAB HEMETOLOGY METHOD 12/19/2024 11:12 AM [facility] Immature Granulocytes Absolute 0.20(H) 0.00 - 0.03 K/mcL LAB HEMETOLOGY METHOD 12/19/2024 11:12 AM [facility] Blood Venous blood specimen / Unknown Venipuncture / Unknown 12/19/2024 5:47 AM EST 12/19/2024 10:08 AM EST us Jeane Morris MD LAB BLOOD ORDERABLES Final Resu lt Performing Organization Address City/[facility]/ZIP Co de Phone Number [facility] [address] [place] [address], [place] [phone] * Magnesium (12/19/2024 5:47 AM EST) Magnesium 2.1 1.9 - 2.6 mg/dL LAB CHEMISTRY METHOD 12/19/2024 11:41 AM EST [facility] Blood Venous blood specimen / Unknown Venipuncture / Unknown 12/19/2024 5:47 AM EST 12/19/2024 10:08 AM EST us Jeane Morris MD LAB BLOOD ORDERABLES Final Resu lt Performing Organization Address [facility]/ZIP Co de Phone Number [facility] [address] [place] [address], [place] [phone] * (ABNORMAL) Comprehensive metabolic panel (12/19/2024 5:47 AM EST) Pathologist [facility] Sodium 136 133 - 145 mmol/L LAB CHEMISTRY METHOD 12/19/2024 11:41 AM [facility] Potassium 4.7 3.5 - 5.5 mmol/L LAB CHEMISTRY METHOD 12/19/2024 11:41 AM [facility] Chloride 104 96 - 110 mmol/L LAB CHEMISTRY METHOD 12/19/2024 11:41 AM [facility] CO2 20(L) 21 - 32 mmol/L LAB CHEMISTRY METHOD 12/19/2024 11:41 AM [facility] Anion Gap 12(H) 3 - 11 LAB CHEMISTRY METHOD 12/19/2024 11:41 AM [facility] Glucose 78 70 - 100 mg/dL LAB CHEMISTRY METHOD 12/19/2024 11:41 AM [facility] BUN 28(H) 5 - 25 mg/dL LAB CHEMISTRY METHOD 12/19/2024 11:41 AM [facility] Creatinine 1.03 0.70 - 1.30 mg/dL LAB CHEMISTRY METHOD 12/19/2024 11:41 AM [facility] eGFR 74 >=60 mL/min/1. 73m2 LAB CHEMISTRY METHOD 12/19/2024 11:41 AM [facility] Comment:Calculation based on the Chronic Kidney Disease Epidemiology Collaboration (CKD-EPI) equation refit without adjustment for race. BUN/Creatinine Ratio 27.2 LAB CHEMISTRY METHOD 12/19/2024 11:41 AM [facility] Calcium 8.8 8.5 - 10.5 mg/dL LAB CHEMISTRY METHOD 12/19/2024 11:41 AM [facility] AST (SGOT) 100(H) 10 - 42 unit/L LAB CHEMISTRY METHOD 12/19/2024 11:41 AM [facility] ALT (SGPT) 166(H) 10 - 60 unit/L LAB CHEMISTRY METHOD 12/19/2024 11:41 AM [facility] Alkaline Phosphatase 103 42 - 121 unit/L LAB CHEMISTRY METHOD 12/19/2024 11:41 AM [facility] Total Protein 5.8(L) 6.0 - 8.0 g/dL LAB CHEMISTRY METHOD 12/19/2024 11:41 AM [facility] Albumin 3.0(L) 3.2 - 5.0 g/dL LAB CHEMISTRY METHOD 12/19/2024 11:41 AM [facility] Total Bilirubin 1.2 0.0 - 1.4 mg/dL LAB CHEMISTRY METHOD 12/19/2024 11:41 AM [facility] Blood Venous blood specimen / Unknown Venipuncture / Unknown 12/19/2024 5:47 AM EST 12/19/2024 10:08 AM EST us Jeane Morris MD LAB BLOOD ORDERABLES Final Resu lt [facility]) [facility] [address] [place] [address], documented in this encounter Visit Diagnoses Diagnosis Encounter for other general examination documented in this encounter Care Teams Stunt Person Relationship Specialty Start Date End Date Amrit Valladares NP [address] [place], [place] PCP - General Family Medicine 01/31/18 documented as of this encounter
--- OUTSIDE RECORDS SUMMARY | 2025-08-19 16:40 | XMS_ITS | Encounter Summary ---
Author Organization [facility] Address [address] [place] [address] Care Team Providers Care Stroboroma Operator Name Role Phone ZarinaAmrit montana Ramón JOHNSON Primary Care Provider Encounter Details Date Type Department Care Team (Late st Contact Info) Description 12/24/2024 Lab Requisition [facility] - Main Lab [address] [facility] [place] [address] Jeane Morris MD [address] [place] [address] Encounter for other general examination Social History [...] Resu lt Performing Organization Address [facility]/ZIP Co de Phone Number [facility] [address] [place] [address], [place] [phone] * Magnesium (12/24/2024 4:58 AM EDT) [facility] Magnesium 2.1 1.9 - 2.6 mg/dL LAB CHEMISTRY METHOD 12/24/2024 9:57 AM EDT [facility] Blood Venous blood specimen / Unknown Venipuncture / Unknown 12/24/2024 4:58 AM EDT 12/24/2024 9:09 AM EDT us Jeane Morris MD LAB BLOOD ORDERABLES Final Resu lt Performing Organization Address City/[facility]/ZIP Co de Phone Number [facility] [address] [place] [address], [place] [phone] * (ABNORMAL) Comprehensive metabolic panel (12/24/2024 4:58 AM EDT) [facility] Sodium 135 133 - 145 mmol/L LAB CHEMISTRY METHOD 12/24/2024 9:58 AM EDT [facility] Potassium 4.3 3.5 - 5.5 mmol/L LAB CHEMISTRY METHOD 12/24/2024 9:58 AM EDT [facility] Chloride 104 96 - 110 mmol/L LAB CHEMISTRY METHOD 12/24/2024 9:58 AM EDT [facility] CO2 23 21 - 32 mmol/L LAB CHEMISTRY METHOD 12/24/2024 9:58 AM EDT [facility] Anion Gap 8 3 - 11 LAB CHEMISTRY METHOD 12/24/2024 9:58 AM EDT [facility] Glucose 84 70 - [...] AM [facility] Comment:Calculation based on the Chronic [...] LAB BLOOD ORDERABLES Final Resu lt [facility] ([facility]) [facility] [address] [place] [address], documented in this encounter Visit Diagnoses Diagnosis Encounter for other general examination documented in this encounter Care Teams Stroboroma Operator Relationship Specialty Start Date End Date Amrit Valladares NP [address] [place], [place] PCP - General Family Medicine 01/31/18 documented as of this encounter
--- OUTSIDE RECORDS SUMMARY | 2025-08-19 16:40 | XMS_ITS | Clinical Summary ---
Author Organization [facility] Address [address] [place] [address] Care Team Providers Care Welding Estimator Name Role Phone Amrit Valaldares Primary Care Provider [phone] Allergies No known active allergies Medications Medication [...] age to complete this topic Care Teams Welding Estimator Relationship Specialty Start Date End Date Amrit Valladares [address] [facility] SH[place] [address] PCP - General Family Medicine 01/31/18
--- OUTSIDE RECORDS SUMMARY | 2025-08-19 16:40 | XMS_ITS | Encounter Summary ---
Author Organization [facility] Address [address] [place] [address] Care Team Providers Care Vp Transportation Name Role Phone ZarinaAmrit montana Ramón JOHNSON Primary Care Provider Encounter Details Date Type Department Care Team (Late st Contact Info) Description 12/29/2024 Lab Requisition [facility] - Main Lab [address] [facility] [place] [address] Jeane Morris MD [address] [place] [address] Encounter for other general examination Social History [...] K/mcL LAB HEMETOLOGY METHOD 12/29/2024 10:34 AM [facility] RBC 4.30(L) 4.50 - 5.50 M/mcL LAB HEMETOLOGY METHOD 12/29/2024 10:34 AM [facility] Hemoglobin 13.3(L) 13.5 - 17.5 g/dL LAB HEMETOLOGY METHOD 12/29/2024 10:34 AM [facility] Hematocrit 39.5(L) 42.0 - 54.0 % LAB HEMETOLOGY METHOD 12/29/2024 10:34 AM [facility] MCV 91.4 79.0 - 98.0 FL LAB HEMETOLOGY METHOD 12/29/2024 10:34 AM [facility] MCH 30.8 27.0 - 32.0 pcg LAB HEMETOLOGY METHOD 12/29/2024 10:34 AM [facility] MCHC 33.7 32.0 - 37.0 g/dL LAB HEMETOLOGY METHOD 12/29/2024 10:34 AM [facility] RDW 13.7 11.0 - 15.0 % LAB HEMETOLOGY METHOD 12/29/2024 10:34 AM [facility] Platelets 367 130 - 400 K/mcL LAB HEMETOLOGY METHOD 12/29/2024 10:34 AM [facility] MPV 10.7 7.0 - 11.0 FL LAB HEMETOLOGY METHOD 12/29/2024 10:34 AM [facility] NRBC 0.0 <1.0 % LAB HEMETOLOGY METHOD 12/29/2024 10:34 AM [facility] NRBC Absolute 0.00 <0.10 K/mcL LAB HEMETOLOGY METHOD 12/29/2024 10:34 AM [facility] Neutrophils Relative 62.1 % LAB HEMETOLOGY METHOD 12/29/2024 10:34 AM [facility] Lymphocytes Relative 24.9 % LAB HEMETOLOGY METHOD 12/29/2024 10:34 AM [facility] Monocytes Relative 10.1 % LAB HEMETOLOGY METHOD 12/29/2024 10:34 AM [facility] Eosinophils Relative 1.7 % LAB HEMETOLOGY METHOD 12/29/2024 10:34 AM [facility] Basophils Relative 0.8 % LAB HEMETOLOGY METHOD 12/29/2024 10:34 AM [facility] Immature Granulocytes Relative 0.4 % LAB HEMETOLOGY METHOD 12/29/2024 10:34 AM [facility] Neutrophils Absolute 6.27 1.50 - 7.00 K/mcL LAB HEMETOLOGY METHOD 12/29/2024 10:34 AM [facility] Lymphocytes Absolute 2.51 1.00 - 5.00 K/mcL LAB HEMETOLOGY METHOD 12/29/2024 10:34 AM [facility] Monocytes Absolute 1.02(H) 0.20 - 1.00 K/mcL LAB HEMETOLOGY METHOD 12/29/2024 10:34 AM [facility] Eosinophils Absolute 0.17 0.00 - 0.50 K/mcL LAB HEMETOLOGY METHOD 12/29/2024 10:34 AM [facility] Basophils Absolute 0.08 0.00 - 0.20 K/mcL LAB HEMETOLOGY METHOD 12/29/2024 10:34 AM [facility] Immature Granulocytes Absolute 0.04(H) 0.00 - 0.03 K/mcL LAB HEMETOLOGY METHOD 12/29/2024 10:34 AM [facility] Blood Venous blood specimen / Unknown Venipuncture / Unknown 12/29/2024 4:50 AM EDT 12/29/2024 9:04 AM EDT us Jeane Morris MD LAB BLOOD ORDERABLES Final Resu lt Performing Organization Address [facility]/ZIP Co de Phone Number [facility] [address] [place] [address], [place] [phone] * Magnesium (12/29/2024 4:50 AM EDT) [facility] Magnesium 2.2 1.9 - 2.6 mg/dL LAB CHEMISTRY METHOD 12/29/2024 11:31 AM EDT [facility] Blood Venous blood specimen / Unknown Venipuncture / Unknown 12/29/2024 4:50 AM EDT 12/29/2024 9:04 AM EDT us Jeane Morris MD LAB BLOOD ORDERABLES Final Resu lt Performing Organization Address City/[facility]/ZIP Co de Phone Number [facility] [address] [place] [address], [place] [phone] * (ABNORMAL) Comprehensive metabolic panel (12/29/2024 4:50 AM EDT) [facility] Sodium 134 133 - 145 mmol/L [...] 11:33 AM EDT [facility] Anion Gap 9 3 - 11 LAB CHEMISTRY METHOD 12/29/2024 11:33 AM EDT [facility] Glucose 78 70 - 100 mg/dL LAB CHEMISTRY METHOD 12/29/2024 11:33 AM [facility] BUN 26(H) 5 - 25 mg/dL LAB CHEMISTRY METHOD 12/29/2024 11:33 AM [facility] Creatinine 1.18 0.70 - 1.30 mg/dL LAB CHEMISTRY METHOD 12/29/2024 11:33 AM [facility] eGFR 63 >=60 mL/min/1. 73m2 LAB CHEMISTRY METHOD 12/29/2024 11:33 AM [facility] Comment:Calculation based on the Chronic Kidney Disease Epidemiology Collaboration (CKD-EPI) equation refit without adjustment for race. BUN/Creatinine Ratio 22.0 LAB CHEMISTRY METHOD 12/29/2024 11:33 AM [facility] Calcium 9.2 8.5 - 10.5 mg/dL LAB CHEMISTRY METHOD 12/29/2024 11:33 AM [facility] AST (SGOT) 54(H) 10 - 42 unit/L LAB CHEMISTRY METHOD 12/29/2024 11:33 AM [facility] ALT (SGPT) 117(H) 10 - 60 unit/L LAB CHEMISTRY METHOD 12/29/2024 11:33 AM [facility] Alkaline Phosphatase 94 42 - 121 unit/L LAB CHEMISTRY METHOD 12/29/2024 11:33 AM [facility] Total Protein 6.1 6.0 - 8.0 g/dL LAB CHEMISTRY METHOD 12/29/2024 11:33 AM [facility] Albumin 3.6 3.2 - 5.0 g/dL LAB CHEMISTRY METHOD 12/29/2024 11:33 AM [facility] Total Bilirubin 1.2 0.0 - 1.4 mg/dL LAB CHEMISTRY METHOD 12/29/2024 11:33 AM [facility] Blood Venous blood specimen / Unknown Venipuncture / Unknown 12/29/2024 4:50 AM EDT 12/29/2024 9:04 AM EDT us Jeane Morris MD LAB BLOOD ORDERABLES Final Resu lt [facility] ([facility]) [facility] [address] [place] [address], documented in this encounter Visit Diagnoses Diagnosis Encounter for other general examination documented in this encounter Care Teams Vp Transportation Relationship Specialty Start Date End Date Amrit Valladares NP [address] [place], [place] PCP - General Family Medicine 01/31/18 documented as of this encounter
--- OUTSIDE RECORDS SUMMARY | 2025-08-19 16:40 | XMS_ITS | Encounter Summary ---
Author Organization [facility] Address [address] [place] [address] Care Team Providers Care Venetian Blind Installer Name Role Phone ZarinaAmrit montana Ramón JOHNSON Primary Care Provider Encounter Details Date Type Department Care Team (Late st Contact Info) Description 12/22/2024 Lab Requisition [facility] - Main Lab 299 [facility] [place] [address] Jeane Morris MD [address] [place] [address] Encounter for other general examination Social History [...] and culture (12/21/2024 8:14 PM EDT) Specific Warner Urine 1.024 1.003 - 1.030 LAB URINALYSIS - AUTOMATED METHOD 12/22/2024 11:26 AM [facility] pH, Urine 6.0 5.0 - 8.0 pH LAB URINALYSIS - AUTOMATED METHOD 12/22/2024 11:26 AM [facility] Leukocytes, Urine Negative Negative LAB URINALYSIS - AUTOMATED METHOD 12/22/2024 11:26 AM [facility] Nitrite, Urine Negative Negative LAB URINALYSIS - AUTOMATED METHOD 12/22/2024 11:26 AM [facility] Protein, Urine Trace <=Trace mg/dL LAB URINALYSIS - AUTOMATED METHOD 12/22/2024 11:26 AM [facility] Glucose, Urine Negative Negative mg/dL LAB URINALYSIS - AUTOMATED METHOD 12/22/2024 11:26 AM [facility] Ketones, Urine Negative Negative mg/dL LAB URINALYSIS - AUTOMATED METHOD 12/22/2024 11:26 AM [facility] Urobilinogen, Urine >=8.0(A) 0.2 - 1.0 mg/dL LAB URINALYSIS - AUTOMATED METHOD 12/22/2024 11:26 AM [facility] Bilirubin, Urine Small(A) Negative LAB URINALYSIS - AUTOMATED METHOD 12/22/2024 11:26 AM [facility] Blood, Urine Negative Negative LAB URINALYSIS - AUTOMATED METHOD 12/22/2024 11:26 AM [facility] Urine Urine specimen obtained by clean catch procedure / Unknown Non-blood Collection / Unknown 12/21/2024 8:14 PM EDT 12/22/2024 10:44 AM EDT us Jeane Morris MD LAB URINE ORDERABLES Final Resu lt [facility] [address] [place] [address], * Joseph urine culture tube (12/21/2024 8:14 PM EDT) Extra Tube Hold for add-ons. 12/22/2024 12:02 PM EDT [facility] Comment:Auto resulted. Urine Urine specimen obtained by clean catch procedure / Unknown Non-blood Collection / Unknown 12/21/2024 8:14 PM EDT 12/22/2024 10:44 AM EDT us Jeane Morris MD LAB URINE ORDERABLES Final Resu lt [facility]) [facility] [address] [place] [address], documented in this encounter Visit Diagnoses Diagnosis Encounter for other general examination documented in this encounter Care Teams Venetian Blind Installer Relationship Specialty Start Date End Date Amrit Valladares NP [address] [place], [place] PCP - General Family Medicine 01/31/18 documented as of this encounter
[2025-09-01 06:04] LABS: Saliva Cortisol 0.77 mcg/dL
== END 2025-08-19 13:41 | disposition home or self-care (01) ==
LOC: HO.LNP 13:40
PROVIDERS: Visit Provider Internal Medicine Endocrinology, Diabetes & Metabolism
DX: E27.8 Other specified disorders of adrenal gland (principal)
CPT/HCPCS: 82530

== ENCOUNTER 2025-09-02 15:39 | Outpatient (AMB) | payer MEDICARE, SELFPAY ==
--- NOTE | 2025-09-02 15:57 | A.OFFVIS_ITS ---
Vital Signs 09/02/25 15:59 Height 5 ft 8 in Weight 146 lb 9.718 oz BMI 22.3 BP 104/74 Blood Pressure Location Rt brachial Position Sitting Pulse 66 Pulse Source Pulse Oximeter Pulse Oximetry (%) 99 Oxygen Delivery Method Room Air Intake Visit Reasons: adrenal nodule Intake Note: Patient present today for Adrenal nodule follow up. Chart Computer Required: No Accompanied by: Son Allergies No Known Allergies Allergy (Verified 09/02/25 16:00) HPI Comments Details: The patient is a 79-year-old male presenting with an adrenal gland lesion. The lesion was first identified in 2008 and has been stable since then, with no sign ificant changes noted over the years. The lesion was discovered incidentally during imaging for other reasons, and there is no current evidence of malignancy. The patient has a history of hypertension, which is currently well-controlled with medications including carvedilol, spironolactone, and valsartan. He also has a history of congestive heart failure diagnosed in 2006, for which spironolactone was prescribed. The patient experienced a stroke, after which he underwent rehabilitation and speech therapy. There have been no recurrent episodes of dizziness or unexplained weight loss since the stroke. - Carvedilol: For hypertension - Spironolactone: For congestive heart failure - Valsartan: For hypertension - Apixaban: For stroke prevention Had MRI abdomen/pelvis 01/27/25 for which revealed There is a 1.6 cm right adrenal nodule which demonstrates loss of signal intensity on opposed phase imaging, compatible with intracellular lipid in an adenoma. The left adrenal gland is unremarkable.. Prior CT dated 2008 revealed adrenal mass Denies history of spells with headache, flushing, diaphoresis, abdominal pain or diarrhea. Denies any weight gain, frequent infections, easy bruisability, development of violaceous striae. History of HTN, controlled on 3 agents. history of anticoagulant use Eliiquis Denies any weight loss, orthostatic symptoms, hypoglycemia. No history of malignancy or TB. 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 24 hour urine free cortisol was normal [facility] Medical History (Updated 07/15/25 @ 13:03 by Shagufta Madrigal MD) Hypersomnia Snoring Adrenal mass Fatty liver Adrenal adenoma Hemiplegia Acute right MCA stroke AAA (abdominal aortic aneurysm) Surgical History Hx of CABG Family History Father Myocardial infarction Mother Cancer Social History Housing: House Patient Tobacco Use Status: Former Tobacco user (December 2023) Tobacco use type: Cigar Cigarettes Per Day: 1 e-Cigarette/Vaping Use: Never Used Second Hand Smoke Exposure: Yes service: Yes Current occupational status: employed 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 Patient is currently on spironolactone so would not assess for aldosterone excess. Rule out secretion of other adrenal hormones. 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 We will talk to patient at length about the significance of MACS and options including surgical resection vs medical management although my experiences limited in this area that may require referral to a [facility] specialist verse observation. May want also to check a DEXA bone density after above to see if the MACS has not effect on bone. I discuss with the this with the patient and his son and they decide they would like a referral to surgery which I made. We will follow up after they see Dr. Li for surgical consultation Orders: Orders Adrenocorticotropic Hormone Today E27.8 - Other specified disorders of adrenal gland DHEA Sulfate Today E27.8 - Other specified disorders of adrenal gland Referrals General Surgery Referral E27.8 - Other specified disorders of adrenal gland Coding Level of Care Code Est Pt Level 3 (99251) Diagnoses Adrenal mass E27.8
[2025-09-02 15:59] VITALS: BP 104/74; PULSE 66; O2SAT 99; BMI 22.3
--- OUTSIDE RECORDS SUMMARY | 2025-09-02 20:43 | XMS_ITS | Encounter Summary ---
Author Organization [facility] Address [address] [place] [address] Care Team Providers Care Dealer Analyst Name Role Phone Amrit Valladares ELIZABETH Primary Care Provider Encounter Details Date Type Department Care Team (Latest Contact Info) Description 12/27/2024 Lab Requisition [facility] - Main Lab [address] [place] [address] Jeane Morris MD [address] [place] [address] Other cerebrovascular disease Social History Tobacco Use [...] Hold for add-ons. 12/27/2024 4:01 PM EDT [facility] Comment:Auto resulted. Urine Urine specimen obtained by clean catch procedure / Unknown 12/27/2024 10:00 AM EDT 12/27/2024 2:37 PM EDT us Jeane Morris MD LAB URINE ORDERABLES Final Resu lt [facility] [address] [place] [address], [place] [phone] * (ABNORMAL) Urinalysis with reflex microscopic (12/27/2024 10:00 AM EDT) Specific Elizabeth Urine 1.021 1.003 - 1.030 LAB URINALYSIS [...] - AUTOMATED METHOD 12/27/2024 3:28 PM EDT [facility] RBC, Urine 6.6(H) 0 - 4 /HPF LAB URINALYSIS - AUTOMATED METHOD 12/27/2024 3:28 PM EDT [facility] WBC, Urine 2.3 0 - 4 /HPF LAB URINALYSIS - AUTOMATED METHOD 12/27/2024 3:28 PM EDT [facility] Squamous Epithelial, Urine 9 0 - 60 /LPF LAB URINALYSIS - AUTOMATED METHOD 12/27/2024 3:28 PM EDT [facility] Crystals, Urine Light Amorphous Urate crystals. /LPF 12/27/2024 3:28 PM EDT [facility] Bacteria, Urine Negative Negative /HPF LAB URINALYSIS - AUTOMATED METHOD 12/27/2024 3:28 PM EDT [facility] Hyaline Casts, Urine 2.0 0 - 3 /LPF LAB URINALYSIS - AUTOMATED METHOD 12/27/2024 3:28 PM T [facility] Urine Urine specimen obtained by clean catch procedure / Unknown 12/27/2024 10:00 AM EDT 12/27/2024 2:36 PM EDT us Jeane Morris MD LAB URINE ORDERABLES Final Resu lt [facility] [address] [place] [address], [place] [phone] documented in this encounter Visit Diagnoses Diagnosis Other cerebrovascular disease documented in this encounter Care Teams Dealer Analyst Relationship Specialty Start Date End Date Amrit Valladares NP [address] [place], [place] PCP - General Family Medicine 01/31/18 documented as of this encounter
--- OUTSIDE RECORDS SUMMARY | 2025-09-02 20:43 | XMS_ITS | Clinical Summary ---
Author Organization [facility] Address [address] [place] [address] Care Team Providers Care Slitter Processed Film Name Role Phone Amrit Valladares Primary Care Provider [phone] Allergies No known active allergies Medications Medication [...] age to complete this topic Care Teams Slitter Processed Film Relationship Specialty Start Date End Date Amrit Valladares [address] [facility] [place] [address] PCP - General Family Medicine 01/31/18
--- OUTSIDE RECORDS SUMMARY | 2025-09-02 20:43 | XMS_ITS | Clinical Summary ---
Author Organization 299 [facility] Address [address] [place] [address] Phone Care Team Providers Care Oncology Account Specialist Name Role Phone Amrit Valladares NP Primary Care Provider [phone] Encounters Date Type Department Care Team Description 07/22/2025 Telephone [facility] Cardiology [facility] [address] [facility] [address] [place] [address] Amrit Valladares NP 07/01/2025 Telephone [facility] - [facility] [address] [facility] [address] [place] [address] Amrit Valladares NP from Last [...] LAB CHEMISTRY METHOD 12/29/2024 11:33 AM EDT [facility] Potassium 4.6 3.5 - 5.5 mmol/L LAB CHEMISTRY METHOD 12/29/2024 11:33 AM EDT [facility] Chloride 102 96 - 110 mmol/L LAB CHEMISTRY METHOD 12/29/2024 11:33 AM EDT [facility] CO2 23 21 - 32 mmol/L LAB CHEMISTRY METHOD 12/29/2024 11:33 AM [facility] Anion Gap 9 3 - 11 LAB CHEMISTRY METHOD 12/29/2024 11:33 AM [facility] Glucose 78 70 - 100 mg/dL LAB CHEMISTRY METHOD 12/29/2024 11:33 AM [facility] BUN 26(H) 5 - 25 mg/dL LAB CHEMISTRY METHOD 12/29/2024 11:33 AM [facility] Creatinine 1.18 0.70 - 1.30 mg/dL LAB CHEMISTRY METHOD 12/29/2024 11:33 AM [facility] eGFR 63 >=60 mL/min/1. 73m2 LAB CHEMISTRY METHOD 12/29/2024 11:33 AM [facility] Comment:Calculation based on the Chronic Kidney Disease Epidemiology Collaboration (CKD-EPI) equation refit without adjustment for race. BUN/Creatinine Ratio 22.0 LAB CHEMISTRY METHOD 12/29/2024 11:33 AM [facility] Calcium 9.2 8.5 - 10.5 mg/dL LAB CHEMISTRY METHOD 12/29/2024 11:33 AM [facility] AST (SGOT) 54(H) 10 - 42 unit/L LAB CHEMISTRY METHOD 12/29/2024 11:33 AM [facility] ALT (SGPT) 117(H) 10 - 60 unit/L LAB CHEMISTRY METHOD 12/29/2024 11:33 AM [facility] Alkaline Phosphatase 94 42 - 121 unit/L LAB CHEMISTRY METHOD 12/29/2024 11:33 AM [facility] Total Protein 6.1 6.0 - 8.0 g/dL LAB CHEMISTRY METHOD 12/29/2024 11:33 AM [facility] Albumin 3.6 3.2 - 5.0 g/dL LAB CHEMISTRY METHOD 12/29/2024 11:33 AM [facility] Total Bilirubin 1.2 0.0 - 1.4 mg/dL LAB CHEMISTRY METHOD 12/29/2024 11:33 AM EDT [facility] Blood Venous blood specimen / Unknown Venipuncture / Unknown 12/29/2024 4:50 AM EDT 12/29/2024 9:04 AM EDT Jeane Morris MD LAB BLOOD ORDERABLES Final Resu lt [facility] [address] [place] [address], [place] [phone] * Hepatitis panel, acute with reflex to confirmation (12/20/2024 5:57 AM EDT) Hepatitis B Surface Ag Negative Negative LAB CHEMISTRY METHOD 12/20/2024 12:12 PM EDT [facility] Hepatitis A Antibody IgM Negative Negative LAB CHEMISTRY METHOD 12/20/2024 12:12 PM EDT [facility] Hep B Core IgM Negative Negative LAB CHEMISTRY METHOD 12/20/2024 12:12 PM EDT [facility] Hepatitis C Antibody Negative Negative LAB CHEMISTRY METHOD 12/20/2024 12:12 PM EDT [facility] Blood Venous blood specimen / Unknown Venipuncture / Unknown 12/20/2024 5:57 AM EDT 12/20/2024 9:56 AM EDT Jeane Morris MD LAB BLOOD ORDERABLES Final Resu lt [facility] [address] [place] [address], [place] [phone] from Last 3 Months or Most Recently Relevant to Health Maintenance Insurance [employer] Care Teams Oncology Account Specialist Relationship Specialty Start Date End Date Amrit Valladares NP [address] [facility] SH[place] PCP - General Family Medicine 01/31/18
--- OUTSIDE RECORDS SUMMARY | 2025-09-02 20:43 | XMS_ITS | Encounter Summary ---
Author Organization [facility] Address [address] [place] [address] Care Team Providers Care Lacquer Polisher Name Role Phone ZarinaAmrit montana Ramón JOHNSON Primary Care Provider Encounter Details Date Type Department Care Team (Late st Contact Info) Description 12/22/[address] [facility] - Main Lab 299 [facility] [place] [address] Jeane Morris MD [address] [place] [address] Encounter for other general examination Social History [...] and culture (12/21/2024 8:14 PM EDT) Specific Myrtle Urine 1.024 1.003 - 1.030 LAB URINALYSIS - AUTOMATED METHOD 12/22/2024 11:26 AM [facility] pH, Urine 6.0 5.0 - 8.0 pH LAB URINALYSIS - AUTOMATED METHOD 12/22/2024 11:26 AM [facility] Leukocytes, Urine Negative Negative LAB URINALYSIS - AUTOMATED METHOD 12/22/2024 11:26 AM [facility] Nitrite, Urine Negative Negative LAB URINALYSIS - AUTOMATED METHOD 12/22/2024 11:26 AM [facility] Protein, Urine Trace <=Trace mg/dL LAB URINALYSIS - AUTOMATED METHOD 12/22/2024 11:26 AM [facility] Glucose, Urine Negative Negative mg/dL LAB URINALYSIS - AUTOMATED METHOD 12/22/2024 11:26 AM [facility] Ketones, Urine Negative Negative mg/dL LAB URINALYSIS - AUTOMATED METHOD 12/22/2024 11:26 AM [facility] Urobilinogen, Urine >=8.0(A) 0.2 - 1.0 mg/dL LAB URINALYSIS - AUTOMATED METHOD 12/22/2024 11:26 AM [facility] Bilirubin, Urine Small(A) Negative LAB URINALYSIS - AUTOMATED METHOD 12/22/2024 11:26 AM [facility] Blood, Urine Negative Negative LAB URINALYSIS - AUTOMATED METHOD 12/22/2024 11:26 AM [facility] Urine Urine specimen obtained by clean catch procedure / Unknown Non-blood Collection / Unknown 12/21/2024 8:14 PM EDT 12/22/2024 10:44 AM EDT us Jeane Morris MD LAB URINE ORDERABLES Final Resu lt [facility] [address] [place] [address], * Joseph urine culture tube (12/21/2024 8:14 PM EDT) Extra Tube Hold for add-ons. 12/22/2024 12:02 PM EDT [facility] Comment:Auto resulted. Urine Urine specimen obtained by clean catch procedure / Unknown Non-blood Collection / Unknown 12/21/2024 8:14 PM EDT 12/22/2024 10:44 AM EDT us Jeane Morris MD LAB URINE ORDERABLES Final Resu lt [facility]) [facility] [address] [place] [address], documented in this encounter Visit Diagnoses Diagnosis Encounter for other general examination documented in this encounter Care Teams Lacquer Polisher Relationship Specialty Start Date End Date Amrit Valladares NP [address] [place], [place] PCP - General Family Medicine 01/31/18 documented as of this encounter
--- OUTSIDE RECORDS SUMMARY | 2025-09-02 20:44 | XMS_ITS | Encounter Summary ---
Author Organization [facility] Address [address] [place] [address] Care Team Providers Care Tail Trimmer Name Role Phone ZarinaAmrit montana Ramón JOHNSON Primary Care Provider Encounter Details Date Type Department Care Team (Late st Contact Info) Description 12/24/2024 Lab Requisition [facility] - Main Lab 299 [facility] [place] [address] Jeane Morris MD [address] [place] [address] Encounter for other general examination Social History [...] K/mcL LAB HEMETOLOGY METHOD 12/24/2024 9:32 AM [facility] RBC 4.10(L) 4.50 - 5.50 M/mcL LAB HEMETOLOGY METHOD 12/24/2024 9:32 AM [facility] Hemoglobin 12.7(L) 13.5 - 17.5 g/dL LAB HEMETOLOGY METHOD 12/24/2024 9:32 AM [facility] Hematocrit 38.5(L) 42.0 - 54.0 % LAB HEMETOLOGY METHOD 12/24/2024 9:32 AM [facility] MCV 93.7 79.0 - 98.0 FL LAB HEMETOLOGY METHOD 12/24/2024 9:32 AM [facility] MCH 30.9 27.0 - 32.0 pcg LAB HEMETOLOGY METHOD 12/24/2024 9:32 AM [facility] MCHC 33.0 32.0 - 37.0 g/dL LAB HEMETOLOGY METHOD 12/24/2024 9:32 AM [facility] RDW 13.7 11.0 - 15.0 % LAB HEMETOLOGY METHOD 12/24/2024 9:32 AM [facility] Platelets 381 130 - 400 K/mcL LAB HEMETOLOGY METHOD 12/24/2024 9:32 AM [facility] MPV 10.4 7.0 - 11.0 FL LAB HEMETOLOGY METHOD 12/24/2024 9:32 AM [facility] NRBC 0.0 <1.0 % LAB HEMETOLOGY METHOD 12/24/2024 9:32 AM [facility] NRBC Absolute 0.00 <0.10 K/mcL LAB HEMETOLOGY METHOD 12/24/2024 9:32 AM [facility] Neutrophils Relative 73.7 % LAB HEMETOLOGY METHOD 12/24/2024 9:32 AM [facility] Lymphocytes Relative 14.4 % LAB HEMETOLOGY METHOD 12/24/2024 9:32 AM [facility] Monocytes Relative 9.0 % LAB HEMETOLOGY METHOD 12/24/2024 9:32 AM [facility] Eosinophils Relative 1.9 % LAB HEMETOLOGY METHOD 12/24/2024 9:32 AM [facility] Basophils Relative 0.5 % LAB HEMETOLOGY METHOD 12/24/2024 9:32 AM [facility] Immature Granulocytes Relative 0.5 % LAB HEMETOLOGY METHOD 12/24/2024 9:32 AM [facility] Neutrophils Absolute 8.17(H) 1.50 - 7.00 K/mcL LAB HEMETOLOGY METHOD 12/24/2024 9:32 AM [facility] Lymphocytes Absolute 1.59 1.00 - 5.00 K/mcL LAB HEMETOLOGY METHOD 12/24/2024 9:32 AM [facility] Monocytes Absolute 1.00 0.20 - 1.00 K/mcL LAB HEMETOLOGY METHOD 12/24/2024 9:32 AM [facility] Eosinophils Absolute 0.21 0.00 - 0.50 K/mcL LAB HEMETOLOGY METHOD 12/24/2024 9:32 AM [facility] Basophils Absolute 0.05 0.00 - 0.20 K/mcL LAB HEMETOLOGY METHOD 12/24/2024 9:32 AM [facility] Immature Granulocytes Absolute 0.06(H) 0.00 - 0.03 K/mcL LAB HEMETOLOGY METHOD 12/24/2024 9:32 AM [facility] Blood Venous blood specimen / Unknown Venipuncture / Unknown 12/24/2024 4:58 AM EDT 12/24/2024 9:09 AM EDT us Jeane Morris MD LAB BLOOD ORDERABLES Final Resu lt Performing Organization Address [facility]/ZIP Co de Phone Number [facility] [address] [place] [address], [place] [phone] * Magnesium (12/24/2024 4:58 AM EDT) [facility] Magnesium 2.1 1.9 - 2.6 mg/dL LAB CHEMISTRY METHOD 12/24/2024 9:57 AM EDT [facility] Blood Venous blood specimen / Unknown Venipuncture / Unknown 12/24/2024 4:58 AM EDT 12/24/2024 9:09 AM EDT us Jeane Morris MD LAB BLOOD ORDERABLES Final Resu lt Performing Organization Address City/[facility]/ZIP Co de Phone Number [facility] [address] [place] [address], [place] [phone] * (ABNORMAL) Comprehensive metabolic panel (12/24/2024 4:58 AM EDT) [facility] Sodium 135 133 - 145 mmol/L LAB CHEMISTRY METHOD 12/24/2024 9:58 AM EDT [facility] Potassium 4.3 3.5 - 5.5 mmol/L LAB CHEMISTRY METHOD 12/24/2024 9:58 AM EDT [facility] Chloride 104 96 - 110 mmol/L LAB CHEMISTRY METHOD 12/24/2024 9:58 AM EDT [facility] CO2 23 21 - 32 mmol/L LAB CHEMISTRY METHOD 12/24/2024 9:58 AM EDT [facility] Anion Gap 8 3 - 11 LAB CHEMISTRY METHOD 12/24/2024 9:58 AM EDT [facility] Glucose 84 70 - 100 mg/dL LAB CHEMISTRY METHOD 12/24/2024 9:58 AM [facility] BUN 35(H) 5 - 25 mg/dL LAB CHEMISTRY METHOD 12/24/2024 9:58 AM [facility] Creatinine 1.14 0.70 - 1.30 mg/dL LAB CHEMISTRY METHOD 12/24/2024 9:58 AM [facility] eGFR 66 >=60 mL/min/1. 73m2 LAB CHEMISTRY METHOD 12/24/2024 9:58 AM [facility] Comment:Calculation based on the Chronic Kidney Disease Epidemiology Collaboration (CKD-EPI) equation refit without adjustment for race. BUN/Creatinine Ratio 30.7 LAB CHEMISTRY METHOD 12/24/2024 9:58 AM [facility] Calcium 8.9 8.5 - 10.5 mg/dL LAB CHEMISTRY METHOD 12/24/2024 9:58 AM [facility] AST (SGOT) 72(H) 10 - 42 unit/L LAB CHEMISTRY METHOD 12/24/2024 9:58 AM [facility] ALT (SGPT) 135(H) 10 - 60 unit/L LAB CHEMISTRY METHOD 12/24/2024 9:58 AM [facility] Alkaline Phosphatase 97 42 - 121 unit/L LAB CHEMISTRY METHOD 12/24/2024 9:58 AM [facility] Total Protein 6.0 6.0 - 8.0 g/dL LAB CHEMISTRY METHOD 12/24/2024 9:58 AM [facility] Albumin 3.2 3.2 - 5.0 g/dL LAB CHEMISTRY METHOD 12/24/2024 9:58 AM [facility] Total Bilirubin 1.2 0.0 - 1.4 mg/dL LAB CHEMISTRY METHOD 12/24/2024 9:58 AM [facility] Blood Venous blood specimen / Unknown Venipuncture / Unknown 12/24/2024 4:58 AM EDT 12/24/2024 9:09 AM EDT us Jeane Morris MD LAB BLOOD ORDERABLES Final Resu lt [facility] ([facility]) [facility] [address] [place] [address], documented in this encounter Visit Diagnoses Diagnosis Encounter for other general examination documented in this encounter Care Teams Tail Trimmer Relationship Specialty Start Date End Date Amrit Valladares NP [address] [place], [place] PCP - General Family Medicine 01/31/18 documented as of this encounter
--- OUTSIDE RECORDS SUMMARY | 2025-09-02 20:44 | XMS_ITS | Encounter Summary ---
Author Organization [facility] Address [address] [place] [address] Care Team Providers Care Supervisor [employer] Name Role Phone ZarinaAmrit montana Ramón JOHNSON Primary Care Provider Encounter Details Date Type Department Care Team (Late st Contact Info) Description 12/20/2024 Lab Requisition [facility] - Main Lab 299 [facility] [place] [phone] Jeane Morris MD [address] [place] [address] Encounter for other general examination Social History [...] LAB CHEMISTRY METHOD 12/20/2024 12:12 PM EDT [facility] Hepatitis A Antibody IgM Negative Negative LAB CHEMISTRY METHOD 12/20/2024 12:12 PM EDT [facility] Hep B Core IgM Negative Negative LAB CHEMISTRY METHOD 12/20/2024 12:12 PM EDT [facility] Hepatitis C Antibody Negative Negative LAB CHEMISTRY METHOD 12/20/2024 12:12 PM [facility] Blood Venous blood specimen / Unknown Venipuncture / Unknown 12/20/2024 5:57 AM EDT 12/20/2024 9:56 AM EDT us Jeane Morris MD LAB BLOOD ORDERABLES Final Resu lt [facility] [address] [place] [address], * (ABNORMAL) Comprehensive metabolic panel (12/20/2024 5:57 AM EDT) Sodium 133 133 - 145 mmol/L LAB CHEMISTRY METHOD 12/20/2024 11:21 AM [facility] Potassium 5.0 3.5 - 5.5 mmol/L LAB CHEMISTRY METHOD 12/20/2024 11:21 AM [facility] Chloride 102 96 - 110 mmol/L LAB CHEMISTRY METHOD 12/20/2024 11:21 AM [facility] CO2 21 21 - 32 mmol/L LAB CHEMISTRY METHOD 12/20/2024 11:21 AM [facility] Anion Gap 10 3 - 11 LAB CHEMISTRY METHOD 12/20/2024 11:21 AM [facility] Glucose 92 70 - 100 mg/dL LAB CHEMISTRY METHOD 12/20/2024 11:21 AM [facility] BUN 27(H) 5 - 25 mg/dL LAB CHEMISTRY METHOD 12/20/2024 11:21 AM [facility] Creatinine 1.11 0.70 - 1.30 mg/dL LAB CHEMISTRY METHOD 12/20/2024 11:21 AM [facility] eGFR 68 >=60 mL/min/1. 73m2 LAB CHEMISTRY METHOD 12/20/2024 11:21 AM [facility] Comment:Calculation based on the Chronic Kidney Disease Epidemiology Collaboration (CKD-EPI) equation refit without adjustment for race. BUN/Creatinine Ratio 24.3 LAB CHEMISTRY METHOD 12/20/2024 11:21 AM [facility] Calcium 9.1 8.5 - 10.5 mg/dL LAB CHEMISTRY METHOD 12/20/2024 11:21 AM [facility] AST (SGOT) 92(H) 10 - 42 unit/L LAB CHEMISTRY METHOD 12/20/2024 11:21 AM [facility] ALT (SGPT) 169(H) 10 - 60 unit/L LAB CHEMISTRY METHOD 12/20/2024 11:21 AM [facility] Alkaline Phosphatase 111 42 - 121 unit/L LAB CHEMISTRY METHOD 12/20/2024 11:21 AM [facility] Total Protein 6.3 6.0 - 8.0 g/dL LAB CHEMISTRY METHOD 12/20/2024 11:21 AM [facility] Albumin 3.4 3.2 - 5.0 g/dL LAB CHEMISTRY METHOD 12/20/2024 11:21 AM [facility] Total Bilirubin 1.3 0.0 - 1.4 mg/dL LAB CHEMISTRY METHOD 12/20/2024 11:21 AM [facility] Blood Venous blood specimen / Unknown Venipuncture / Unknown 12/20/2024 5:57 AM EDT 12/20/2024 9:56 AM EDT us Jeane Morris MD LAB BLOOD ORDERABLES Final Resu lt [facility] [address] [place] [address], documented in this encounter Visit Diagnoses Diagnosis Encounter for other general examination documented in this encounter Care Teams Supervisor [employer] Relationship Specialty Start Date End Date Amrit Valladares NP [address] [facility] SHAI Valerio PCP - General Family Medicine 01/31/18 documented as of this encounter
--- OUTSIDE RECORDS SUMMARY | 2025-09-02 20:44 | XMS_ITS | Encounter Summary ---
Author Organization [facility] Address [address] [place] [address] Care Team Providers Care Chemical Operations And Training Name Role Phone ZarinaAmrit montana Ramón JOHNSON Primary Care Provider Encounter Details Date Type Department Care Team (Late st Contact Info) Description 12/19/2024 Lab Requisition [facility] - Main Lab 299 [facility] [place] [address] Jeane Morris MD [address] [place] [address] Encounter for other general examination Social History [...] K/mcL LAB HEMETOLOGY METHOD 12/19/2024 11:12 AM [facility] RBC 4.70 4.50 - 5.50 M/mcL LAB HEMETOLOGY METHOD 12/19/2024 11:12 AM [facility] Hemoglobin 14.4 13.5 - 17.5 g/dL LAB HEMETOLOGY METHOD 12/19/2024 11:12 AM [facility] Hematocrit 43.6 42.0 - 54.0 % LAB HEMETOLOGY METHOD 12/19/2024 11:12 AM [facility] MCV 92.4 79.0 - 98.0 FL LAB HEMETOLOGY METHOD 12/19/2024 11:12 AM [facility] MCH 30.5 27.0 - 32.0 pcg LAB HEMETOLOGY METHOD 12/19/2024 11:12 AM [facility] MCHC 33.0 32.0 - 37.0 g/dL LAB HEMETOLOGY METHOD 12/19/2024 11:12 AM [facility] RDW 13.7 11.0 - 15.0 % LAB HEMETOLOGY METHOD 12/19/2024 11:12 AM [facility] Platelets 481(H) 130 - 400 K/mcL LAB HEMETOLOGY METHOD 12/19/2024 11:12 AM [facility] MPV 10.0 7.0 - 11.0 FL LAB HEMETOLOGY METHOD 12/19/2024 11:12 AM [facility] NRBC 0.0 <1.0 % LAB HEMETOLOGY METHOD 12/19/2024 11:12 AM [facility] NRBC Absolute 0.00 <0.10 K/mcL LAB HEMETOLOGY METHOD 12/19/2024 11:12 AM [facility] Neutrophils Relative 75.2 % LAB HEMETOLOGY METHOD 12/19/2024 11:12 AM [facility] Lymphocytes Relative 12.6 % LAB HEMETOLOGY METHOD 12/19/2024 11:12 AM [facility] Monocytes Relative 8.5 % LAB HEMETOLOGY METHOD 12/19/2024 11:12 AM [facility] Eosinophils Relative 1.6 % LAB HEMETOLOGY METHOD 12/19/2024 11:12 AM [facility] Basophils Relative 0.6 % LAB HEMETOLOGY METHOD 12/19/2024 11:12 AM [facility] Immature Granulocytes Relative 1.5 % LAB HEMETOLOGY METHOD 12/19/2024 11:12 AM [facility] Neutrophils Absolute 9.81(H) 1.50 - 7.00 K/mcL LAB HEMETOLOGY METHOD 12/19/2024 11:12 AM [facility] Lymphocytes Absolute 1.65 1.00 - 5.00 K/mcL LAB HEMETOLOGY METHOD 12/19/2024 11:12 AM [facility] Monocytes Absolute 1.11(H) 0.20 - 1.00 K/mcL LAB HEMETOLOGY METHOD 12/19/2024 11:12 AM [facility] Eosinophils Absolute 0.21 0.00 - 0.50 K/mcL LAB HEMETOLOGY METHOD 12/19/2024 11:12 AM [facility] Basophils Absolute 0.08 0.00 - 0.20 K/mcL LAB HEMETOLOGY METHOD 12/19/2024 11:12 AM [facility] Immature Granulocytes Absolute 0.20(H) 0.00 - 0.03 K/mcL LAB HEMETOLOGY METHOD 12/19/2024 11:12 AM [facility] Blood Venous blood specimen / Unknown Venipuncture / Unknown 12/19/2024 5:47 AM EST 12/19/2024 10:08 AM EST us Jeane Morris MD LAB BLOOD ORDERABLES Final Resu lt Performing Organization Address City/[facility]/ZIP Co de Phone Number [facility] [address] [place] [address], [place] [phone] * Magnesium (12/19/2024 5:47 AM EST) Magnesium 2.1 1.9 - 2.6 mg/dL LAB CHEMISTRY METHOD 12/19/2024 11:41 AM EST [facility] Blood Venous blood specimen / Unknown Venipuncture / Unknown 12/19/2024 5:47 AM EST 12/19/2024 10:08 AM EST us Jeane Morris MD LAB BLOOD ORDERABLES Final Resu lt Performing Organization Address [facility]/ZIP Co de Phone Number [facility] [address] [place] [address], [place] [phone] * (ABNORMAL) Comprehensive metabolic panel (12/19/2024 5:47 AM EST) Pathologist [facility] Sodium 136 133 - 145 mmol/L LAB CHEMISTRY METHOD 12/19/2024 11:41 AM [facility] Potassium 4.7 3.5 - 5.5 mmol/L LAB CHEMISTRY METHOD 12/19/2024 11:41 AM [facility] Chloride 104 96 - 110 mmol/L LAB CHEMISTRY METHOD 12/19/2024 11:41 AM [facility] CO2 20(L) 21 - 32 mmol/L LAB CHEMISTRY METHOD 12/19/2024 11:41 AM [facility] Anion Gap 12(H) 3 - 11 LAB CHEMISTRY METHOD 12/19/2024 11:41 AM [facility] Glucose 78 70 - 100 mg/dL LAB CHEMISTRY METHOD 12/19/2024 11:41 AM [facility] BUN 28(H) 5 - 25 mg/dL LAB CHEMISTRY METHOD 12/19/2024 11:41 AM [facility] Creatinine 1.03 0.70 - 1.30 mg/dL LAB CHEMISTRY METHOD 12/19/2024 11:41 AM [facility] eGFR 74 >=60 mL/min/1. 73m2 LAB CHEMISTRY METHOD 12/19/2024 11:41 AM [facility] Comment:Calculation based on the Chronic Kidney Disease Epidemiology Collaboration (CKD-EPI) equation refit without adjustment for race. BUN/Creatinine Ratio 27.2 LAB CHEMISTRY METHOD 12/19/2024 11:41 AM [facility] Calcium 8.8 8.5 - 10.5 mg/dL LAB CHEMISTRY METHOD 12/19/2024 11:41 AM [facility] AST (SGOT) 100(H) 10 - 42 unit/L LAB CHEMISTRY METHOD 12/19/2024 11:41 AM [facility] ALT (SGPT) 166(H) 10 - 60 unit/L LAB CHEMISTRY METHOD 12/19/2024 11:41 AM [facility] Alkaline Phosphatase 103 42 - 121 unit/L LAB CHEMISTRY METHOD 12/19/2024 11:41 AM [facility] Total Protein 5.8(L) 6.0 - 8.0 g/dL LAB CHEMISTRY METHOD 12/19/2024 11:41 AM [facility] Albumin 3.0(L) 3.2 - 5.0 g/dL LAB CHEMISTRY METHOD 12/19/2024 11:41 AM [facility] Total Bilirubin 1.2 0.0 - 1.4 mg/dL LAB CHEMISTRY METHOD 12/19/2024 11:41 AM [facility] Blood Venous blood specimen / Unknown Venipuncture / Unknown 12/19/2024 5:47 AM EST 12/19/2024 10:08 AM EST us Jeane Morris MD LAB BLOOD ORDERABLES Final Resu lt [facility] [address] [place] [address], documented in this encounter Visit Diagnoses Diagnosis Encounter for other general examination documented in this encounter Care Teams Chemical Operations And Training Relationship Specialty Start Date End Date Amrit Valladares NP [address] [place], [place] PCP - General Family Medicine 01/31/18 documented as of this encounter
--- OUTSIDE RECORDS SUMMARY | 2025-09-02 20:44 | XMS_ITS | Encounter Summary ---
Author Organization [facility] Address [address] [place] [address] Care Team Providers Care Attorney General Name Role Phone ZarinaAmrit montana Ramón JOHNSON Primary Care Provider Encounter Details Date Type Department Care Team (Late st Contact Info) Description 12/29/2024 Lab Requisition [facility] - Main Lab 299 [facility] [place] [address] Jeane Morris MD [address] [place] [address] Encounter for other general examination Social History [...] K/mcL LAB HEMETOLOGY METHOD 12/29/2024 10:34 AM [facility] RBC 4.30(L) 4.50 - 5.50 M/mcL LAB HEMETOLOGY METHOD 12/29/2024 10:34 AM [facility] Hemoglobin 13.3(L) 13.5 - 17.5 g/dL LAB HEMETOLOGY METHOD 12/29/2024 10:34 AM [facility] Hematocrit 39.5(L) 42.0 - 54.0 % LAB HEMETOLOGY METHOD 12/29/2024 10:34 AM [facility] MCV 91.4 79.0 - 98.0 FL LAB HEMETOLOGY METHOD 12/29/2024 10:34 AM [facility] MCH 30.8 27.0 - 32.0 pcg LAB HEMETOLOGY METHOD 12/29/2024 10:34 AM [facility] MCHC 33.7 32.0 - 37.0 g/dL LAB HEMETOLOGY METHOD 12/29/2024 10:34 AM [facility] RDW 13.7 11.0 - 15.0 % LAB HEMETOLOGY METHOD 12/29/2024 10:34 AM [facility] Platelets 367 130 - 400 K/mcL LAB HEMETOLOGY METHOD 12/29/2024 10:34 AM [facility] MPV 10.7 7.0 - 11.0 FL LAB HEMETOLOGY METHOD 12/29/2024 10:34 AM [facility] NRBC 0.0 <1.0 % LAB HEMETOLOGY METHOD 12/29/2024 10:34 AM [facility] NRBC Absolute 0.00 <0.10 K/mcL LAB HEMETOLOGY METHOD 12/29/2024 10:34 AM [facility] Neutrophils Relative 62.1 % LAB HEMETOLOGY METHOD 12/29/2024 10:34 AM [facility] Lymphocytes Relative 24.9 % LAB HEMETOLOGY METHOD 12/29/2024 10:34 AM [facility] Monocytes Relative 10.1 % LAB HEMETOLOGY METHOD 12/29/2024 10:34 AM [facility] Eosinophils Relative 1.7 % LAB HEMETOLOGY METHOD 12/29/2024 10:34 AM [facility] Basophils Relative 0.8 % LAB HEMETOLOGY METHOD 12/29/2024 10:34 AM [facility] Immature Granulocytes Relative 0.4 % LAB HEMETOLOGY METHOD 12/29/2024 10:34 AM [facility] Neutrophils Absolute 6.27 1.50 - 7.00 K/mcL LAB HEMETOLOGY METHOD 12/29/2024 10:34 AM [facility] Lymphocytes Absolute 2.51 1.00 - 5.00 K/mcL LAB HEMETOLOGY METHOD 12/29/2024 10:34 AM [facility] Monocytes Absolute 1.02(H) 0.20 - 1.00 K/mcL LAB HEMETOLOGY METHOD 12/29/2024 10:34 AM [facility] Eosinophils Absolute 0.17 0.00 - 0.50 K/mcL LAB HEMETOLOGY METHOD 12/29/2024 10:34 AM [facility] Basophils Absolute 0.08 0.00 - 0.20 K/mcL LAB HEMETOLOGY METHOD 12/29/2024 10:34 AM [facility] Immature Granulocytes Absolute 0.04(H) 0.00 - 0.03 K/mcL LAB HEMETOLOGY METHOD 12/29/2024 10:34 AM [facility] Blood Venous blood specimen / Unknown Venipuncture / Unknown 12/29/2024 4:50 AM EDT 12/29/2024 9:04 AM EDT us Jeane Morris MD LAB BLOOD ORDERABLES Final Resu lt Performing Organization Address [facility]/ZIP Co de Phone Number [facility] [address] [place] [address], [place] [phone] * Magnesium (12/29/2024 4:50 AM EDT) [facility] Magnesium 2.2 1.9 - 2.6 mg/dL LAB CHEMISTRY METHOD 12/29/2024 11:31 AM EDT [facility] Blood Venous blood specimen / Unknown Venipuncture / Unknown 12/29/2024 4:50 AM EDT 12/29/2024 9:04 AM EDT us Jeane Morrsi MD LAB BLOOD ORDERABLES Final Resu lt Performing Organization Address City/[facility]/ZIP Co de Phone Number [facility] [address] [place] [address], [place] [phone] * (ABNORMAL) Comprehensive metabolic panel (12/29/2024 4:50 AM EDT) [facility] Sodium 134 133 - 145 mmol/L LAB CHEMISTRY METHOD 12/29/2024 11:33 AM EDT [facility] Potassium 4.6 3.5 - 5.5 mmol/L LAB CHEMISTRY METHOD 12/29/2024 11:33 AM EDT [facility] Chloride 102 96 - 110 mmol/L LAB CHEMISTRY METHOD 12/29/2024 11:33 AM EDT [facility] CO2 23 21 - 32 mmol/L LAB CHEMISTRY METHOD 12/29/2024 11:33 AM EDT [facility] Anion Gap 9 3 - 11 LAB CHEMISTRY METHOD 12/29/2024 11:33 AM EDT [facility] Glucose 78 70 - 100 mg/dL LAB CHEMISTRY METHOD 12/29/2024 11:33 AM [facility] BUN 26(H) 5 - 25 mg/dL LAB CHEMISTRY METHOD 12/29/2024 11:33 AM [facility] Creatinine 1.18 0.70 - 1.30 mg/dL LAB CHEMISTRY METHOD 12/29/2024 11:33 AM [facility] eGFR 63 >=60 mL/min/1. 73m2 LAB CHEMISTRY METHOD 12/29/2024 11:33 AM [facility] Comment:Calculation based on the Chronic Kidney Disease Epidemiology Collaboration (CKD-EPI) equation refit without adjustment for race. BUN/Creatinine Ratio 22.0 LAB CHEMISTRY METHOD 12/29/2024 11:33 AM [facility] Calcium 9.2 8.5 - 10.5 mg/dL LAB CHEMISTRY METHOD 12/29/2024 11:33 AM [facility] AST (SGOT) 54(H) 10 - 42 unit/L LAB CHEMISTRY METHOD 12/29/2024 11:33 AM [facility] ALT (SGPT) 117(H) 10 - 60 unit/L LAB CHEMISTRY METHOD 12/29/2024 11:33 AM [facility] Alkaline Phosphatase 94 42 - 121 unit/L LAB CHEMISTRY METHOD 12/29/2024 11:33 AM [facility] Total Protein 6.1 6.0 - 8.0 g/dL LAB CHEMISTRY METHOD 12/29/2024 11:33 AM [facility] Albumin 3.6 3.2 - 5.0 g/dL LAB CHEMISTRY METHOD 12/29/2024 11:33 AM [facility] Total Bilirubin 1.2 0.0 - 1.4 mg/dL LAB CHEMISTRY METHOD 12/29/2024 11:33 AM [facility] Blood Venous blood specimen / Unknown Venipuncture / Unknown 12/29/2024 4:50 AM EDT 12/29/2024 9:04 AM EDT us Jeane Morris MD LAB BLOOD ORDERABLES Final Resu lt [facility] ([facility]) [facility] [address] [place] [address], documented in this encounter Visit Diagnoses Diagnosis Encounter for other general examination documented in this encounter Care Teams Attorney General Relationship Specialty Start Date End Date Amrit Valladares NP [address] [place], [place] PCP - General Family Medicine 01/31/18 documented as of this encounter
--- OUTSIDE RECORDS SUMMARY | 2025-09-02 20:44 | XMS_ITS | Encounter Summary ---
Author Organization [facility] Address [address] [place] [address] Care Team Providers Care Associate Director Of Development Name Role Phone ZarinaAmrit montana Ramón JOHNSON Primary Care Provider Encounter Details Date Type Department Care Team (Late st Contact Info) Description 12/22/[address] [facility] - Main Lab 299 [facility] [place] [phone] Jeane Morris MD [address] [place] [address] Encounter for other general examination Social History [...] AM EDT) WBC 11.4(H) 4.8 - 10.8 K/[facility] LAB HEMETOLOGY METHOD 12/22/2024 11:17 AM EDT [facility] RBC 4.30(L) 4.50 - 5.50 M/[facility] LAB HEMETOLOGY METHOD 12/22/2024 11:[address] [facility] Hemoglobin 13.4(L) 13.5 - 17.5 g/dL LAB HEMETOLOGY METHOD 12/22/2024 11:[address] [facility] Hematocrit 40.3(L) 42.0 - 54.0 % LAB HEMETOLOGY METHOD 12/22/2024 11:[address] [facility] MCV 93.5 79.0 - 98.0 FL LAB HEMETOLOGY METHOD 12/22/2024 11:[address] [facility] MCH 31.1 27.0 - 32.0 pcg LAB HEMETOLOGY METHOD 12/22/2024 11:[address] [facility] MCHC 33.3 32.0 - 37.0 g/dL LAB HEMETOLOGY METHOD 12/22/2024 11:[address] [facility] RDW 13.7 11.0 - 15.0 % LAB HEMETOLOGY METHOD 12/22/2024 11:[address] [facility] Platelets 443(H) 130 - 400 K/mcL LAB HEMETOLOGY METHOD 12/22/2024 11:[address] [facility] MPV 10.1 7.0 - 11.0 FL LAB HEMETOLOGY METHOD 12/22/2024 11:[address] [facility] NRBC 0.0 <1.0 % LAB HEMETOLOGY METHOD 12/22/2024 11:[address] [facility] NRBC Absolute 0.00 <0.10 K/mcL LAB HEMETOLOGY METHOD 12/22/2024 11:[address] [facility] Neutrophils Relative 70.6 % LAB HEMETOLOGY METHOD 12/22/2024 11:[address] [facility] Lymphocytes Relative 16.9 % LAB HEMETOLOGY METHOD 12/22/2024 11:[address] [facility] Monocytes Relative 9.2 % LAB HEMETOLOGY METHOD 12/22/2024 11:[address] [facility] Eosinophils Relative 2.3 % LAB HEMETOLOGY METHOD 12/22/2024 11:[address] [facility] Basophils Relative 0.4 % LAB HEMETOLOGY METHOD 12/22/2024 11:[address] [facility] Immature Granulocytes Relative 0.6 % LAB HEMETOLOGY METHOD 12/22/2024 11:[address] [facility] Neutrophils Absolute 8.03(H) 1.50 - 7.00 K/mcL LAB HEMETOLOGY METHOD 12/22/2024 11:[address] [facility] Lymphocytes Absolute 1.92 1.00 - 5.00 K/mcL LAB HEMETOLOGY METHOD 12/22/2024 11:[address] [facility] Monocytes Absolute 1.04(H) 0.20 - 1.00 K/mcL LAB HEMETOLOGY METHOD 12/22/2024 11:[address] [facility] Eosinophils Absolute 0.26 0.00 - 0.50 K/mcL LAB HEMETOLOGY METHOD 12/22/2024 11:[address] [facility] Basophils Absolute 0.04 0.00 - 0.20 K/mcL LAB HEMETOLOGY METHOD 12/22/2024 11:[address] [facility] Immature Granulocytes Absolute 0.07(H) 0.00 - 0.03 K/mcL LAB HEMETOLOGY METHOD 12/22/2024 11:[address] [facility] Blood Venous blood specimen / Unknown Venipuncture / Unknown 12/22/2024 7:06 AM EDT 12/22/2024 10:37 AM EDT us Jeane Morris MD LAB BLOOD ORDERABLES Final Resu lt [facility] LAB [address] [place] [address], documented in this encounter Visit Diagnoses Diagnosis Encounter for other general examination documented in this encounter Care Teams Associate Director Of Development Relationship Specialty Start Date End Date Amrit Valladares NP [address] [place], [place] PCP - General Family Medicine 01/31/18 documented as of this encounter
== END 2025-09-02 16:31 | disposition home or self-care (01) ==
LOC: HO.ENCR 15:39
PROVIDERS: PCP Nurse Practitioner Family; Visit Provider Internal Medicine Endocrinology, Diabetes & Metabolism
DX: E27.8 Other specified disorders of adrenal gland (principal)
CPT/HCPCS: 99213

== ENCOUNTER → 2025-09-02 15:39 | Outpatient (BNVA) | payer MEDICARE, SELFPAY | PROVIDERS: PCP Nurse Practitioner Family; Visit Provider Internal Medicine Endocrinology, Diabetes & Metabolism | DX: E27.8 Other specified disorders of adrenal gland (principal) | CPT/HCPCS: 99212 ==

== ENCOUNTER 2025-09-04 08:35 | Outpatient (REF) | payer MEDICARE, SELFPAY ==
--- OUTSIDE RECORDS SUMMARY | 2025-09-04 08:40 | XMS_ITS | Encounter Summary ---
Author Organization [facility] Address [address] [place] [address] Care Team Providers Care Logistics Center Manager Name Role Phone Amrit Valladares ELIZABETH Primary Care Provider [phone] Encounter Details Date Type Department Care Team (Latest Contact Info) Description 12/27/2024 Lab Requisition [facility] - Main Lab [address] [place] [address] Jeane Morris MD [address] [place] [address] Other cerebrovascular disease Social History Tobacco Use [...] for add-ons. 12/27/2024 4:01 PM EDT [facility] ([facility]) [facility] LAB Comment:Auto resulted. Urine Urine specimen obtained by clean catch procedure / Unknown 12/27/2024 10:00 AM EDT 12/27/2024 2:37 PM EDT us Jeane Morris MD LAB URINE ORDERABLES Final Resu lt [facility] [address] [place] [address], [place] [phone] * (ABNORMAL) Urinalysis with reflex microscopic (12/27/2024 10:00 AM EDT) Specific [place] Urine 1.021 1.003 - 1.030 LAB URINALYSIS [...] lt [facility] [address] [place] [address], [place] [phone] documented in this encounter Visit Diagnoses Diagnosis Other cerebrovascular disease documented in this encounter Care Teams Logistics Center Manager Relationship Specialty Start Date End Date Amrit Valladares NP [address] [place], [place] PCP - General Family Medicine 01/31/18 documented as of this encounter
--- OUTSIDE RECORDS SUMMARY | 2025-09-04 08:40 | XMS_ITS | Encounter Summary ---
Author Organization [facility] Address [address] [place] [address] Care Team Providers Care Dumping Machine Operator Name Role Phone ZarinaAmrit montana Ramón JOHNSON Primary Care Provider [phone] Encounter Details Date Type Department Care Team (Late st Contact Info) Description 12/19/2024 Lab Requisition [facility] - Main Lab 299 [facility] [place] [address] Jeane Morris MD [address] [place] [address] Encounter for other general examination Social History [...] K/mcL LAB HEMETOLOGY METHOD 12/19/2024 11:12 AM [facility] RBC 4.70 4.50 - 5.50 M/mcL LAB HEMETOLOGY METHOD 12/19/2024 11:12 AM [facility] Hemoglobin 14.4 13.5 - 17.5 g/dL LAB HEMETOLOGY METHOD 12/19/2024 11:12 AM [facility] Hematocrit 43.6 42.0 - 54.0 % LAB HEMETOLOGY METHOD 12/19/2024 11:12 AM [facility] MCV 92.4 79.0 - 98.0 FL LAB HEMETOLOGY METHOD 12/19/2024 11:12 AM [facility] MCH 30.5 27.0 - 32.0 pcg LAB HEMETOLOGY METHOD 12/19/2024 11:12 AM [facility] MCHC 33.0 32.0 - 37.0 g/dL LAB HEMETOLOGY METHOD 12/19/2024 11:12 AM [facility] RDW 13.7 11.0 - 15.0 % LAB HEMETOLOGY METHOD 12/19/2024 11:12 AM [facility] Platelets 481(H) 130 - 400 K/mcL LAB HEMETOLOGY METHOD 12/19/2024 11:12 AM [facility] MPV 10.0 7.0 - 11.0 FL LAB HEMETOLOGY METHOD 12/19/2024 11:12 AM [facility] NRBC 0.0 <1.0 % LAB HEMETOLOGY METHOD 12/19/2024 11:12 AM [facility] NRBC Absolute 0.00 <0.10 K/mcL LAB HEMETOLOGY METHOD 12/19/2024 11:12 AM [facility] Neutrophils Relative 75.2 % LAB HEMETOLOGY METHOD 12/19/2024 11:12 AM [facility] Lymphocytes Relative 12.6 % LAB HEMETOLOGY METHOD 12/19/2024 11:12 AM [facility] Monocytes Relative 8.5 % LAB HEMETOLOGY METHOD 12/19/2024 11:12 AM [facility] Eosinophils Relative 1.6 % LAB HEMETOLOGY METHOD 12/19/2024 11:12 AM [facility] Basophils Relative 0.6 % LAB HEMETOLOGY METHOD 12/19/2024 11:12 AM [facility] Immature Granulocytes Relative 1.5 % LAB HEMETOLOGY METHOD 12/19/2024 11:12 AM [facility] Neutrophils Absolute 9.81(H) 1.50 - 7.00 K/mcL LAB HEMETOLOGY METHOD 12/19/2024 11:12 AM [facility] Lymphocytes Absolute 1.65 1.00 - 5.00 K/mcL LAB HEMETOLOGY METHOD 12/19/2024 11:12 AM [facility] Monocytes Absolute 1.11(H) 0.20 - 1.00 K/mcL LAB HEMETOLOGY METHOD 12/19/2024 11:12 AM [facility] Eosinophils Absolute 0.21 0.00 - 0.50 K/mcL LAB HEMETOLOGY METHOD 12/19/2024 11:12 AM [facility] Basophils Absolute 0.08 0.00 - 0.20 K/mcL LAB HEMETOLOGY METHOD 12/19/2024 11:12 AM [facility] Immature Granulocytes Absolute 0.20(H) 0.00 - 0.03 K/mcL LAB HEMETOLOGY METHOD 12/19/2024 11:12 AM [facility] Blood Venous blood specimen / Unknown Venipuncture / Unknown 12/19/2024 5:47 AM EST 12/19/2024 10:08 AM EST us Jeane Morris MD LAB BLOOD ORDERABLES Final Resu lt Performing Organization Address City/[facility]/ZIP Co de Phone Number [facility] [address] [place] [address], [place] [phone] * Magnesium (12/19/2024 5:47 AM EST) Magnesium 2.1 1.9 - 2.6 mg/dL LAB CHEMISTRY METHOD 12/19/2024 11:41 AM EST [facility] Blood Venous blood specimen / Unknown Venipuncture / Unknown 12/19/2024 5:47 AM EST 12/19/2024 10:08 AM EST us Jeane Morris MD LAB BLOOD ORDERABLES Final Resu lt Performing Organization Address [facility]/ZIP Co de Phone Number [facility] [address] [place] [address], [place] [phone] * (ABNORMAL) Comprehensive metabolic panel (12/19/2024 5:47 AM EST) Pathologist [facility] Sodium 136 133 - 145 mmol/L LAB CHEMISTRY METHOD 12/19/2024 11:41 AM [facility] Potassium 4.7 3.5 - 5.5 mmol/L LAB CHEMISTRY METHOD 12/19/2024 11:41 AM [facility] Chloride 104 96 - 110 mmol/L LAB CHEMISTRY METHOD 12/19/2024 11:41 AM [facility] CO2 20(L) 21 - 32 mmol/L LAB CHEMISTRY METHOD 12/19/2024 11:41 AM [facility] Anion Gap 12(H) 3 - 11 LAB CHEMISTRY METHOD 12/19/2024 11:41 AM [facility] Glucose 78 70 - 100 mg/dL LAB CHEMISTRY METHOD 12/19/2024 11:41 AM [facility] BUN 28(H) 5 - 25 mg/dL LAB CHEMISTRY METHOD 12/19/2024 11:41 AM [facility] Creatinine 1.03 0.70 - 1.30 mg/dL LAB CHEMISTRY METHOD 12/19/2024 11:41 AM [facility] eGFR 74 >=60 mL/min/1. 73m2 LAB CHEMISTRY METHOD 12/19/2024 11:41 AM [facility] Comment:Calculation based on the Chronic Kidney Disease Epidemiology Collaboration (CKD-EPI) equation refit without adjustment for race. BUN/Creatinine Ratio 27.2 LAB CHEMISTRY METHOD 12/19/2024 11:41 AM [facility] Calcium 8.8 8.5 - 10.5 mg/dL LAB CHEMISTRY METHOD 12/19/2024 11:41 AM [facility] AST (SGOT) 100(H) 10 - 42 unit/L LAB CHEMISTRY METHOD 12/19/2024 11:41 AM [facility] ALT (SGPT) 166(H) 10 - 60 unit/L LAB CHEMISTRY METHOD 12/19/2024 11:41 AM [facility] Alkaline Phosphatase 103 42 - 121 unit/L LAB CHEMISTRY METHOD 12/19/2024 11:41 AM [facility] Total Protein 5.8(L) 6.0 - 8.0 g/dL LAB CHEMISTRY METHOD 12/19/2024 11:41 AM [facility] Albumin 3.0(L) 3.2 - 5.0 g/dL LAB CHEMISTRY METHOD 12/19/2024 11:41 AM [facility] Total Bilirubin 1.2 0.0 - 1.4 mg/dL LAB CHEMISTRY METHOD 12/19/2024 11:41 AM [facility] Blood Venous blood specimen / Unknown Venipuncture / Unknown 12/19/2024 5:47 AM EST 12/19/2024 10:08 AM EST us Jeane Morris MD LAB BLOOD ORDERABLES Final Resu lt [facility] [address] [place] [address], documented in this encounter Visit Diagnoses Diagnosis Encounter for other general examination documented in this encounter Care Teams Dumping Machine Operator Relationship Specialty Start Date End Date Amrit Valladares NP [address] [place], [place] PCP - General Family Medicine 01/31/18 documented as of this encounter
--- OUTSIDE RECORDS SUMMARY | 2025-09-04 08:40 | XMS_ITS | Encounter Summary ---
Author Organization [facility] Address [address] [place] [address] Care Team Providers Care International Marketing Executive Name Role Phone ZarinaAmrit montana Ramón JOHNSON Primary Care Provider [phone] Encounter Details Date Type Department Care Team (Late st Contact Info) Description 12/24/2024 Lab Requisition [facility] - Main Lab 299 [facility] [place] [address] Jeane Morris MD [address] [place] [address] Encounter for other general examination Social History [...] K/mcL LAB HEMETOLOGY METHOD 12/24/2024 9:32 AM [facility] RBC 4.10(L) 4.50 - 5.50 M/mcL LAB HEMETOLOGY METHOD 12/24/2024 9:32 AM [facility] Hemoglobin 12.7(L) 13.5 - 17.5 g/dL LAB HEMETOLOGY METHOD 12/24/2024 9:32 AM [facility] Hematocrit 38.5(L) 42.0 - 54.0 % LAB HEMETOLOGY METHOD 12/24/2024 9:32 AM [facility] MCV 93.7 79.0 - 98.0 FL LAB HEMETOLOGY METHOD 12/24/2024 9:32 AM [facility] MCH 30.9 27.0 - 32.0 pcg LAB HEMETOLOGY METHOD 12/24/2024 9:32 AM [facility] MCHC 33.0 32.0 - 37.0 g/dL LAB HEMETOLOGY METHOD 12/24/2024 9:32 AM [facility] RDW 13.7 11.0 - 15.0 % LAB HEMETOLOGY METHOD 12/24/2024 9:32 AM [facility] Platelets 381 130 - 400 K/mcL LAB HEMETOLOGY METHOD 12/24/2024 9:32 AM [facility] MPV 10.4 7.0 - 11.0 FL LAB HEMETOLOGY METHOD 12/24/2024 9:32 AM [facility] NRBC 0.0 <1.0 % LAB HEMETOLOGY METHOD 12/24/2024 9:32 AM [facility] NRBC Absolute 0.00 <0.10 K/mcL LAB HEMETOLOGY METHOD 12/24/2024 9:32 AM [facility] Neutrophils Relative 73.7 % LAB HEMETOLOGY METHOD 12/24/2024 9:32 AM [facility] Lymphocytes Relative 14.4 % LAB HEMETOLOGY METHOD 12/24/2024 9:32 AM [facility] Monocytes Relative 9.0 % LAB HEMETOLOGY METHOD 12/24/2024 9:32 AM [facility] Eosinophils Relative 1.9 % LAB HEMETOLOGY METHOD 12/24/2024 9:32 AM [facility] Basophils Relative 0.5 % LAB HEMETOLOGY METHOD 12/24/2024 9:32 AM [facility] Immature Granulocytes Relative 0.5 % LAB HEMETOLOGY METHOD 12/24/2024 9:32 AM [facility] Neutrophils Absolute 8.17(H) 1.50 - 7.00 K/mcL LAB HEMETOLOGY METHOD 12/24/2024 9:32 AM [facility] Lymphocytes Absolute 1.59 1.00 - 5.00 K/mcL LAB HEMETOLOGY METHOD 12/24/2024 9:32 AM [facility] Monocytes Absolute 1.00 0.20 - 1.00 K/mcL LAB HEMETOLOGY METHOD 12/24/2024 9:32 AM [facility] Eosinophils Absolute 0.21 0.00 - 0.50 K/mcL LAB HEMETOLOGY METHOD 12/24/2024 9:32 AM [facility] Basophils Absolute 0.05 0.00 - 0.20 K/mcL LAB HEMETOLOGY METHOD 12/24/2024 9:32 AM [facility] Immature Granulocytes Absolute 0.06(H) 0.00 - 0.03 K/mcL LAB HEMETOLOGY METHOD 12/24/2024 9:32 AM [facility] Blood Venous blood specimen / Unknown Venipuncture / Unknown 12/24/2024 4:58 AM EDT 12/24/2024 9:09 AM EDT us Jeane Morris MD LAB BLOOD ORDERABLES Final Resu lt Performing Organization Address [facility]/ZIP Co de Phone Number [facility] [address] [place] [address], [place] [phone] * Magnesium (12/24/2024 4:58 AM EDT) [facility] Magnesium 2.1 1.9 - 2.6 mg/dL LAB CHEMISTRY METHOD 12/24/2024 9:57 AM EDT [facility] Blood Venous blood specimen / Unknown Venipuncture / Unknown 12/24/2024 4:58 AM EDT 12/24/2024 9:09 AM EDT us Jeane Morris MD LAB BLOOD ORDERABLES Final Resu lt Performing Organization Address City/[facility]/ZIP Co de Phone Number [facility] [address] [place] [address], [place] [phone] * (ABNORMAL) Comprehensive metabolic panel (12/24/2024 4:58 AM EDT) [facility] Sodium 135 133 - 145 mmol/L LAB CHEMISTRY METHOD 12/24/2024 9:58 AM EDT [facility] Potassium 4.3 3.5 - 5.5 mmol/L LAB CHEMISTRY METHOD 12/24/2024 9:58 AM EDT [facility] Chloride 104 96 - 110 mmol/L LAB CHEMISTRY METHOD 12/24/2024 9:58 AM EDT [facility] CO2 23 21 - 32 mmol/L LAB CHEMISTRY METHOD 12/24/2024 9:58 AM EDT [facility] Anion Gap 8 3 - 11 LAB CHEMISTRY METHOD 12/24/2024 9:58 AM EDT [facility] Glucose 84 70 - 100 mg/dL LAB CHEMISTRY METHOD 12/24/2024 9:58 AM [facility] BUN 35(H) 5 - 25 mg/dL LAB CHEMISTRY METHOD 12/24/2024 9:58 AM [facility] Creatinine 1.14 0.70 - 1.30 mg/dL LAB CHEMISTRY METHOD 12/24/2024 9:58 AM [facility] eGFR 66 >=60 mL/min/1. 73m2 LAB CHEMISTRY METHOD 12/24/2024 9:58 AM [facility] Comment:Calculation based on the Chronic Kidney Disease Epidemiology Collaboration (CKD-EPI) equation refit without adjustment for race. BUN/Creatinine Ratio 30.7 LAB CHEMISTRY METHOD 12/24/2024 9:58 AM [facility] Calcium 8.9 8.5 - 10.5 mg/dL LAB CHEMISTRY METHOD 12/24/2024 9:58 AM [facility] AST (SGOT) 72(H) 10 - 42 unit/L LAB CHEMISTRY METHOD 12/24/2024 9:58 AM [facility] ALT (SGPT) 135(H) 10 - 60 unit/L LAB CHEMISTRY METHOD 12/24/2024 9:58 AM [facility] Alkaline Phosphatase 97 42 - 121 unit/L LAB CHEMISTRY METHOD 12/24/2024 9:58 AM [facility] Total Protein 6.0 6.0 - 8.0 g/dL LAB CHEMISTRY METHOD 12/24/2024 9:58 AM [facility] Albumin 3.2 3.2 - 5.0 g/dL LAB CHEMISTRY METHOD 12/24/2024 9:58 AM [facility] Total Bilirubin 1.2 0.0 - 1.4 mg/dL LAB CHEMISTRY METHOD 12/24/2024 9:58 AM [facility] Blood Venous blood specimen / Unknown Venipuncture / Unknown 12/24/2024 4:58 AM EDT 12/24/2024 9:09 AM EDT us Jeane Morris MD LAB BLOOD ORDERABLES Final Resu lt [facility] ([facility] [address] [place] [address], documented in this encounter Visit Diagnoses Diagnosis Encounter for other general examination documented in this encounter Care Teams International Marketing Executive Relationship Specialty Start Date End Date Amrit Valladares NP [address] [place], [place] PCP - General Family Medicine 01/31/18 documented as of this encounter
--- OUTSIDE RECORDS SUMMARY | 2025-09-04 08:40 | XMS_ITS | Clinical Summary ---
Author Organization [facility] Address [address] [place] [address] Care Team Providers Care Construction Management Instructor Name Role Phone Amrit Valladares Primary Care Provider [phone] Allergies No known active allergies Medications Medication [...] age to complete this topic Care Teams Construction Management Instructor Relationship Specialty Start Date End Date Amrit Valladares [address] [facility] [place] [address] PCP - General Family Medicine 01/31/18
--- OUTSIDE RECORDS SUMMARY | 2025-09-04 08:40 | XMS_ITS | Encounter Summary ---
Author Organization [facility] Address [address] [place] [address] Care Team Providers Care Waxing Machine Operator Helper Name Role Phone ZarinaAmrit [place] Ramón JOHNSON Primary Care Provider Encounter Details Date Type Department Care Team (Late st Contact Info) Description 12/22/[address] [facility] - Main Lab 299 [facility] [place] [address] Jeane Morris MD [address] [place] [address] Encounter for other general examination Social History [...] and culture (12/21/2024 8:14 PM EDT) Specific [place] Urine 1.024 1.003 - 1.030 LAB URINALYSIS - AUTOMATED METHOD 12/22/2024 11:26 AM [facility] pH, Urine 6.0 5.0 - 8.0 pH LAB URINALYSIS - AUTOMATED METHOD 12/22/2024 11:26 AM [facility] Leukocytes, Urine Negative Negative LAB URINALYSIS - AUTOMATED METHOD 12/22/2024 11:26 AM [facility] Nitrite, Urine Negative Negative LAB URINALYSIS - AUTOMATED METHOD 12/22/2024 11:26 AM [facility] Protein, Urine Trace <=Trace mg/dL LAB URINALYSIS - AUTOMATED METHOD 12/22/2024 11:26 AM [facility] Glucose, Urine Negative Negative mg/dL LAB URINALYSIS - AUTOMATED METHOD 12/22/2024 11:26 AM [facility] Ketones, Urine Negative Negative mg/dL LAB URINALYSIS - AUTOMATED METHOD 12/22/2024 11:26 AM [facility] Urobilinogen, Urine >=8.0(A) 0.2 - 1.0 mg/dL LAB URINALYSIS - AUTOMATED METHOD 12/22/2024 11:26 AM [facility] Bilirubin, Urine Small(A) Negative LAB URINALYSIS - AUTOMATED METHOD 12/22/2024 11:26 AM [facility] Blood, Urine Negative Negative LAB URINALYSIS - AUTOMATED METHOD 12/22/2024 11:26 AM [facility] Urine Urine specimen obtained by clean catch procedure / Unknown Non-blood Collection / Unknown 12/21/2024 8:14 PM EDT 12/22/2024 10:44 AM EDT us Jeane Morris MD LAB URINE ORDERABLES Final Resu lt [facility] [address] [place] [address], * Joseph urine culture tube (12/21/2024 8:14 PM EDT) Extra Tube Hold for add-ons. 12/22/2024 12:02 PM EDT [facility] Comment:Auto resulted. 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
--- OUTSIDE RECORDS SUMMARY | 2025-09-04 08:40 | XMS_ITS | Encounter Summary ---
Author Organization [facility] Address [address] [place] [address] Care Team Providers Care Porcelain Finisher Name Role Phone ZarinaAmrit [place]ana Ramón JOHNSON Primary Care Provider Encounter Details Date Type Department Care Team (Late st Contact Info) Description 12/20/2024 Lab Requisition [facility] - Main Lab 299 [facility] [address] [place] [phone] Jeane Morris MD [address] [place] [phone] Encounter for other general examination Social History [...] LAB CHEMISTRY METHOD 12/20/2024 12:12 PM EDT [facility] Hepatitis A Antibody IgM Negative Negative LAB CHEMISTRY METHOD 12/20/2024 12:12 PM EDT [facility] Hep B Core IgM Negative Negative LAB CHEMISTRY METHOD 12/20/2024 12:12 PM EDT [facility] Hepatitis C Antibody Negative Negative LAB CHEMISTRY METHOD 12/20/2024 12:12 PM [facility] Blood Venous blood specimen / Unknown Venipuncture / Unknown 12/20/2024 5:57 AM EDT 12/20/2024 9:56 AM EDT us Jeane Morris MD LAB BLOOD ORDERABLES Final Resu lt [facility] [address] [place] [address], * (ABNORMAL) Comprehensive metabolic panel (12/20/2024 5:57 AM EDT) Sodium 133 133 - 145 mmol/L LAB CHEMISTRY METHOD 12/20/2024 11:21 AM [facility] Potassium 5.0 3.5 - 5.5 mmol/L LAB CHEMISTRY METHOD 12/20/2024 11:21 AM [facility] Chloride 102 96 - 110 mmol/L LAB CHEMISTRY METHOD 12/20/2024 11:21 AM [facility] CO2 21 21 - 32 mmol/L LAB CHEMISTRY METHOD 12/20/2024 11:21 AM [facility] Anion Gap 10 3 - 11 LAB CHEMISTRY METHOD 12/20/2024 11:21 AM [facility] Glucose 92 70 - 100 mg/dL LAB CHEMISTRY METHOD 12/20/2024 11:21 AM [facility] BUN 27(H) 5 - 25 mg/dL LAB CHEMISTRY METHOD 12/20/2024 11:21 AM [facility] Creatinine 1.11 0.70 - 1.30 mg/dL LAB CHEMISTRY METHOD 12/20/2024 11:21 AM [facility] eGFR 68 >=60 mL/min/1. 73m2 LAB CHEMISTRY METHOD 12/20/2024 11:21 AM [facility] Comment:Calculation based on the Chronic Kidney Disease Epidemiology Collaboration (CKD-EPI) equation refit without adjustment for race. BUN/Creatinine Ratio 24.3 LAB CHEMISTRY METHOD 12/20/2024 11:21 AM [facility] Calcium 9.1 8.5 - 10.5 mg/dL LAB CHEMISTRY METHOD 12/20/2024 11:21 AM [facility] AST (SGOT) 92(H) 10 - 42 unit/L LAB CHEMISTRY METHOD 12/20/2024 11:21 AM [facility] ALT (SGPT) 169(H) 10 - 60 unit/L LAB CHEMISTRY METHOD 12/20/2024 11:21 AM [facility] Alkaline Phosphatase 111 42 - 121 unit/L LAB CHEMISTRY METHOD 12/20/2024 11:21 AM [facility] Total Protein 6.3 6.0 - 8.0 g/dL LAB CHEMISTRY METHOD 12/20/2024 11:21 AM [facility] Albumin 3.4 3.2 - 5.0 g/dL LAB CHEMISTRY METHOD 12/20/2024 11:21 AM [facility] Total Bilirubin 1.3 0.0 - 1.4 mg/dL LAB CHEMISTRY METHOD 12/20/2024 11:21 AM [facility] Blood Venous blood specimen / Unknown Venipuncture / Unknown 12/20/2024 5:57 AM EDT 12/20/2024 9:56 AM EDT us Jeane Morris MD LAB BLOOD ORDERABLES Final Resu lt [facility] [address] [place] [address], documented in this encounter Visit Diagnoses Diagnosis Encounter for other general examination documented in this encounter Care Teams Porcelain Finisher Relationship Specialty Start Date End Date Amrit Valladares NP [address] [facility] SHAI [place] PCP - General Family Medicine 01/31/18 documented as of this encounter
--- OUTSIDE RECORDS SUMMARY | 2025-09-04 08:40 | XMS_ITS | Encounter Summary ---
Author Organization [facility] Address [address] [place] [address] Care Team Providers Care Logistics Operations Director Name Role Phone ZarinaAmrit montana Ramón JOHNSON Primary Care Provider Encounter Details Date Type Department Care Team (Late st Contact Info) Description 12/22/2024 Lab Requisition [facility] - Main Lab 299 [facility] [phone] Jeane Morris MD [address] [place] [address] Encounter for other general examination Social History [...] AM EDT) WBC 11.4(H) 4.8 - 10.8 K/[facility] LAB HEMETOLOGY METHOD 12/22/2024 11:17 AM EDT [facility] RBC 4.30(L) 4.50 - 5.50 M/[facility] LAB HEMETOLOGY METHOD 12/22/2024 11:17 AM [facility] Hemoglobin 13.4(L) 13.5 - 17.5 g/dL LAB HEMETOLOGY METHOD 12/22/2024 11:17 AM [facility] Hematocrit 40.3(L) 42.0 - 54.0 % LAB HEMETOLOGY METHOD 12/22/2024 11:17 AM [facility] MCV 93.5 79.0 - 98.0 FL LAB HEMETOLOGY METHOD 12/22/2024 11:17 AM [facility] MCH 31.1 27.0 - 32.0 pcg LAB HEMETOLOGY METHOD 12/22/2024 11:17 AM [facility] MCHC 33.3 32.0 - 37.0 g/dL LAB HEMETOLOGY METHOD 12/22/2024 11:17 AM [facility] RDW 13.7 11.0 - 15.0 % LAB HEMETOLOGY METHOD 12/22/2024 11:17 AM [facility] Platelets 443(H) 130 - 400 K/mcL LAB HEMETOLOGY METHOD 12/22/2024 11:17 AM [facility] MPV 10.1 7.0 - 11.0 FL LAB HEMETOLOGY METHOD 12/22/2024 11:17 AM [facility] NRBC 0.0 <1.0 % LAB HEMETOLOGY METHOD 12/22/2024 11:17 AM [facility] NRBC Absolute 0.00 <0.10 K/mcL LAB HEMETOLOGY METHOD 12/22/2024 11:17 AM [facility] Neutrophils Relative 70.6 % LAB HEMETOLOGY METHOD 12/22/2024 11:17 AM [facility] Lymphocytes Relative 16.9 % LAB HEMETOLOGY METHOD 12/22/2024 11:17 AM [facility] Monocytes Relative 9.2 % LAB HEMETOLOGY METHOD 12/22/2024 11:17 AM [facility] Eosinophils Relative 2.3 % LAB HEMETOLOGY METHOD 12/22/2024 11:17 AM [facility] Basophils Relative 0.4 % LAB HEMETOLOGY METHOD 12/22/2024 11:17 AM [facility] Immature Granulocytes Relative 0.6 % LAB HEMETOLOGY METHOD 12/22/2024 11:17 AM [facility] Neutrophils Absolute 8.03(H) 1.50 - 7.00 K/mcL LAB HEMETOLOGY METHOD 12/22/2024 11:17 AM [facility] Lymphocytes Absolute 1.92 1.00 - 5.00 K/mcL LAB HEMETOLOGY METHOD 12/22/2024 11:17 AM [facility] Monocytes Absolute 1.04(H) 0.20 - 1.00 K/mcL LAB HEMETOLOGY METHOD 12/22/2024 11:17 AM [facility] Eosinophils Absolute 0.26 0.00 - 0.50 K/mcL LAB HEMETOLOGY METHOD 12/22/2024 11:17 AM [facility] Basophils Absolute 0.04 0.00 - 0.20 K/mcL LAB HEMETOLOGY METHOD 12/22/2024 11:17 AM [facility] Immature Granulocytes Absolute 0.07(H) 0.00 - 0.03 K/mcL LAB HEMETOLOGY METHOD 12/22/2024 11:17 AM [facility] Blood Venous blood specimen / Unknown Venipuncture / Unknown 12/22/2024 7:06 AM EDT 12/22/2024 10:37 AM EDT us Jeane Morris MD LAB BLOOD ORDERABLES Final Resu lt [facility] LAB [address] [place] [address], documented in this encounter Visit Diagnoses Diagnosis Encounter for other general examination documented in this encounter Care Teams Logistics Operations Director Relationship Specialty Start Date End Date Amrit Valladares NP [address] [place], [place] PCP - General Family Medicine 01/31/18 documented as of this encounter
--- OUTSIDE RECORDS SUMMARY | 2025-09-04 08:40 | XMS_ITS | Encounter Summary ---
Author Organization [facility] Address [address] [place] [address] Care Team Providers Care Overage Shortage And Damage Clerk Name Role Phone ZarinaAmrit mont[place] Ramón JOHNSON Primary Care Provider Encounter Details Date Type Department Care Team (Late st Contact Info) Description 12/29/2024 Lab Requisition [facility] - Main Lab [address] [facility] [place] [address] Jeane Morris MD [address] [place] [id number] Encounter for other general examination Social History [...] K/mcL LAB HEMETOLOGY METHOD 12/29/2024 10:[address] [facility] RBC 4.30(L) 4.50 - 5.50 M/mcL LAB HEMETOLOGY METHOD 12/29/2024 10:[address] [facility] Hemoglobin 13.3(L) 13.5 - 17.5 g/dL LAB HEMETOLOGY METHOD 12/29/2024 10:[address] [facility] Hematocrit 39.5(L) 42.0 - 54.0 % LAB HEMETOLOGY METHOD 12/29/2024 10:[address] [facility] MCV 91.4 79.0 - 98.0 FL LAB HEMETOLOGY METHOD 12/29/2024 10:[address] [facility] MCH 30.8 27.0 - 32.0 pcg LAB HEMETOLOGY METHOD 12/29/2024 10:[address] [facility] MCHC 33.7 32.0 - 37.0 g/dL LAB HEMETOLOGY METHOD 12/29/2024 10:[address] [facility] RDW 13.7 11.0 - 15.0 % LAB HEMETOLOGY METHOD 12/29/2024 10:[address] [facility] Platelets 367 130 - 400 K/mcL LAB HEMETOLOGY METHOD 12/29/2024 10:[address] [facility] MPV 10.7 7.0 - 11.0 FL LAB HEMETOLOGY METHOD 12/29/2024 10:[address] [facility] NRBC 0.0 <1.0 % LAB HEMETOLOGY METHOD 12/29/2024 10:[address] [facility] NRBC Absolute 0.00 <0.10 K/mcL LAB HEMETOLOGY METHOD 12/29/2024 10:[address] [facility] Neutrophils Relative 62.1 % LAB HEMETOLOGY METHOD 12/29/2024 10:[address] [facility] Lymphocytes Relative 24.9 % LAB HEMETOLOGY METHOD 12/29/2024 10:[address] [facility] Monocytes Relative 10.1 % LAB HEMETOLOGY METHOD 12/29/2024 10:[address] [facility] Eosinophils Relative 1.7 % LAB HEMETOLOGY METHOD 12/29/2024 10:[address] [facility] Basophils Relative 0.8 % LAB HEMETOLOGY METHOD 12/29/2024 10:[address] [facility] Immature Granulocytes Relative 0.4 % LAB HEMETOLOGY METHOD 12/29/2024 10:[address] [facility] Neutrophils Absolute 6.27 1.50 - 7.00 K/mcL LAB HEMETOLOGY METHOD 12/29/2024 10:[address] [facility] Lymphocytes Absolute 2.51 1.00 - 5.00 K/mcL LAB HEMETOLOGY METHOD 12/29/2024 10:[address] [facility] Monocytes Absolute 1.02(H) 0.20 - 1.00 K/mcL LAB HEMETOLOGY METHOD 12/29/2024 10:[address] [facility] Eosinophils Absolute 0.17 0.00 - 0.50 K/mcL LAB HEMETOLOGY METHOD 12/29/2024 10:[address] [facility] Basophils Absolute 0.08 0.00 - 0.20 K/mcL LAB HEMETOLOGY METHOD 12/29/2024 10:[address] [facility] Immature Granulocytes Absolute 0.04(H) 0.00 - 0.03 K/mcL LAB HEMETOLOGY METHOD 12/29/2024 10:[address] [facility] Blood Venous blood specimen / Unknown Venipuncture / Unknown 12/29/2024 4:50 AM EDT 12/29/2024 9:04 AM EDT us Jeane Morris MD LAB BLOOD ORDERABLES Final Resu lt Performing Organization Address [facility]/ZIP Co de Phone Number [facility] [address] [place] [address], [place] [phone] * Magnesium (12/29/2024 4:50 AM EDT) [facility] Magnesium 2.2 1.9 - 2.6 mg/dL LAB CHEMISTRY METHOD 12/29/2024 11:31 AM EDT [facility] Blood Venous blood specimen / Unknown Venipuncture / Unknown 12/29/2024 4:50 AM EDT 12/29/2024 9:04 AM EDT us Jeane Morris MD LAB BLOOD ORDERABLES Final Resu lt Performing Organization Address City/[facility]/ZIP Co de Phone Number [facility] [address] [place] [address], [place] [phone] * (ABNORMAL) Comprehensive metabolic panel (12/29/2024 4:50 AM EDT) [facility] Sodium 134 133 - 145 mmol/L LAB CHEMISTRY METHOD 12/29/2024 11:33 AM EDT [facility] Potassium 4.6 3.5 - 5.5 mmol/L LAB CHEMISTRY METHOD 12/29/2024 11:33 AM EDT [facility] Chloride 102 96 - 110 mmol/L LAB CHEMISTRY METHOD 12/29/2024 11:33 AM EDT [facility] CO2 23 21 - 32 mmol/L LAB CHEMISTRY METHOD 12/29/2024 11:33 AM EDT [facility] Anion Gap 9 3 - 11 LAB CHEMISTRY METHOD 12/29/2024 11:33 AM EDT [facility] Glucose 78 70 - 100 mg/dL LAB CHEMISTRY METHOD 12/29/2024 11:[address] [facility] BUN 26(H) 5 - 25 mg/dL LAB CHEMISTRY METHOD 12/29/2024 11:[address] [facility] Creatinine 1.18 0.70 - 1.30 mg/dL LAB CHEMISTRY METHOD 12/29/2024 11:[address] [facility] eGFR 63 >=60 mL/min/1. 73m2 LAB CHEMISTRY METHOD 12/29/2024 11:[address] [facility] Comment:Calculation based on the Chronic Kidney Disease Epidemiology Collaboration (CKD-EPI) equation refit without adjustment for race. BUN/Creatinine Ratio 22.0 LAB CHEMISTRY METHOD 12/29/2024 11:[address] [facility] Calcium 9.2 8.5 - 10.5 mg/dL LAB CHEMISTRY METHOD 12/29/2024 11:[address] [facility] AST (SGOT) 54(H) 10 - 42 unit/L LAB CHEMISTRY METHOD 12/29/2024 11:[address] [facility] ALT (SGPT) 117(H) 10 - 60 unit/L LAB CHEMISTRY METHOD 12/29/2024 11:[address] [facility] Alkaline Phosphatase 94 42 - 121 unit/L LAB CHEMISTRY METHOD 12/29/2024 11:[address] [facility] Total Protein 6.1 6.0 - 8.0 g/dL LAB CHEMISTRY METHOD 12/29/2024 11:[address] [facility] Albumin 3.6 3.2 - 5.0 g/dL LAB CHEMISTRY METHOD 12/29/2024 11:[address] [facility] Total Bilirubin 1.2 0.0 - 1.4 mg/dL LAB CHEMISTRY METHOD 12/29/2024 11:[address] [facility] Blood Venous blood specimen / Unknown Venipuncture / Unknown 12/29/2024 4:50 AM EDT 12/29/2024 9:04 AM EDT us Jeane Morris MD LAB BLOOD ORDERABLES Final Resu lt [facility] [address] [place] [address], documented in this encounter Visit Diagnoses Diagnosis Encounter for other general examination documented in this encounter Care Teams Overage Shortage And Damage Clerk Relationship Specialty Start Date End Date Amrit Valladares NP [address] [place], [place] PCP - General Family Medicine 01/31/18 documented as of this encounter
--- OUTSIDE RECORDS SUMMARY | 2025-09-04 08:40 | XMS_ITS | Clinical Summary ---
Author Organization [address] [facility] Address [address] [place] [address] Phone Care Team Providers Care Manager Creative Services Name Role Phone Amrit Valladares NP Primary Care Provider Encounters Date Type Department Care Team Description 07/22/2025 Telephone [facility] Cardiology [facility] [address] [facility] [address] [place] [address] Amrit Valladares NP 07/01/2025 Telephone [facility] - [facility] [address] [facility] [address] [place] [address] Amrit Valladares NP from Last [...] 11:33 AM EDT [facility] Blood Venous blood specimen / Unknown Venipuncture / Unknown 12/29/2024 4:50 AM EDT 12/29/2024 9:04 AM EDT Jeane Morris MD LAB BLOOD ORDERABLES Final Resu lt [facility] [address] [place] [address], [place] [phone] * Hepatitis panel, acute with reflex to [...] 12:12 PM EDT [facility] Blood Venous blood specimen / Unknown Venipuncture / Unknown 12/20/2024 5:57 AM EDT 12/20/2024 9:56 AM EDT Jeane Morris MD LAB BLOOD ORDERABLES Final Resu lt [facility] [address] [place] [address], [place] [phone] from Last 3 Months or Most Recently Relevant to Health Maintenance Insurance [employer] Care Teams Manager Creative Services Relationship Specialty Start Date End Date Amrit Valladares NP [address] [facility] SHAI Day PCP - General Family Medicine 01/31/18
[2025-09-04 11:05] LABS: MANUAL DIFF FLAG NO
[2025-09-04 11:11] LABS: Appearance Urine Clear; Glucose Urine UA Negative (Negative); PH 5.5 (5.0-9.0); Specific Gravity - Urine 1.015 (1.005-1.025)
[2025-09-04 11:13] LABS: Hematocrit 38.2 % (42.0-52.0); Hemoglobin 12.8 g/dl (14.0-18.0); Imm Gran Abs Auto 0.01 X10*3/uL (0.00-0.03); Imm Gran Pct Auto 0.1 % (0.0-0.4); Lymphocytes Absolute Auto 2.0 X10*3/uL (1.2-4.9); Mean Corpuscular HGB Conc 33.5 g/dl (31.0-36.0); Mean Corpuscular Hemoglobin 31.5 pg (27.0-33.0); Mean Corpuscular Volume 94.1 fL (80.0-98.0); NRBC Abs Auto 0.000 X10*3/uL (0.0-0.012); NRBC Pct Auto 0.0 /100WBC (0.0-0.2); Platelet Count 264 X10*3/uL (160-400); Red Blood Count 4.06 X10*6/uL (4.60-5.80); White Blood Count 7.0 X10*3/uL (4.8-10.8)
[2025-09-04 11:28] LABS: Alanine Aminotransferase 33 U/L (0-40); Albumin Level 4.1 g/dL (3.5-5.0); Alkaline Phosphatase 87 U/L (39-117); Anion Gap 13 (12-20); Aspartate Amino Transferase 37 U/L (5-37); Blood Urea Nitrogen 31 mg/dL (9-16); Calcium 9.1 mg/dL (8.4-10.2); Carbon Dioxide 21 mmol/L (22-29); Chloride 107 mmol/L (96-108); Cholesterol 124 mg/dL (<200); Estimated Glomerular Filt Rate > 60; HDL Cholesterol 42 mg/dL (>40); Magnesium 1.9 mg/dL (1.6-2.6); Potassium 3.9 mmol/L (3.3-5.1); Sodium 137 mmol/L (135-145); Total Protein 6.4 g/dL (6.5-8.0); Triglycerides 74 mg/dL (<150)
== END 2025-09-04 08:36 | disposition home or self-care (01) ==
LOC: HO.HMGCLDS 08:35
PROVIDERS: Absent Provider Internal Medicine Endocrinology, Diabetes & Metabolism; PCP Nurse Practitioner Family; Visit Provider Nurse Practitioner Family
DX: I10 Essential (primary) hypertension (principal); I42.9 Cardiomyopathy, unspecified
CPT/HCPCS: 36415; 80053; 80061; 81003; 83735; 84443; 85025

== ENCOUNTER 2025-09-20 08:42 | Outpatient (AMB) | payer MEDICARE, SELFPAY ==
[2025-09-20 09:10] VITALS: BP 102/68; PULSE 76; RESP 16; O2SAT 100; BMI 22.3
--- NOTE | 2025-09-20 09:10 | A.OFFPC_ITS ---
Vital Signs 09/20/25 09:10 Height 5 ft 8 in Weight 147 lb BMI 22.3 BP 102/68 Blood Pressure Location Rt brachial Position Sitting Respiration 16 Pulse 76 Pulse Source Pulse Oximeter Pulse Oximetry (%) 100 Intake Visit Reasons: Annual PE Vice Chancellor Required: No Accompanied by: Self / Same As Patient Allergies No Known Allergies Allergy (Verified 09/20/25 09:16) Tobacco use date assessed: 09/20/25 Fall risk assessment: No Falls in past year Dental Screening Dental Screen Date: 09/20/25 Did you have a dental visit in the last 12 months?: No Did you have a dental problem in the last 6 months where you did not have access to dental care?: No Was dental information given to patient?: Patient declined HPI Annual PE HPI Details History of Present Illness The patient is a 80 year old male presenting for a physical exam. 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 He underwent extensive physical therapy, which has helped tremendously, slight slurred speech still present His medical history is also significant for a coronary artery bypass graft and cardiomyopathy. He is supposed to be seeing a splunk architect, but there are no recent notes, and he has missed some past appointments. He is currently on a beta yoko and Eliquis. The patient also has an ongoing adrenal adenoma, for which he is being followed by endocrinology. He has experienced weight loss and a decreased appetite since his CVA, which he attributes to changes in his taste buds, although he is still eating. He refuses to have a colonoscopy. Health Maintenance - The patient refuses a colonoscopy desp ite being of an age where it is recommended. sees a urologist Social History - The patient's son was present in the o during the visit. - He is somewhat sedentary. - He has experienced a loss of appetite, which he relates to changes in his taste buds. Review of Systems - General: Reports doing quite well over all but has had some weight loss and reports a decreased appetite. - Denies fevers or chills. - HEENT: Denies blurred vision. - Cardiovascular: Denies chest pains. - Denies dizziness. - Respiratory: Denies shortness of breat h. - Gastrointestinal: Denies nausea, vomit ing, or diarrhea. - Psychiatric: Denies any suicidal or ho micidal ideation. Physical Exam General: Cooperative, healthy appearing, comfortable, no acute distress and well developed, skinny stature, slight slurred speech still present (able to understand pt) Orientation: Patient oriented x3 Limitations: Slight reduction in the hand grasp left and slight reduction of extension of left lower extremity against resistance Head: Normal to inspection Ears: Hearing grossly normal bilaterally Nose: Normal external nose present Face and sinus: Normal facial exam Eyes: Appearance normal, both eyes and all related structures Neck: Normal visual inspection and Yes full ROM, no carotid bruits noted Respiratory: Normal respiratory effort and able to speak in complete sentences. Clear to auscultation bilaterally, lungs fairly clear bilaterally Cardiovascular: Irregularly irregular heart. Normal S1 and S2 GI: Normal to inspection. Soft to palpation and nontender : Testicles without masses/lesions and no hernias appreciated Skin: No rashes or lesions noted Neuro: Patient oriented x3 Extremities: Normal to inspection, no edema Results Plan 1. Cardiomyopathy The patient has missed previous cardiology appointments and tests. He is now willing to see the [facility]ology team. An echocardiogram and a Holter monitor will be reordered. A referral will be placed for him to be seen by the cardiology team. 2. Adrenal Adenoma The patient is being followed by endocrinology for an ongoing adrenal adenoma. 3. cva with hemiplegia 4. afib Discussion Notes I have referred the patient to cardiology in the past, but he missed some appointments and previously ordered tests were not completed. I will reorder an echocardiogram and a Holter monitor, and I will get him in with our cardiology team, as he is now willing to go. I reinforced the importance of following up with cardiology on a regular basis, and his son, who was in the room, understands this as well. Patient Instructions - It is very important for you to follow up with the cardiology team on a regular basis. - We will set you up with an appointment with the [facility]ology team. - We are ordering a Holter monitor test and an echocardiogram for you. 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 1. Little interest or pleasure in doing things: not at all 2. Feeling down, depressed, or hopeless: not at all 3. Trouble falling or staying asleep, or sleeping too much: not at all 4. Feeling tired or having little energy: not at all 5. Poor appetite or overeating: not at all 6. Feeling bad about yourself - or that you are a failure or have let yourself or your family down: not at all 7. Trouble concentrating on things, such as reading the newspaper or watching television: not at all 8. Moving or speaking so slowly that other people could have noticed. Or the opposite - being so fidgety or restless that you have been moving around a lot more than usual: not at all 9. Thoughts that you would be better off or of hurting yourself in some way: not at all Total score: 0 Depression Screening Interpretation: Negative Depression Screening Done: Yes [address]3510 - PHQ-9 Billing: Yes Source: Developed by Drs. Mars Cheng, Tory Vazquez, Morgan Sarmiento and colleagues, with an educational christelle from [employer]. Thrive Questionnaire Date Thrive assessed: 02/02/25 I am a: Patient What is your living situation today?: I choose not to answer this question Within the past 12 months, did the food you bought not last and you didn't have the money to get more?: I choose not to answer this question Within the past 12 months, did you worry whether your food would run out before you got money to buy more?: I choose not to answer this question Do you have trouble paying for medicines?: I choose not to answer this question Do you have trouble getting transportation to medical appointments?: I choose not to answer this question Do you have trouble paying your heating and electricity bill?: I choose not to answer this question Do you have trouble taking care of your child, family member or friend?: I choose not to answer this question Do you have trouble with day-to-day activities such as bathing, preparing meals, shopping, managing finances, etc.?: I choose not to answer this question Are you currently unemployed and looking for a job?: I choose not to answer this question Are you interested in more education?: I choose not to answer this question Please select the resources that you would like help with: None Currently or been in a relationship where the following occur: I choose not to answer THRIVE Score: 0 LUIS-7 AMB Questionnaire LUIS-7 Date LUIS - 7 assessed: 09/20/25 Feeling nervous, anxious, or on edge: 0 = Not at all Not being able to stop or control worryin = Not at all Worrying too much about different things: 0 = Not at all Trouble relaxin = Not at all Being so restless that it is hard to sit still: 0 = Not at all Becoming easily annoyed or irritable: 0 = Not at all Feeling afraid as if something awful might happen: 0 = Not at all Total LUIS-7 score (0-4 normal; 5-9 mild; 10-14 moderate; 15-21 severe): 0 Source: Developed by Drs. Mars Cheng, Tory Vazquez, Morgan Sarmiento and colleagues, with an educational christelle from [employer]. LUIS-7 Assessment Billing LUIS-7 Assessment Tool: LUIS-7 Assessment 51088 Physical exam (Primary Care) Vital Signs: Last Vital Signs Pulse 76 09/20/25 09:10 Resp 16 09/20/25 09:10 BP 102/68 09/20/25 09:10 Pulse Ox 100 09/20/25 09:10 BMI result Body Mass Index 22.3 Tobacco/Smoking Status: Tobacco use Status Tobacco use date assessed 09/20/25 09/20/25 09:16 Patient Tobacco Use Status Former Tobacco user (09/20/25 09:16 2023) Tobacco use type Cigar 09/20/25 09:16 e-Cigarette/Vaping Use Never Used 09/20/25 09:16 PHQ-9: PHQ-9 Score PHQ-9: Total score 0 09/20/25 09:16 Depression Screening Interpretation: Negative Thrive Assessment: Date of Thrive Assessment Date Thrive assessed 02/02/25 09/20/25 09:16 Currently or been in a relationship where the following occur: I choose not to answer Coding Level of Care Code Est Pt Level 3 (23031) Est Pt Prev Care >65y(82862) Diagnoses Cardiomyopathy I42.9 Hx of CABG Z95.1 Afib I48.91 Acute right MCA stroke I63.511 Additional Codes LUIS-7 Assessment Billing - LUIS-7 Assessment Tool: LUIS-7 Assessment 96371 ([id number]) PHQ-9 - 19796 - PHQ-9 Billing: Yes ([id number]) Assessment & Plan Assessment & Plan (1) Cardiomyopathy: Code(s): I42.9 - Cardiomyopathy, unspecified Category: Medical (2) Hx of CABG: Code(s): Z95.1 - Presence of aortocoronary bypass graft Category: Surgical (3) Afib: Code(s): I48.91 - Unspecified atrial fibrillation Category: Medical (4) Acute right MCA stroke: Code(s): I63.511 - Cerebral infarction due to unspecified occlusion or stenosis of right middle cerebral artery Category: Medical Plan . Orders: Orders CA echo transthoracic complete Today I42.9 - Cardiomyopathy, unspecified ECG 7 day holter monitor Today I48.91 - Unspecified atrial fibrillation Referrals Cardiology Referral I42.9 - Cardiomyopathy, unspecified, I48.91 - Unspecified atrial fibrillation, Z95.1 - Presence of aortocoronary bypass graft
== END 2025-09-20 10:21 | disposition home or self-care (01) ==
LOC: HO.HMCC 08:42
PROVIDERS: PCP Nurse Practitioner Family; Visit Provider Nurse Practitioner Family
DX: Z00.00 Encounter for general adult medical examination without abnormal findings (principal); I48.91 Unspecified atrial fibrillation; I42.9 Cardiomyopathy, unspecified; I63.511 Cerebral infarction due to unspecified occlusion or stenosis of right middle cerebral artery; Z95.1 Presence of aortocoronary bypass graft

== ENCOUNTER → 2025-09-20 08:42 | Outpatient (BNVA) | payer MEDICARE, SELFPAY | PROVIDERS: PCP Nurse Practitioner Family; Visit Provider Nurse Practitioner Family | DX: I63.511 Cerebral infarction due to unspecified occlusion or stenosis of right middle cerebral artery (principal); I42.9 Cardiomyopathy, unspecified; I48.91 Unspecified atrial fibrillation; Z95.1 Presence of aortocoronary bypass graft | CPT/HCPCS: 96127; 99212; 99397 ==